=== PATIENT | female | born 1960 | race Caucasian/White ===

== ENCOUNTER 2016-06-23 08:38 | Day surgery (SDC) | payer OTHER ==
[2016-06-18 11:26] VITALS: BMI 23.3
[~2016-06-23 08:38] MED LIST: LACTATED RINGERS 1,000 ML IV SCH
[2016-06-23 09:20] VITALS: RESP 18; TEMP 97.7
[2016-06-23] MEDS ORDERED: LIDOCAINE 1% 20 ML VIAL (10MG/ML) FOR IV START INTRADERMA ONE (09:21)
[2016-06-23] MEDS ORDERED: MIDAZOLAM 2 MG/2 ML VIAL ONE (10:10)
[2016-06-23] MEDS ORDERED: BUPIVACAINE (PF) 0.5% 30 ML VIAL ONE (10:10)
[2016-06-23] MEDS ORDERED: ONDANSETRON 4 MG/2 ML VIAL ONE (10:10)
[2016-06-23] MEDS ORDERED: TRIAMCINOLONE ACETONIDE 40 MG/ML 1 ML VIAL ONE (10:10)
[2016-06-23] MEDS ORDERED: fentaNYL (PF) 50 MCG/ML 2 ML AMP ONE (10:10)
[2016-06-23] MEDS ORDERED: IOHEXOL 180 MG/ML 1 ML ML ONE (10:10)
[2016-06-23] MEDS ORDERED: IV FLUID CONTINUATION 1,000 ML IV ONE (10:39)
[2016-06-23 10:44] VITALS: PULSE 82
--- NOTE | 2016-06-23 10:45 | FL ---
Fluoroscopy HISTORY: Pain 6 seconds fluoroscopy time supplied to the referring clinician. 4 intraoperative C-arm images docume nt the procedure. See dictated report from anesthesia.
--- NOTE | 2016-06-23 10:51 | P.PCN ---
Date of Procedure: 06/23/16 Pathology: none sent Condition: stable Disposition: PACU Description of Procedure: PREOPERATIVE DIAGNOSIS: 1-Bilateral sacroiliitis. 2 Lumbar DDD POSTOPERATIVE DIAGNOSIS:. 1-Bilateral sacroiliitis. 2 Lumbar DDD PROCEDURES: Bilateral Sacroiliac joint steroid injection with fluoroscopic guidance ANESTHESIA: local and conscious sedation EBL: Minimal. PROCEDURE INDICATIONS: This patient with a history of low back pain secondary to sacroiliitis and lumbar DDD unresponsive to conservative management. Patient has had good relief with SIJ injections in the past and does not use any blood thinners. PROCEDURE DESCRIPTION: The patient was seen and identified in the preoperative area. Risks, benefits, complications, and alternatives were discussed with the patient (including but not limited to incomplete pain relief, bleeding, infection, nerve damage, and allergies to medications), the patient agreed to proceed with the procedure and signed the consent after all questions were answered. Patient was taken to the OR and time out was completed to verify proper patient , position, laterality of pain, and allergies. Pt was placed in the prone position and a pillow was placed under the abdomen to reduce lumbar lordosis. The lumbosacral area was prepped and draped in the usual sterile fashion. Critical pause was taken. Vital signs were closely monitored during the procedure. The fluoroscopic camera was placed in contralateral oblique view and right sacroiliiac joint lower pole was identified. After local infiltration with 1% lidocaine 2 ml, Subsequently, a 22-gauge 3.5 inch spinal needle was introduced into the posteroinferior aspect of the right sacroiliac joint under direct fluoroscopic visualization. Subsequently, 3 ml of a solution of a total of 6 ml solution containing total 4 mL of 0.5% preservative-free bupivicaine mixed with 80 mg of Kenalog was injected after negative aspiration for CSF, blood, and air and negative for paresthesia. The entire procedure was repeated on the left side as above. Needle was withdrawn intact. Skin was cleansed, and bandages were applied. COMPLICATIONS: None. COMMENTS: DISPOSITION / PLANS: The patient was placed in a supine position and transferred to the recovery area in a stable condition for observation and was discharged from the recovery room after meeting discharge criteria. Home discharge instructions given to the patient by the staff. The patient was reexamined prior to discharge. The patient will schedule a thoracic epidural steroid injection in 6-8 weeks.
[2016-06-23 11:00] VITALS: BP 120/70
== END 2016-06-23 11:23 | disposition home or self-care (01) ==
LOC: ORPAIN 08:38
PROVIDERS: ATTEND Anesthesiology
DX: G89.29 Other chronic pain (principal); M46.1 Sacroiliitis, not elsewhere classified; M51.36 Other intervertebral disc degeneration, lumbar region; I10 Essential (primary) hypertension; F32.9 Major depressive disorder, single episode, unspecified; M06.9 Rheumatoid arthritis, unspecified; M79.7 Fibromyalgia; Z88.5 Allergy status to narcotic agent; Z91.040 Latex allergy status; Z91.09 Other allergy status, other than to drugs and biological substances
CPT/HCPCS: 27096; J2250; J3301; Q9965; J2405; J3010

== ENCOUNTER → 2016-07-20 | Outpatient (CLI) | payer OTHER ==
--- NOTE | 2016-07-21 07:30 | US ---
EXAMINATION TYPE: US pelvis complete transvag DATE OF EXAM: 07/20/2016 3:06 PM COMPARISON: NONE CLINICAL HISTORY: N95.0 POST MENOPAUSAL BLEEDING. Brown discharge for 1 week TECHNIQUE: TA and TV Date of LMP: 2 years ago EXAM MEASUREMENTS: Uterus: 6.0 x 3.8 x 2.6 cm Endometrial Stripe: 0.1 cm Right Ovary: 2.3 x 2.0 x 2.1 cm Left Ovary: 1.7 x 1.5 x 1.4 cm Findings: 1. Uterus: Anteverted vascular myometrium with 0.7cm hypoechoic lesion with cervix 2. Endometrium: wnl 3. Right Ovary: wnl 4. Left Ovary: wnl 5. Bilateral Adnexa: wnl 6. Posterior cul-de-sac: wnl IMPRESSION: 1. There is a 7 mm hypoechoic lesion in the endocervical region. Correlate clinically. Although thi s may represent a fibroid cannot exclude other lesions in the endocervical canal.
== END | disposition home or self-care (01) ==
LOC: RADUSWWP 14:17
PROVIDERS: ATTEND Obstetrics & Gynecology
DX: N88.8 Other specified noninflammatory disorders of cervix uteri (principal)
CPT/HCPCS: 76830; 76856

== ENCOUNTER 2016-07-28 06:34 | Day surgery (SDC) | payer OTHER ==
[2016-07-27 08:45] VITALS: BMI 23.3
[2016-07-28] MEDS ORDERED: IOHEXOL 180 MG/ML 1 ML ML ONE (07:20)
[2016-07-28] MEDS ORDERED: fentaNYL (PF) 50 MCG/ML 2 ML AMP ONE (07:20)
[2016-07-28] MEDS ORDERED: MIDAZOLAM 2 MG/2 ML VIAL ONE (07:20)
[2016-07-28] MEDS ORDERED: TRIAMCINOLONE ACETONIDE 40 MG/ML 1 ML VIAL ONE (07:20)
[2016-07-28 07:44] VITALS: RESP 18
--- NOTE | 2016-07-28 08:01 | P.PCN ---
Date of Procedure: 07/28/16 Procedure(s) Performed: PREOPERATIVE DIAGNOSIS: 1-thoracic degenerative disc disease 2- Lumbar Degenerative Disc Diseases 3-Lumbar spondylosis with Facet arthropathy without myelopathy. 4-sacroiliitis POSTOPERATIVE DIAGNOSIS: Same as preoperative diagnosis PROCEDURE 1. Thoracic epidural steroid injection under fluoroscopic guidance at the T11- T12 level. 2. Thoracic epidurogram. ANESTHESIA: Local with 1% lidocaine 3 ml and IV sedation with Versed 2 mg , and fentanyle 100 Mcg EBL: Minimal PROCEDURE INDICATION: The patient with mid and low back pain and radiculitis symptoms unresponsive to conservative treatment. Fluoroscopy was used to optimize visualization of the needle placement and to maximize safety. PROCEDURE DESCRIPTION / TECHNIQUE: The patient was seen and identified in the preoperative area. Risks, benefits , complications including but not limited to infections ,bleeding ,allergic reaction to the medications ,nerve damage and not complete pain releife , and alternatives were discussed with the patient. The patient agreed to proceed with the procedure and signed the consent. IV was started, and vital signs were stable. Patient was taken to the OR and time out was completed. The patient was placed in the prone position on procedure table and a pillow was placed under the abdomen to reduce lumbar lordosis. The lumbosacral area was prepped and draped in the usual sterile fashion.ere closely monitored during the procedure. Conscious sedation was used during the procedure to decrease patients anxiety. Vital signs was monitered during the entire procedure. Using anterior-posterior fluoroscopy, the T11-T12 interlaminar space was identified and the skin over this site was marked and then infiltrated with 1% lidocaine subcutaneously. Subsequently, a 20-gauge Tuohy epidural needle was inserted and advanced toward the epidural space using the ``Loss of resistance technique and guided by AP and lateral fluoroscopy. The correct needle position in the epidural space was verified with the injection of 2 mL of the water soluble contrast dye Omnipaque 180 contrast and observing an excellent epidurogram with the epidural spread of the dye, after negative aspiration for blood and CSF and in the absence of paresthesias. Again after negative aspiration, a 6 ml mixture containing 80 mg of Kenalog and 2 ml of preservative free Normal Saline, and 2 ml of preservative free lidocaine 1% solution was injected and a washout of epidurogram was seen. Needle was withdrawn intact, skin was cleansed, and bandages were applied. COMPLICATIONS: None DISPOSITION / PLANS: The patient was placed in a supine position and transferred to the recovery area in a stable condition for observation. There was no evidence of lower extremity motor or sensory deficit after the procedure. Patient was discharged from the recovery room after meeting discharge criteria. Home discharge instructions were given to the patient by the staff. The patient was reexamined prior to discharge. The patient will schedule a follow up in the clinic in 2-4 weeks. NOTE= patient complaining also from severely low back pain and examination was positive for severe tenderness over the sacroiliac joint bilaterally and patient had positive facet loading test, in the past we have done bilateral sacroiliac joint steroid injection ,and patient gets excellent pain relief , after the sacroiliac joint injection, and I discussed with the patient the option of doing radiofrequency ablation of the dosal ramus of L5-S1, and the radiofrequency ablation of the lateral branches of S1/S2/S3,( RFA of the sacroiliac joint ) we will start with the right side the later on we do the left side,
[2016-07-28 08:14] VITALS: BP 106/69; PULSE 75
[2016-07-28] MEDS ORDERED: IV FLUID CONTINUATION 1,000 ML IV ONE (08:15)
--- NOTE | 2016-07-28 08:30 | FL ---
EXAMINATION TYPE: FL guided pain mgmt statistic DATE OF EXAM: 07/28/2016 8:10 AM HISTORY: Flouroscopy time 2 seconds of fluoroscopy provided. IMPRESSION: 1. Fluoroscopy time.
== END 2016-07-28 08:31 | disposition home or self-care (01) ==
LOC: ORPAIN 06:34
PROVIDERS: ATTEND Specialist
DX: M51.14 Intervertebral disc disorders with radiculopathy, thoracic region (principal); M51.16 Intervertebral disc disorders with radiculopathy, lumbar region; M47.26 Other spondylosis with radiculopathy, lumbar region; M46.96 Unspecified inflammatory spondylopathy, lumbar region; M46.1 Sacroiliitis, not elsewhere classified; I20.9 Angina pectoris, unspecified; Z88.5 Allergy status to narcotic agent; Z91.040 Latex allergy status; Z91.09 Other allergy status, other than to drugs and biological substances
CPT/HCPCS: 62321; 99152; J2250; J3301; Q9965; J3010

== ENCOUNTER → 2016-08-05 | Outpatient (CLI) | payer OTHER ==
--- NOTE | 2016-08-05 10:14 | CT ---
EXAMINATION TYPE: CT lumbar spine wo con DATE OF EXAM: 08/05/2016 9:22 AM COMPARISON: 11/06/2010 HISTORY: low back pain with no known injury, hx of DDD CT DLP: 922 mGycm CONTRAST: Unenhanced CT of the lumbar spine was performed. Bone and soft tissue window settings are submitted. Unenhanced CT of the lumbar spine was performed. Bone and soft tissue window settings are submitted as well as coronal and sagittal reconstructions. L1-L2: There is mild degenerative disc space narrowing. Mild posterior disc bulge. Mild effacement ve ntral thecal sac. No evidence for central stenosis or ben herniation. Foramina are patent bilateral ly. There is mild ventral spondylosis. L2-L3: There is mild degenerative disc space narrowing. Mild posterior disc bulge. Mild effacement ve ntral thecal sac. No evidence for central stenosis or ben herniation. Foramina are patent bilateral ly. There is mild ventral spondylosis. L3-L4: Moderate to severe degenerative disc space narrowing. Mild circumferential disc bulge with mil d effacement of the ventral thecal sac. No evidence for ben disc herniation. Facet joint arthropath y with mild bilateral foraminal encroachment. L4-L5: There is mild degenerative disc space narrowing. Mild posterior disc bulge. Mild effacement ve ntral thecal sac. No evidence for central stenosis or ben herniation. Foramina are patent bilateral ly. There is mild ventral spondylosis. L5-S1: Severe disc desiccation with vacuum disc. Posterocentral disc endplate complex effaces the cole tral thecal sac. There may be left lateral recess stenosis. No evidence for central stenosis. Facet joint arthropathy. Left foraminal encroachment noted. No paraspinal masses are identified. Lumbar segments are free if fracture. IMPRESSION: 1. Degenerative disc disease with disc bulging greatest at L5-S1 as discussed.
== END | disposition home or self-care (01) ==
LOC: RADCTMAIN 09:01
PROVIDERS: ATTEND Internal Medicine
DX: M51.27 Other intervertebral disc displacement, lumbosacral region (principal)
CPT/HCPCS: 72131

== ENCOUNTER 2016-09-02 08:46 | Day surgery (SDC) | payer OTHER ==
[2016-09-02] MEDS ORDERED: LIDOCAINE 1% 20 ML VIAL (10MG/ML) FOR IV START INTRADERMA ONE (09:23)
[2016-09-02] MEDS: LACTATED RINGERS 1,000 ML IV SCH ×2 (09:24→09:49)
[2016-09-02] MEDS ORDERED: TRIAMCINOLONE ACETONIDE 40 MG/ML 1 ML VIAL ONE (10:54)
[2016-09-02] MEDS ORDERED: fentaNYL (PF) 50 MCG/ML 2 ML AMP ONE (10:54)
[2016-09-02] MEDS ORDERED: BUPIVACAINE (PF) 0.5% 30 ML VIAL ONE (10:54)
[2016-09-02] MEDS ORDERED: MIDAZOLAM 2 MG/2 ML VIAL ONE (10:54)
[2016-09-02] MEDS ORDERED: IV FLUID CONTINUATION 500 ML IV ONE (11:56)
[2016-09-02 12:04] VITALS: RESP 18
--- NOTE | 2016-09-02 12:09 | FL ---
EXAMINATION TYPE: FL guided pain mgmt statistic DATE OF EXAM: 09/02/2016 11:58 AM HISTORY: Flouroscopy time 13 seconds of fluoroscopy provided. IMPRESSION: 1. Fluoroscopy time.
[2016-09-02 12:23] VITALS: BP 123/76; PULSE 88; TEMP 97.6
--- NOTE | 2016-09-02 15:29 | P.PCN ---
Date of Procedure: 09/02/16 Procedure(s) Performed: PREOPERATIVE DIAGNOSIS: 1-Lumbosacral spondylosis with facet arthropathy without myelopathy. 2- Bilateral sacroiliit. post operative Diagnosis: . 1-Lumbosacral spondylosis with facet arthropathy without myelopathy. 2- Bilaterl sacroiliit. PROCEDURES: 1- Right radiofrequency thermocoagulation/ablation of the L5 dorsal ramus. 2- Right multi-site radiofrequency thermocoagulation/ablation of the S1, S2, and S3 lateral branchs. The procedure was performed using fluoroscopic guidance during needle placement to assure proper position and maximize safety . ANESTHESIA: LOCAL ANESTHESIA and IV sedation with versed 2 mg and Fentanyle 100 mcg EBL: NONE INDICATION/MEDICAL NECESSITY: History of low back pain secondary to bilateral sacroiliitis and lumbosacral arthropathy unresponsive to more conservative treatments. The patient reported more than 50% relief of pain symptoms following 2 previous diagnostic blocks with Bupivacaine. PROCEDURE DESCRIPTION: The patient was seen and identified in the preoperative area. Risks, benefits, complications, and alternatives were discussed with the patient. The patient agreed to proceed with the procedure and signed the consent. Vital signs were checked before and after the procedure and they remained stable. Patient ambulated to the procedure room and time out was completed. The patient was placed in the prone position on the procedure table and a pillow was placed under the abdomen to reduce lumbar lordosis. The lumbosacral area was prepped and draped in the usual sterile fashion. Critical pause was taken. L5 Dorsal Ramus RF: Using right oblique fluoroscopy, the junction of the transverse process and the superior articular process of the right S1 vertebra, which correspond to the fluoroscopic image of the "eye of the Jose Alberto dog" was identified. Subsequently, a 10-cm 20 -gauge radiofrequency cannula with a 10-mm active tip was advanced under fluoroscopic guidance until contact was made with periosteum. At this level, the Sensory testing of the L5 dorsal ramus was performed at 50 Hz and 0 to 1 volt with production of concordant pain starting at 0.5 volt. Motor stimulation was done at 2.5 Hz with stimulation of mulitifidus muscle contration . No radicular symptoms or paresthesias were produced during the testing. Subsequently, the L5 dorsal ramus was subjected to a radiofrequency ablation at 80 degree celsius for 90 seconds . after 0.5% Bupivacaine 1 ml injected at each level after negative aspirations . The needle was withdrawn intact . S1, S3, and S3 Lateral Branch RF: The lateral margins of the Right S1, S2, and S3 foramina were identified using AP fluoroscopy. Under fluoroscopic guidance, three 10-cm 20 -gauge radiofrequency cannula with a 10-mm active tip were inserted at 8-10 mm peripheral to the posterior S1 foramen, at various locations using clock-face coordinates. The center of the clock was registered at the lateral margin of the foramen. The 2:30, 4:00, and 5:30 oclock positions were used. At this level , the sensory testing of the S1 lateral branch was performed at 50 Hz and 0 to 1 volt at the three levels with production of concordant pain starting at 0.5 volt. Motor stimulation was done at 2.5 Hz. No radicular symptoms or paresthesias were produced during the testing. Subsequently, the S1 lateral branch was subjected to a radiofrequency ablation at a mode of 90 seconds at 80 degrees Celsius at the 3 levels after negative motor and sensory testing and after injecting 0.5 ml of preservative free Bupivacaine 0.5 %. The same procedure was performed at the level of the S2 foramen. For the S3 foramen, only the 2:30 and 4:00 oclock positions were used. Sensory and motor testing followed by radiofrequency ablation were performed as described for the S1 and S2 foramina. The needle was withdrawn intact after each injection. COMPLICATIONS: The patient tolerated the procedure well without any acute complications. DISPOSTION/PLAN: The patient ambulated to the recovery area after the procedure in a stable condition for observation. Patient was reexamined prior to discharge. Patient was observed for 30 minutes in the recovery area and was discharged home, accompanied by an adult, after meeting discharged criteria. Discharge instructions were give to the patient by the staff. Patient was specifically instructed not to drive today and to rest for the rest of the day. The patient will schedule a follow up visit in the clinic in weeks or earlier if needed.
== END 2016-09-02 12:26 | disposition home or self-care (01) ==
LOC: ORPAIN 08:46
PROVIDERS: ATTEND Specialist
DX: M47.817 Spondylosis without myelopathy or radiculopathy, lumbosacral region (principal); M46.97 Unspecified inflammatory spondylopathy, lumbosacral region; M46.1 Sacroiliitis, not elsewhere classified; Z88.5 Allergy status to narcotic agent; Z91.040 Latex allergy status; Z91.09 Other allergy status, other than to drugs and biological substances
CPT/HCPCS: 99152; 99153 ×2; 64640 ×3; 64635; J2250; J3301; J3010; 64636

== ENCOUNTER → 2018-03-23 | Day surgery (SDC) | payer OTHER ==
[~2018-03-23] MED LIST changes: +DIAZEPAM 5 MG TAB PO STA; +IBUPROFEN 800 MG TAB PO PRN; -LACTATED RINGERS 1,000 ML IV SCH; +PREMYELOGRAM MEDICATION REVIEW 1 EACH MISC PO NR
[2018-03-23 08:26] VITALS: RESP 16
--- NOTE | 2018-03-23 11:03 | CT ---
EXAMINATION TYPE: CT lumbar spine w con DATE OF EXAM: 03/23/2018 COMPARISON: 08/05/2016 HISTORY: Back pain CT DLP: 403.3 mGycm Automated exposure control for dose reduction was used. CONTRAST: CT scan of the lumbar is performed with intrathecal contrast , patient injected with 9 cc of Isovue [address] of the lumbar spine was performed. Bone and soft tissue window settings are submitted as wel l as coronal and sagittal reconstructions. FINDINGS: There is a mild levoscoliotic curvature of the lumbar spine. Lumbar vertebral bodies mainta in normal vertebral body heights and alignment. Conus medullaris terminates at L1. L1-L2: There is a broad-based disc bulge with punctate calcifications of the annulus fibrosis resulti ng in mild bilateral neural foraminal narrowing without spinal canal stenosis. L2-L3: There is a small broad-based disc bulge resulting in mild bilateral neural foraminal narrowing without spinal canal stenosis. L3-L4: There is a moderate broad-based disc bulge and mild facet arthropathy resulting in mild left n eural foraminal narrowing and moderate right neural foraminal narrowing as the disc bulges right ecce ntric. There is mild spinal canal stenosis at this level. L4-L5: There is a broad-based disc bulge, facet arthropathy and ligamentum flavum buckling resulting in mild left neural foraminal narrowing and mild to moderate right neural foraminal narrowing with mi ld spinal canal stenosis. L5-S1: There is a small central disc protrusion/herniation with posterior projecting osteophyte of th e inferior endplate of L5 into the neural foramen creating severe left neural foraminal narrowing. Ri ght neural foramen and spinal canal are patent. Of note at T11-T12 there is a broad-based disc bulge and focal kyphosis resulting in mild spinal joao l stenosis. Broad-based disc bulge without spinal canal stenosis is also seen at T12-L1 with degenera tive endplate changes at T12-L1. Endplate changes are also seen at L4-L5. Small anterior osteophytes are seen throughout the thoracolumbar spine. Spinal nerve root stimulator is partially visualized in the subcutaneous tissues. Postsurgical change s at the gastroesophageal junction are seen with surgical absence of the gallbladder also present. Sc attered calcifications within the mesentery may relate to prior surgical change, phleboliths, or less likely calcified lymph nodes. IMPRESSION: 1. Small central disc herniation/protrusion at L5-S1 without spinal canal stenosis. However at this l evel a posterior projecting osteophyte from the inferior endplate of L5 creates severe left neural fo raminal narrowing. 2. Multilevel degenerative disc disease resulting in mild spinal canal stenosis at T11-T12, L3-L4 and L4-L5.
[2018-03-23 11:15] VITALS: TEMP 98
--- NOTE | 2018-03-23 11:45 | FL ---
EXAMINATION TYPE: FL myelogram 2 or more regions DATE OF EXAM: 03/23/2018 COMPARISON: NONE HISTORY: Back pain TECHNIQUE: Preprocedural timeout was performed. Informed consent was obtained and all the patient's q uestions were answered. The L4-L5 level was localized under fluoroscopy. Standard sterile technique was utilized as well as appropriate local anesthesia 1% Lidocaine (8 cc in total). Spinal needle was introduced into the thecal sac under fluoroscopic guidance and 9 mL's of Isovue 300 M was injected. The patient tolerated the procedure well and left the department in stable condition. CT myelograph y is to follow. IMPRESSION: Successful myelography lumbar spine for CT myelogram of the lumbar and cervical spine to follow.
--- NOTE | 2018-03-23 11:54 | CT ---
EXAMINATION TYPE: CT cervical spine w con DATE OF EXAM: 03/23/2018 COMPARISON: None HISTORY: Post myelogram CT DLP: 307 mGycm Automated exposure control for dose reduction was used. CONTRAST: Performed with intrathecal contrast, patient injected with 9 cc mL of Isovue 300M. FINDINGS: There is been cervical fusion of C5-C6 with osseous bridging and osseous fusion of the vertebral bodi es. Small posterior disc osteophyte complexes are seen C4-C5 and C6-C7. There is very mild grade 1 an terolisthesis of C4 on C5 of 1 mm with disc uncovering. Nuclear stimulator is noted within the subcut aneous tissues. No prevertebral soft tissue swelling. At C2-C3 there is no focal disc disease, spinal canal stenosis nor neural foraminal narrowing. At C3-C4 there is minimal uncovertebral hypertrophy without spinal canal stenosis nor neural foramina l narrowing. At C4-C5 there is anterolisthesis, disc uncovering, a broad-based disc bulge with posterior disc oste ophyte complex, and right-sided uncovertebral hypertrophy resulting in mild to moderate right neural foraminal narrowing and slight narrowing of the ventral subarachnoid space without significant spinal canal stenosis. No left neural foraminal narrowing. At C5-C6 there are postsurgical changes without spinal canal stenosis nor neural foraminal narrowing. At C6-C7 there is uncovertebral hypertrophy and a disc osteophyte complex creating moderate bilateral neural foraminal narrowing and mild spinal canal stenosis. At C7-T1 there is no significant disc disease, spinal canal stenosis or neural foraminal narrowing. Lung apices are well aerated with minimal biapical linear pleural parenchymal scarring. IMPRESSION: 1. VERY MINIMAL GRADE 1 ANTEROLISTHESIS OF C4 ON C5 WITH DISC UNCOVERING AND UNCOVERTEBRAL HYPERTROPH Y RESULTING IN MODERATE RIGHT NEURAL FORAMINAL NARROWING. 2. BILATERAL UNCOVERTEBRAL HYPERTROPHY AND DISC OSTEOPHYTE COMPLEX AT C6-C7 CREATING MILD SPINAL JODI L STENOSIS. 3. SURGICAL FUSION OF THE C4 AND C5 VERTEBRAL BODIES. DEGENERATIVE DISC DISEASE DESCRIBED ABOVE.
[2018-03-23 13:12] VITALS: PULSE 68
[2018-03-23 15:58] VITALS: BP 118/68
== END | disposition home or self-care (01) ==
LOC: RADPROMAIN 08:04
PROVIDERS: ATTEND Physical Medicine & Rehabilitation
DX: M51.17 Intervertebral disc disorders with radiculopathy, lumbosacral region (principal); M48.061 Spinal stenosis, lumbar region without neurogenic claudication; M48.02 Spinal stenosis, cervical region; M25.78 Osteophyte, vertebrae; M51.16 Intervertebral disc disorders with radiculopathy, lumbar region; M41.86 Other forms of scoliosis, lumbar region; M47.27 Other spondylosis with radiculopathy, lumbosacral region; G89.4 Chronic pain syndrome; M70.61 Trochanteric bursitis, right hip; M70.62 Trochanteric bursitis, left hip; M06.9 Rheumatoid arthritis, unspecified; G43.709 Chronic migraine without aura, not intractable, without status migrainosus; F17.210 Nicotine dependence, cigarettes, uncomplicated; M47.22 Other spondylosis with radiculopathy, cervical region; I42.9 Cardiomyopathy, unspecified; I51.9 Heart disease, unspecified; M46.1 Sacroiliitis, not elsewhere classified; K21.9 Gastro-esophageal reflux disease without esophagitis; Z98.1 Arthrodesis status; M19.90 Unspecified osteoarthritis, unspecified site; Z88.5 Allergy status to narcotic agent; Z91.040 Latex allergy status; Z79.899 Other long term (current) drug therapy; Z79.1 Long term (current) use of non-steroidal anti-inflammatories (NSAID); Z79.891 Long term (current) use of opiate analgesic
CPT/HCPCS: 62305; 72126; 72132; Q9967

== ENCOUNTER → 2019-01-02 | Outpatient (CLI) | payer OTHER ==
[2019-01-02 12:09] LABS: ALT 24 U/L (9-52); AST 22 U/L (14-36); African American GFR (CKD) >90 (>60 ml/min/1.73 sqM); Albumin 4.3 g/dL (3.5-5.0); Alkaline Phosphatase 60 U/L (38-126); Anion Gap 7 mmol/L; Blood Urea Nitrogen 14 mg/dL (7-17); Calcium 9.5 mg/dL (8.4-10.2); Carbon Dioxide 33 mmol/L (22-30); Chloride 101 mmol/L (98-107); Glucose 89 mg/dL (74-99); Potassium 4.3 mmol/L (3.5-5.1); Sodium 141 mmol/L (137-145); Total Bilirubin 0.3 mg/dL (0.2-1.3); Total Protein 7.1 g/dL (6.3-8.2)
[2019-01-02 18:48] LABS: Vitamin D 25 Hydroxy 23.3 ng/mL (30.0-100.0)
== END | disposition home or self-care (01) ==
LOC: PROCWHC3 11:01
PROVIDERS: ATTEND Internal Medicine Endocrinology, Diabetes & Metabolism
DX: M81.0 Age-related osteoporosis without current pathological fracture (principal)
CPT/HCPCS: 80053; 82306; 82523; 83970; 84443; 84681

== ENCOUNTER → 2019-01-02 | Outpatient (CLI) | payer OTHER ==
--- NOTE | 2019-01-02 12:44 | CT ---
EXAMINATION TYPE: CT ankle LT wo con DATE OF EXAM: 01/02/2019 COMPARISON: None. HISTORY: Left ankle pain. Osteoarthritis, Achilles tendinitis, osteoporosis, and rheumatoid arthritis . Reported. CT DLP: 268 mGycm Automated exposure control for dose reduction was used. FINDINGS: Distal tibia and fibula are intact. Ankle mortise symmetry is maintained. Distal Achilles tendon at both within normal limits. No significant calcaneal spurring. Hindfoot articulations are maintained. Normal sinus tarsi fat is seen. No osseous coalition noted. Un fused apophysis or accessory ossicle at the base of the lateral cuneiform sagittal image 12. No suspicious soft tissue swelling. Tibiotalar joint is maintained. IMPRESSION: Fairly unremarkable study.
== END | disposition home or self-care (01) ==
LOC: RADCTMAIN 12:21
PROVIDERS: ATTEND Orthopaedic Surgery
DX: M19.072 Primary osteoarthritis, left ankle and foot (principal); M19.071 Primary osteoarthritis, right ankle and foot; F17.210 Nicotine dependence, cigarettes, uncomplicated; M81.0 Age-related osteoporosis without current pathological fracture; I51.9 Heart disease, unspecified; M06.9 Rheumatoid arthritis, unspecified

== ENCOUNTER 2019-02-05 12:30 | Day surgery (SDC) | payer OTHER ==
[2019-02-01 08:41] VITALS: BMI 23.3
[~2019-02-05 12:30] MED LIST changes: -DIAZEPAM 5 MG TAB PO STA; -IBUPROFEN 800 MG TAB PO PRN; +LACTATED RINGERS 1,000 ML IV SCH; +LIDOCAINE 1% 20 ML VIAL (10MG/ML) FOR IV START INTRADERMA PRN; +ONDANSETRON 4 MG/2 ML VIAL IVP ONE; -PREMYELOGRAM MEDICATION REVIEW 1 EACH MISC PO NR; +fentaNYL (PF) 50 MCG/ML 2 ML AMP IV PRN
[2019-02-05] MEDS ORDERED: MIDAZOLAM (PF) 2 MG/2 ML VIAL IV ONE (13:33)
[2019-02-05] MEDS ORDERED: DEXAMETHASONE SOD PHOSPHATE 4 MG/ML 1 ML VIAL IV ONE (13:45)
[2019-02-05] MEDS ORDERED: diphenhydrAMINE 50 MG/ML 1 ML VIAL IVP ONE (13:45)
[2019-02-05] MEDS ORDERED: DEXAMETHASONE SOD PHOSPHATE 4 MG/ML 1 ML VIAL ONE (14:31)
[2019-02-05] MEDS ORDERED: fentaNYL (PF) 50 MCG/ML 2 ML AMP ONE (14:31)
[2019-02-05] MEDS ORDERED: PROPOFOL 10 MG/ML 20 ML VIAL IV ONE (14:31)
[2019-02-05] MEDS ORDERED: LIDOCAINE 1% INJ 10MG/ML (20 ML MDV) ONE (14:31)
[2019-02-05] MEDS ORDERED: KETOROLAC 30 MG/ML 1 ML VIAL ONE (14:31)
[2019-02-05] MEDS ORDERED: ROPIVACAINE 5 MG/ML 30 ML VIAL ONE (14:31)
[2019-02-05] MEDS ORDERED: MIDAZOLAM 2 MG/2 ML VIAL ONE (14:31)
[2019-02-05] MEDS ORDERED: methylPREDNISolone ACETATE 80 MG/ML 1 ML VIAL INJ ONE ×2 (15:17→15:41)
[2019-02-05] MEDS ORDERED: LACTATED RINGERS 1,000 ML IV ONE (15:59)
--- NOTE | 2019-02-05 16:24 | P.OP ---
Date of Procedure: 02/05/19 Preoperative Diagnosis: 1. Left anterior ankle pain with transient response following a diagnostic corticosteroid injection 2. Left insertional Achilles tendinitis and small Celia's 3. Left midfoot arthritis 4. History of malignant hyperthermia 5. Rheumatoid arthritis 6. History of chronic pain Postoperative Diagnosis: Same Procedure(s) Performed: 1. Left diagnostic ankle arthroscopy with extensive debridement 2. Left Celia's excision 3. Left image guided injection of the second tarsometatarsal joint 4. Fluoroscopic localization of the left second tarsometatarsal joint for injection 5. Manual application of joint stress by physician, left ankle 6. Application of short leg splint by physician, left ankle Anesthesia: JANEL, regional Surgeon: Onofre Chapin Cotton Picker #1: Vahid Howard Estimated Blood Loss (ml): 5 IV fluids (ml): 1,200 Pathology: none sent Condition: stable Disposition: PACU Indications for Procedure: The patient is a very pleasant 58-year-old female with multiple medical problems including chronic pain and rheumatoid arthritis who had been seeing for the last 2 years with left ankle and foot pain. She has had diffuse anterior ankle pain. Her x-rays of been largely normal. She transiently responded to an intra- articular corticosteroid injection into the ankle. Subsequent injections provided diminishing relief. Due to having an implanted pain stimulator she was unable to get an MRI to further assess her ankle pain. She had a computed tomography scan which showed no major degenerative changes. She also had a small Celia's deformity. The patient continued to have pain in her ankle and requested surgery. Her x-rays were largely normal and most the pain was diffusely over the anterior aspect of the ankle. Since she had transient response to corticosteroid injection placed in the left ankle we discussed was reasonable to perform a diagnostic arthroscopy of the ankle and address any pathology we may see. The patient has realistic expectations regarding this including continued or worsened pain. She understands the diagnostic aspect of this. She also has a small bump over her posterolateral heel consistent with a small Celia's deformity. She requested removing this the same setting. She also had midfoot arthritis and requested an injection the second tarsometatarsal joint while she was under anesthesia. We discussed all the potential risks and complications including but not limited to risk of anesthesia, superficial or deep infection, damage to local blood vessels or nerves, iatrogenic joint damage, rupture of the Achilles tendon, continued or worsened pain, DVT, PE, other medical complications, generalized to satisfaction of surgery, and possibly loss of life limb. She voiced her understanding of this particularly the arthroscopic portion of the procedure. Description of Procedure: The patient was identified in holding and the correct left leg was marked with my initials. I reviewed the consent form with the patient and her friend. All their questions were answered. The patient was then brought to the operating room by anesthesia. She was positioned on the OR table where general anesthetic and preoperative antibiotics were given. A tourniquet was applied the proximal aspect of the left leg. Left leg was secured in a well-padded leg reilly to facilitate arthroscopy of the ankle. The right leg was secured to the table with foam and tape. The left leg was then prepped and draped in the standard sterile fashion. Prior to starting surgery timeout was performed identifying the correct patient, operative extremity, and procedure. The patient's leg was then elevated, exsanguinated with an Esmarch bandage, and the tourniquet was inflated to 250 mmHg. I began by performing a diagnostic arthroscopy of the left ankle. Standard anteromedial and anterolateral portals were marked out. 10 mL's of sterile saline was injected using a spinal needle into the anteromedial portal. A stab incision was made to the skin only. A mosquito hemostat was used to bluntly dissect down to the level of the ankle joint. A blunt probe and obturator were inserted into the anteromedial portal followed by 2.7 mm scope. Under direct image visualization a spinal needle was placed to the anterolateral portal verifying correct position of the portal. Stab incision made through the skin and a hemostat was then used to dissect down to the level of the joint. A blunt probe was placed in the anterolateral portal and a diagnostic arthroscopy commenced. The visualized portion of the talar dome and tibial plafond and appeared normal without any full-thickness cartilage loss or osteochondral lesions. Both the medial and lateral gutter of the ankle appeared intact with no impinging osteophytes, loose bodies, or evidence of arthritis. There was moderate synovitis in the anterior recess of the ankle which was taken down with an arthroscopic shaver. Following an extensive debridement of the anterior recess there did not appear to be any impinging lesions. The ankle was brought through range of motion and found to be stable with no evidence of impingement. The arthroscopic instruments were removed and the portals were closed. At this point attention was turned to the posterior aspect of the heel. The well leg reilly was removed, the table was tilted to the right side, the leg was flexed at the hip and a bump was placed under the foot to allow access to the posterolateral border of the heel. A 3 cm incision was marked out just lateral to the Achilles tendon insertion. Skin incision was made with a scalpel and dissection was carried down carefully through the subcu tissues tissue. The most lateral fibers of the Achilles tendon were sharply elevated off of the heel. There is a large prominence which was taken down with a Bryce and rasp. The bone was contoured until there was no area of prominence. Greater then 75% of the fibers the Achilles tendon appeared intact. The wound was thoroughly irrigated. Bone wax was used over the Portion of the calcaneus. The lateral fibers the Achilles tendon were repaired with 2-0 Vicryl. The deep subcu was reapproximated using 3-0 Monocryl. The skin was closed using 3-0 nylon [place]gower modification of the Donati stitch. At this point attention was turned to the midfoot. The level of the second tarsometatarsal joint was marked out with C-arm fluoroscopy. A 22-gauge needle was inserted and the second tarsometatarsal joint a solution containing 1 mL of Depo-Medrol and 1 mL of lidocaine was injected freely without resistance. The needle was withdrawn and a Band-Aid was applied. Stress x-rays of left ankle were then performed including a varus stress x-ray and lateral anterior drawer test. There did not appear to be any gross instability of the ankle. Sterile dressings were applied followed by a well-padded bulky Suh splint with the ankle in neutral. The patient was then awoken from her anesthetic, transferred to a gurney, and brought to recovery entire procedure well. Vahid Howard PA-C was required as a skilled assistant dean due to the complexity of the surgery. Plan: The patient is going to be discharged home as an outpatient. She is to remain strictly nonweightbearing on her operative ankle. She'll follow-up in 2 weeks for splint removal and wound check.
[2019-02-05 16:57] VITALS: RESP 18
[2019-02-05 17:42] VITALS: BP 118/70; PULSE 70; TEMP 97.8
--- NOTE | 2019-02-06 10:54 | FL ---
EXAMINATION TYPE: FL guidance operating room DATE OF EXAM: 02/05/2019 HISTORY: Flouroscopy time 13 seconds of fluoroscopy provided. IMPRESSION: 1. Fluoroscopy time.
--- NOTE | 2019-02-06 11:42 | P.ANPRN ---
Procedure Note - Anesthesia - Nerve Block Performed Left Popliteal Single Time Out Performed: Yes Date of Procedure: 02/05/19 Procedure Start Time: 13:33 Procedure Stop Time: 13:39 Location of Patient Procedure: PreOp Indication: Acute Post-Operative Pain, Requested by Surgeon Sedation Type: Sedate with meaningful contact maintained Preparation: Sterile Prep Position: Right Lateral Needle Types: Pajunk Needle Gauge: 21 Ultrasound used to visualize needle placement: Yes Ultrasound used to observe medication spread: Yes Blood Aspirated: No Pain Paresthesia on Injection Noted: No Resistance on Injection: Normal Image Stored and Saved: Yes Events: Uneventful and Well Tolerated (ropi .5% 30cc plus dexamethasone 4 mg)
== END 2019-02-05 17:44 | disposition home or self-care (01) ==
LOC: OR 12:30
PROVIDERS: ATTEND Orthopaedic Surgery
DX: M76.62 Achilles tendinitis, left leg (principal); M19.072 Primary osteoarthritis, left ankle and foot; M06.9 Rheumatoid arthritis, unspecified; M72.2 Plantar fascial fibromatosis; G89.29 Other chronic pain; M54.81 Occipital neuralgia; I51.9 Heart disease, unspecified; M81.0 Age-related osteoporosis without current pathological fracture; I42.9 Cardiomyopathy, unspecified; K21.9 Gastro-esophageal reflux disease without esophagitis; Z87.11 Personal history of peptic ulcer disease; G43.909 Migraine, unspecified, not intractable, without status migrainosus; R63.4 Abnormal weight loss; Z68.23 Body mass index [BMI] 23.0-23.9, adult; Z98.1 Arthrodesis status; Z90.49 Acquired absence of other specified parts of digestive tract; Z96.89 Presence of other specified functional implants; Z83.3 Family history of diabetes mellitus; Z82.49 Family history of ischemic heart disease and other diseases of the circulatory system; F17.210 Nicotine dependence, cigarettes, uncomplicated; Z79.1 Long term (current) use of non-steroidal anti-inflammatories (NSAID); Z79.891 Long term (current) use of opiate analgesic; Z79.899 Other long term (current) drug therapy; Z91.040 Latex allergy status; Z88.5 Allergy status to narcotic agent; Z91.09 Other allergy status, other than to drugs and biological substances
CPT/HCPCS: 29898; 20605; 28118; 64445; 77002; 73620; J2250 ×2; J1200; J1040; J1100; J0690; J2405; J2001; J3010; J1885; J2795; J2704; 76942

== ENCOUNTER 2020-03-06 11:48 | Day surgery (SDC) | payer BC ==
[2020-03-04 16:10] VITALS: BMI 24.1
[2020-03-06] MEDS ORDERED: LACTATED RINGERS 1,000 ML IV SCH (11:58)
[2020-03-06 12:05] VITALS: RESP 16; TEMP 97.5
[2020-03-06] MEDS ORDERED: methylPREDNISolone ACETATE 40 MG/ML 1 ML VIAL ONE (12:32)
[2020-03-06] MEDS ORDERED: ROPIVACAINE 5MG/ML 20ML VIAL ONE (12:32)
--- NOTE | 2020-03-06 12:32 | P.PCN ---
Date of Procedure: 03/06/20 Description of Procedure: Procedure: BILATERAL L3-4, L4-5 Diagnosis: Lumbar spondylosis without myelopathy Anesthesia: Local Imaging: Fluoroscopy was used, images where saved to the medical record The patient was seen and examined in the [facility]. Procedure risks and benefits were fully reviewed with the patient. The patient understands this is a diagnostic if local only is used, as will be the case today. The goal of the procedure is to inject medication onto the medial branch or small nerves that innervate the facet joints. In this way, we can hopefully identify which of these joints, if any, may be contributing to their pain. Informed consent for procedure was obtained. The patient was taken into the office fluoroscopy procedure room and placed prone on the table. A pillow was placed under the abdomen to reduce lumbar lordosis. Vital signs were closely monitored during the procedure. The skin over the area was prepped with Betadine X 3 and draped in usual sterile manner. Sterile technique was observed throughout procedure. Under biplanar fluoroscopic guidance, the target injection area of the L3, L4, L5 were targeted. A 25 gauge 31/2 inch spinal needle was then placed at the most medial and superior aspect of the transverse process near the "eye of the Jose Alberto dog". Aspiration for blood was negative. 1 cc of 0.5% Ropivacaine was injected into the targeted areas separately. [place] were withdrawn intact. No complications were noted during the procedure. The patient tolerated the procedure well. The patient was placed in supine position and transferred to the recovery area for observation and remained stable until discharged home. Home discharge instructions were given to the patient by the staff. The patient will schedule a follow up as directed.
[2020-03-06 13:06] VITALS: BP 110/76; PULSE 90
--- NOTE | 2020-03-06 13:42 | FL ---
Fluoroscopy HISTORY: Pain 6 seconds fluoroscopy time supplied to the referring clinician. 6 intraoperative C-arm images docume nt the procedure. See dictated report from anesthesia.
== END 2020-03-06 13:13 | disposition home or self-care (01) ==
LOC: ORPAIN 11:48
PROVIDERS: ATTEND Hospitalist
DX: M47.816 Spondylosis without myelopathy or radiculopathy, lumbar region (principal); M51.34 Other intervertebral disc degeneration, thoracic region; M70.70 Other bursitis of hip, unspecified hip; M54.2 Cervicalgia; Z78.0 Asymptomatic menopausal state; Z88.5 Allergy status to narcotic agent; Z91.09 Other allergy status, other than to drugs and biological substances; Y93.9 Activity, unspecified
CPT/HCPCS: 64493; 64494; J1030; J2795

== ENCOUNTER 2020-03-21 08:36 | Day surgery (SDC) | payer BC ==
[2020-03-20 08:52] VITALS: BMI 24.1
[~2020-03-21 08:36] MED LIST changes: -LIDOCAINE 1% 20 ML VIAL (10MG/ML) FOR IV START INTRADERMA PRN; -ONDANSETRON 4 MG/2 ML VIAL IVP ONE; -fentaNYL (PF) 50 MCG/ML 2 ML AMP IV PRN
[2020-03-21 08:51] VITALS: TEMP 97.2
[2020-03-21] MEDS ORDERED: ROPIVACAINE 5MG/ML 20ML VIAL ONE (09:44)
--- NOTE | 2020-03-21 10:02 | P.PCN ---
Date of Procedure: 03/21/20 Surgeon: Rogelio Johnson Pathology: none sent Condition: stable Disposition: PACU Description of Procedure: rocedure: BILATERAL L3-4, L4-5 Diagnosis: Lumbar spondylosis without myelopathy Anesthesia: Local only Imaging: Fluoroscopy was used, images where saved to the medical record The patient was seen and examined in the [facility]. Procedure risks and benefits were fully reviewed with the patient. The patient understands this is a diagnostic if local only is used, as will be the case today. The goal of the procedure is to inject medication onto the medial branch or small nerves that innervate the facet joints. In this way, we can hopefully identify which of these joints, if any, may be contributing to their pain. Informed consent for procedure was obtained. The patient was taken into the office fluoroscopy procedure room and placed prone on the table. A pillow was placed under the abdomen to reduce lumbar lordosis. Vital signs were closely monitored during the procedure. The skin over the area was prepped with Betadine X 3 and draped in usual sterile manner. Sterile technique was observed throughout procedure. Under biplanar fluoroscopic guidance, the target injection area of the L3, L4, L5 were targeted. A 25 gauge 31/2 inch spinal needle was then placed at the most medial and super ior aspect of the transverse process near the "eye of the Jose Alberto dog". Aspiration for blood was negative. 1 cc of 0.5% Ropivacaine was injected into the targeted areas separately. [place] were withdrawn intact. No complications were noted during the procedure. The patient has a spinal cord stimulator and care was taken to avoid damaging the leads. No steroids were used for this procedure The patient tolerated the procedure well. The patient was placed in supine position and transferred to the recovery area for observation and remained stable until discharged home. Home discharge instructions were given to the patient by the staff. The patient will schedule a follow up as directed.
[2020-03-21 10:11] VITALS: RESP 18
[2020-03-21 10:25] VITALS: BP 110/68; PULSE 80
--- NOTE | 2020-03-21 10:30 | FL ---
EXAMINATION TYPE: FL guided pain mgmt statistic DATE OF EXAM: 03/21/2020 HISTORY: Fluoroscopy time 7 seconds of fluoroscopy provided. IMPRESSION: 1. Fluoroscopy time.
== END 2020-03-21 10:28 | disposition home or self-care (01) ==
LOC: ORPAIN 08:36
PROVIDERS: ATTEND Anesthesiology
DX: M47.816 Spondylosis without myelopathy or radiculopathy, lumbar region (principal); I42.9 Cardiomyopathy, unspecified; Z88.5 Allergy status to narcotic agent
CPT/HCPCS: 64493; 64494; J2795

== ENCOUNTER → 2020-04-07 | Outpatient (CLI) | payer BC ==
[2020-04-07 14:18] VITALS: BP 129/85; PULSE 97; RESP 16; TEMP 98.2
--- NOTE | 2020-04-07 14:28 | P.PAINPG ---
Subjective Progress Note Date: 04/07/20 This is a 60-year-old patient is seen in the past several times with low and mid back pain. Most recently we have done medial branch blocks L3-L4 and L4-L5. A good relief from these procedures for about a day or 2. She is also had sacral R phase in the past as well as thoracic epidurals which have been helpful for her. Overall her pain is located in the mid to low back radiation to the buttocks. Pain is described as sharp and stabbing and constant throughout the day. Radiation to bilateral lower extremities. Currently her pain as a 5 out of 10, at worse a 10 on a 10 at its best a 2 out of 10 Patient denies adverse drug effects from medications. Patient also denies new- onset weakness, bowel/bladder incontinence, or any other signs or symptoms of cauda equina syndrome. There are no signs of acute intoxication, and no indications of medication diversion or overuse. In addition to above, 13-point review of systems is also negative for chest pain, shortness of breath, changes in vision, changes in hearing, new onset weakness, abdominal pain, diarrhea, extreme fatigue, malaise, fever, skin changes, homicidal or suicidal ideation, or bowel or bladder incontinence. Physical exam: Vital Signs: Reviewed in EMR GENERAL: Well appearing, in no acute distress PSYCH: Mood and affect is appropriate. Awake, alert, and oriented SKIN: Skin color, texture, turgor normal, no rashes or lesions HEENT: Normocephalic, atraumatic. EOM intact CV: No pedal edema RESP: Respirations are unlabored, no audible wheezing GI: Abdomen non-distended MUSCULOSKELETAL: Bilateral upper and lower extremity strength is normal and symmetric. No atrophy or tone abnormalities are noted. Lumbar spine: Straight leg raising in the sitting position is negative for radicular pain. pain to palpation over the lumbar spine and paraspinous muscles. Positive for pain with facet loading and back extension/rotation. Normal range of motion without pain reproduction Buttocks: pain to palpation over the PSIS, Ely test is positive bilaterally Extremities: Peripheral joint ROM is full and pain free without obvious instability or laxity in all four extremities. No edema or skin discolorations noted. Gait: Gait is normal NEUR: Bilateral upper and lower extremity coordination and muscle stretch reflexes are physiologic and symmetric. Negative clonus. No loss of sensation is noted. Cranial nerves are grossly intact. Assessment: 1. Lumbar facet arthropathy 2. Sacroiliitis - Schedule for bilateral L3-4 and L4-L5 RFA - I have also filled her flexeril for 10 mg QHS Objective - Vital Signs Vital signs: Vital Signs Temp 98.2 F 04/07/20 14:00 Pulse 97 04/07/20 14:00 Resp 16 04/07/20 14:00 BP 129/85 04/07/20 14:00 Pulse Ox 88 L 04/07/20 14:00 PQRS Measure Charge Sheet PQRS Narrative: Smoking Status Current every day smoker Narcotic Agreement Date Signed 02/05/15 Blood Pressure 129/85 Pain Intensity [Back] 7 Scale Used Numeric (1 - 10) Hx Alcohol Use (MH) No Home Medications: Ambulatory Orders Abatacept/Maltose [Orencia] 750 mg IVPB QMONTH 09/25/13 Ascorbic Acid [Vitamin C] 1,000 mg PO DAILY 09/25/13 Lansoprazole [Prevacid] 30 mg PO QAM 09/25/13 Mometasone Furoate [Nasonex] 2 sprays NASAL DAILY PRN 09/25/13 Montelukast [Singulair] 10 mg PO HS 09/25/13 Nitroglycerin Sl Tabs [Nitrostat] 0.4 mg SUBLINGUAL Q5M PRN 09/25/13 hydroCHLOROthiazide [Hydrodiuril] 25 mg PO DAILY 09/25/13 lisinopriL [Zestril] 2.5 mg PO HS 09/25/13 Lubiprostone [Amitiza] 24 mcg PO BID 11/18/14 buPROPion SR [Wellbutrin Sr] 150 mg PO DAILY 12/18/14 L.acidoph,Paracasei, B.lactis [Probiotic] 1 each PO DAILY 02/06/15 SUMAtriptan SUCCINATE [Imitrex] 50 mg PO DAILY PRN 02/06/15 carvediloL [Coreg] 6.25 mg PO BID 02/06/15 Cyclobenzaprine [Flexeril] 10 mg PO HS PRN #30 tab 04/27/16 Ibuprofen [Motrin] 800 mg PO Q8HR PRN #90 tablet 04/27/16 Metoclopramide HCl [Reglan] 10 mg PO DAILY PRN #30 tablet 04/27/16 traMADol HCl [Ultram] 50 mg PO BID PRN #60 tab 04/27/16 Clindamycin Topical Soln [Cleocin-T Topical Soln] 1 applic TOPICAL BID 06/16/16 Fluticasone Nasal [place] [Flonase Nasal [place]] 2 sprays EA NOSTRIL DAILY 07/21/18 sulfaSALAzine [Azulfidine] 1,000 mg PO BID 07/21/18 Aspirin 325 mg PO DAILY #14 tab 02/05/19 Docusate [Colace] 100 mg PO BID #60 capsule 02/05/19 Controlled Substance Measures - Controlled Substance Measures Is patient prescribed a controlled substance at discharge?: No
== END | disposition home or self-care (01) ==
LOC: PNWHC3 13:55
PROVIDERS: ATTEND Anesthesiology
DX: M47.816 Spondylosis without myelopathy or radiculopathy, lumbar region (principal); M46.1 Sacroiliitis, not elsewhere classified; F17.200 Nicotine dependence, unspecified, uncomplicated; Z79.891 Long term (current) use of opiate analgesic; Z79.899 Other long term (current) drug therapy; Z79.82 Long term (current) use of aspirin
CPT/HCPCS: 99211

== ENCOUNTER 2020-04-25 06:14 | Day surgery (SDC) | payer BC ==
[2020-04-23 15:42] VITALS: BMI 25.9
[2020-04-25 06:45] VITALS: TEMP 98.2
[2020-04-25] MEDS ORDERED: LIDOCAINE 1% (10MG/ML) FOR IV START INTRADERMA ONE (06:54)
[2020-04-25] MEDS ORDERED: ONDANSETRON 4 MG/2 ML VIAL ONE (07:05)
[2020-04-25] MEDS ORDERED: diphenhydrAMINE 50 MG/ML 1 ML VIAL ONE (07:05)
[2020-04-25] MEDS ORDERED: fentaNYL (PF) 50 MCG/ML 2 ML AMP ONE (07:10)
[2020-04-25] MEDS ORDERED: TRIAMCINOLONE ACETONIDE 40 MG/ML 1 ML VIAL ONE (07:10)
[2020-04-25] MEDS ORDERED: ROPIVACAINE 5MG/ML 20ML VIAL ONE (07:10)
[2020-04-25] MEDS ORDERED: MIDAZOLAM 2 MG/2 ML VIAL ONE (07:10)
--- NOTE | 2020-04-25 07:46 | P.PCN ---
Date of Procedure: 04/25/20 Surgeon: Rogelio Johnson Pathology: none sent Condition: stable Disposition: PACU Description of Procedure: PREOPERATIVE DIAGNOSIS: Lumbar spondylosis without myelopathy POSTOPERATIVE DIAGNOSIS: Lumbar spondylosis without myelopathy PROCEDURES : Bilateral Radiofrequency thermocoagulation L4-L5, and L5-S1 medial branch, with fluoroscopic guidance ANESTHESIA: IV moderate conscious sedation with versed and fentanyl and local infiltration with lidocaine 1% 5 ml Physician:Rogelio Johnson MD EBL: Minimal PROCEDURE INDICATION: The patient with low back pain secondary to lumbar facet arthropathy who had more than 50% relief of her pain with previous diagnostic lumbar medial branch block with bupivacaine. PROCEDURE DESCRIPTION / TECHNIQUE: The patient was seen and identified in the preoperative area. Risks, benefits, complications, including but not limited to risk of infection ,bleeding , allergic reactions to the medications and no complete pain relief , and alternatives were discussed with the patient, the patient agreed to proceed with the procedure and signed the consent. IV was started. Vital signs remained stable throughout the procedure. Patient was taken to the OR and time out was completed. The patient was placed in the prone position on the procedure table. The lumber area was prepped and draped in the usual sterile fashion. . Vital signs were closely monitored during the procedure .IV sedation was used during the procedure to decrease patients anxiety. The target points were identified as follows: For the L5-S1 level which corresponds to the dorsal ramus of L5 the target point was at the superior medial aspect of the sacral ala on the ---- side of the spine on the AP view of fluoroscopy and for the L3, and L4 medial branches the target points were at the connection between the transverse process and the superior articular process of L4, and L5 vertebra respectively on the Rt oblique view of fluoroscopy. skin was marked, and localized with 1% lidocaineat these points. Subsequently, an 18 [id number] radiofrequency needles with a 10-mm curved active tips were advanced guided by fluoroscopy to each of the target points mentioned above in a superior medial direction to get the active tips as parallel as possible to the medial branches tracks. AP, oblique, and lateral views of fluoroscopy were used to verify needle tips position. Each level then underwent motor testing at 2.5 Hz and 0 to 3 volt with local stimulation, but no radicular symptoms down the legs. I then injected 1 mL of lidocaine 1% in each needle before starting radiofrequency thermocoagulation at 80 degrees celsius for 90 seconds. After that I injected 1 ml of PF Ropivacaine 0.5%(2 mls) with 20 mg of Kenalog, 1 mL of this mixture was given in each needle before taking the needles out intact. The procedure was repeated in the same manner on the left side with a total dose of Kenalog of 40 mg for the procedure. At the end of the procedure, the skin was cleansed and bandages were applied. A copy of needle placement fluoroscopy was saved on the C-arm machine. COMPLICATIONS: No acute complications. DISPOSITION / PLANS: The patient was placed in a supine position and transferred to the recovery area in a stable condition for observation and was discharged from the recovery room after meeting discharge criteria. Home discharge instructions given to the patient by the staff. The patient was reexamined prior to discharge. The patient will schedule a follow up in the clinic in 2-4 weeks.
[2020-04-25] MEDS ORDERED: IV FLUID CONTINUATION 350 ML IV ONE (07:47)
[2020-04-25 07:54] VITALS: RESP 20
[2020-04-25 08:14] VITALS: BP 108/73; PULSE 86
--- NOTE | 2020-04-25 09:33 | FL ---
EXAMINATION TYPE: FL guided pain mgmt statistic DATE OF EXAM: 04/25/2020 HISTORY: Fluoroscopy time 15 seconds of fluoroscopy provided. IMPRESSION: 1. Fluoroscopy time.
== END 2020-04-25 08:25 | disposition home or self-care (01) ==
LOC: ORPAIN 06:14
PROVIDERS: ATTEND Anesthesiology
DX: M47.816 Spondylosis without myelopathy or radiculopathy, lumbar region (principal); M06.9 Rheumatoid arthritis, unspecified; I25.10 Atherosclerotic heart disease of native coronary artery without angina pectoris; M79.7 Fibromyalgia; M19.90 Unspecified osteoarthritis, unspecified site; M54.81 Occipital neuralgia; Z88.5 Allergy status to narcotic agent; Z91.040 Latex allergy status; Z91.09 Other allergy status, other than to drugs and biological substances; Z87.11 Personal history of peptic ulcer disease; Z79.891 Long term (current) use of opiate analgesic; Z79.899 Other long term (current) drug therapy; Z78.0 Asymptomatic menopausal state; Z98.890 Other specified postprocedural states; Z84.89 Family history of other specified conditions
CPT/HCPCS: 64635; 64636; J2250; J1200; J3301; J2405; J3010; J2795

== ENCOUNTER → 2020-05-28 | Outpatient (CLI) | payer BC ==
[2020-05-28 09:10] VITALS: BP 114/76; PULSE 87; RESP 18; TEMP 98
--- NOTE | 2020-05-29 06:21 | P.PN ---
Subjective Progress Note Date: 05/28/20 This is a follow-up visit for this 60 years old female, with a chronic history of severe low back pain she is diagnosed with lumbar spondylosis with lumbar facet arthropathy without myelopathy, lumbar degenerative disc disease and bilateral sacroiliitis, recently we have done RFA of the medial branch lumbar area at L3, L4, L5, bilaterally and she reported that she get 70% improvement of her low back pain she continued to have severe pain in the buttock area bilaterally but it's more prominent on the right side, she denies any motor or sensory deficit she denies any fever or night sweats, she continued to ambulate on her own, but interestingly of the pain interfere with her quality of life and doing activity of daily livings, she continued to use pain medication 50 mg when necessary twice a day and Flexeril 10 mg daily at bedtime and Motrin 800 mg every 8 hours when necessary, he denies any side effect of the medication she denies any excessive drowsiness or sleepiness Objective - Vital Signs Vital signs: Vital Signs Temp 98.0 F 05/28/20 09:09 Pulse 87 05/28/20 09:09 Resp 18 05/28/20 09:09 BP 114/76 05/28/20 09:09 Pulse Ox 90 L 05/28/20 09:09 - Exam Physical Examinations : -Constitutiona : Cooperative , not in acute distress . -HEENT : nech : supple , no Lymphadenopathy , normal thyroid size . : eyes : no ptosis , no icterus, no photophobia . - neurologic : Cranial nerve II to XII intact , no focal neurological deffecit . -psychatric : alert , oriented X 3 , appropriate affect , intact judgment and insight . -Lymphatic : no Lymphadenopathy . - musculoskeltal : Lumber spine moter stegnth lower extremities ,thigh and legs 5/5 Right side , 5/5 Left side deep tendon reflexes : normal Knee Jerk , normal ankle Jerk lumber facet Loading Test =positive Right , posiutive Left Range of motion of the lumbar spine Flexion 30 degrees, extension 10 degrees strait leg raising test = negative bilaterally Fabere test= negative bilaterally Sever tenderness over the Sacroiliac joint on the Right , and Left sides Gaenslen test= positive right ,and positive left . Seated flexion test= positive right ,and positive Left . Assessment and Plan Plan: Assessment and plan=1-Lumber spondylosis with lumbar facet arthropathy without myelopathy. 2-lumbar degenerative disc disease. 3-bilateral sacroiliitis. She had good pain relief after RFA of the medial branch lumbar area, she is currently complaining of severe bilateral buttock pain, she is most likely secondary to sacroiliitis, previously we have done RFA of the sacroiliac joint and she had excellent pain relief, and the last procedure was done 2 years ago, she could benefit from repeat RFA of the sacroiliac joint, we will schedule patient to have RFA of the L5-S1 dorsal dramas and RFA of the lateral branches of S1/S2/S3, patient will continue to use her current pain medication as prescribed by her primary care. - PQRS measures = - Patient's medications are documented in the chart. -Tobacco use is positive and counseling.Given. -Patient's has not received pneumococcal vaccine. -Advanced care planning discussed, patient not eligible. -Opiate contract not signed. -Pain positive and follow-up visit/procedure is scheduled. -Patient's blood pressure measured [114/76 ] , and documented in the record ,and patient will follow up with the primary care. -Patient's weight was measured and body mass index within the normal limits and counseling was done. and patient instructed to follow-up with the primary care physician. -Patient was not identified as an unhealthy alcohol user Time with Patient: Less than 30
== END | disposition home or self-care (01) ==
LOC: PNWHC3 08:50
PROVIDERS: ATTEND Specialist
DX: M51.36 Other intervertebral disc degeneration, lumbar region (principal); M47.816 Spondylosis without myelopathy or radiculopathy, lumbar region; M46.1 Sacroiliitis, not elsewhere classified
CPT/HCPCS: 99211

== ENCOUNTER 2020-06-13 08:21 | Day surgery (SDC) | payer BC ==
[2020-06-12 09:01] VITALS: BMI 25.0
[~2020-06-13 08:21] MED LIST changes: +MIDAZOLAM 2 MG/2 ML VIAL IV PRN; +fentaNYL (PF) 50 MCG/ML 2 ML AMP IV PRN
[2020-06-13] MEDS ORDERED: diphenhydrAMINE 50 MG/ML 1 ML VIAL ONE (08:47)
[2020-06-13] MEDS ORDERED: ONDANSETRON 4 MG/2 ML VIAL ONE (08:47)
[2020-06-13] MEDS ORDERED: ONDANSETRON 4 MG/2 ML VIAL IVP ONE (09:04)
[2020-06-13] MEDS ORDERED: DEXAMETHASONE SOD PHOSPHATE 4 MG/ML 1 ML VIAL IVP ONE (09:04)
[2020-06-13] MEDS ORDERED: diphenhydrAMINE 50 MG/ML 1 ML VIAL IVP ONE (09:05)
[2020-06-13 09:08] VITALS: RESP 16; TEMP 98.3
[2020-06-13] MEDS ORDERED: fentaNYL (PF) 50 MCG/ML 2 ML AMP ONE (09:15)
[2020-06-13] MEDS ORDERED: MIDAZOLAM 2 MG/2 ML VIAL ONE (09:15)
[2020-06-13] MEDS ORDERED: methylPREDNISolone ACETATE 40 MG/ML 1 ML VIAL ONE (09:15)
[2020-06-13] MEDS ORDERED: ROPIVACAINE 5MG/ML 20ML VIAL ONE (09:15)
--- NOTE | 2020-06-13 09:53 | P.PCN ---
Date of Procedure: 06/13/20 Procedure(s) Performed: PREOPERATIVE DIAGNOSIS: 1-Lumbosacral spondylosis with facet arthropathy without myelopathy. 2- Bilateral sacroiliit. post operative Diagnosis: . 1-Lumbosacral spondylosis with facet arthropathy without myelopathy. 2- Bilaterl sacroiliit. PROCEDURES: 1- Right radiofrequency thermocoagulation/ablation of the L5 dorsal ramus. 2- Right multi-site radiofrequency thermocoagulation/ablation of the S1, S2, and S3 lateral branchs. The procedure was performed using fluoroscopic guidance during needle placement to assure proper position and maximize safety . ANESTHESIA: Monitored anesthesia care as per anesthesia department EBL: NONE INDICATION/MEDICAL NECESSITY: History of low back pain secondary to bilateral sacroiliitis and lumbosacral arthropathy unresponsive to more conservative treatments. The patient reported more than 50% relief of pain symptoms following 2 previous diagnostic blocks with Bupivacaine. PROCEDURE DESCRIPTION: The patient was seen and identified in the preoperative area. Risks, benefits, complications, and alternatives were discussed with the patient. The patient agreed to proceed with the procedure and signed the consent. Vital signs were checked before and after the procedure and they remained stable. Patient ambulated to the procedure room and time out was completed. The patient was placed in the prone position on the procedure table and a pillow was placed under the abdomen to reduce lumbar lordosis. The lumbosacral area was prepped and draped in the usual sterile fashion. Critical pause was taken. L5 Dorsal Ramus RF: Using right oblique fluoroscopy, the junction of the transverse process and the superior articular process of the right S1 vertebra, which correspond to the fluoroscopic image of the "eye of the Jose Alberto dog" was identified. Subsequently, a 10-cm 20 -gauge radiofrequency cannula with a 10-mm active tip was advanced under fluoroscopic guidance until contact was made with periosteum. At this level, the Sensory testing of the L5 dorsal ramus was performed at 50 Hz and 0 to 1 volt with production of concordant pain starting at 0.5 volt. Motor stimulation was done at 2.5 Hz with stimulation of mulitifidus muscle contration . No radicular symptoms or paresthesias were produced during the testing. Subsequently, the L5 dorsal ramus was subjected to a radiofrequency ablation at 80 degree celsius for 90 seconds . after 0.5% Bupivacaine 1 ml injected at each level after negative aspirations . The needle was withdrawn intact . S1, S3, and S3 Lateral Branch RF: The lateral margins of the Right S1, S2, and S3 foramina were identified using AP fluoroscopy. Under fluoroscopic guidance, three 10-cm 20 -gauge radiofrequency cannula with a 10-mm active tip were inserted at 8-10 mm peripheral to the posterior S1 foramen, at various locations using clock-face coordinates. The center of the clock was registered at the lateral margin of the foramen. The 2:30, 4:00, and 5:30 oclock positions were used. At this level, the sensory testing of the S1 lateral branch was performed at 50 Hz and 0 to 1 volt at the three levels with production of concordant pain starting at 0.5 volt. Motor stimulation was done at 2.5 Hz. No radicular symptoms or parest hesias were produced during the testing. Subsequently, the S1 lateral branch was subjected to a radiofrequency ablation at a mode of 90 seconds at 80 degrees Celsius at the 3 levels after negative motor and sensory testing and after injecting 0.5 ml of preservative free Bupivacaine 0.5 %. The same procedure was performed at the level of the S2 foramen. For the S3 foramen, only the 2:30 and 4:00 oclock positions were used. Sensory and motor testing followed by radiofrequency ablation were performed as described for the S1 and S2 foramina. The needle was withdrawn intact after each injection. COMPLICATIONS: The patient tolerated the procedure well without any acute complications. DISPOSTION/PLAN: The patient ambulated to the recovery area after the procedure in a stable condition for observation. Patient was reexamined prior to discharge. Patient was observed for 30 minutes in the recovery area and was discharged home, accompanied by an adult, after meeting discharged criteria. Discharge instructions were give to the patient by the staff. Patient was specifically instructed not to drive today and to rest for the rest of the day. The patient will schedule a follow up visit in the clinic in weeks or earlier if needed
[2020-06-13] MEDS ORDERED: IV FLUID CONTINUATION 1,000 ML IV ONE (09:56)
--- NOTE | 2020-06-13 10:06 | FL ---
Fluoroscopy HISTORY: Pain 23 seconds fluoroscopy time supplied to the referring clinician. 6 intraoperative C-arm images docum ent the procedure. See dictated report from anesthesia.
[2020-06-13 10:12] VITALS: BP 104/69; PULSE 90
== END 2020-06-13 10:26 | disposition home or self-care (01) ==
LOC: ORPAIN 08:21
PROVIDERS: ATTEND Specialist
DX: M47.817 Spondylosis without myelopathy or radiculopathy, lumbosacral region (principal); M46.1 Sacroiliitis, not elsewhere classified; I10 Essential (primary) hypertension; F17.200 Nicotine dependence, unspecified, uncomplicated; M06.9 Rheumatoid arthritis, unspecified; M79.7 Fibromyalgia; K21.9 Gastro-esophageal reflux disease without esophagitis; Z88.5 Allergy status to narcotic agent; Z91.040 Latex allergy status; Z91.09 Other allergy status, other than to drugs and biological substances; Z79.891 Long term (current) use of opiate analgesic; Z79.899 Other long term (current) drug therapy; Z79.82 Long term (current) use of aspirin; Z98.890 Other specified postprocedural states
CPT/HCPCS: 64625; J2250; J1200; J1030; J1100; J2405; J3010; J2795; 64636

== ENCOUNTER → 2020-09-08 | Outpatient (CLI) | payer BC ==
[2020-09-08 14:38] VITALS: BP 132/86; PULSE 83; RESP 16; TEMP 98.1
--- NOTE | 2020-09-08 15:22 | P.PN ---
Subjective Progress Note Date: 09/08/20 This is a follow-up visit for this 60 years old female, with a chronic history of severe neck pain ,and low back pain she is diagnosed with cervical and lumbar spondylosis with lumbar facet arthropathy without myelopathy, lumbar degenerative disc disease and bilateral sacroiliitis, previousley we have done RFA of the medial branch lumbar area at L3, L4, L5, bilaterally and she reported that she get 70% improvement of her low back pain , previously we have done RFA of the sacroiliac joint, she is complaining of severe neck pain mostly on the right sided the neck pain increases with any activity, she denies any motor or sensory deficit she denies any fever or night sweats, she continued to ambulate on her own, but interestingly of the pain interfere with her quality of life and doing activity of daily livings, she continued to use pain medication ultram 50 mg when necessary twice a day and Flexeril 10 mg daily at bedtime and Motrin 800 mg every 8 hours when necessary, he denies any side effect of the medication she denies any excessive drowsiness or sleepines Physical Examinations : -Constitutiona : Cooperative , not in acute distress . -HEENT : nech : supple , no Lymphadenopathy , normal thyroid size . : eyes : no ptosis , no icterus, no photophobia . - neurologic : Cranial nerve II to XII intact , no focal neurological deffecit . -psychatric : alert , oriented X 3 , appropriate affect , intact judgment and insight . -Lymphatic : no Lymphadenopathy . - musculoskeltal : Cervical Spine motor stregnth in the deltoid and biceps, normal right side , normal Left side motor stregnth biceps and the wrist extensors normal right side ,normal left side . motor stregnth in the triceps muscle . normal Right side , normal Left side deep tendon reflexes normal at the biceps , normal at Brachioradialis , normal at triceps. cervical facet loading test: Positive Bilaterally Spurling test= positive Right , positive left. Neck distraction test= positive Right , positive left. Sophie sign= positive right, positive left . Lumber spine moter stegnth lower extremities ,thigh and legs 5/5 Right side , 5/5 Left side deep tendon reflexes : normal Knee Jerk , normal ankle Jerk lumber facet Loading Test =positive Right , positive Left Range of motion of the lumbar spine Flexion 30 degrees, extension 10 degrees strait leg raising test = positive at degree Fabere test= positive Right , and positive LT . Sever tenderness over the Sacroiliac joint on the Right , and Left sides Gaenslen test= positive right ,and positive left . Seated flexion test= positive right ,and positive Left . Distraction test= positive bilaterally Assessment and Plan Plan: Assessment and plan=1-Lumber spondylosis with lumbar facet arthropathy without myelopathy. 2-lumbar degenerative disc disease. 3-bilateral sacroiliitis. 4-cervical spondylosis with cervical facet arthropathy without myelopathy Currently most of the pain in the right-sided cervical area, previously patient had [facility] done by Dr. Garza , from C2 ,C3,C4,C5,C6,C7 currently she is having severe pain on the right side, good candidate RFA of the right-sided medial branches cervical area C2, TO c6 , Patient currently having severe low back pain mostly secondary to sacroiliitis, patient previously had good result from the RFA of the sacroiliac joint but this procedure is not covered by her insurance, and will be referred for evaluation by Dr. Murray , for possible fusion of the sacroiliac joint - PQRS measures = - Patient's medications are documented in the chart. -Tobacco use is positive and counseling.Given. -Patient's has not received pneumococcal vaccine. -Advanced care planning discussed, patient not eligible. -Opiate contract not signed. -Pain positive and follow-up visit/procedure is scheduled. -Patient's blood pressure measured [132/86 ] , and documented in the record ,and patient will follow up with the primary care. -Patient's weight was measured and body mass index within the normal limits and counseling was done. and patient instructed to follow-up with the primary care physician. -Patient was not identified as an unhealthy alcohol user Objective - Vital Signs Vital signs: Vital Signs Temp 98.1 F 09/08/20 14:34 Pulse 83 09/08/20 14:34 Resp 16 09/08/20 14:34 BP 132/86 09/08/20 14:34 Pulse Ox 96 09/08/20 14:34
== END ==
LOC: PNWHC3 13:54
PROVIDERS: ATTEND Specialist
DX: M47.812 Spondylosis without myelopathy or radiculopathy, cervical region (principal); M47.816 Spondylosis without myelopathy or radiculopathy, lumbar region; M51.36 Other intervertebral disc degeneration, lumbar region; M46.1 Sacroiliitis, not elsewhere classified
CPT/HCPCS: 99211

== ENCOUNTER 2020-09-19 06:15 | Day surgery (SDC) | payer BC ==
[2020-09-16 12:30] VITALS: BMI 25.0
[2020-09-19 06:37] VITALS: TEMP 97.1
[2020-09-19] MEDS ORDERED: ONDANSETRON 4 MG/2 ML VIAL ONE (06:43)
[2020-09-19] MEDS ORDERED: diphenhydrAMINE 50 MG/ML 1 ML VIAL ONE (06:43)
[2020-09-19] MEDS ORDERED: LACTATED RINGERS 1,000 ML IV ONE (06:46)
[2020-09-19] MEDS ORDERED: diphenhydrAMINE 50 MG/ML 1 ML VIAL IVP ONE (06:47)
[2020-09-19] MEDS ORDERED: ONDANSETRON 4 MG/2 ML VIAL IVP ONE (06:47)
[2020-09-19] MEDS ORDERED: LIDOCAINE 1% INJ 10MG/ML (20 ML MDV) ONE (07:02)
[2020-09-19] MEDS ORDERED: fentaNYL (PF) 50 MCG/ML 2 ML AMP ONE (07:02)
[2020-09-19] MEDS ORDERED: ROPIVACAINE 5MG/ML 20ML VIAL ONE (07:02)
[2020-09-19] MEDS ORDERED: MIDAZOLAM 2 MG/2 ML VIAL ONE (07:02)
--- NOTE | 2020-09-19 07:32 | P.PCN ---
Date of Procedure: 09/19/20 Description of Procedure: PREOPERATIVE DIAGNOSIS: Cervicalgia POSTOPERATIVE DIAGNOSIS: Same Surgeon: Joon Francois M.D. PROCEDURE PERFORMED: Cervical Medial Branch Radiofrequency Ablation, at the following levels: Right C3-4, C4-5, C5-6 ANESTHESIA: Lidocaine 1% 5 mL, Moderate sedation with anesthesia team ESTIMATED BLOOD LOSS: Minimal Fluoroscopy was used for the procedure and images were saved in the radiology portion of the chart. PROCEDURE INDICATION: The patient with neck pain secondary to cervical facet arthropathy who had more than 50% relief of pain with previous cervical RFA at other pain clinic PROCEDURE DESCRIPTION / TECHNIQUE: The patient was seen and identified in the preoperative area. Risks, benefits, complications, including but not limited to risk of infection ,bleeding , allergic reactions to the medications and incomplete pain relief , and alternatives were discussed with the patient, the patient agreed to proceed with the procedure and signed the consent. IV was started. The operative site was marked. Patient was taken to the OR and time out was completed. The patient was placed in the prone position on the procedure table. The lumbar area was prepped and draped in the usual sterile fashion. . Vital signs were closely monitored during the procedure .IV sedation was used during the procedure to decrease patients anxiety. An AP fluoroscopic senior account representative film was taken to identify the dens, the C3, C4, C5, C6 vertebral bodies, and the waists of the articular pillars at the aforementioned levels. A pillar (caudal tilt) view was utilized to highlight the waists of the articular pillars at these levels. The skin was prepped with chlorhexidine and draped in the usual sterile fashion. The skin and subcutaneous tissue overlying the above levels were anesthetized using a 25-gauge 1-1/2-inch needle with 1% preservative free lidocaine for a total volume of 1 ml per level. An 18-gauge and 100 mm SMK needle with a 10 mm active tip was advanced, coaxially, in the pillar view until the needle tip was noted to slide into the groove of the articular pillar. A true lateral view was obtained and the needle tips were advanced to cover to the lateral aspect of the articular pillar at right C3, C4, C5, C6. The needles were advanced until bony contact was felt and the tip of the SMK needle was confirmed to be in the groove of the right waist of the articular pillars at the aforementioned levels. The needle positions were confirmed with AP and lateral fluoroscopic views. Motor stimulation was then performed at 2 Hz and up to 2V with only paraspinal muscle contraction noted at each level and no upper extremity stimulation. At this point, after negative aspiration, Lidocaine 4% x 0.5 mL was injected at each level prior to radiofrequency ablation. Lesioning was then carried out at 85 degrees Celsius times 90 seconds with 2 cycles per level. Following lesioning the needles were removed. COMPLICATIONS: No acute complications. DISPOSITION / PLANS: The patient was placed in a supine position and transferred to the recovery area in a stable condition for observation and was discharged from the recovery room after meeting discharge criteria. Home discharge instructions given to the patient by the staff. The patient will follow up in clinic in 4 weeks.
[2020-09-19] MEDS ORDERED: IV FLUID CONTINUATION 1,000 ML IV ONE ×2 (07:38)
[2020-09-19 07:55] VITALS: BP 112/77; PULSE 85; RESP 16
--- NOTE | 2020-09-19 10:12 | FL ---
Fluoroscopy HISTORY: Pain 30 seconds fluoroscopy time supplied to the referring clinician. 3 intraoperative C-arm images docum ent the procedure. See dictated report from anesthesia.
== END 2020-09-19 08:10 | disposition home or self-care (01) ==
LOC: ORPAIN 06:15
PROVIDERS: ATTEND Anesthesiology
DX: M47.812 Spondylosis without myelopathy or radiculopathy, cervical region (principal); Z88.5 Allergy status to narcotic agent; Z91.048 Other nonmedicinal substance allergy status; I25.10 Atherosclerotic heart disease of native coronary artery without angina pectoris; M19.90 Unspecified osteoarthritis, unspecified site; M06.9 Rheumatoid arthritis, unspecified; M79.7 Fibromyalgia; Z79.1 Long term (current) use of non-steroidal anti-inflammatories (NSAID); Z79.82 Long term (current) use of aspirin; Z79.891 Long term (current) use of opiate analgesic; Z79.899 Other long term (current) drug therapy
CPT/HCPCS: 64633; 64634; J2250; J1200; J2405; J2001; J3010; J2795

== ENCOUNTER → 2020-10-15 | Outpatient (CLI) | payer BC ==
[2020-10-15 10:01] VITALS: BP 125/78; PULSE 66; RESP 18; TEMP 98
--- NOTE | 2020-10-15 10:24 | P.PAINPG ---
Subjective Progress Note Date: 10/15/20 This is a follow-up visit for this 60 years old female, with a chronic history of severe neck pain ,and low back pain she is diagnosed with cervical and lumbar spondylosis with lumbar facet arthropathy without myelopathy, lumbar degenerative disc disease ,and bilateral sacroiliitis, recently with did RFA of the right cervical medial branch, and she reported that her neck pain improved significantly , and in June 2020 we did RFA of the right sacroiliac joint, and this helped her low back pain on the right side significantly , currently she is complaining of severe low back pain mostly on the left side , the pain is constant and increases with any activity interfere with the quality of life , p atient reported that she had RFA of the left sacroiliac joint done at [facility] than a year ago and she gets excellent pain relief after the radiofrequency of the left sacroiliac joint , and her quality of life improved after the radiofrequency of the left sacroiliac joint , and also the use of the pain medication decreases significantly after the radiofrequency of the left sacroiliac joint ,she denies any motor or sensory deficit she denies any fever or night sweats, she continued to ambulate on her own, intensity of the the pain interfere with her quality of life and doing activity of daily livings, she continued to use pain medication ultram 50 mg when necessary twice a day and Flexeril 10 mg daily at bedtime and Motrin 800 mg every 8 hours when necessary, he denies any side effect of the medication she denies any excessive drowsiness or sleepines, patient continued to use her pain medication and she continued to do physical therapy and home exercise and chiropractic Objective - Vital Signs Vital signs: Vital Signs Temp 98.0 F 10/15/20 09:55 Pulse 66 10/15/20 09:55 Resp 18 10/15/20 09:55 BP 125/78 10/15/20 09:55 Pulse Ox 93 L 10/15/20 09:55 - Exam Physical Examinations : -Constitutiona : Cooperative , not in acute distress . -HEENT : nech : supple , no Lymphadenopathy , normal thyroid size . : eyes : no ptosis , no icterus, no photop hobia . - neurologic : Cranial nerve II to XII intact , no focal neurological deffecit . -psychatric : alert , oriented X 3 , appropriate affect , intact judgment and insight . -Lymphatic : no Lymphadenopathy . - musculoskeltal : Cervical Spine motor stregnth in the deltoid and biceps, normal right side , normal Left side motor stregnth biceps and the wrist extensors normal right side ,normal left side . motor stregnth in the triceps muscle . normal Right side , normal Left side deep tendon reflexes normal at the biceps , normal at Brachioradialis , normal at triceps. Lumber spine moter stegnth lower extremities ,thigh and legs 5/5 Right side , 5/5 Left side deep tendon reflexes : normal Knee Jerk , normal ankle Jerk lumber facet Loading Test = negative bilaterally Fabere test= positive Right , and positive LT . Sever tenderness over the Sacroiliac joint on the Left sides Gaenslen test= negative right ,and positive left . Seated flexion test= negative right ,and positive Left . Distraction test= positive left side Assessment and Plan Plan: Assessment and plan=1-Lumber spondylosis with lumbar facet arthropathy without myelopathy. 2-lumbar degenerative disc disease. 3-bilateral sacroiliitis. 4-cervical spondylosis with cervical facet arthropathy without myelopathy Neck pain improved after RFA of the medial branch cervical area, Patient currently having severe low back pain mostly secondary to left sacroiliitis, patient reported that she had excellent pain relief after the RFA of the left sacroiliac joint done more than a year ago by Dr. Dr. Garza at [facility], he could benefit from repeat RFA of the left sacroiliac joint And she reported that after the radiofrequency her opioid use decreased significantly, and her functional mobility improved significantly, and activities of daily livings and improved after the RFA of the left sacroiliac joint Time with Patient: Less than 30 PQRS Measure Charge Sheet Measure #130: Documentation of Current Meds in Medical Chart: Patient's medications documented in chart Measure #226: Tobacco Use: Screen & Cessation Intervention: Pt screened for tobacco use AND intervention given Measure #111: Pneumonia Vaccination: Pneumococcal vaccine NOT administered or previously given Measure #47: Advance Care Plan: Advance care planning discussed & documented, pt chose/unable to give Measure #412: Opioid Treatment Agreement: No documentation of signed opioid treatment agreement Measure #408: Opioid Therapy Follow-up Evaluation: Patient had NO f/u eval minimum every 3 months during opioid therapy Measure #317: Preventitive Care & Scrn High Bld Press & F/U: Normal blood pressure, f/u not required Measure #128: Body Mass Index (BMI) Screening & Follow-up: BMI documented ABOVE normal parameters - f/u documented Measure #131: Pain Assessment & Follow-up: Pain positive & plan documented, Follow-up scheduled Measure #431: Unhealthy Alcohol Use Preventative Care & Scrn: Patient not identified as an unhealthy alcohol user PQRS Narrative: Smoking Status Current every day smoker Narcotic Agreement Date Signed 02/05/15 Blood Pressure 125/78 Pain Intensity [Lower Back] 8 Pain Intensity [Neck] 2 Scale Used Numeric (1 - 10) Hx Alcohol Use (MH) No Home Medications: Ambulatory Orders Abatacept/Maltose [Orencia] 750 mg IVPB QMONTH 09/25/13 Ascorbic Acid [Vitamin C] 1,000 mg PO DAILY 09/25/13 Lansoprazole [Prevacid] 30 mg PO QAM 09/25/13 Mometasone Furoate [Nasonex] 2 sprays NASAL DAILY PRN 09/25/13 Montelukast [Singulair] 10 mg PO HS 09/25/13 Nitroglycerin Sl Tabs [Nitrostat] 0.4 mg SUBLINGUAL Q5M PRN 09/25/13 hydroCHLOROthiazide [Hydrodiuril] 25 mg PO DAILY 09/25/13 lisinopriL [Zestril] 2.5 mg PO HS 09/25/13 Lubiprostone [Amitiza] 24 mcg PO BID 11/18/14 buPROPion SR [Wellbutrin Sr] 150 mg PO DAILY 12/18/14 L.acidoph,Paracasei, B.lactis [Probiotic] 1 each PO DAILY 02/06/15 SUMAtriptan SUCCINATE [Imitrex] 50 mg PO DAILY PRN 02/06/15 carvediloL [Coreg] 6.25 mg PO BID 02/06/15 Cyclobenzaprine [Flexeril] 10 mg PO HS PRN #30 tab 04/27/16 Ibuprofen [Motrin] 800 mg PO Q8HR PRN #90 tablet 04/27/16 traMADol HCl [Ultram] 50 mg PO BID PRN #60 tab 04/27/16 Clindamycin Topical Soln [Cleocin-T Topical Soln] 1 applic TOPICAL BID 06/16/16 Fluticasone Nasal [place] [Flonase Nasal [place]] 2 sprays EA NOSTRIL DAILY 07/21/18 sulfaSALAzine [Azulfidine] 1,000 mg PO BID 07/21/18 Aspirin 325 mg PO DAILY #14 tab 02/05/19 Docusate [Colace] 100 mg PO BID #60 capsule 02/05/19 Controlled Substance Measures - Controlled Substance Measures Is patient prescribed a controlled substance at discharge?: No
== END ==
LOC: PNWHC3 09:39
PROVIDERS: ATTEND Specialist
DX: M51.36 Other intervertebral disc degeneration, lumbar region (principal); M47.816 Spondylosis without myelopathy or radiculopathy, lumbar region; M46.1 Sacroiliitis, not elsewhere classified; M47.812 Spondylosis without myelopathy or radiculopathy, cervical region; F17.200 Nicotine dependence, unspecified, uncomplicated; Z98.890 Other specified postprocedural states; Z88.5 Allergy status to narcotic agent; Z88.9 Allergy status to unspecified drugs, medicaments and biological substances; Z91.040 Latex allergy status; Z91.09 Other allergy status, other than to drugs and biological substances
CPT/HCPCS: 99211

== ENCOUNTER 2021-01-02 07:49 | Day surgery (SDC) | payer BC ==
[2021-01-02 08:11] VITALS: RESP 16; TEMP 98.5
[2021-01-02] MEDS ORDERED: diazePAM 5 MG TAB PO STA (08:22)
--- NOTE | 2021-01-02 12:03 | FL ---
EXAMINATION TYPE: FL myelogram 2 or more regions DATE OF EXAM: 01/02/2021 COMPARISON: NONE HISTORY: 60-year-old female R5 2, back pain Total fluoroscopy time: 2 minutes 3 seconds. Total images: 7. Informed consent was obtained and all the patient's questions were answered. Patient vitals were mon itored by dedicated nursing personnel. 10 mg by mouth Valium was administered prior to the procedure. The L3-L4 level was localized under fluoroscopy. Attempts to access the subarachnoid space were unsuc cessful. The L4-L5 was then successfully accessed. Standard sterile technique was utilized as well as appropriate local anesthesia 1% Lidocaine. 22-gauge spinal needle was introduced into the thecal sac under fluoroscopic guidance. After successful visualization of clear CSF, 10 mL's of Omni 300 was in jected. The patient tolerated the procedure well. The exam table was tilted to promote contrast pass age up to the cervical level. CT myelography is to follow. Patient was advised on precautions to minimize chances of spinal headache. IMPRESSION: Successful lumbar myelogram injection for CT of the spine to follow.
--- NOTE | 2021-01-02 12:40 | CT ---
EXAMINATION TYPE: CT cervical spine w con DATE OF EXAM: 01/02/2021 COMPARISON: 03/23/2018 HISTORY: 60-year-old female M54.2, Cervicalgia TECHNIQUE: Contiguous axial scanning of the cervical spine performed after myelographic injection. Pl ease refer to myelogram injection report of the same day for further details. Coronal/sagittal recons tructions performed. CT DLP: 605.60 mGycm Automated exposure control for dose reduction was used. FINDINGS: No craniocervical junction abnormality, predental space widening, or prevertebral soft tissue swellin g. Mild degenerative change at the C1 dens articulation. Multilevel facet and uncovertebral joint arthropathy is present, severe towards the right upper and m id cervical spine with some degenerative facet ankylosis at C3-C4 and to a lesser extent at C5-C6. On the left, facet arthropathy is greatest towards the left in the lower cervical spine. Suspect prior surgical ankylosis of C5-C6 with satisfactory interbody fusion. Trace grade 1 anterolisthesis C3-C4 and C4-C5 as well as C7-T1. Some ligamentum flavum thickening in the lower cervical spine. There is posterior osteophytic ridging at C4-C5 similar prior impressing on the ventral thecal sac an d abutting the ventral cord without cord flattening, similar to prior exam. There is mild disc osteophyte complex below the fusion at C6-C7 and mild ligamentum flavum thickening minimally narrowing the spinal canal. Changes result in mild right neuroforaminal narrowing at C3-C4 and C4-C5. Moderate left and mild to moderate right neural foraminal stenosis below the fusion at C6-C7. Retroph aryngeal course right ICA incidentally noted. IMPRESSION: 1. STATUS POST C5-C6 INTERBODY FUSION. DEGENERATIVE BONY ANKYLOSIS ACROSS THE RIGHT-SIDED C3-C4 AND C 5-C6 FACET JOINTS ALSO NOTED. 2. HYPERTROPHIC FACET AND UNCOVERTEBRAL JOINT ARTHROPATHY THROUGHOUT, GREATEST TOWARDS THE RIGHT IN T HE UPPER AND MID CERVICAL SPINE AND TOWARDS THE LEFT IN THE LOWER CERVICAL SPINE. 3. RESIDUAL POSTERIOR OSTEOPHYTIC RIDGING AT C4-C5 IMPRESSING ON THE VENTRAL THECAL SAC, MINIMALLY NA RROWING THE SPINAL CANAL SIMILAR TO PRIOR. NO SIGNIFICANT SPINAL CANAL STENOSIS. 4. SIMILAR MODERATE DEGENERATIVE DISC DISEASE BELOW THE FUSION AT C6-C7. MODERATE LEFT AND MILD TO MO DERATE RIGHT NEUROFORAMINAL STENOSIS HERE. 5. TRACE GRADE 1 ANTEROLISTHESIS C3-C4, C4-C5, AND C7-T1 ARE SIMILAR.
--- NOTE | 2021-01-02 12:58 | CT ---
EXAMINATION TYPE: CT thoracic spine w con DATE OF EXAM: 01/02/2021 COMPARISON: 12/28/2013 HISTORY: 60-year-old female M54.6, Thoracic pain TECHNIQUE: Contiguous axial scanning of the thoracic spine performed after myelographic injection. Pl ease refer to myelogram injection report of the same day for further details. Coronal/sagittal recons tructions performed. CT DLP: 1232.76 mGycm Automated exposure control for dose reduction was used. FINDINGS: There appears to be post surgical changes of Luz fundoplication. There may be a herniation of the Luz wrap. Correlate for any recurrent symptoms. Spinal stimulator ray centered along the mid to lower thoracic spinal canal at the T8 level. The lead s enter the interlaminar space at T9-T10. Degenerative grade 1 anterolisthesis C7-T1. There is an accentuated lower thoracic lordosis. Thoracic alignment is maintained. Moderate degenerative disc disease anteriorly T12-L1 with associated endplate sclerosis. Mild degener ative disc disease elsewhere. Tiny posterior disc protrusions at T3-T4, T7-T8, T8-T9, T11-T12, T12-L1. No large focal disc herniati on or significant spinal canal stenosis. Scattered mild facet degenerative change. Variable mild neuroforaminal narrowing suggested on the rig ht at T3-T4 and on the left at T2-T3. No high-grade foraminal compromise seen. IMPRESSION: 1. SCATTERED MILD DEGENERATIVE DISC DISEASE. MORE MODERATE AT T12-L1. 2. ACCENTUATED LOWER THORACIC KYPHOSIS WITHOUT MALALIGNMENT. 3. SCATTERED MILD FACET ARTHROPATHY WITH VARIABLE MILD NEUROFORAMINAL NARROWING IN THE UPPER THORACIC SPINE. 4. NO SIGNIFICANT SPINAL CANAL OR FORAMINAL STENOSIS SEEN. 5. THERE MAY BE A SLIPPED/HERNIATED LUZ FUNDOPLICATION WRAP. CORRELATE FOR ANY RECURRENT GI SYMPTO MS.
--- NOTE | 2021-01-02 13:05 | CT ---
EXAMINATION TYPE: CT lumbar spine w con DATE OF EXAM: 01/02/2021 COMPARISON: 03/23/2018 HISTORY: 60-year-old female low back pain, M54.1, Lumbago TECHNIQUE: Contiguous axial scanning of the lumbar spine performed after myelographic injection. Mera song refer to myelogram injection report of the same day for further details. Coronal/sagittal reconstr uctions performed. CT DLP: 801.66 mGycm Automated exposure control for dose reduction was used. FINDINGS: Vertebral body heights are preserved and alignment is maintained. Slight degenerated levoconvex curvature of the lumbar spine. More moderate degenerative disc disease towards the right side of concavity at L3-L4 and L4-L5 with disc vacuum and disc osteophyte complex f ormation injecting laterally. Conus medullaris is normal. Stimulator leads entering the L1-L2 interlaminar space and extending up beyond the [id number]. Bulging discs are present throughout. These impress on the ventral thecal sac from L2 through L5 levels but did not contribute any signific ant spinal canal stenosis. Mild facet arthropathy mid to lower lumbar spine. On the left, changes result in similar moderate neural foraminal stenosis at L5-S1. Minimal inferior neural foraminal narrowing at the other levels. On the right, changes result in moderate neural foraminal stenoses at L3-L4 and L4-L5. This appears w orsened compared to 03/23/2018. Minimal inferior foraminal narrowing at L2-L3. IMPRESSION: 1. A DEGENERATED LEVOCONVEX CURVATURE OF THE LUMBAR SPINE HAS SLIGHTLY PROGRESSED. MODERATE DEGENERAT DEBORA DISC DISEASE WITH VACUUM PHENOMENON AND ENDPLATE SPURRING TOWARDS THE RIGHT SIDE OF THE CAVITY AT L3-L4 AND L4-L5. 2. BULGING DISKS THROUGHOUT. NO LARGE FOCAL DISC HERNIATION OR SIGNIFICANT SPINAL CANAL STENOSIS. 3. ON THE RIGHT, CHANGES RESULT IN PROGRESSIVE MODERATE NEUROFORAMINAL STENOSIS AT L3-L4 AND L4-L5. S IMILAR MODERATE LEFT NEURAL FORAMINAL STENOSIS AT L5-S1.
[2021-01-02 14:32] VITALS: BP 136/75; PULSE 65
== END 2021-01-02 13:59 | disposition home or self-care (01) ==
LOC: RADPROMAIN 07:49 → EDSTATUS 08:00 → RADPROMAIN 13:59
PROVIDERS: ATTEND Orthopaedic Surgery
DX: M50.31 Other cervical disc degeneration, high cervical region (principal); M43.12 Spondylolisthesis, cervical region; M48.061 Spinal stenosis, lumbar region without neurogenic claudication; M51.36 Other intervertebral disc degeneration, lumbar region; Z98.1 Arthrodesis status
CPT/HCPCS: 62305; 72126; 72129; 72132

== ENCOUNTER → 2021-02-19 | Day surgery (SDC) | payer BC ==
[2021-02-18 09:44] VITALS: BMI 25.4
[~2021-02-19] MED LIST changes: +LACTATED RINGERS 1,000 ML IV ONE; -LACTATED RINGERS 1,000 ML IV SCH; +LIDOCAINE 1% INJ 10MG/ML (20 ML MDV) ONE; -MIDAZOLAM 2 MG/2 ML VIAL IV PRN; +ONDANSETRON 4 MG/2 ML VIAL IVP ONE; +ONDANSETRON 4 MG/2 ML VIAL ONE; +PROPOFOL 10 MG/ML 20 ML VIAL IV ONE; -fentaNYL (PF) 50 MCG/ML 2 ML AMP IV PRN
[2021-02-19 07:51] VITALS: TEMP 97.8
--- NOTE | 2021-02-19 08:36 | P.GSHP ---
History of Present Illness H&P Date: 02/19/21 Chief Complaint: Recurrent hiatal hernia This a 60-year-old female who presents today for EGD. Patient's had complaints of some shortness of breath. She has a history of recurrent hiatal hernia. He presents today for EGD. Past Medical History Past Medical History: Chest Pain / Angina, Fibromyalgia, GERD/Reflux, Neurologic Disorder, Osteoarthritis (OA), Rheumatoid Arthritis (RA) Additional Past Medical History / Comment(s): OCCIPITAL NEURALGIA, HEART MURMUR, CARDIOMYOPATHY, osteoporosis, past hx. gastric ulcers. Chronic back pain, DDD, NT in bilat extremities occ, HIATAL HERNIA History of Any Multi-Drug Resistant Organisms: None Reported Past Surgical History: Cholecystectomy, Heart Catheterization, Hernia Repair, Orthopedic Surgery, Tubal Ligation Additional Past Surgical History / Comment(s): COLONOSCOPY, EGD, C-5 C-6 BONE FUSION, OCCIPITAL AND LUMBAR NERVE STIMULATORS, SKIN LESION-lt arm, Right carpal tunnel, Occipital nerve stimulator revision of battery and wires, Left carpal tunnel, PAIN CLINIC PROCEDURES Past Anesthesia/Blood Transfusion Reactions: Family Hisory of Malignant Hypert hermia, Motion Sickness Additional Past Anesthesia/Blood Transfusion Reaction / Comment(s): FAMILY HISTORY OF MALIGNANT HYPERTHERMIA-NEPHEW Smoking Status: Current every day smoker - Past Family History Father Family Medical History: Myocardial Infarction (SD) Additional Family Medical History / Comment(s): HEART PROBLEMS Mother Family Medical History: Cancer Additional Family Medical History / Comment(s): BLADDER Medications and Allergies Home Medications Medication Instructions Recorded Confirmed Type Abatacept/Maltose [Orencia] 750 mg IVPB QMONTH 09/25/13 02/18/21 History Ascorbic Acid [Vitamin C] 1,000 mg PO DAILY 09/25/13 02/19/21 History Lansoprazole [Prevacid] 30 mg PO QAM 09/25/13 02/18/21 History Mometasone Furoate [Nasonex] 2 sprays NASAL DAILY PRN 09/25/13 02/19/21 History Montelukast [Singulair] 10 mg PO HS 09/25/13 02/19/21 History Nitroglycerin Sl Tabs [Nitrostat] 0.4 mg SUBLINGUAL Q5M PRN 09/25/13 02/19/21 History Lubiprostone [Amitiza] 24 mcg PO BID 11/18/14 02/18/21 History buPROPion SR [Wellbutrin Sr] 150 mg PO DAILY 12/18/14 02/19/21 History L.acidoph,Paracasei, B.lactis 1 each PO DAILY 02/06/15 02/18/21 History [Probiotic] SUMAtriptan SUCCINATE [Imitrex] 50 mg PO DAILY PRN 02/06/15 02/19/21 History carvediloL [Coreg] 6.25 mg PO BID 02/06/15 02/18/21 History Cyclobenzaprine [Flexeril] 10 mg PO HS PRN #30 tab 04/27/16 02/19/21 Rx Ibuprofen [Motrin] 800 mg PO Q8HR PRN #90 tablet 04/27/16 02/19/21 Rx traMADol HCl [Ultram] 50 mg PO BID PRN #60 tab 04/27/16 02/19/21 Rx Clindamycin Topical Soln 1 applic TOPICAL BID 06/16/16 02/19/21 History [Cleocin-T Topical Soln] Fluticasone Nasal Justin [Flonase 2 sprays EA NOSTRIL DAILY 07/21/18 02/19/21 History Nasal Justin] sulfaSALAzine [Azulfidine] 1,000 mg PO BID 07/21/18 02/18/21 History Docusate [Colace] 100 mg PO BID #60 capsule 02/05/19 02/18/21 Rx Allergies Allergy/AdvReac Type Severity Reaction Status Date / Time codeine Allergy Severe Nausea & Verified 02/19/21 07:39 Vomiting & Diarrhea & Pain morphine Allergy Severe Nausea & Verified 02/19/21 07:39 Vomiting & Diarrhea & PAIN Latex, Natural Rubber Allergy Swelling Verified 02/19/21 07:39 nickel Allergy Rash/Hives Verified 02/19/21 07:39 GRAY INTROCAN SAFETY NEEDLE Allergy Intermediate Rash/Hives Uncoded 02/19/21 07:39 Surgical - Exam Vital Signs Temp Pulse Resp BP Pulse Ox 97.8 F 93 18 147/89 97 02/19/21 07:49 02/19/21 07:49 02/19/21 07:49 02/19/21 07:49 02/19/21 07:49 - General well developed, well nourished, no distress - Eyes PERRL - ENT normal pinna - Neck no masses - Respiratory normal expansion - Cardiovascular Rhythm: regular - Abdomen Abdomen: soft, non tender Assessment and Plan Assessment: Recurrent hiatal hernia. We'll perform EGD.
--- NOTE | 2021-02-19 08:38 | P.OP ---
Date of Procedure: 02/19/21 Preoperative Diagnosis: GERD Postoperative Diagnosis: Mild antral gastritis No evidence of esophagitis Procedure(s) Performed: EGD Anesthesia: MAC Surgeon: Shawn Olvera Pathology: other (Antrum) Condition: stable Disposition: PACU Description of Procedure: The patient's placed on the endoscopy table in the lateral position. He received IV sedation. The gastroscope placed oropharynx past esophagus and stomach. Scope was through the pylorus. The first and second portion of the duodenum appeared normal. The scope was then brought back the antrum this. Mildly inflamed. A biopsies performed. Scope was retroflexed and the remainder of the stomach appeared normal. I was unable see a significant hiatal hernia. The GE junction was at 40 cm. The distal esophagus appeared normal. The proximal esophagus. Normal. Scope withdrawn for patient.
[2021-02-19 08:55] VITALS: RESP 16
[2021-02-19 09:15] VITALS: BP 126/85; PULSE 80
== END | disposition home or self-care (01) ==
LOC: ORWHC2ENDO 07:19
PROVIDERS: ATTEND Surgery
DX: K31.9 Disease of stomach and duodenum, unspecified (principal); K44.9 Diaphragmatic hernia without obstruction or gangrene; K21.9 Gastro-esophageal reflux disease without esophagitis; I20.9 Angina pectoris, unspecified; M79.7 Fibromyalgia; M19.90 Unspecified osteoarthritis, unspecified site; M06.9 Rheumatoid arthritis, unspecified; F17.200 Nicotine dependence, unspecified, uncomplicated; M54.81 Occipital neuralgia; R01.1 Cardiac murmur, unspecified; I42.9 Cardiomyopathy, unspecified; M81.0 Age-related osteoporosis without current pathological fracture; G89.29 Other chronic pain; M54.9 Dorsalgia, unspecified; Z90.49 Acquired absence of other specified parts of digestive tract; Z98.1 Arthrodesis status; Z98.51 Tubal ligation status; Z98.890 Other specified postprocedural states; Z96.82 Presence of neurostimulator; Z84.89 Family history of other specified conditions; Z82.49 Family history of ischemic heart disease and other diseases of the circulatory system; Z80.52 Family history of malignant neoplasm of bladder; Z79.899 Other long term (current) drug therapy; Z91.040 Latex allergy status; Z88.5 Allergy status to narcotic agent; Z91.048 Other nonmedicinal substance allergy status; Z91.09 Other allergy status, other than to drugs and biological substances
CPT/HCPCS: 88305; 43239; J2405; J2001; J2704

== ENCOUNTER → 2021-02-27 | Outpatient (CLI) | payer BC ==
--- NOTE | 2021-02-27 11:38 | FL ---
EXAMINATION TYPE: FL UGI w esophagus w KUB DATE OF EXAM: 02/27/2021 CLINICAL HISTORY: None TECHNIQUE: A single contrast UGI study is performed. COMPARISON: None FINDINGS: Vp Integration image of the abdomen shows no gross abnormality.The esophagus shows normal motility and emptying into the stomach. No evidence of hiatal hernia or stricture noted.The stomach shows nor mal distensibility, peristalsis, and mucosal folds. No evidence of any mass or ulcer disease. No si gnificant gastroesophageal reflux was seen during real time performance of this study.The duodenal bu lb, sweep, and proximal small bowel loops are unremarkable. IMPRESSION: Normal upper GI study.
== END | disposition home or self-care (01) ==
LOC: RADUSWWP 08:53
PROVIDERS: ATTEND Surgery
DX: Z98.890 Other specified postprocedural states (principal)
CPT/HCPCS: 74240

== ENCOUNTER 2021-03-27 08:02 | Day surgery (SDC) | payer BC ==
[2021-03-27] MEDS ORDERED: diazePAM 5 MG TAB PO PRN (08:20)
[2021-03-27 08:50] VITALS: TEMP 98
[2021-03-27 09:42] VITALS: RESP 16
--- NOTE | 2021-03-27 10:46 | CT ---
EXAMINATION TYPE: CT cervical spine w con DATE OF EXAM: 03/27/2021 COMPARISON: CT cervical spine January 02, 2021 HISTORY: Cervicalgia, prior surgery approximately [address] DLP: 428 mGycm. Automated Exposure Control for Dose Reduction was Utilized. TECHNIQUE: CT scan of the cervical spine is obtained after intrathecal injection of 15 cc of Isovue 200 M at the lumbar spine level. FINDINGS: Cervical spine is visualized in its entirety from C1 through upper thoracic levels, it rede monstrates stable alignment. Stable minimal anterolisthesis C3 on C4 and C4 on C5 along with C7 on T1 . There is successful intrathecal contrast injection Prevertebral soft tissue remains within normal limits. The C1-C2 articulation remains within normal limits on the coronal images. Ossific fusion of the right C3-C4 lateral elements redemonstrated. Postsurgical change with some ossific fusion of the C5 and C6 vertebra redemonstrated. Posterior bony projection superior C5 level effaces the anterior thecal sac sagittal image 40 unchanged from prior. Vertebral body heights are maintained. Stable mil d disc space narrowing C4-C5 and moderate disc space narrowing C6-C7 levels. Review of axial images shows no new disc herniation or significant spinal canal stenosis. Uncovertebr al facet degenerative changes right C2-C3 through C4-C5 levels are redemonstrated. Visualized lung ap ices are clear show no pneumothorax. Thyroid gland remains within normal limits. IMPRESSION: As above. Prior surgical change with stable alignment. No significant change in findings from recent CT.
--- NOTE | 2021-03-27 10:52 | FL ---
EXAMINATION TYPE: FL myelogram cervical DATE OF EXAM: 03/27/2021 CLINICAL HISTORY: Neck pain TECHNIQUE: Fluoroscopic assisted myelogram.Fluoroscopic guidance was provided during lumbar puncture procedure performed by Dr. Cabral with assistance from Dr La. A total of 6 minutes 14 seconds of f luoroscopic time was utilized during the procedure and four spot images was acquired COMPARISON: Prior cervical spine CT and lumbar puncture January 02, 2021. FINDINGS: Procedure explained to patient. Benefits, alternatives, risks discussed. Informed consent obtained. Patient placed in prone position. Several attempts by myself were unsuccessful in accessing lumbar sp inal canal at L2-L3 through the L4-L5 levels encountering bone on all attempts despite attempts from different levels and angles. At this point Dr. La persisted and was successful in accessing spinal canal at L4 level. Overlying skin was cleansed with Betadine. Lidocaine was used as anesthetic. Appr oximately 15 cc of Isovue-M 200 was given through spinal needle. Patient tolerated procedure well wit hout any immediate complication. Needle was withdrawn. Patient vital signs monitored before during and after procedure. Patient was kept in the hospital for short stay after the procedure and then discharged home in stable and satisfactory condition. Images saved show successful contrast injection with subsequent cervical extension on placing patient head down. There is thoracic spinal stimulator device noted. IMPRESSION: As Above.
[2021-03-27 11:15] VITALS: BP 107/67; PULSE 87
== END 2021-03-27 13:10 | disposition home or self-care (01) ==
LOC: RADPROMAIN 08:02
PROVIDERS: ATTEND Orthopaedic Surgery
DX: M54.2 Cervicalgia (principal)
CPT/HCPCS: 62302; 72126; Q9966

== ENCOUNTER → 2021-04-20 | Outpatient (CLI) | payer BC | END | disposition home or self-care (01) | LOC: LABPAT 09:18 | PROVIDERS: ATTEND Orthopaedic Surgery | DX: Z01.812 Encounter for preprocedural laboratory examination (principal); M50.00 Cervical disc disorder with myelopathy, unspecified cervical region | CPT/HCPCS: 87070 ==

== ENCOUNTER 2021-04-23 12:02 | Day surgery (SDC) | payer BC ==
[2021-04-22 13:46] VITALS: BMI 25.7
[~2021-04-23 12:02] MED LIST changes: -LACTATED RINGERS 1,000 ML IV ONE; +LACTATED RINGERS 1,000 ML IV SCH; -LIDOCAINE 1% INJ 10MG/ML (20 ML MDV) ONE; -ONDANSETRON 4 MG/2 ML VIAL IVP ONE; -ONDANSETRON 4 MG/2 ML VIAL ONE; -PROPOFOL 10 MG/ML 20 ML VIAL IV ONE
[2021-04-23 12:41] VITALS: RESP 18; TEMP 98.8
[2021-04-23] MEDS ORDERED: diphenhydrAMINE 50 MG/ML 1 ML VIAL ONE (12:43)
[2021-04-23] MEDS ORDERED: ONDANSETRON 4 MG/2 ML VIAL ONE (12:43)
[2021-04-23] MEDS ORDERED: DEXAMETHASONE SOD PHOSPHATE 4 MG/ML 1 ML VIAL IVP ONE (12:53)
[2021-04-23] MEDS ORDERED: diphenhydrAMINE 50 MG/ML 1 ML VIAL IVP ONE (12:53)
[2021-04-23] MEDS ORDERED: ONDANSETRON 4 MG/2 ML VIAL IVP ONE (12:53)
[2021-04-23] MEDS ORDERED: LIDOCAINE 1% INJ 10MG/ML (20 ML MDV) ONE (12:56)
[2021-04-23] MEDS ORDERED: methylPREDNISolone ACETATE 40 MG/ML 1 ML VIAL ONE (12:56)
[2021-04-23] MEDS ORDERED: ROPIVACAINE 5MG/ML 20ML VIAL ONE (12:56)
[2021-04-23] MEDS ORDERED: .fentaNYL (PF) 50 MCG/ML 2 ML AMP ONE (12:56)
[2021-04-23] MEDS ORDERED: MIDAZOLAM 2 MG/2 ML VIAL ONE (12:56)
--- NOTE | 2021-04-23 13:34 | P.PCN ---
Date of Procedure: 04/23/21 Procedure(s) Performed: PREOPERATIVE DIAGNOSIS: 1-Lumbar Spondylosis with Facet Arthropathy without myelopathy. 2- Lumber degenerative disc disease. POSTOPERATIVE DIAGNOSIS: 1- Lumbar Spondylosis with Facet Arthropathy without myelopathy. 2- Lumber degenerative disc disease. PROCEDURES : Bilateral Radiofrequency thermocoagulation, L3 , L4 , and L5 medial branch, with fluoroscopic guidance (fluoroscopy images available in the radiology department) ( to denervate the facet joint at Bilateral L4-5 ,and L5-S1 levels ). ANESTHESIA: Moderate sedation with intravenous versed 2 mg and fentaneyl 100 mcg, and local infiltration with Ropivacaine 0.5 % . EBL: Minimal PROCEDURE INDICATION: The patient with low back pain secondary to lumbar facet arthropathy who had more than 50% relief of her pain with previous diagnostic lumbar medial branch block with bupivacaine. PROCEDURE DESCRIPTION / TECHNIQUE: The patient was seen and identified in the preoperative area. Risks, benefits, complications, including but not limited to risk of infection ,bleeding , allergic reactions to the medications and no complete pain releife , and alternatives were discussed with the patient, the patient agreed to proceed with the procedure and signed the consent. IV was started. Vital signs remained stable throughout the procedure. Patient was taken to the OR and time out was completed. The patient was placed in the prone position on the procedure table. The lumber area was prepped and draped in the usual sterile fashion. . Vital signs were closely monitored during the procedure .IV sedation was used during the procedure to decrease patients anxiety. Using AP and then oblique fluoroscopy, the ``eye of the Jose Alberto dog corresponding to the connection between the superior and transverse articular processes of right L3, L4, and L5 were identified, marked, and localized with 1% lidocaine. Subsequently, a [id number] radiofrequency cannula with a 10- mm active tip was advanced guided by fluoroscopy to each of the``eyes of the Jose Alberto dog at right L3, L4, and L5. Each site then underwent sensory testing at 50 Hz and 0 to 1 volt and motor testing at 2.5 Hz and 0 to 3 volt with local stimulation, but no radicular symptoms down the legs. Thereafter each sites underwent radiofrequency thermocoagulation at 80 degrees celsius for 90 seconds after injecting 0.5 ml of PF Ropivacaine 1ml, then after the thermocoagulation done , 1 ml of the block solution containing Depo-Medrol 20 mg and 3 ml of Ropivacaine 0.5% was injected at the right L3 , L4 , and L5 , levels after negative aspiration of CSF and blood and with no paresthesias. Cannulas were retracted while injecting lidocaine 1% until the needle is out. The same procedure was repeated at the level of Left L3, L4, and L5 levels. At the end of the procedure, the skin was cleansed and bandages were applied. COMPLICATIONS: No acute complications. DISPOSITION / PLANS: The patient was placed in a supine position and transferred to the recovery area in a stable condition for observation and was discharged from the recovery room after meeting discharge criteria. Home discharge instructions given to the patient by the staff. The patient was reexamined prior to discharge. The patient will schedule a follow up in the clinic in 2-4 weeks.
[2021-04-23] MEDS ORDERED: IV FLUID CONTINUATION 1,000 ML IV ONE (13:36)
[2021-04-23 13:52] VITALS: BP 118/77; PULSE 84
--- NOTE | 2021-04-23 14:01 | FL ---
EXAMINATION TYPE: FL guided pain mgmt statistic DATE OF EXAM: 04/23/2021 HISTORY: Fluoroscopy time 26 seconds of fluoroscopy provided. IMPRESSION: 1. Fluoroscopy time.
== END 2021-04-23 14:31 | disposition home or self-care (01) ==
LOC: ORPAIN 12:02
PROVIDERS: ATTEND Specialist
DX: M47.816 Spondylosis without myelopathy or radiculopathy, lumbar region (principal); Z78.0 Asymptomatic menopausal state
CPT/HCPCS: 64635; 64636; J2250; J1200; J1030; J1100; J2405; J2001; J3010; J2795; 99152; 99153

== ENCOUNTER → 2021-04-28 | Day surgery (SDC) | payer BC ==
[2021-04-22 14:05] VITALS: BMI 25.7
[~2021-04-28] MED LIST changes: +0.9% NACL WITH KCL 20 MEQ/L 1,000 ML IV SCH; +ACETAMINOPHEN TAB 325 MG TAB PO SCH; +ACETAMINOPHEN TAB 500 MG TAB ONE; +ACETAMINOPHEN TAB 500 MG TAB PO PRN; +CYCLOBENZAPRINE 10 MG TAB PO PRN; +GABAPENTIN 300 MG CAP PO SCH; +GELATIN SPONGE,ABSORB (LARGE) 1 EACH SPONGE MISCELLANE ONE; +HYDROcodone/APAP 10-325MG 1 EACH TAB PO PRN; +HYDROcodone/APAP 5-325MG 1 EACH TAB PO PRN; +HYDROmorphone 0.5 MG/0.5 ML SYRINGE IVP ONE; +HYDROmorphone 1 MG/ML 1 ML SYRINGE IVP PRN; +KETAMINE 10 MG/ML 20 ML VIAL ONE; +LACTATED RINGERS 1,000 ML IV ONE; +LIDOCAINE 1% (10MG/ML) FOR IV START INTRADERMA PRN; +LIDOCAINE 1% INJ 10MG/ML (20 ML MDV) ONE; +METOCLOPRAMIDE 5 MG/ML 2 ML VIAL IVP ONE; +MIDAZOLAM 2 MG/2 ML VIAL IVP ONE; +MIDAZOLAM 2 MG/2 ML VIAL ONE; +ONDANSETRON 4 MG/2 ML VIAL IVP PRN; +ONDANSETRON 4 MG/2 ML VIAL ONE; +PHENYLEPHRINE-0.9% NACL SYG 1,000 MCG/10 ML SYRINGE ONE; +PROPOFOL 10 MG/ML 20 ML VIAL IV ONE; +SCOPOLAMINE 1.5MG/72HR PATCH TRANSDERM ONE; +SENNOSIDES-DOCUSATE SODIUM 1 EACH TAB PO PRN; +SODIUM CHLORIDE 0.9% 100 ML BAG ONE; +THROMBIN (BOVINE) 5,000 UNIT VIAL TOPICAL ONE; +TRANEXAMIC ACID 1,000 MG in SODIUM CHLORIDE 0.9% 100 ML IVPB PRN; +TRANEXAMIC ACID 1,000 MG/10 ML VIAL ONE; +ceFAZolin 1,000 MG in SODIUM CHLORIDE 0.9% 1,000 ML IRRIGATION ONE; +diphenhydrAMINE 50 MG/ML 1 ML VIAL IVP ONE; +fentaNYL (PF) 50 MCG/ML 2 ML AMP IV PRN; +fentaNYL (PF) 50 MCG/ML 2 ML AMP ONE
--- NOTE | 2021-04-28 07:29 | P.HPOR ---
History of Present Illness H&P Date: 04/20/21 Chief Complaint: Neck pain, arm pain Date of :[birth year] R14Age: 61 year Height: 5'5" Weight: 150 lbs BP:122/70 BMI: 24.96 kg/m2 Occupation: Unemployed VAS: 7 CHIEF COMPLAINT: Low back pain, neck pain, mid back pain, leg pain HISTORY: Xrays No new xrays taken today. Trauma or injury No Work-Related No Pain description aching, burning. Location diffuse Activity Modification yes Hand Dominance right DOI: Chronic, no injury or trauma. DOS: Cervical surgery in 1998. TREATMENTS COMPLETED: 6 weeks of PT completed? Yes How many sessions? 12 Did it help? No home exercise completed? yes Medications yes List: Gabapentin, Lyrica without improvements. Alternative interventions Chiropractic?: No Brace: No Injections Yes (cervical SALIMA) How many? Many Did they help? No RFA: yes, C2-C7 with moderate/temporary relief of her symptoms. SUBJECTIVE: Patient presents to the office for a pre-operative appointment regarding her neck pain. Since the time of the last appointment she notes that her symptoms have not improved. She notes the persistence of symptoms previously reported along with an inability to complete many of her daily functions. She wishes to proceed with the planned procedure. All questions and concerns were addressed. HPI: (review of visit from 03/18/2021 11/12/2020) Ms. Heller last presented to the office on 03/18/2021 to review the results of her CT scan and EMG completed after the time of her last appointment. Since the time of the patient's last appointment she notes that her symptoms have not improved. She is a medically complex patient who has been evaluated by pain management and treated with failure. Additionally she has failed all other conservative treatment measures including PT, home exercises, injections, RFAs, stimulator implantation. With her dx of RA this makes treatment difficult and as stated in the previous note it is stated she is on a variety of medications for this. Patient denies any bladder or bowel issues, perineal numbness or tingling, and ambulates without the use of ambulatory aides but does have an antalgic gait. Ms. Heller was previously seen on 11/12/2020 with complaints of low back pain as well as leg pain as well as cervical spine pain. The patient has a complex medical history that includes rheumatoid arthritis. The patient has been seen by pain management for several years since 2010 and is gone undergone multiple different procedures including multiple different RFA ablations injections SALIMA transforaminal sacroiliac injections of which she has a list and is also in the chart. This is been happening since 2010 and she has gone through over 25 procedures for this. She has had 2 stimulators placed one at the cervical region and the other at the thoracic region which she states do help her. She continues however to have back pain and lower extremity pain and buttock pain. She denies any bowel or bladder incontinence denies any perineal numbness or tingling. She is done the therapy in the past which she states does not help her but seems to make her worse. She is on a multiple different medications for her RA as well as for pain. She has tried gabapentin and Lyrica in the past and does not like them as they do not help her. She is currently on an infusion for her RA monthly. She denies any fevers chills shortness of breath or chest pain at this time. The patients' past social, medical, family, surgical history, as well as review of systems, have been reviewed. Please refer to the Neurosurgery History and Physical form that has been scanned in to our electronic medical record system. Review of Systems 14 points review of systems completed and as stated in HPI, all other systems reviewed are negative. Past Medical History Past Medical History: Chest Pain / Angina, Fibromyalgia, GERD/Reflux, Neurologic Disorder, Osteoarthritis (OA), Rheumatoid Arthritis (RA) Additional Past Medical History / Comment(s): OCCIPITAL NEURALGIA, HEART MURMUR, CARDIOMYOPATHY, osteoporosis, past hx. gastric ulcers. Chronic back pain, DDD, NT in bilat extremities occ, HIATAL HERNIA History of Any Multi-Drug Resistant Organisms: None Reported Past Surgical History: Cholecystectomy, Heart Catheterization, Hernia Repair, Orthopedic Surgery, Tubal Ligation Additional Past Surgical History / Comment(s): COLONOSCOPY, EGD, C-5 C-6 BONE FUSION, OCCIPITAL AND LUMBAR NERVE STIMULATORS, SKIN LESION-lt arm, Right carpal tunnel, Occipital nerve stimulator revision of battery and wires, Left carpal tunnel, PAIN CLINIC PROCEDURES Past Anesthesia/Blood Transfusion Reactions: Family Hisory of Malignant Hyperthermia, Motion Sickness Additional Past Anesthesia/Blood Transfusion Reaction / Comment(s): FAMILY HISTORY OF MALIGNANT HYPERTHERMIA-NEPHEW Smoking Status: Current every day smoker Past Alcohol Use History: Occasional Additional Past Alcohol Use History / Comment(s): started smoking approx 1984, <1ppd (smokes 1-2 cigarettes per day) - Past Family History Father Family Medical History: Myocardial Infarction ([place]) Additional Family Medical History / Comment(s): HEART PROBLEMS Mother Family Medical History: Cancer Additional Family Medical History / Comment(s): BLADDER CANCER. Medications and Allergies Home Medications Medication Instructions Recorded Confirmed Type Abatacept/Maltose [Orencia] 750 mg IVPB QMONTH 09/25/13 04/23/21 History Ascorbic Acid [Vitamin C] 1,000 mg PO DAILY 09/25/13 04/23/21 History Lansoprazole [Prevacid] 30 mg PO QAM 09/25/13 04/23/21 History Montelukast [Singulair] 10 mg PO HS 09/25/13 04/23/21 History Nitroglycerin Sl Tabs [Nitrostat] 0.4 mg SUBLINGUAL Q5M PRN 09/25/13 04/23/21 History Lubiprostone [Amitiza] 24 mcg PO BID 11/18/14 04/23/21 History buPROPion SR [Wellbutrin Sr] 150 mg PO DAILY 12/18/14 04/23/21 History L.acidoph,Paracasei, B.lactis 1 each PO DAILY 02/06/15 04/23/21 History [Probiotic] SUMAtriptan SUCCINATE [Imitrex] 50 mg PO DAILY PRN 02/06/15 04/23/21 History carvediloL [Coreg] 6.25 mg PO BID 02/06/15 04/23/21 History Cyclobenzaprine [Flexeril] 10 mg PO HS PRN #30 tab 04/27/16 04/23/21 Rx Ibuprofen [Motrin] 800 mg PO Q8HR PRN #90 tablet 04/27/16 04/23/21 Rx traMADol HCl [Ultram] 50 mg PO BID PRN #60 tab 04/27/16 04/23/21 Rx Clindamycin Topical Soln 1 applic TOPICAL BID 06/16/16 04/23/21 History [Cleocin-T Topical Soln] Fluticasone Nasal [place] [Flonase 2 sprays EA NOSTRIL DAILY 07/21/18 04/23/21 History Nasal [place]] sulfaSALAzine [Azulfidine] 1,000 mg PO BID 07/21/18 04/23/21 History Metoclopramide [Reglan] 10 mg PO DAILY PRN 03/26/21 04/23/21 History Albuterol Inhaler [Ventolin Hfa 1 - 2 puff INHALATION QID PRN 04/22/21 04/23/21 History Inhaler] Azelastine HCl 2 sprays EA NOSTRIL BID 04/22/21 04/23/21 History Levocetirizine Dihydrochloride 5 mg PO HS 04/22/21 04/23/21 History [Xyzal] Levocetirizine Dihydrochloride 5 mg PO HS 04/22/21 04/23/21 History [Xyzal] Symbicort (Unknown Dose) 2 puff INHALATION BID 04/22/21 04/23/21 History Allergies Allergy/AdvReac Type Severity Reaction Status Date / Time codeine Allergy Severe Nausea & Verified 04/28/21 06:35 Vomiting & Diarrhea & Pain morphine Allergy Severe Nausea & Verified 04/28/21 06:35 Vomiting & Diarrhea & PAIN Latex, Natural Rubber Allergy Swelling Verified 04/28/21 06:35 nickel Allergy Rash/Hives Verified 04/28/21 06:35 GRAY INTROCAN SAFETY NEEDLE Allergy Intermediate Rash/Hives Uncoded 04/28/21 06:35 Physical Examination Osteopathic Statement: *. No significant issues noted on an osteopathic structural exam other than those noted in the History and Physical/Consult. PHYSICAL EXAMINATION: General: Awake, alert, appropriate for age, in no acute distress. HEENT: No unusual neck masses around region of lateral neck triangle, thyroid, supraclavicular groove Heart: Regular rate and rhythm, normal S1, S2 and no murmur/gallop. Lungs: Clear to auscultation bilaterally with no use of accessory muscles. Extremities: Skin warm and dry without acute lesions, coloration, temperature, skin intact, no tenderness or erythema Integument: Hairy patches: Absent Dorsal skin dimples: Absent Cafe au lait spots: Absent Surgical incisions: posterior midline incisions as well as incisions for placement of her stimulators well healed Palpation: Please see Pain drawing on Intake sheet for further detail. Tenderness to palpation over the SI joints bilaterally as well as paralumbar and buttock region. Multifidus tender at the sacroiliac region. POSTURAL and MUSCULO-SKELETAL EVALUATION: Coronal Balance: NEUTRAL Recumbent testing: Patient is able to lay flat on back Sagittal Balance: NEUTRAL Shoulder Profile: LEVEL Pelvic Girdle: LEVEL Neck ROM: RESTRICTED Lumbar ROM: UNRESTRICTED Shoulder ROM: Symmetrical Hip ROM: Symmetrical Knee ROM: Symmetrical Hands: Normal appearance, symmetrical Feet: Normal appearance, Symmetrical VASCULAR STATUS : LEFT RIGHT Wrist Pulses INTACT INTACT Pedal Pulses (Dors. pedis & post.tibialis) INTACT INTACT Color NORMAL NORMAL Edema Absent Absent NEUROLOGIC EXAMINATION: Mental Status:Awake and alert, fully oriented, with normal attention, concentration and memory, and fluent, appropriate speech. Cranial Nerves: I: Olfactory not tested. II: Visual acuity normal, no visual field deficit noted with confrontation. III,IV: Normal pupillary reflexes & intact extraocular movements without nystagmus. V,: Intact symmetrical facial sensation. VII: Intact symmetrical facial motor movement VIII: Hearing intact. IX,X: Intact gag, swallow, & normal voice. XI: Sternocleidomastoid, trapezius function intact. XII: Tongue midline with normal movements. L'hermitte's Sign: Negative / absent Spurling'Sign: Absent bilaterally. Cubital percussion test: Absent bilaterally. Rc-Tinel sign - Carpal region: Absent bilaterally. Straight Leg Raising: Absent bilaterally. Crossed straight leg raise: negative O8 MOTOR EXAM (0-5/5, N/T) STRENGTH RIGHT LEFT Shoulder Abd (not part of the ANUJ score) 5 5 Elbow Flexors 4 4 Elbow Extensor 5 5 Wrist Dorsiflexors 4 4 Finger Abductor 5 5 Price Analyst 4 5 Hip Flexor (Not part of ANUJ Motor score) 5 5 Knee Flexor 5 5 Knee Extensor 5 5 Ankle dorsiflexor 4+ 4+ Ankle plantarflexion 5 5 Extensor hallucis 5 5 Her weakness is somewhat symmetrical bilaterally. She does have some generalized weakness focal deficits are noted. REFLEXES(0-4/2, NT) RIGHT LEFT Upper Extremities 3 3 Lower Extremities 2 2 Pathological Reflexes RIGHT LEFT Rehman's Present Present Clonus Absent Absent Babinski Absent Absent # Indicates mechanical impairment Muscle appearance: Symmetrical Sensory system (0-4, N/T) Test type RU SCOTTY RL LL Joint-Position 2 2 2 2 Vibration 2 2 2 2 Pain & LT sense 2 2 2 2 Dermatomal Deficit: None None None None Gait and Functional Evaluation: Ambulatory aids: Independent somewhat unsteady gait with ambulation. She has a wide-based gait. Romberg's test: Intact bilaterally Toe heel walk / heel-toe walk intact while maintaining satisfactory balance? No Squatting/straightening w/o assistance to a min of 60 degree knee flexion? No Single leg stance: Trendelenburg sign negative bilaterally Hand and finger dexterity intact bilaterally? yes Disdiadochokinesis examination negative bilaterally? yes Results RADIOGRAPHIC STUDIES: - AP lateral flexion-extension films of the lumbar spine obtained and reviewed in the office today. This demonstrates spondylosis L1 S1. This is worse at L4 through S1. L5-S1 has complete disc desiccation L4 5 is complete disc desiccation there is facet arthrosis noted throughout these areas. There is no overt instability noted on flexion-extension films there is slight flattening of the normal lumbar lordosis. Overall coronal alignment is fairly well m aintained except at the L2 through L3 4 region where there is rotation slight lateral listhesis in this area causing some coronal deformity however is less than 10 at this time. AP pelvis demonstrates congruent femoral acetabular joints post surgical hardware in place as well as no fracture or dislocation Most recent CT myelogram is reviewed from 2017 which does show again disc desiccation throughout the lumbar spine vacuum disc phenomena L5-S1 spondylosis for facet hypertrophy as well as some stenosis in this area. There is L4 5 central stenosis L5-S1 central stenosis L4 central stenosis which is mild to moderate throughout. No fracture or dislocations noted. multiple views of the cervical spine obtained and reviewed in the office. This demonstrates postsurgical changes with electrode placements within the greater occipital nerve. There is spondylolisthesis of C3 C4 C4 C5. There is autofusion C5-C6. C6-C7 shows spondylosis with stenosis and foraminal collapse. No fractur enoted at this time. EMG: Evidence of chronic C8 radiculopathy Assessment and Plan Assessment: 1. 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 Clinical Cervical myelopathy 4. Rheumatoid arthritis, treated 5. [facility] medical patient Plan: 1. We discussed gissell odom that she is a medically complex patient. With her diagnosis of RA along with her failure to improve with all other conservative treatment measures we did discuss the pros and cons of both continued conservative treatments versus operative intervention. All questions and concerns were addressed. Regarding operative intervention we did discuss a revision cervical fusion. All risks and benefits of the procedure were discuss and the patient did express understanding. She would like to proceed with operative intervention. This will come in the form of a C4-C5 ACDF. Spine Surgery Risk Review Noemy khan is a 61 y/o white female presenting for evaluation of cervical pain with radiculopathy. It was my pleasure to have seen and examined Noemy Heller. In our visit today we have had a chance to go over subjective complaints, physical examination findings and treatments including the natural course history without intervention and various interventional options. The patients imaging demonstrates spondylosis L1 S1. This is worse at L4 through S1. L5-S1 has complete disc desiccation L4 5 is complete disc desiccation there is facet arthrosis noted throughout these areas. There is no overt instability noted on flexion-extension films there is slight flattening of the normal lumbar lordosis. Overall coronal alignment is fairly well maintained except at the L2 through L3 4 region where there is rotation slight lateral listhesis in this area causing some coronal deformity however is less than 10 at this time. On physical exam, Noemy Heller demonstrates bilateral upper extremity radiculopathy with focal weakness, myelopathic gait, along with being hyperreflexive diffusely. I have explained to the patient that as their condition progresses it will cause further neurological deficits and eventual paralysis. Based on the patients imaging, physical exam, and the rapid progression and disabling nature of their symptoms, at this time I recommend surgery in the form of a C4-C5, C6-C7 ACDF. I discussed the risk and benefits of this procedure at length with Noemy Heller. The patient agreed to considered pursuing the procedure abovementioned. Prior to surgery, she should follow up with her PCP (Cardio, ID, IM etc) for clearance. Questions were invited and answered, and the patient wishes to proceed as outlined below. Currently, I am recommendin.C4-C5, C6-C7 Anterior Cervical Disc Fusion 2.Follow up with PCP for surgical clearance 3.Review of surgical risks and benefits as well as an educational packet on the proposed surgical procedure. Risks: All surgical procedures come with inherent risks, including those related to positioning, anesthesia, intraoperative findings, and postoperative complications. It is important to understand that surgery does not come with any guarantee of a successful outcome as complications and adverse events are always possible. The patient was given a handout in office today discussing the surgical procedure and risks associated with the intervention, both of which were discussed with the patient. These risks include but are not limited to the following: * Experiencing same, different or even worse symptoms in back, neck, arms, or legs compared to before surgery. Requiring further surgery or other forms of treatment presently or at some time in the future at same or other levels of the intended spine surgery. On an extreme but fortunately relatively rare basis severe complication such as blindness, stroke, heart attack, temporary and/or permanent nerve injury, paralysis, coma, or may occur, sometimes without known explanation. Surgical complications may include but are not limited to risk of infection, fluid accumulation in the surgical dissection site, including a seroma or hematoma, that requires additional surgery, wound drainage, bleeding, new numbness or weakness, vision changes/loss, spinal fluid leakage, non-healing and/or infected incision, headaches, difficulty or inability to swallow, hoarseness, hemopneumothorax, pneumothorax, impotence, retrograde ejaculation, vaginal dryness; injury to nerves, spinal cord, blood vessels, lymphatics or other vital organs (i.e., bowel injury, injury to the great vessels); heterotopic bone formation; complications related to the hardware such as screws, rods, cages including misplaced hardware, device failure, instrumentation at the wrong spine level, hardware fracture/breakage, or hardware loosening; vertebral failure of the spinal column above or below the newly placed hardware; retained surgical instrumentations or devices and the need for further surgery. * Medical risks of the planned spine surgery include but are not limited to generalized Infections to the whole body or local areas outside of the surgical site (sepsis), heart attack, bleeding, anaphylaxis, meningitis, seizure, epilepsy, hearing loss, burn tillman, laceration of the head or other areas of the body, bruising, hypersensitivity of the skin, bladder over distension; allergic reaction; shoulder injury related to positioning; fat, blood and air clots to other areas of the body like heart, lungs, brain; failure of internal organs such as lungs, kidneys, liver and excessive bleeding. If blood transfusions are necessary, note that transfusions may cause intolerance reactions such as anaphylaxis or other complex reactions. Despite best efforts, the results of spine surgery might not heal in terms of bone, soft tissues such as skin, fascia, ligaments, and joints. Additionally, in order to achieve best possible results, spine surgery may be carried out beyond the initially planned levels and involve decompression, fusion including insertion of hardware at levels other than the original intended area of surgical interest change some portions of the procedure in order to ensure the best possible outcomes. With spine surgery and spinal fusion, there are different off label uses of instrumentation (devices, implants and hardware) as well as biological substances (bone morphogenic proteins, demineralized bone matrix) as well as using extra bone from allograft sources (i.e. cadaver bone) or autograft (iliac crest bone, ribs, or the spine itself). The patient has been given information about these practices and their inherent risks and benefits. [facility] is an educational center that serves as a training facility for neurosurgical and orthopedic spine residents and fellows. Residents are physicians who are completing their surgical intensive training following medical school. They assist in the operating room with direct supervision of the attending surgeons. [place] are surgeons who have completed their training and eligible for board certification. They have opted for an elective year of more specialized training in their field. They assist in the operating room under the supervision of the attending surgeons. Physician assistants are medically trained surgical providers who function in the outpatient, inpatient, and operating room setting under the direct supervision of the attending surgeon. [facility] has multiple operating rooms with single and overlapping rooms running daily. They currently function under the required guidelines as produced by the [facility] with regards to the overlapping rooms and will continue to comply with changes to this policy as they occur. The requirements include and are complied with as follows: (1) the critical portions of the overlapping rooms will not occur at the same time, (2) the attending physician will be physically present during the critical portions of the procedure and immediately available during the entire case, and (3) a back-up attending is designated should the primary attending not be immediately available. The patient has had a chance to review all the listed information, has been given print outs detailing this information, and has had all his/her questions answered to their satisfaction. It was my pleasure to have seen and examined Noemy Heller. In our visit today we have had a chance to go over my understanding of our patient's current condi tion, the natural course history without intervention and various interventional options. Questions were invited and answered, and the patient wishes to proceed as outlined above. I have seen and examined the patient for 25 minutes and we have spent more than 50% of the time in repeat and detailed counseling about the patient's condition, its natural course history with out and as much as can be predicted with surgery and re-review of various surgical treatment options. In conclusion, Noemy Heller requested we proceed with the above suggested surgery and are willing to accept risks and limitations of the suggested surgery as nature of the disease process and our best attempts at treatment for the condition. Thank you again for allowing us to be part of your patient's care. Please don't hesitate to contact me if you have any further questions. Signed and authenticated by: [employer] P:\\\\ppart\\\\Files\\\\[id number]\\\\[id number]\\\\ [id number].PNG \\d [facility] [address], [address] [address]
--- NOTE | 2021-04-28 10:12 | P.OP ---
Date of Procedure: 04/28/21 Preoperative Diagnosis: 1. 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 Clinical Cervical myelopathy 4. Rheumatoid arthritis, treated 5. [facility] medical patient Postoperative Diagnosis: 1. 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 Clinical Cervical myelopathy 4. Rheumatoid arthritis, treated 5. [facility] patient Procedure(s) Performed: 1. Right sided, revision, olivo brice approach 2. C3-4 anterior discectomy and interbody fusion 3. C3-4 application of biomechanical device 4. C3-4 application of separate nonintegrated anterior plate and screws 5. Use of intraoperative microscope 6. Use of intraoperative neuromonitoring Implants: Fordyce cascadia 8 mm 8 deg IB device 22 mm plate Anesthesia: JANEL Surgeon: Romain Rios Tunnel Elastic Operator Zigzag #1: Isma Billingsley (Was present and necessary for the entire case) Estimated Blood Loss (ml): 50 IV fluids (ml): 750 Urine output (ml): 0 Pathology: none sent Condition: stable Disposition: PACU Indications for Procedure: 61 yo female who underwent a previous C5-6 fusion 27 years ago presented with c/o neck pain, UE radiculopathy, numbness and tingling down her b/l UE as well as difficulty with fine motor skills. She underwent conservative treatments including `physical therapy and injections over the counter as well as prescription medications home exercise program none of which alleviated her symptoms. We discussed different conservative as well as surgical treatment and at this time she has opted for surgical management of her adjacent segment disease at C3-C4 along with her upper extremity radiculopathy. We discussed all limitations were some benefits as outlined in the risk review. She is ready and willing to proceed with procedure. Operative Findings: FINDINGS: - Significant cervical degeneration was identified which was operated on secondary to a combination of significant disc space collapse, osteophyte formation, as well as posterior longitudinal ligament thickening and uncovertebral hypertrophy contributing to spinal stenosis. - The intraoperative microscope was necessary as the neural and vascular structures dealt with as well as adhesions were too small to be safely seen and dissected without the use of microscopic magnification and instrumentation. - Intraoperative neuromonitoring including the use of SSEP and motor evoked potentials remained stable from baseline and persisted throughout the case to its conclusion. Description of Procedure: The patient was seen and examined in the preoperative area. All preoperative protocols were followed. Informed consent was obtained risks and benefits of the procedure were discussed at length. Risks including bleeding infection damage to the surrounding tissue and risk of reoperation were discussed with the patient. Risk of anesthesia up to and including was a discussed with the patient. These are outlined in the risk review. They were willing to accept these risks and all of the risks of surgery. The patient was given a weight- based dose of antibiotics in the form of 2 g Ancef. The patient was seen and evaluated by the anesthesia team who deemed them fit for surgery. The site was marked, the patient was willing to proceed with the procedure. The patient was transferred to the operative suite by the Department of anesthesia. They were then drifted off to sleep by the department anesthesia and GETAwas performed. The patient tolerated this well. Once confirmation of lines and ventilation the patient was transferred to a supine flat top trios table. All bony prominences including wrists, elbows, axilla, chest, hips, and thighs, and feet were padded very well. Special attention was paid to the genitalia and these were padded accordingly. SCDs were placed on bilateral lower extremities and were connected. Arms were well padded and placed [on arm boards up and out in the 90/90 position]. Once in position, again we confirmed good ventilation capabilities and that lines were running appropriately. The patient's anterior cervical spine was then exposed. 1010s were placed outlining the incision site. Standard alcohol was used to clean the incision site and allowed to dry. C-arm was used to biomark the patient and confirm level for incision which was marked with a skin marker. Operative briefing was performed with all teams and everyone in agreement to proceed. The patient was then prepped and draped in a normal sterile fashion. Timeout was then performed and all parties were in agreement with the procedure to be performed. I then performed, as discussed with the patient, a right sided anterior exposure along the anterior margin of the sternocleidomastoid muscle. This was about a 4 fingerbreadth-long incision. We identified the platysma and split it longitudinally. The superficial layer of the middle cervical fascia was identified and carefully dissected and then the deep layer of it. The omohyoid was mobilized and could be retracted. The deep cervical fascia was then released over the palpable osteophytes at [levels] and reflected left and right with tavera elevators off the uncovertebral joints. Nice exposure left and right with release of the anterior soft tissues of the longus colli was achieved. A radiopaque marker was placed to confirm the appropriate surgical level. Under C-arm guidance, we verified levels. At this point, a self-retaining cervical retractor was placed, the endotracheal cuff pressure was lowered to reduce compression on the RLN and the intraoperative microscope was brought in for anterior decompression. I then removed the anterior osteophytes at C3-C4. I also used a smaller ENT rongeur to open the disc spaces, including the uncovertebral joints left and right. Bone from the anterior decompression was saved for use as autograft bone fusion material. Under lateral C-arm guidance, I then placed 14 mm traction pins of the [place] type into C3-C4. Gentle distraction of the vertebrae was carried out until we had restored lordosis. I then spread out the C3-C4 disc after releasing the disc further with straight small curets. With the soft tissue retractors having been replaced and without any undue tension, I performed an anterior discectomy completion to the po sterior inferior vertebral body wall using a combination of the high-speed bur, Kerrison punches, spinal curettes, and the microscopic instruments. The discectomy was performed to the level of the posterior longitudinal ligament. Bilateral foraminotomies and resection of the PLL was performed with the Kerrison punches to decompress the spinal cord and the exiting nerve roots. I also performed sarah dissection of C3 endplate and the posterior superior endplate of C4, as well as the medial edge of the superior uncovertebral joints left and right of [lower level]. I released the posterior longitudinal ligament and had full north fork dural sac as a reference for dorsal decompression of left through right. I then turned my attention toward the application of the intervertebral biomechanical device at C3-4. The trial cages were inserted to identify the best fit. The appropriate-sized intervertebral cage was then selected, in this case a 8 deg lordotic interbody implant, packed with autograft and allograft and then inserted into the interspace using gentle impaction. A set of motor evoked potentials was run showing no change from baseline. Excess bone graft was then gently impacted into the anterior exposed gutters at C3-4 to complete the anterior interbody arthrodesis at this level. Nice purchase was obtained. All traction was removed, including pin traction of [place] and external traction weight. I then performed the application of the non-integrated anterior spinal instrumentation from C3-4. A non-integrated anterior cervical plate was selected for length and then contoured as needed for lordosis with the [place] watson. I templated a 22 mm, lordosed it, and secured it with temporary holding screws and then checked with AP and lateral imaging for adequate alignment and implant placement. With that having been accomplished, I drilled first the patient's left-hand side C4. With this having been accomplished, all screw holes were filled with 14 mm 4.0 screws, depending upon intraoperative drill finding and probing. A very nice stable fixation was obtained. Biplanar imaging revealed satisfactory alignment and implant placement. There were no electrodiagnostic changes. The wound was then copiously irrigated and final hemostasis was achieved using FloSeal hemostatic agent and the bipolar device. At this point, the anterior cervical retractor was removed and the wound was found to have good hemostasis present. I then performed final thorough irrigation and review of the surgical site and found no internal organ injuries. I then closed the incision in layers with a deep drain. I used 3-0 Vicryl for platysma, 3-0 Vicryl for subcutaneous, and 4-0 Monocryl for skin. The skin was then dressed with Exofin and a sterile bandage. Suction canister was applied to the drain. The drain was sewn in to avoid accidental translocation. Drain dressing was applied. A Soft cervical collar was then applied. A final set of motor evoked potentials were run and no change from baseline was noted. At the conclusion of the operation, all sponge, needle, and instrument counts were deemed to be correct. The patient was transferred back to their hospital bed atraumatically. Drain continued to hold suction and were in good position. Patient was then awakened and extubated by the department of anesthesia having tolerated the procedure very well with no complications. They were transferred to the postoperative care unit in stable condition. COMPLICATIONS: No known complications. No blood products given. No dural tea r, no CSF leak. No changes in intraoperative neuromonitoring. DRAINS: One small round bj drain COUNTS: Needle, sponge and cottonoid count correct. UOP: See anesthesia record FLUIDS: See anesthesia record SPECIMENS SUBMITTED: None.
--- NOTE | 2021-04-28 10:13 | P.PN ---
Progress Note - Text Progress Note Date: 04/28/21 Brief Post Op: Surgeon: Gabriel Pre op dx;C3-4 adjacent segment disease Post op dx: Same Procedure: C3-4 ACDF Anesthesia: GETA EBL:50cc Fluids: 750 CC UO: 0 Dispo: Stable to PACU Post op Plan: Post operative noncontrasted CT scan Encourage ambulation IS 10x/hr Teds/SCDs Pain control No brace needed for ambulation Record Drain output
--- NOTE | 2021-04-28 10:17 | FL ---
EXAMINATION TYPE: FL guidance operating room DATE OF EXAM: 04/28/2021 HISTORY: Fluoroscopy time 28 seconds of fluoroscopy provided. IMPRESSION: 1. Fluoroscopy time.
--- NOTE | 2021-04-28 10:21 | XR ---
EXAMINATION TYPE: XR cervical spine limited DATE OF EXAM: 04/28/2021 COMPARISON: NONE HISTORY: Hardware placement TECHNIQUE: 6 images submitted FINDINGS: Images are submitted intraoperative surgical procedure with localization and subsequent merrill hazel which appears in near-anatomic alignment. IMPRESSION: See above
[2021-04-28 10:49] VITALS: TEMP 96.8
[2021-04-28 10:53] VITALS: RESP 16
--- NOTE | 2021-04-28 14:22 | CT ---
EXAMINATION TYPE: CT cervical spine wo con DATE OF EXAM: 04/28/2021 COMPARISON: CT cervical spine March 27, 2021 HISTORY: Post op Cervical Fusion C4-C7 CT DLP: 416.5 mGycm. Automated Exposure Control for Dose Reduction was Utilized. TECHNIQUE: CT scan of the cervical spine is obtained without contrast, axial images are obtained, sa gittal and coronal reformatted images are also reviewed. FINDINGS: Cervical spine is visualized in its entirety from C1 through upper thoracic levels and rede monstrates slight dextroconvex scoliotic curvature centered upper thoracic spine. Alignment stable a nd satisfactory on the sagittal images. The C1-C2 articulation remains within normal limits on the co chava images. There is persistent hyperdense disc material with ossific fusion of the C5 and C6 verte bra. There is new artificial disc material and placement of anterior fusion plate at C4-C5 level. Spi nal canal grossly preserved. Review of axial images demonstrates right-sided uncovertebral facet degenerative changes causing asym metric mild to moderate right-sided neural foraminal narrowing at C2-C3 through the C4-C5 levels. The re is new subcutaneous air anteriorly in the right neck with percutaneous drainage catheter terminati ng anterior to the right C4 vertebra on axial image 57. Posterior right subcutaneous stimulator leads are partially imaged. No apical pneumothorax. IMPRESSION: There is new surgical change C4-C5 level with stable and satisfactory alignment.
[2021-04-28 15:02] VITALS: BP 111/68; PULSE 74
== END | disposition home or self-care (01) ==
LOC: OR 05:46
PROVIDERS: ATTEND Orthopaedic Surgery
DX: M50.90 Cervical disc disorder, unspecified, unspecified cervical region (principal); G95.89 Other specified diseases of spinal cord; R53.1 Weakness; M06.9 Rheumatoid arthritis, unspecified; Z20.822 Contact with and (suspected) exposure to COVID-19
CPT/HCPCS: 22551; 86900; 86901; 86850; 87635; 72040; 72125; L0120; C1713; C1762 ×2; J2250; J1200; J2765; J0690 ×2; J2405; J2001; J3010; J2370; J2704; J1170

== ENCOUNTER → 2021-08-03 | Outpatient (CLI) | payer BC | END | disposition home or self-care (01) | LOC: LABPAT 09:05 | PROVIDERS: ATTEND Orthopaedic Surgery | DX: Z01.812 Encounter for preprocedural laboratory examination (principal); M48.07 Spinal stenosis, lumbosacral region; M47.816 Spondylosis without myelopathy or radiculopathy, lumbar region | CPT/HCPCS: 87070 ==

== ENCOUNTER 2021-08-13 10:25 | Inpatient (IN) | payer BC ==
[2021-08-07 13:53] VITALS: BMI 26.6
--- NOTE | 2021-08-12 12:40 | P.HPOR ---
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 Location posterior Activity Modification yes , unable to stand or ambulate for extended periods of time. Hand Dominance right DOI: None DOS: S/P C3-C4 ACDF 04/28/2021 TREATMENTS COMPLETED: 6 weeks of PT completed Yes Did it help? No Physician directed home exercise completed? yes , without relief Medications yes List: Ibuprofen without relief Alternative interventions Chiropractic: No Massage therapy: No Brace: No Injections No RFA: No SUBJECTIVE: Today Ms. Heller presents to the office for an pre-op recheck of her lumbar spine. Since the time of the last appointment the patient reports that she denies any changes to her symptoms. She complains of continued posterior pain extending into the bilateral lower extremities along with numbness and tingling. She is having weakness about the lower extremities as well that is impacting her ability to perform her daily functions. Additionally she reports continued failure to improve with conservative modalities and is ready to proceed with the planned procedure. Of note, the patient does have a history of a spinal stimulator implantation which she denies any relief with. She continues to deny any bladder or bowel retention/incontinence, no perineal numbness/tingling, and ambulates independently. HPI: Ms. Heller was last seen on 06/25/2021 regarding her cervical spine. Since the time of the last appointment the patient reports that her cervical spine is doing well. She denies any issues at this time and is very happy with the progress she has made. Her primary concern at the time of today's appointment is lumbar pain. She reports lumbar pain ongoing since 2000, and worsening since 2010, with no known injury or trauma to indicate an exact onset of her symptoms. Patient report sharp, stabbing pain at L4-S1 that radiates into the bilateral buttocks and posterior aspects of the bilateral lower extremities. With the pain she does also report numbness and tingling diffusely about the lower extremities. Overall her symptoms are exacerbated with any activity, due to this she is unable to stand or ambulate for extended periods of time. She is unable to complete most daily activities due to this. Regarding treatments the patient reports a long history of trialing multiple rounds of PT with no improvements. She has done a physician recommended home exercise program for years but is no longer able to complete the exercises as it exacerbates her symptoms. She has seen a chiropractor frequently but no longer finds any improvements with this. Patient has had several injections, both SALIMA, and RFA, without any improvements. Overall she denies greatly decreasing effectiveness of trialing conservative modalities. Otherwise she denies any chest pain or shortness of breath, no bladder or bowel retention/incontinence, no perineal numbness/tingling, and ambulates without the use of any aids. The patients' past social, medical, family, surgical history, as well as review of systems, have been reviewed. Please refer to the Neurosurgery History and Physical form that has been scanned in to our electronic medical record system. 14 points review of systems completed and as stated in HPI, all other systems reviewed are negative. Review of Systems 14 points review of systems completed and as stated in HPI, all other systems reviewed are negative. All systems: negative Past Medical History Past Medical History: GERD/Reflux, Osteoarthritis (OA), Rheumatoid Arthritis (RA) Additional Past Medical History / Comment(s): OCCIPITAL NEURALGIA, HEART MURMUR, CARDIOMYOPATHY, osteoporosis, past hx. gastric ulcers. Chronic back pain, DDD, numbness tingling renny legs,, hx HIATAL HERNIA, migraines, IBS, on rx for sinus infection(to finish before surgery) History of Any Multi-Drug Resistant Organisms: None Reported Past Surgical History: Cholecystectomy, Heart Catheterization, Hernia Repair, Orthopedic Surgery, Tubal Ligation Additional Past Surgical History / Comment(s): COLONOSCOPY, EGD, C-5 C-6 BONE FUSION, OCCIPITAL AND LUMBAR NERVE STIMULATORS, SKIN LESION-lt arm, renny carpal tunnel, Occipital nerve stimulator revision of battery and wires, , PAIN CLINIC PROCEDURES, C4 C5 fusion 04/28/21, sinus surgery Past Anesthesia/Blood Transfusion Reactions: Family Hisory of Malignant Hy perthermia, Motion Sickness Additional Past Anesthesia/Blood Transfusion Reaction / Comment(s): FAMILY HISTORY OF MALIGNANT HYPERTHERMIA-NEPHEW. pt states she has not been tested. nephew had sinus surgery but she is not sure what hospital(Formerly [facility]). Smoking Status: Former smoker - Past Family History Father Family Medical History: Myocardial Infarction ([place]) Additional Family Medical History / Comment(s): HEART PROBLEMS Mother Family Medical History: Cancer Additional Family Medical History / Comment(s): BLADDER CANCER. Medications and Allergies Home Medications Medication Instructions Recorded Confirmed Type Abatacept/Maltose [Orencia] 750 mg IVPB QMONTH 09/25/13 08/07/21 History Ascorbic Acid [Vitamin C] 1,000 mg PO DAILY 09/25/13 08/07/21 History Montelukast [Singulair] 10 mg PO HS 09/25/13 08/07/21 History Nitroglycerin Sl Tabs [Nitrostat] 0.4 mg SUBLINGUAL Q5M PRN 09/25/13 08/07/21 History buPROPion SR [Wellbutrin Sr] 450 mg PO QAM 12/18/14 08/07/21 History L.acidoph,Paracasei, B.lactis 1 each PO DAILY 02/06/15 08/07/21 History [Probiotic] SUMAtriptan SUCCINATE [Imitrex] 50 mg PO DAILY PRN 02/06/15 08/07/21 History carvediloL [Coreg] 6.25 mg PO BID 02/06/15 08/07/21 History Clindamycin Topical Soln 1 applic TOPICAL BID PRN 06/16/16 08/07/21 History [Cleocin-T Topical Soln] Fluticasone Nasal [place] [Flonase 2 sprays EA NOSTRIL BID 07/21/18 08/07/21 History Nasal [place]] Albuterol Inhaler [Ventolin Hfa 1 - 2 puff INHALATION QID PRN 04/22/21 08/07/21 History Inhaler] Azelastine HCl 1 sprays EA NOSTRIL HS 04/22/21 08/07/21 History Levocetirizine Dihydrochloride 5 mg PO HS 04/22/21 08/07/21 History [Xyzal] Cyclobenzaprine [Flexeril] 10 mg PO HS #20 tab 04/28/21 08/07/21 Rx Albuterol Nebulizer(Dose Unk) 1 applicate IH BID PRN 08/07/21 08/07/21 History Atorvastatin [Lipitor] 40 mg PO HS 08/07/21 08/07/21 History Benzonatate [Tessalon Perles] 200 mg PO TID PRN 08/07/21 08/07/21 History Doxycycline Hyclate(Dose Unk) 1 tab PO BID 08/07/21 08/07/21 History Ergocalciferol [Vitamin D2 (1250 1,250 mcg PO DAILY 08/07/21 08/07/21 History Mcg = [id number] Iu)] Fluticasone/Umeclidin/Vilanter 1 puff INHALATION QAM 08/07/21 08/07/21 History [Trelegy Ellipta 200-62.5-25] Ibuprofen [Motrin] 800 mg PO Q8H PRN 08/07/21 08/07/21 History Lansoprazole [Prevacid] 30 mg PO HS 08/07/21 08/07/21 History Lubiprostone [Amitiza] 24 mcg PO BID 08/07/21 08/07/21 History Metoclopramide [Reglan] 10 mg PO QID PRN 08/07/21 08/07/21 History Olopatadine HCl [Patanol 0.1%] 1 - 2 drop BOTH EYES BID 08/07/21 08/07/21 History Orencia(Dose Unknown) 1 applicate IV QMONTHLY 08/07/21 08/07/21 History Prolia(Dose Unknown) 1 applicate IJ DIRECTED 08/07/21 08/07/21 History predniSONE 5 mg PO DIRECTED 08/07/21 08/07/21 History sulfaSALAzine [Sulfasalazine Dr] 1,000 mg PO BID 08/07/21 08/07/21 History traMADol HCl [Ultram] 50 mg PO TID PRN 08/07/21 08/07/21 History Allergies Allergy/AdvReac Type Severity Reaction Status Date / Time codeine Allergy Severe Nausea & Verified 08/07/21 13:26 Vomiting & Diarrhea & Pain morphine Allergy Severe Nausea & Verified 08/07/21 13:26 Vomiting & Diarrhea & PAIN Latex, Natural Rubber Allergy Swelling Verified 08/07/21 13:26 nickel Allergy Rash/Hives Verified 08/07/21 13:26 GRAY INTROCAN SAFETY NEEDLE Allergy Intermediate Rash/Hives Uncoded 08/07/21 13:26 Physical Examination Osteopathic Statement: *. No significant issues noted on an osteopathic structural exam other than those noted in the History and Physical/Consult. PHYSICAL EXAMINATION: General: Awake, alert, appropriate for age, in no acute distress. HEENT: No unusual neck masses around region of lateral neck triangle, thyroid, supraclavicular groove Heart: Regular rate and rhythm, normal S1, S2 and no murmur/gallop. Lungs: Clear to auscultation bilaterally with no use of accessory muscles. Extremities: Skin warm and dry without acute lesions, coloration, temperature, skin intact, no tenderness or erythema Integument: Hairy patches: Absent Dorsal skin dimples: Absent Cafe au lait spots: Absent Surgical incisions: yes, well healed cervical incisions Palpation: Please see Pain drawing on Intake sheet for further detail. Midline spinal tenderness: Yes E6 Paralumbar tenderness: Yes E6 Parathoracic tenderness: No E6 Buttocks tenderness: No E6 Special findings: No POSTURAL and MUSCULO-SKELETAL EVALUATION: Coronal Balance: NEUTRAL Recumbent testing: Patient is able to lay flat on back Sagittal Balance: NEUTRAL Shoulder Profile: LEVEL Pelvic Girdle: LEVEL Neck ROM: UNRESTRICTED Lumbar ROM: RESTRICTED Shoulder ROM: Symmetrical Hip ROM: Symmetrical Knee ROM: Symmetrical Hands: Normal appearance, symmetrical Feet: Normal appearance, Symmetrical VASCULAR STATUS : LEFT RIGHT Wrist Pulses INTACT INTACT Pedal Pulses (Dors. pedis & post.tibialis) INTACT INTACT Color NORMAL NORMAL Edema Absent Absent NEUROLOGIC EXAMINATION: Mental Status:Awake and alert, fully oriented, with normal attention, concentration and memory, and fluent, appropriate speech. Cranial Nerves: I: Olfactory not tested. II: Visual acuity normal, no visual field deficit noted with confrontation. III,IV: Normal pupillary reflexes & intact extraocular movements without nystagmus. V,: Intact symmetrical facial sensation. VII: Intact symmetrical facial motor movement VIII: Hearing intact. IX,X: Intact gag, swallow, & normal voice. XI: Sternocleidomastoid, trapezius function intact. XII: Tongue midline with normal movements. L'hermitte's Sign: Negative / absent Sp[place]ling'Sign: Absent bilaterally. Cubital percussion test: Absent bilaterally. Rehman-Tinel sign - Carpal region: Absent bilaterally. Straight Leg Raising: Absent bilaterally. Crossed straight leg raise: negative O8 MOTOR EXAM (0-5/5, N/T) STRENGTH RIGHT LEFT Shoulder Abd (not part of the ANUJ score) 5 5 Elbow Flexors 5 5 Elbow Extensor 5 5 Wrist Dorsiflexors 5 5 Finger Abductor 5 5 Interactive Media Specialist 5 5 Hip Flexor (Not part of ANUJ Motor score) 4+ 4+ Knee Flexor 4+ 4- Knee Extensor 4+ 4- Ankle dorsiflexor 4+ 4_ Ankle plantarflexion 4-_ 5 Extensor hallucis 4+ 5 REFLEXES(0-4/2, NT) RIGHT LEFT Upper Extremities 2 2 Lower Extremities 2 2 Pathological Reflexes RIGHT LEFT Rehman's Absent Absent Clonus Absent Absent Babinski Absent Absent # Indicates mechanical impairment Muscle appearance: Symmetrical, without signs of atrophy or dystrophy. Sensory system (0-4, N/T) Test type RU SCOTTY RL LL Joint-Position 2 2 2 2 Vibration 2 2 2 2 Pain & LT sense 2 2 2 2 Dermatomal Deficit: None None None None Gait and Functional Evaluation: Ambulatory aids: Independent Romberg's test: Intact bilaterally Toe heel walk / heel-toe walk intact while maintaining satisfactory balance? No Squatting/straightening w/o assistance to a min of 60 degree knee flexion? No Single leg stance: not intact bilaterally Trendelenburg sign negative bilaterally Hand and finger dexterity intact bilaterally? yes Disdiadochokinesis examination negative bilaterally? yes Results CT myelogram from 01/02/2021: Is reviewed again and demonstrate spondylosis L3 to S1. This is worse at L5-S1 was complete disc collapse and vacuum disc phenomena facet arthritis and overgrowth as well as ligamentous overgrowth and disc bulge. There are no fractures noted. Severe DDD of L5-S1 with reactive facet arthrosis and foraminal stenosis related. Assessment and Plan Assessment: 1. L3-L1 spondylosis 2.L3-S1 stenosis 3. bilateral lower extremity radiculopathy 4. Neurogenic claudication Plan: 1. The patient has a long standing history of lumbar pain, progressive disability, and failure to improve with conservative modalities. I discussed treatment options with the patient, including operative and non-operative options, and they have elected to proceed with the following surgical procedure: L3-S1 decompression and fusion The indications, risks, benefits, and alternatives to surgery were discussed with the patient at length. Specifically (but not limited to) the risks of infection, stiffness, recurrence of symptoms, need for revision surgery, local numbness, neurovascular injury, and blood clots were discussed. The patient's questions were answered. The decision to proceed was made. Consent will be obtained for the procedure. The nature of the disorder and treatment options were discussed with the patient. 2. Supplements information discussed and given. Expressive Writing Program given and instructed on how to complete. Patient expressed understanding. Ambulate daily Take medications as directed Ice and rest for pain and swelling control. 3. Spine Surgery Risk Review Noemy Heller is presenting for evaluation of low back pain. It was my pleasure to have seen and examined Noemy Heller. In our visit today we have had a chance to go over subjective complaints, physical examination findings and treatments including the natural course history without intervention and various interventional options. The patients imaging demonstrates CT myelogram: demonstrate spondylosis L3 to S1. This is worse at L5-S1 was complete disc collapse and vacuum disc phenomena facet arthritis and overgrowth as well as ligamentous overgrowth and disc bulge. There are no fractures noted. Severe DDD of L5-S1 with reactive facet arthrosis and foraminal stenosis related. . On physical exam, Noemy Heller demonstrates bilateral lower extremity deficits with significant weakness that is impacting her ability to ambulate. I have explained to the patient that as their condition progresses it will cause further neurological deficits and eventual paralysis. Based on the patients imaging, physical exam, and the rapid progression and disabling nature of their symptoms, at this time I recommend surgery in the form or a: L3-S1 decompression and fusion . I discussed the risk and benefits of this procedure at length with Noemy Heller. The patient agreed to considered pursuing the procedure abovementioned. Prior to surgery, she should follow up with her PCP (Cardio, ID, IM etc) for clearance. Questions were invited and answered, and the patient wishes to proceed as outlined below. Currently, I am recommendin. L3-S1 decompression and fusion 2.Follow up with PCP for surgical clearance 3.Review of surgical risks and benefits as well as an educational packet on the proposed surgical procedure. Risks: All surgical procedures come with inherent risks, including those related to positioning, anesthesia, intraoperative findings, and postoperative complications. It is important to understand that surgery does not come with any guarantee of a successful outcome as complications and adverse events are always possible. The patient was given a handout in office today discussing the surgical procedure and risks associated with the intervention, both of which were discussed with the patient. These risks include but are not limited to the following: * Experiencing same, different or even worse symptoms in back, neck, arms, or legs compared to before surgery. Requiring further surgery or other forms of treatment presently or at some time in the future at same or other levels of the intended spine surgery. On an extreme but fortunately relatively rare basis severe complication such as blindness, stroke, heart attack, temporary and/or permanent nerve injury, paralysis, coma, or may occur, sometimes without known explanation. Surgical complications may include but are not limited to risk of infection, fluid accumulation in the surgical dissection site, including a seroma or hematoma, that requires additional surgery, wound drainage, bleeding, new numbness or weakness, vision changes/loss, spinal fluid leakage, non-healing and/or infected incision, headaches, difficulty or inability to swallow, hoarseness, hemopneumothorax, pneumothorax, impotence, retrograde ejaculation, vaginal dryness; injury to nerves, spinal cord, blood vessels, lymphatics or other vital organs (i.e., bowel injury, injury to the great vessels); heterotopic bone formation; complications related to the hardware such as screws, rods, cages including misplaced hardware, device failure, instrumentation at the wrong spine level, hardware fracture/breakage, or hardware loosening; vertebral failure of the spinal column above or below the newly placed hardware; retained surgical instrumentations or devices and the need for further surgery. * Medical risks of the planned spine surgery include but are not limited to generalized Infections to the whole body or local areas outside of the surgical site (sepsis), heart attack, bleeding, anaphylaxis, meningitis, seizure, epilepsy, hearing loss, burn tillman, laceration of the head or other areas of the body, bruising, hypersensitivity of the skin, bladder over distension; allergic reaction; shoulder injury related to positioning; fat, blood and air clots to other areas of the body like heart, lungs, brain; failure of internal organs such as lungs, kidneys, liver and excessive bleeding. If blood transfusions are necessary, note that transfusions may cause intolerance reactions such as anaphylaxis or other complex reactions. Despite best efforts, the results of spine surgery might not heal in terms of bone, soft tissues such as skin, fascia, ligaments, and joints. Additionally, in order to achieve best possible results, spine surgery may be carried out beyond the initially planned levels and involve decompression, fusion including insertion of hardware at levels other than the original intended area of surgical interest change some portions of the procedure in order to ensure the best possible outcomes. With spine surgery and spinal fusion, there are different off label uses of instrumentation (devices, implants and hardware) as well as biological substances (bone morphogenic proteins, demineralized bone matrix) as well as using extra bone from allograft sources (i.e. cadaver bone) or autograft (iliac crest bone, ribs, or the spine itself). The patient has been given information about these practices and their inherent risks and benefits. [facility] is an educational center that serves as a training facility for neurosurgical and orthopedic [employer] and Nursing students. Physician assistants are medically trained surgical providers who function in the outpatient, inpatient, and operating room setting under the direct supervision of the attending surgeon. [facility] has multiple operating rooms with single and overlapping rooms running daily. They currently function under the required guidelines as produced by the [facility] Finance Committee with regards to the overlapping rooms and will continue to comply with changes to this policy as they occur. The requirements include and are complied with as follows: (1) the critical portions of the overlapping rooms will not occur at the same time, (2) the attending physician will be physically present during the critical portions of the procedure and immediately available during the entire case, and (3) a back-up attending is designated should the primary attending not be immediately available. The patient has had a chance to review all the listed information, has been given print outs detailing this information, and has had all his/her questions answered to their satisfaction. It was my pleasure to have seen and examined Noemy Heller. In our visit today we have had a chance to go over my understanding of our patient's current condition, the natural course history without intervention and various interventional options. Questions were invited and answered, and the patient wishes to proceed as outlined above. I have seen and examined the patient for 25 minutes and we have spent more than 50% of the time in repeat and detailed counseling about the patient's condition, its natural course history with out and as much as can be predicted with surgery and re-review of various surgical treatment options. In conclusion, Noemy Heller requested we proceed with the above suggested surgery and are willing to accept risks and limitations of the suggested surgery as nature of the disease process and our best attempts at treatment for the condition. Thank you again for allowing us to be part of your patient's care. Please don't hesitate to contact me if you have any further questions. Signed and authenticated by: beka Can [facility] [address] [place], [address] [place] [address]
[~2021-08-13 10:25] MED LIST changes: -0.9% NACL WITH KCL 20 MEQ/L 1,000 ML IV SCH; -ACETAMINOPHEN TAB 325 MG TAB PO SCH; -ACETAMINOPHEN TAB 500 MG TAB ONE; -CYCLOBENZAPRINE 10 MG TAB PO PRN; +DEXAMETHASONE SOD PHOSPHATE 4 MG/ML 1 ML VIAL IV ONE; +GABAPENTIN 300 MG CAP PO PRN; -GABAPENTIN 300 MG CAP PO SCH; -GELATIN SPONGE,ABSORB (LARGE) 1 EACH SPONGE MISCELLANE ONE; -HYDROcodone/APAP 10-325MG 1 EACH TAB PO PRN; -HYDROcodone/APAP 5-325MG 1 EACH TAB PO PRN; -HYDROmorphone 0.5 MG/0.5 ML SYRINGE IVP ONE; +HYDROmorphone 0.5 MG/0.5 ML SYRINGE IVP PRN; -HYDROmorphone 1 MG/ML 1 ML SYRINGE IVP PRN; -KETAMINE 10 MG/ML 20 ML VIAL ONE; -LACTATED RINGERS 1,000 ML IV ONE; -LACTATED RINGERS 1,000 ML IV SCH; -LIDOCAINE 1% INJ 10MG/ML (20 ML MDV) ONE; +MELOXICAM 7.5 MG TAB PO PRN; -METOCLOPRAMIDE 5 MG/ML 2 ML VIAL IVP ONE; +METOCLOPRAMIDE 5 MG/ML 2 ML VIAL IVP PRN; -MIDAZOLAM 2 MG/2 ML VIAL IVP ONE; -MIDAZOLAM 2 MG/2 ML VIAL ONE; +ONDANSETRON 4 MG/2 ML VIAL IVP ONE; -ONDANSETRON 4 MG/2 ML VIAL ONE; -PHENYLEPHRINE-0.9% NACL SYG 1,000 MCG/10 ML SYRINGE ONE; -PROPOFOL 10 MG/ML 20 ML VIAL IV ONE; -SCOPOLAMINE 1.5MG/72HR PATCH TRANSDERM ONE; -SENNOSIDES-DOCUSATE SODIUM 1 EACH TAB PO PRN; -SODIUM CHLORIDE 0.9% 100 ML BAG ONE; -THROMBIN (BOVINE) 5,000 UNIT VIAL TOPICAL ONE; -TRANEXAMIC ACID 1,000 MG in SODIUM CHLORIDE 0.9% 100 ML IVPB PRN; -TRANEXAMIC ACID 1,000 MG/10 ML VIAL ONE; -ceFAZolin 1,000 MG in SODIUM CHLORIDE 0.9% 1,000 ML IRRIGATION ONE; -diphenhydrAMINE 50 MG/ML 1 ML VIAL IVP ONE; -fentaNYL (PF) 50 MCG/ML 2 ML AMP IV PRN; -fentaNYL (PF) 50 MCG/ML 2 ML AMP ONE
[2021-08-13] MEDS ORDERED: ACETAMINOPHEN TAB 500 MG TAB ONE (11:15)
[2021-08-13] MEDS ORDERED: ONDANSETRON 4 MG/2 ML VIAL ONE (11:15)
[2021-08-13 11:22] LABS: Glucose,Whole Blood 96 mg/dL (75-99)
[2021-08-13] MEDS ORDERED: SCOPOLAMINE 1 MG/72 HR PATCH TRANSDERM ONE (11:26)
[2021-08-13] MEDS: LACTATED RINGERS 1,000 ML IV SCH (11:26)
[2021-08-13] MEDS ORDERED: ALBUTEROL INHALER 60 PUFF/8 GM INHALER (MHU) INHALATION ONE (11:34)
[2021-08-13] MEDS ORDERED: NEOSTIGMINE 1 MG/ML 10 ML VIAL ONE (12:39)
[2021-08-13] MEDS ORDERED: LIDOCAINE 1% INJ 10MG/ML (20 ML MDV) ONE (12:39)
[2021-08-13] MEDS ORDERED: ceFAZolin 1,000 MG VIAL ONE (12:39)
[2021-08-13] MEDS ORDERED: HYDROmorphone (PF) 1 MG/ML ONE (12:39)
[2021-08-13] MEDS ORDERED: ROCURONIUM 10 MG/ML (5 ML VIAL) IV ONE (12:39)
[2021-08-13] MEDS ORDERED: TRANEXAMIC ACID IN NACL,ISO-OS 1,000 MG/100 ML BAG ONE (12:39)
[2021-08-13] MEDS ORDERED: GLYCOPYRROLATE 0.2 MG/ML 2 ML VIAL ONE (12:39)
[2021-08-13] MEDS ORDERED: KETAMINE 10 MG/ML 20 ML VIAL ONE (12:39)
[2021-08-13] MEDS ORDERED: PHENYLEPHRINE-0.9% NACL SYG 1,000 MCG/10 ML SYRINGE ONE (12:39)
[2021-08-13] MEDS ORDERED: SODIUM CHLORIDE 0.9% 100 ML BAG ONE (12:39)
[2021-08-13] MEDS ORDERED: PROPOFOL 10 MG/ML 20 ML VIAL IV ONE (12:39)
[2021-08-13] MEDS ORDERED: MIDAZOLAM 2 MG/2 ML VIAL ONE (12:39)
[2021-08-13] MEDS ORDERED: fentaNYL (PF) 50 MCG/ML 2 ML AMP ONE (12:39)
[2021-08-13] MEDS ORDERED: THROMBIN (BOVINE) 5,000 UNIT VIAL TOPICAL ONE (12:46)
[2021-08-13] MEDS ORDERED: BUPIVACAINE (PF) 0.25% 30 ML VIAL SQ ONE (12:46)
[2021-08-13] MEDS ORDERED: GELATIN SPONGE,ABSORB (LARGE) 1 EACH SPONGE TOPICAL ONE (12:46)
[2021-08-13] MEDS ORDERED: ceFAZolin 3,000 MG in SODIUM CHLORIDE 0.9% IRRIGATIO 3,000 ML IRRIGATION ONE (13:40)
[2021-08-13] MEDS ORDERED: TRANEXAMIC ACID IN NACL,ISO-OS 1,000 MG in SALINE 1 100ML.BAG IVPB PRN (13:42)
[2021-08-13] MEDS ORDERED: LACTATED RINGERS 1,000 ML IV ONE ×2 (14:00→16:44)
[2021-08-13] MEDS ORDERED: VANCOMYCIN 1,000 MG VIAL MISCELLANE ONE (17:20)
[2021-08-13] MEDS ORDERED: TRANEXAMIC ACID IN NACL,ISO-OS 1,000 MG in SALINE 1 100ML.BAG IVPB ONE (18:00)
[2021-08-13] MEDS ORDERED: SENNOSIDES-DOCUSATE SODIUM 1 EACH TAB PO PRN (18:14)
[2021-08-13] MEDS ORDERED: HYDROcodone/APAP 5-325MG 1 EACH TAB PO PRN (18:14)
[2021-08-13] MEDS ORDERED: MAGNESIUM HYDROXIDE 2,400 MG/10 ML CUP PO PRN (18:14)
[2021-08-13] MEDS: HYDROmorphone 1 MG/ML 1 ML SYRINGE IVP PRN (20:23)
[2021-08-13] MEDS: ONDANSETRON 4 MG/2 ML VIAL IVP PRN (20:25)
[2021-08-13] MEDS: GABAPENTIN 300 MG CAP PO SCH (22:15)
[2021-08-13] MEDS: HYDROcodone/APAP 10-325MG 1 EACH TAB PO SCH (22:16)
[2021-08-13] MEDS: SODIUM CHLORIDE 0.9% 1,000 ML IV SCH (22:16)
[2021-08-13] MEDS: polyethylene glycoL 3350 17 GM POWD.PACK PO SCH (22:16)
[2021-08-14] MEDS ORDERED: ACETAMINOPHEN TAB 325 MG TAB PO PRN
[2021-08-14] MEDS: HYDROmorphone 1 MG/ML 1 ML SYRINGE IVP PRN ×4 (02:23→18:15)
[2021-08-14] MEDS: HYDROcodone/APAP 10-325MG 1 EACH TAB PO SCH ×4 (04:53→21:40)
--- NOTE | 2021-08-14 06:51 | FL ---
EXAMINATION TYPE: FL guidance operating room, XR lumbar spine 2 or 3V DATE OF EXAM: 08/13/2021 CLINICAL HISTORY: Low back pain. TECHNIQUE: Fluoroscopy. Intraoperative 2 views lumbar spine. COMPARISON: None. FINDINGS: Fluoroscopic guidance was provided during lumbar fusion procedure performed by Dr. Bradley son. A total of 1.53 minute of fluoroscopic time was utilized during the procedure and 9 spot images are acquired. Images acquired show placement of posterior interpedicular rods and screws L3-S1 levels bilaterally a long with metallic disc material at these levels. IMPRESSION: As Above.
[2021-08-14] MEDS ORDERED: SUMAtriptan succinate 50 MG TAB PO PRN (07:18)
[2021-08-14] MEDS ORDERED: traMADol 50 MG TAB PO PRN (07:18)
[2021-08-14] MEDS ORDERED: BENZONATATE 100 MG CAP PO PRN (07:18)
[2021-08-14] MEDS ORDERED: NITROGLYCERIN SL TABS 0.4 MG TAB SUBLINGUAL PRN (07:18)
[2021-08-14] MEDS: LACTATED RINGERS 1,000 ML IV SCH (07:39)
--- NOTE | 2021-08-14 08:09 | P.PN ---
Subjective Progress Note Date: 08/14/21 Principal diagnosis: L3 to S1 decompression and fusion Patient seen and examined, currently sitting up in chair eating breakfast. Patient is wearing her LSO brace. Ms. Heller states when she had arrived to the floor last night that her pain was not controlled but she is feeling much better this morning. She does state that her symptoms she had prior to surgery have been improved. Patient is looking forward to working with physical therapy today. Surgical dressing is clean dry and intact. Hemovac present to the right of the surgical incision with output of 0 ml. Patient denies fever/chills, nausea/vomiting, or chest. She also denies any perineal numbness or tingling. Groves catheter present and will be discontinued after seen by physical therapy. Objective - Vital Signs Vital signs: Vital Signs Temp 97.9 F 08/14/21 07:49 Pulse 107 H 08/14/21 07:49 Resp 16 08/14/21 07:49 BP 97/63 08/14/21 07:49 Pulse Ox 95 08/14/21 07:49 Intake & Output 08/13/21 08/14/21 08/14/21 18:59 06:59 18:59 Intake Total 3451 Output Total 1430 1055 Balance 2020 -1054 Weight 74 kg 74 kg Intake: IV 3451 Output: Urine 530 1055 Estimated Blood Loss 900 Other: Voiding Method Indwelling Catheter - Exam Physical Examination General: The patient is awake and alert, in no acute distress Skin: Skin is warm and dry with no obvious rashes or lesions. Hairy patches absent, no dorsal skin dimples, no cafe au lait spots. Surgical incision to lumbar spine. Eye: Pupils are equal, round and reactive to light, extra-ocular movements are intact; there is normal conjunctiva bilaterally. Neck: The neck is supple, there is no tenderness and ROM intact. Cardiovascular: There is a regular rate and rhythm. No murmur, rub or gallop is appreciated. Respiratory: Lungs are clear to auscultation, respirations are non-labored, breath sounds are equal. Gastrointestinal: Soft, non-distended, non-tender abdomen . Back: There is slight tenderness to palpation in the paralumbar region. There is no obvious deformity . Musculoskeletal: ROM limited secondary to pain and stiffness from surgical procedure. Shoulder abduction 5/5, elbow flexors 5/5, wrist dorsiflexors 5/5. finger abductor 5/5, quiller tender 5/5, hip flexor 4/5, knee flexor 4/5, ankle dorsiflexor 4/5, ankle plantarflexion 4/5 and extensor hallucis 4/5. Neurological: CN 2-12 intact. There are no obvious motor or sensory deficits. Movement and coordination equal and intact. Sensory exam to light touch intact C5-T1 and intact from L2-S1. Reflexes 2/4 in bilateral upper and lower extremities. Negative Hoffmans, babinski, and clonus signs. Psychiatric: Cooperative, appropriate mood & affect, normal judgment. Assessment and Plan Assessment: Postop day 1: L3 to S1 decompression and fusion. Plan: Plan: -Appreciate human resource consultant and team management. -Activity: Ambulate QID, OOB all meals, up and about, limit lifting bending twisting to less than 5 lbs. Use walker or cane if needed for stability. -Daily PT/OT, increase ambulation strength and balance. -Brace when up and about, not needed in bed or chair -Pain control: Adequate at this time -Meds: reviewed -GI ppx: senna, Miralax -DC groves when up and about, bedside commode if needed -DVT PPX: OK to restart Heparin tonight -Hygiene: Shower today. Maintain dressing clean and dry. Meticulous cleaning after BMs away from the incision site -Drains: Maintain for now. DC later today pending out put and PT -Encourage IS 10x/hr -Dispo: Anticipate discharge home in the next 24-48hrs with homecare *I reviewed and discussed this case with my attending Dr. Rios, whom has reviewed this chart and films and is in agreement with assessment and plan of care as outlined above. I have personally seen and examined the patient, performed the documentation and the assessment and plan as written. Number of minutes spent on the visit: 20m.
[2021-08-14] MEDS: IPRATROPIUM 0.5 MG/2.5 ML NEBU INHALATION SCH ×4 (08:11→21:29)
[2021-08-14] MEDS: SYMBICORT 80-4.5 MCG INHALER INHALATION SCH ×2 (08:11→21:30)
--- NOTE | 2021-08-14 08:34 | CT ---
EXAMINATION TYPE: CT lumbar spine wo con DATE OF EXAM: 08/14/2021 7:11 AM COMPARISON: CT dated 01/02/2021 HISTORY: post op L3-S1 CT DLP: 1120.6 mGycm Automated exposure control for dose reduction was used. Technique: Unenhanced CT of the lumbar spine was performed. Bone and soft tissue window settings are submitted as well as coronal and sagittal reconstructions. Findings: Interval posterior spinal transpedicular fixation from L3 down to S1 using 2 rods and 8 metallic scre ws with L3-4, L4-5 and L5-S1 disc prosthesis. Associated laminectomy of L3, L4 and L5 vertebrae. Acut e postoperative changes with operative bed soft tissue swelling, edema and extensive subcutaneous gas with overlying skin chapito. Artifact is seen at that level. No significant anterolisthesis or retro listhesis. Persistent mild levoscoliosis of the lumbar spine. Nondisplaced fracture is seen involving the inferior endplate of L4 extending from the anterior and p osterior aspects without bone fragments. Bilateral gluteal stimulator devices noted. Tubula r structure is seen at the posterior aspect of the decompressed spinal canal opposite L4, L5 and S1, likely representing a surgical drain, please correlate clinically. Persistent severe degenerative lashonda nges at L1-2 level. L1-L2: No significant central spinal canal stenosis or neuroforaminal stenosis. L2-L3: Diffuse posterior disc bulge, more inclined to the left side, causing no significant central s jonel canal stenosis or neuroforaminal stenosis. L3-L4: Operative bed with suboptimal assessment for spinal canal stenosis or neuroforaminal stenosis L4-L5: Operative bed with suboptimal assessment for spinal canal stenosis or neuroforaminal stenosis L5-S1: Operative bed artifacts with suboptimal assessment for spinal canal stenosis or neuroforaminal stenosis Bilateral subsegmental pulmonary atelectasis. Surgical clips seen at the gastroesophageal junction. P revious cholecystectomy. Dilated CBD, likely related to post post cholecystectomy status. Slightly at rophic pancreas. No paraspinal lesion. IMPRESSION: Acute postoperative changes as detailed above.
[2021-08-14] MEDS: SODIUM CHLORIDE 0.9% 1,000 ML IV SCH ×2 (09:00→21:41)
[2021-08-14] MEDS: LACTOBACILLUS ACIDOPH & BULGAR 1 EACH PACKET PO SCH (09:01)
[2021-08-14] MEDS: GABAPENTIN 300 MG CAP PO SCH ×3 (09:02→21:41)
[2021-08-14] MEDS: FLUTICASONE 50MCG/SPRAY NASAL 16GM EA NOSTRIL SCH ×2 (09:02→21:45)
[2021-08-14] MEDS: buPROPion SR 150 MG TABLET.ER PO SCH (09:03)
[2021-08-14] MEDS: sulfaSALAzine 500 MG TAB PO SCH ×2 (09:03→21:40)
[2021-08-14] MEDS: KETOTIFEN 0.025% OPHTH DROPS 5 ML BTL BOTH EYES SCH ×2 (09:04→21:58)
[2021-08-14] MEDS: carvediloL 6.25 MG TAB PO SCH ×2 (09:05→17:01)
[2021-08-14 09:45] LABS: Basophils # (A) 0.03 X 10*3/uL (0.00-0.10); Basophils % (A) 0.3 %; Eosinophils # (A) 0 X 10*3/uL (0.04-0.35); Eosinophils % (A) 0 %; HCT 27.3 % (37.2-46.3); HGB 8.4 g/dL (12.0-15.0); Immature Grans, Automated 0.5 %; Lymphocytes # (A) 1.39 X 10*3/uL (0.90-5.00); Lymphocytes % (A) 13.3 %; MCH 31.7 pg (27.0-32.0); MCHC 30.8 g/dL (32.0-37.0); Mean Platelet Volume 9.9 fL (9.5-12.2); Monocytes # (A) 0.86 X 10*3/uL (0.20-1.00); Monocytes % (A) 8.2 %; NRBC Per 100 WBC 0 /100 WBCS (0.0-0.0); Neutrophils # (A) 8.12 X 10*3/uL (1.80-7.70); Neutrophils % (A) 77.7 %; Platelet Count 259 X 10*3/uL (140-440); RBC 2.65 X 10*6/uL (4.10-5.20); RDW 13.5 % (11.5-14.5); WBC 10.45 X 10*3/uL (4.50-10.00)
[2021-08-14 09:58] LABS: African American GFR (CKD) 109.1 (60.0-200.0); Anion Gap 9.8 mmol/L (10.00-18.00); Blood Urea Nitrogen 9.1 mg/dL (9.0-27.0); Calcium 8.1 mg/dL (8.7-10.3); Carbon Dioxide 25.2 mmol/L (20.0-27.5); Non-African American GFR(CKD) 94.2 (60.0-200.0)
--- NOTE | 2021-08-14 13:58 | P.CONS ---
History of Present Illness - Reason for Consult Consult date: 08/14/21 - History of Present Illness HISTORY OF PRESENT ILLNESS This is a 61-year-old female patient with past medical history of hypertension, hyperlipidemia, gastroesophageal reflux disease, osteoporosis, cardiomyopathy, rheumatoid arthritis, fibromyalgia, irritable bowel syndrome with constipation, spondylosis of the cervical and lumbar spine. Patient is status post L3-S1 decompression and fusion 08/[address] Rios. Patient is wearing LSO brace patient did have difficulty with pain control last evening but is improved now. She is scheduled to work with physical therapy today. Patient has been afebrile, blood pressure 97/63 heart rate 107, pulse ox 95% on 2 L nasal cannula. Laboratory studies reveal WBC 10.4, hemoglobin 8.4, platelet count 259. Electrolytes are normal. BUN 9 and creatinine 0.7. Blood sugar 123. Calcium 8.1. CAT scan of the lumbar spine reveals acute postop changes. REVIEW OF SYSTEMS Constitutional: No fever, no chills, no night sweats. No weight change. No weakness, fatigue or lethargy. No daytime sleepiness. EENT: No headache. No blurred vision or double vision, no loss of vision. No loss of Hearing, no ringing in the ears, no dizziness. No nasal drainage or congestion. No epistaxis. No sore throat. Lungs: No shortness of breath, cough, no sputum production. No wheezing. Cardiovascular: No chest pain, no lower extremity edema. No palpitations. No paroxysmal nocturnal dyspnea. No orthopnea. No lightheadedness or dizziness. No syncopal episodes. Abdominal: No abdominal pain. No nausea, vomiting. No diarrhea. No constipation. No bloody or tarry stools. No loss of appetite. Genitourinary: No dysuria, increased frequency, urgency. No urinary retention. Musculoskeletal: No myalgias. No muscle weakness, no gait dysfunction, no frequent falls. Reports lumbar back pain. No neck pain. Integumentary: No wounds, no lesions. No rash or pruritus. No unusual bruising. No change in hair or nails. Neurologic: No aphasia. No facial droop. No change in mentation. No head injury. No headache. No paralysis. No paresthesia. Psychiatric: No depression. No anxiety. No mood swings. Endocrine: No abnormal blood sugars. No weight change. No excessive sweating or thirst. No cold intolerance. MEDICAL HISTORY Hypertension Hyperlipidemia Gastroesophageal reflux disease Osteoporosis Cardiomyopathy Rheumatoid arthritis Fibromyalgia Irritable bowel syndromeconstipation Spondylosis of the cervical and lumbar spine SURGICAL HISTORY Tubal ligation Cholecystectomy Hernia repair Spinal cord stimulator implantation Cardiac catheterization in 2012 Colonoscopy 01/2019 C3-C4 ACDF 04/28/2021 SOCIAL HISTORY Patient was a smoker of less than one pack per day for 36 years and quit in 2020. Rare alcohol use, no illicit drug use FAMILY HISTORY Father has history of CVA, diabetes mellitus type 2 and dementia. Mother has history of bladder and kidney cancer. Patient has one brother, 3 sisters with no major medical problems. She has 2 sons and 1 daughter with no major medical problems. PHYSICAL EXAMINATION Gen: This is a 61-year-old female. HEENT: Head is atraumatic, normocephalic. Pupils equal, round. Sclerae is anicteric. NECK: Supple. No JVD. No lymphadenopathy. No thyromegaly. LUNGS: Clear to auscultation. No wheezes or rhonchi. No intercostal retractions. HEART:First heart sound is depressed, second heart sound is normal, no S3, no S4. ABDOMEN: Soft. Bowel sounds are present. No masses. No tenderness. EXTREMITIES: No pedal edema. No calf tenderness. NEUROLOGICAL: Patient is awake, alert and oriented x3. Cranial nerves 2 through 12 are grossly intact. ASSESSMENT AND PLAN 1. Lumbar spondylosis status post L3-S1 decompression and fusion 08/13 continue current pain management per orthopedic spine, continue PT OT per orthopedics, LSO brace, add incentive spirometry to reduce incidence of atelectasis and hospital acquired pneumonia. Continue Flexeril 10 mg at bedtime and 5 mg 3 times daily as needed, gabapentin 300 mg 3 times daily. 2. Lower extremity radiculopathy. Continue as in #1. 3. Hypertension. Continue Coreg 6.25 mg twice daily. 4. Hyperlipidemia. Continue atorvastatin 40 mg at bedtime. 5. Gastroesophageal reflux disease and GI prophylaxis. Continue Protonix 40 mg daily. 6. Osteoporosis. 7. Cardiomyopathy unspecified. 4. Rheumatoid arthritis, stable. 5. Fibromyalgia, stable. 6. Irritable bowel syndromeconstipation, stable.Continue MiraLAX 17 g daily 7. Recurrent depression. Continue Wellbutrin 450 mg daily. 8. Seasonal ALLERGIES. Continue Flonase twice daily, Claritin 10 mg at bedtime, Singulair 10 mg at bedtime. 9. History of migraine headaches. Continue Imitrex if needed. DISCHARGE PLAN Home with [facility]. Impression and plan of care have been directed as dictated by the signing physician. Liz Priest nurse practitioner acting as scribe for signing physician. Past Medical History Past Medical History: GERD/Reflux, Osteoarthritis (OA), Rheumatoid Arthritis (RA) Additional Past Medical History / Comment(s): OCCIPITAL NEURALGIA, HEART MURMUR, CARDIOMYOPATHY, osteoporosis, past hx. gastric ulcers. Chronic back pain, DDD, numbness tingling renny legs,, hx HIATAL HERNIA, migraines, IBS, on rx for sinus infection(to finish before surgery) History of Any Multi-Drug Resistant Organisms: None Reported Past Surgical History: Cholecystectomy, Heart Catheterization, Hernia Repair, Orthopedic Surgery, Tubal Ligation Additional Past Surgical History / Comment(s): COLONOSCOPY, EGD, C-5 C-6 BONE FUSION, OCCIPITAL AND LUMBAR NERVE STIMULATORS, SKIN LESION-lt arm, renny carpal tunnel, Occipital nerve stimulator revision of battery and wires, , PAIN CLINIC PROCEDURES, C4 C5 fusion 04/28/21, sinus surgery Past Anesthesia/Blood Transfusion Reactions: Family Hisory of Malignant Hyperthe rmia, Motion Sickness Additional Past Anesthesia/Blood Transfusion Reaction / Comm: FAMILY HISTORY OF MALIGNANT HYPERTHERMIA-NEPHEW. pt states she has not been tested. nephew had sinus surgery but she is not sure what hospital([facility]). Past Psychological History: No Psychological Hx Reported Smoking Status: Former smoker Past Alcohol Use History: Rare Additional Past Alcohol Use History / Comment(s): started smoking approx 1984, <1ppd, quit smoking fall 2020 Past Drug Use History: None Reported - Past Family History Father Family Medical History: Myocardial Infarction (CO) Additional Family Medical History / Comment(s): HEART PROBLEMS Mother Family Medical History: Cancer Additional Family Medical History / Comment(s): BLADDER CANCER. Medications and Allergies Home Medications Medication Instructions Recorded Confirmed Type Abatacept/Maltose [Orencia] 750 mg IVPB QMONTH 09/25/13 08/13/21 History Ascorbic Acid [Vitamin C] 1,000 mg PO DAILY 09/25/13 08/13/21 History Montelukast [Singulair] 10 mg PO HS 09/25/13 08/13/21 History Nitroglycerin Sl Tabs [Nitrostat] 0.4 mg SUBLINGUAL Q5M PRN 09/25/13 08/13/21 History buPROPion SR [Wellbutrin Sr] 450 mg PO QAM 12/18/14 08/13/21 History L.acidoph,Paracasei, B.lactis 1 each PO DAILY 02/06/15 08/13/21 History [Probiotic] SUMAtriptan SUCCINATE [Imitrex] 50 mg PO DAILY PRN 02/06/15 08/13/21 History carvediloL [Coreg] 6.25 mg PO BID 02/06/15 08/13/21 History Clindamycin Topical Soln 1 applic TOPICAL BID PRN 06/16/16 08/13/21 History [Cleocin-T Topical Soln] Fluticasone Nasal [place] [Flonase 2 sprays EA NOSTRIL BID 07/21/18 08/13/21 History Nasal [place]] Albuterol Inhaler [Ventolin Hfa 1 - 2 puff INHALATION QID PRN 04/22/21 08/13/21 History Inhaler] Azelastine HCl 1 sprays EA NOSTRIL HS 04/22/21 08/13/21 History Levocetirizine Dihydrochloride 5 mg PO HS 04/22/21 08/13/21 History [Xyzal] Cyclobenzaprine [Flexeril] 10 mg PO HS #20 tab 04/28/21 08/13/21 Rx Albuterol Nebulizer(Dose Unk) 1 applicate IH BID PRN 08/07/21 08/13/21 History Atorvastatin [Lipitor] 40 mg PO HS 08/07/21 08/13/21 History Benzonatate [Tessalon Perles] 200 mg PO TID PRN 08/07/21 08/13/21 History Doxycycline Hyclate(Dose Unk) 1 tab PO BID 08/07/21 08/13/21 History Ergocalciferol [Vitamin D2 (1250 1,250 mcg PO DAILY 08/07/21 08/13/21 History Mcg = 53160 Iu)] Fluticasone/Umeclidin/Vilanter 1 puff INHALATION QAM 08/07/21 08/13/21 History [Trelegy Ellipta 200-62.5-25] Ibuprofen [Motrin] 800 mg PO Q8H PRN 08/07/21 08/07/21 History Lansoprazole [Prevacid] 30 mg PO HS 08/07/21 08/13/21 History Lubiprostone [Amitiza] 24 mcg PO BID 08/07/21 08/13/21 History Metoclopramide [Reglan] 10 mg PO QID PRN 08/07/21 08/13/21 History Olopatadine HCl [Patanol 0.1%] 1 - 2 drop BOTH EYES BID 08/07/21 08/13/21 History Orencia(Dose Unknown) 1 applicate IV QMONTHLY 08/07/21 08/13/21 History Prolia(Dose Unknown) 1 applicate IJ DIRECTED 08/07/21 08/13/21 History predniSONE 5 mg PO DIRECTED 08/07/21 08/13/21 History sulfaSALAzine [Sulfasalazine Dr] 1,000 mg PO BID 08/07/21 08/13/21 History traMADol HCl [Ultram] 50 mg PO TID PRN 08/07/21 08/13/21 History Allergies Allergy/AdvReac Type Severity Reaction Status Date / Time codeine Allergy Severe Nausea & Verified 08/13/21 10:45 Vomiting & Diarrhea & Pain morphine Allergy Severe Nausea & Verified 08/13/21 10:45 Vomiting & Diarrhea & PAIN Latex, Natural Rubber Allergy Swelling Verified 08/13/21 10:45 nickel Allergy Rash/Hives Verified 08/13/21 10:45 GRAY INTROCAN SAFETY NEEDLE Allergy Intermediate Rash/Hives Uncoded 08/13/21 10:45 Physical Exam Vitals: Vital Signs Temp Pulse Pulse Resp BP Pulse Ox 08/14/21 08:00 16 08/14/21 07:49 97.9 F 107 H 16 97/63 95 08/14/21 02:13 97.5 F L 118 H 17 108/66 96 08/13/21 22:16 88 99/67 98 08/13/21 21:45 82 103/61 99 08/13/21 21:14 85 103/63 98 08/13/21 20:59 88 98/62 99 08/13/21 20:45 72 91/56 94 L 08/13/21 20:30 16 08/13/21 20:29 85 96/59 98 08/13/21 20:14 97.9 F 85 18 103/65 98 08/13/21 19:33 72 16 101/60 99 08/13/21 19:18 71 18 102/58 98 08/13/21 19:03 78 16 98/60 100 08/13/21 18:48 79 16 98/59 100 08/13/21 18:33 97.6 F 85 16 100/61 100 Intake and Output 08/13/21 08/14/21 08/14/21 22:59 06:59 14:59 Intake Total 500 Output Total 1460 1025 700 Balance -993 -3355 -866 Intake: IV 500 Output: Urine 560 1025 700 Uretheral (Curiel) 700 Estimated Blood Loss 900 Other: Voiding Method Indwelling Catheter Indwelling Catheter Weight 74 kg Results CBC & Chem 7: 08/14/21 04:45 08/14/21 04:45 Labs: Abnormal Lab Results - Last 24 Hours (Table) 08/14/21 08/14/21 Range/Units 04:45 04:45 WBC 10.45 H (4.50-10.00) X 10*3/uL RBC 2.65 L (4.10-5.20) X 10*6/uL Hgb 8.4 L (12.0-15.0) g/dL Hct 27.3 L (37.2-46.3) % MCV 103.0 H (80.0-97.0) fL MCHC 30.8 L (32.0-37.0) g/dL Immature Gran # 0.05 H (0.00-0.04) X 10*3/uL Neutrophils # 8.12 H (1.80-7.70) X 10*3/uL Eosinophils # 0 L (0.04-0.35) X 10*3/uL Anion Gap 9.80 L (10.00-18.00) mmol/L Glucose 123 H (70-110) mg/dL Calcium 8.1 L (8.7-10.3) mg/dL
[2021-08-14] MEDS ORDERED: SODIUM CHLORIDE 0.9% 500 ML 500 ML IV ONE ×2 (17:26→22:55)
[2021-08-14 18:26] LABS: Basophils % (A) 1 %; Eosinophils % (A) 0 %; Lymphocytes # (A) 1.2 k/uL (1.0-4.8); Lymphocytes % (A) 13 %; MCH 33.3 pg (25.0-35.0); MCHC 31.8 g/dL (31.0-37.0); MCV 104.8 fL (80.0-100.0); Macrocytosis Slight; Mean Platelet Volume 7.3; Monocytes # (A) 0.6 k/uL (0-1.0); Monocytes % (A) 7 %; Neutrophils # (A) 6.9 k/uL (1.3-7.7); Neutrophils % (A) 78 %; Platelet Count 233 k/uL (150-450); RBC 2.39 m/uL (3.80-5.40); RDW 13.3 % (11.5-15.5)
[2021-08-14] MEDS: ALBUTEROL NEBULIZED 2.5 MG/3 ML INHALATION PRN (21:29)
[2021-08-14] MEDS: ATORVASTATIN 40 MG TAB PO SCH (21:40)
[2021-08-14] MEDS: MONTELUKAST 10 MG TAB PO SCH (21:40)
[2021-08-14] MEDS: PANTOPRAZOLE 40 MG TABLET PO SCH (21:41)
[2021-08-14] MEDS: LORATADINE 10 MG TAB PO SCH (21:41)
[2021-08-14] MEDS: CYCLOBENZAPRINE 10 MG TAB PO SCH (21:41)
[2021-08-14] MEDS: HYDROmorphone 0.5 MG/0.5 ML SYRINGE IVP PRN (21:42)
[2021-08-14] MEDS: SENNOSIDES-DOCUSATE SODIUM 1 EACH TAB PO SCH (21:52)
[2021-08-14] MEDS: LACTULOSE 20 GM/30 ML CUP PO SCH (21:58)
[2021-08-14] MEDS: polyethylene glycoL 3350 17 GM POWD.PACK PO SCH (23:44)
[2021-08-15] MEDS: HYDROcodone/APAP 10-325MG 1 EACH TAB PO SCH ×4 (03:31→21:20)
[2021-08-15] MEDS: HYDROmorphone 1 MG/ML 1 ML SYRINGE IVP PRN (03:34)
[2021-08-15] MEDS: ONDANSETRON 4 MG/2 ML VIAL IVP PRN ×2 (05:44→23:17)
[2021-08-15 06:09] LABS: Basophils % (A) 0 %; Eosinophils % (A) 0 %; HCT 22.8 % (34.0-46.0); HGB 7.1 gm/dL (11.4-16.0); Lymphocytes % (A) 10 %; MCH 32.6 pg (25.0-35.0); MCHC 31.2 g/dL (31.0-37.0); MCV 104.4 fL (80.0-100.0); Macrocytosis Slight; Mean Platelet Volume 7.6; Monocytes # (A) 0.6 k/uL (0-1.0); Monocytes % (A) 6 %; Neutrophils % (A) 82 %; Platelet Count 199 k/uL (150-450); RBC 2.18 m/uL (3.80-5.40); RDW 13.3 % (11.5-15.5); WBC 9.8 k/uL (3.8-10.6)
[2021-08-15] MEDS: LACTOBACILLUS ACIDOPH & BULGAR 1 EACH PACKET PO SCH (08:35)
[2021-08-15] MEDS: LACTULOSE 20 GM/30 ML CUP PO SCH ×2 (08:35→20:55)
[2021-08-15] MEDS: IPRATROPIUM 0.5 MG/2.5 ML NEBU INHALATION SCH ×4 (08:35→19:48)
[2021-08-15] MEDS: SYMBICORT 80-4.5 MCG INHALER INHALATION SCH ×2 (08:35→19:48)
[2021-08-15] MEDS: SENNOSIDES-DOCUSATE SODIUM 1 EACH TAB PO SCH ×2 (08:35→20:50)
[2021-08-15] MEDS: carvediloL 6.25 MG TAB PO SCH ×2 (08:35→17:39)
[2021-08-15] MEDS: LACTATED RINGERS 1,000 ML IV SCH (08:38)
[2021-08-15 08:58] LABS: African American GFR (CKD) 114.8 (60.0-200.0); Albumin 3.1 g/dL (3.8-4.9); Albumin/Globulin Ratio 1.94 (1.60-3.17); Anion Gap 6.8 mmol/L (10.00-18.00); Calcium 7.5 mg/dL (8.7-10.3); Carbon Dioxide 25.2 mmol/L (20.0-27.5); Globulin 1.6 g/dL (1.6-3.3); Non-African American GFR(CKD) 99.1 (60.0-200.0); Potassium 3.5 mmol/L (3.5-5.5); Total Bilirubin 0.2 mg/dL (0.30-1.20); Total Protein 4.7 g/dL (6.2-8.2)
[2021-08-15] MEDS: FLUTICASONE 50MCG/SPRAY NASAL 16GM EA NOSTRIL SCH ×2 (10:28→21:21)
[2021-08-15] MEDS: KETOTIFEN 0.025% OPHTH DROPS 5 ML BTL BOTH EYES SCH ×2 (10:28→21:21)
[2021-08-15] MEDS: buPROPion SR 150 MG TABLET.ER PO SCH (10:29)
[2021-08-15] MEDS: sulfaSALAzine 500 MG TAB PO SCH ×2 (10:29→21:19)
[2021-08-15] MEDS: GABAPENTIN 300 MG CAP PO SCH ×3 (10:29→21:19)
--- NOTE | 2021-08-15 11:28 | P.PN ---
Subjective Progress Note Date: 08/15/21 HISTORY OF PRESENT ILLNESS This is a 61-year-old female patient with past medical history of hypertension, hyperlipidemia, gastroesophageal reflux disease, osteoporosis, cardiomyopathy, rheumatoid arthritis, fibromyalgia, irritable bowel syndrome with constipation, spondylosis of the cervical and lumbar spine. Patient is status post L3-S1 decompression and fusion 08/[address] Rios. Patient is wearing LSO brace patient did have difficulty with pain control last evening but is improved now. She is scheduled to work with physical therapy today. Patient has been afebrile, blood pressure 97/63 heart rate 107, pulse ox 95% on 2 L nasal cannula. Laboratory studies reveal WBC 10.4, hemoglobin 8.4, platelet count 259. Electrolytes are normal. BUN 9 and creatinine 0.7. Blood sugar 123. Calcium 8.1. CAT scan of the lumbar spine reveals acute postop changes. 08/15: Patient after she was seen yesterday developed to have significant hypertension and tachycardia her heart rate was around 130 bpm, she did receive 1 L of normal saline with some improvement, repeated count in the evening was a round 8 g/dL and today in the morning her hemoglobin dropped to 7.1 she did receive 1 unit of packed red blood cells, patient slid out of her chair yesterday while she was reaching for her incentive spirometer without any injuries she was seen earlier by spine surgery, her pain is well controlled, her vital signs are more stable now than they were earlier today patient denies any chest pain at this time, she has no shortness breath, she is currently on 2 L cannula, her oxygen saturation 99%, the blood pressure is 105/75, heart rate is round 85, respirations 18, she was getting minimal blurred vision, double vision however is better now than it was earlier. REVIEW OF SYSTEMS Constitutional: No fever, no chills, no night sweats. No weight change. No weakness, fatigue or lethargy. No daytime sleepiness. HEENT: No headache. Positive for blurred vision positive for double vision, no loss of vision. No loss of Hearing, no ringing in the ears, no dizziness. No nasal drainage or congestion. No epistaxis. No sore throat. Lungs: No shortness of breath, cough, no sputum production. No wheezing. Cardiovascular: No chest pain, no lower extremity edema. No palpitations. No paroxysmal nocturnal dyspnea. No orthopnea. No lightheadedness or dizziness. No syncopal episodes. Abdominal: No abdominal pain. No nausea, vomiting. No diarrhea. No constipation. No bloody or tarry stools. No loss of appetite. Genitourinary: No dysuria, increased frequency, urgency. No urinary retention. Musculoskeletal: No myalgias. No muscle weakness, positive for gait dysfunction, no frequent falls. Reports lumbar back pain. No neck pain. Integumentary: No wounds, no lesions. No rash or pruritus. No unusual bruising. No change in hair or nails. Neurologic: No aphasia. No facial droop. No change in mentation. No head injury. No headache. No paralysis. No paresthesia. Psychiatric: No depression. No anxiety. No mood swings. Endocrine: No abnormal blood sugars. No weight change. No excessive sweating or thirst. No cold intolerance. PHYSICAL EXAMINATION Gen: This is a 61-year-old female appears in minimal distress. HEENT: Head is atraumatic, normocephalic. Pupils equal, round. Sclerae is anicteric. Conjunctivae are slightly pale, mucus membranes of the mouth are very dry., NECK: Supple. No JVD. No lymphadenopathy. No thyromegaly. LUNGS: Clear to auscultation. No wheezes or rhonchi. No intercostal retractions. HEART:First heart sound is depressed, second heart sound is normal, no S3, no S4. ABDOMEN: Soft. Bowel sounds are present. No masses. No tenderness. EXTREMITIES: No pedal edema. No calf tenderness. dorsalis pedis +2 bilaterally. NEUROLOGICAL: Patient is awake, alert and oriented x3. Cranial nerves 2 through 12 are grossly intact. ASSESSMENT AND PLAN 1. Lumbar spondylosis status post L3-S1 decompression and fusion 08/13 continue current pain management per orthopedic spine, continue PT OT per orthopedics, LSO brace, add incentive spirometry to reduce incidence of atelectasis and hospital acquired pneumonia. Continue Flexeril 10 mg at bedtime and 5 mg 3 times daily as needed, gabapentin 300 mg 3 times daily. 2. Sinus tachycardia likely related to combination of fluid loss and acute blood loss, along with pain Patient did receive a liter of normal saline, continue IV fluid at 75 mL an hour, 3. Acute blood loss anemia expected outcome of surgery. Type and cross and transfuse 1 unit of packed blood cells keep hemoglobin greater than 8. 4. Hypertension and hypertensive cardiovascular disease. Continue patient on carvedilol 6.25 mg orally twice every day, monitor the patient blood pressure very closely. 5. Hyperlipidemia. Continue atorvastatin 40 mg at bedtime. 6. Gastroesophageal reflux disease and GI prophylaxis. Continue Protonix 40 mg daily. 7. Osteoporosis. stable at this time 8. Non-ischemic cardiomyopathy. Continue patient on carvedilol 6.25 mg orally twice every day. 9. Rheumatoid arthritis, stable. patient was instructed to stay off biologic agents one week before 1 week after surgery. 10. Fibromyalgia, continue gabapentin 300 mg orally 3 times every day. 11. Irritable bowel syndromeconstipation, stable.Continue MiraLAX 17 g in 8 ounces water once every day, continue Senokot 2 tablet orally bedtime, continue lactulose 20 g orally twice every day. 12. Recurrent depression. Continue Wellbutrin 450 mg daily. 13. Seasonal ALLERGIES. Continue Flonase twice daily, Claritin 10 mg at bedtime, Singulair 10 mg at bedtime. 14. History of migraine headaches. avoid Imitrex in the hospital. 15. We will continue to follow the patient with you. Objective - Vital Signs Vital signs: Vital Signs Temp 98.9 F 08/15/21 11:02 Pulse 94 08/15/21 11:02 Resp 16 08/15/21 11:02 BP 98/59 08/15/21 11:02 Pulse Ox 99 08/15/21 11:02 Intake & Output 08/14/21 08/15/21 08/15/21 18:59 06:59 18:59 Intake Total 2720 0 Output Total 950 230 140 Balance 1770 -230 -140 Intake: IV 1400 Sodium Chloride 0.9% 1, 900 000 ml @ 100 mls/hr IV . Q10H [facility] Rx#:[id number] Sodium Chloride 0.9% 500 500 ml 500 ml @ 999 mls/hr IV .Q31M [facility] Rx#:[id number] Oral 1320 Blood Product 0 Rc As-1 Unit 0 [id number] Output: Drainage 250 230 140 Back 250 230 140 Urine 700 Uretheral (Curiel) 700 Other: Voiding Method Indwelling Catheter Toilet Toilet # Voids 2 2 - Labs CBC & Chem 7: 08/15/21 04:24 08/15/21 04:24 Labs: Abnormal Lab Results - Last 24 Hours (Table) 08/14/21 08/15/21 08/15/21 Range/Units 18:02 04:24 04:24 RBC 2.39 L 2.18 L (3.80-5.40) m/uL Hgb 8.0 L 7.1 L (11.4-16.0) gm/dL Hct 25.0 L 22.8 L (34.0-46.0) % MCV 104.8 H 104.4 H (80.0-100.0) fL Neutrophils # 8.0 H (1.3-7.7) k/uL Anion Gap 6.80 L (10.00-18.00) mmol/L BUN 6.0 L (9.0-27.0) mg/dL BUN/Creatinine Ratio 10.00 L (12.00-20.00) Ratio Glucose 112 H (70-110) mg/dL Calcium 7.5 L (8.7-10.3) mg/dL Total Bilirubin 0.20 L (0.30-1.20) mg/dL AST 85 H (13-35) U/L ALT 135 H (8-44) U/L Total Protein 4.7 L (6.2-8.2) g/dL Albumin 3.1 L (3.8-4.9) g/dL Crossmatch 08/15/21 Range/Units 06:50 RBC (3.80-5.40) m/uL Hgb (11.4-16.0) gm/dL Hct (34.0-46.0) % MCV (80.0-100.0) fL Neutrophils # (1.3-7.7) k/uL Anion Gap (10.00-18.00) mmol/L BUN (9.0-27.0) mg/dL BUN/Creatinine Ratio (12.00-20.00) Ratio Glucose (70-110) mg/dL Calcium (8.7-10.3) mg/dL Total Bilirubin (0.30-1.20) mg/dL AST (13-35) U/L ALT (8-44) U/L Total Protein (6.2-8.2) g/dL Albumin (3.8-4.9) g/dL Crossmatch See Detail
--- NOTE | 2021-08-15 12:40 | P.PN ---
Subjective Progress Note Date: 08/15/21 Principal diagnosis: 1. L3-L1 spondylosis 2.L3-S1 stenosis 3. bilateral lower extremity radiculopathy 4. Neurogenic claudication Patient was seen at bedside this morning currently being transfused with 1 unit of packed red blood cells. Patient says she has had some headaches which are normal for her and also some bouts of blurry vision as well as a fall last night. Patient says she was in her chair next to bedside when she went to grab something on her table she kind of slid out of the chair and landed on her knees. Patient denies hitting her head/losing consciousness. Patient is not complaining of any pain besides her lower back where she had surgery. Patient denies chest pain, fever, shortness of breath, nausea, vomiting, loss of bowel/bladder control. Objective - Vital Signs Vital signs: Vital Signs Temp 98.6 F 08/15/21 11:32 Pulse 90 08/15/21 11:32 Resp 16 08/15/21 11:32 BP 99/64 08/15/21 11:32 Pulse Ox 98 08/15/21 11:32 Intake & Output 08/14/21 08/15/21 08/15/21 18:59 06:59 18:59 Intake Total 2720 0 Output Total 950 230 140 Balance 1770 -230 -140 Intake: IV 1400 Sodium Chloride 0.9% 1, 900 000 ml @ 100 mls/hr IV . Q10H [facility] Rx#:[id number] Sodium Chloride 0.9% 500 500 ml 500 ml @ 999 mls/hr IV .Q31M ONE Rx#:[id number] Oral 1320 Blood Product 0 Rc As-1 Unit 0 [id number] Output: Drainage 250 230 140 Back 250 230 140 Urine 700 Uretheral (Curiel) 700 Other: Voiding Method Indwelling Catheter Toilet Toilet # Voids 2 2 1 - Exam Patient is currently being transfused with 1 unit packed red blood cells. Patient does have a brace on currently while lying in bed being transfused. Incision was not inspected at this time. opti-Foam dressing is in place. Drain will remain in place as output is too high at this point for removal. Patient is able to wiggle digits in lower extremities bilaterally. Dorsalis pedis pulse intact, bilaterally 2+. Cap refill under 3 seconds in digits in upper extremities. Patient has full range of motion right lower extremity. Patient does have some limited range of motion left lower extremity due to pain. Patient has full range of motion bilateral upper extremities. Motor exam 5/5 in bilateral upper extremities. 4/5 in bilateral lower extremities. Negative Homans bilaterally. - Labs CBC & Chem 7: 08/15/21 04:24 08/15/21 04:24 Labs: Abnormal Lab Results - Last 24 Hours (Table) 08/14/21 08/15/21 08/15/21 Range/Units 18:02 04:24 04:24 RBC 2.39 L 2.18 L (3.80-5.40) m/uL Hgb 8.0 L 7.1 L (11.4-16.0) gm/dL Hct 25.0 L 22.8 L (34.0-46.0) % MCV 104.8 H 104.4 H (80.0-100.0) fL Neutrophils # 8.0 H (1.3-7.7) k/uL Anion Gap 6.80 L (10.00-18.00) mmol/L BUN 6.0 L (9.0-27.0) mg/dL BUN/Creatinine Ratio 10.00 L (12.00-20.00) Ratio Glucose 112 H (70-110) mg/dL Calcium 7.5 L (8.7-10.3) mg/dL Total Bilirubin 0.20 L (0.30-1.20) mg/dL AST 85 H (13-35) U/L ALT 135 H (8-44) U/L Total Protein 4.7 L (6.2-8.2) g/dL Albumin 3.1 L (3.8-4.9) g/dL Crossmatch 08/15/21 Range/Units 06:50 RBC (3.80-5.40) m/uL Hgb (11.4-16.0) gm/dL Hct (34.0-46.0) % MCV (80.0-100.0) fL Neutrophils # (1.3-7.7) k/uL Anion Gap (10.00-18.00) mmol/L BUN (9.0-27.0) mg/dL BUN/Creatinine Ratio (12.00-20.00) Ratio Glucose (70-110) mg/dL Calcium (8.7-10.3) mg/dL Total Bilirubin (0.30-1.20) mg/dL AST (13-35) U/L ALT (8-44) U/L Total Protein (6.2-8.2) g/dL Albumin (3.8-4.9) g/dL Crossmatch See Detail Assessment and Plan Assessment: 1. L3-L1 spondylosis 2.L3-S1 stenosis 3. bilateral lower extremity radiculopathy 4. Neurogenic claudication Postoperative day #2 status post L3-S1 decompression and fusion Plan: 1. L3-L1 spondylosis;L3-S1 stenosis; bilateral lower extremity radiculop athy; Neurogenic claudication - surgery performed , 08/13/2021 - L3-S1 decompression fusion. Patient currently being transfused with 1 unit packed red blood cells. Drain will be kept in place at this time as 230 mL has been charted as output from drain since last night. Dressing will be left in place at this time. We do recommend for medicine to follow closely with patient's blood pressure, headaches, and bouts of blurry vision. Patient's pain is currently under control. We'll continue to follow patient while in hospital. Plan for discharge as early as 08/17/2021 2. Appreciate medical management 3. Pain management - [place]; gabapentin; Tylenol 4. GI prophylaxis - Protonix; MiraLAX; senna 5. DVT prophylaxis - mechanical 6. PT/OT - LSO brace while up and about. 7. Discharge planning - plan for discharge as early as 08/17/2021 Time with Patient: Less than 30
[2021-08-15] MEDS: SODIUM CHLORIDE 0.9% 1,000 ML IV SCH ×2 (14:35→20:49)
[2021-08-15] MEDS ORDERED: bisacodyL 10 MG SUPP RECTAL STA (19:58)
[2021-08-15] MEDS: polyethylene glycoL 3350 17 GM POWD.PACK PO SCH (20:50)
[2021-08-15] MEDS: MONTELUKAST 10 MG TAB PO SCH (21:19)
[2021-08-15] MEDS: ATORVASTATIN 40 MG TAB PO SCH (21:19)
[2021-08-15] MEDS: LORATADINE 10 MG TAB PO SCH (21:19)
[2021-08-15] MEDS: PANTOPRAZOLE 40 MG TABLET PO SCH (21:19)
[2021-08-15] MEDS: CYCLOBENZAPRINE 10 MG TAB PO SCH (21:20)
[2021-08-15] MEDS: HYDROmorphone 0.5 MG/0.5 ML SYRINGE IVP PRN (23:27)
[2021-08-16] MEDS ORDERED: SODIUM CHLORIDE 0.9% 500 ML 250 ML IV ONE (03:59)
[2021-08-16] MEDS: HYDROcodone/APAP 10-325MG 1 EACH TAB PO SCH ×4 (04:02→21:30)
[2021-08-16] MEDS: SODIUM CHLORIDE 0.9% 1,000 ML IV SCH ×3 (04:03→21:33)
[2021-08-16] MEDS ORDERED: NA PHOS,M-B/NA PHOS,DI-BA 133 ML ENEMA RECTAL ONE (04:12)
[2021-08-16] MEDS: METOCLOPRAMIDE 10 MG TAB PO PRN ×2 (05:44→15:18)
[2021-08-16] MEDS: IPRATROPIUM 0.5 MG/2.5 ML NEBU INHALATION SCH ×4 (08:41→20:10)
[2021-08-16] MEDS: SYMBICORT 80-4.5 MCG INHALER INHALATION SCH ×2 (08:41→20:10)
--- NOTE | 2021-08-16 08:51 | P.PN ---
Subjective Progress Note Date: 08/16/21 HISTORY OF PRESENT ILLNESS This is a 61-year-old female patient with past medical history of hypertension, hyperlipidemia, gastroesophageal reflux disease, osteoporosis, cardiomyopathy, rheumatoid arthritis, fibromyalgia, irritable bowel syndrome with constipation, spondylosis of the cervical and lumbar spine. Patient is status post L3-S1 decompression and fusion 08/[address] Rios. Patient is wearing LSO brace patient did have difficulty with pain control last evening but is improved now. She is scheduled to work with physical therapy today. Patient has been afebrile, blood pressure 97/63 heart rate 107, pulse ox 95% on 2 L nasal cannula. Laboratory studies reveal WBC 10.4, hemoglobin 8.4, platelet count 259. Electrolytes are normal. BUN 9 and creatinine 0.7. Blood sugar 123. Calcium 8.1. CAT scan of the lumbar spine reveals acute postop changes. 08/15: Patient after she was seen yesterday developed to have significant hypertension and tachycardia her heart rate was around 130 bpm, she did receive 1 L of normal saline with some improvement, repeated count in the evening was a round 8 g/dL and today in the morning her hemoglobin dropped to 7.1 she did receive 1 unit of packed red blood cells, patient slid out of her chair yesterday while she was reaching for her incentive spirometer without any injuries she was seen earlier by spine surgery, her pain is well controlled, her vital signs are more stable now than they were earlier today patient denies any chest pain at this time, she has no shortness breath, she is currently on 2 L cannula, her oxygen saturation 99%, the blood pressure is 105/75, heart rate is round 85, respirations 18, she was getting minimal blurred vision, double vision however is better now than it was earlier. 08/16: Patient is complaining of severe headache likely secondary to spinal headache, patient was instructed to stay flat in bed, and she was given boluses of IV fluid, continue to monitor the patient's symptoms very closely, continue patient on Dilaudid as needed for pain control, patient may need to go for a blood patch, continue to monitor the patient very closely, avoid Imitrex flushes in the hospital. This is not a migraine headache. REVIEW OF SYSTEMS Constitutional: No fever, no chills, no night sweats. No weight change. No weakness, fatigue or lethargy. No daytime sleepiness. HEENT: No headache. Positive for blurred vision positive for double vision, no loss of vision. No loss of Hearing, no ringing in the ears, no dizziness. No nasal drainage or congestion. No epistaxis. No sore throat. Lungs: No shortness of breath, cough, no sputum production. No wheezing. Cardiovascular: No chest pain, no lower extremity edema. No palpitations. No paroxysmal nocturnal dyspnea. No orthopnea. No lightheadedness or dizziness. No syncopal episodes. Abdominal: No abdominal pain. No nausea, vomiting. No diarrhea. No constipation. No bloody or tarry stools. No loss of appetite. Genitourinary: No dysuria, increased frequency, urgency. No urinary retention. Musculoskeletal: No myalgias. No muscle weakness, positive for gait dysfunction, no frequent falls. Reports lumbar back pain. No neck pain. Integumentary: No wounds, no lesions. No rash or pruritus. No unusual bruisin g. No change in hair or nails. Neurologic: No aphasia. No facial droop. No change in mentation. No head injury. No headache. No paralysis. No paresthesia. Psychiatric: No depression. No anxiety. No mood swings. Endocrine: No abnormal blood sugars. No weight change. No excessive sweating or thirst. No cold intolerance. PHYSICAL EXAMINATION Gen: This is a 61-year-old female appears in minimal distress. HEENT: Head is atraumatic, normocephalic. Pupils equal, round. Sclerae is anicteric. Conjunctivae are slightly pale, mucus membranes of the mouth are very dry., NECK: Supple. No JVD. No lymphadenopathy. No thyromegaly. LUNGS: Clear to auscultation. No wheezes or rhonchi. No intercostal retractions. HEART:First heart sound is depressed, second heart sound is normal, no S3, no S4. ABDOMEN: Soft. Bowel sounds are present. No masses. No tenderness. EXTREMITIES: No pedal edema. No calf tenderness. dorsalis pedis +2 bilaterally. NEUROLOGICAL: Patient is awake, alert and oriented x3. Cranial nerves 2 through 12 are grossly intact. ASSESSMENT AND PLAN 1. Lumbar spondylosis status post L3-S1 decompression and fusion 08/13 continue current pain management per orthopedic spine, continue PT OT per orthopedics, LS O brace, add incentive spirometry to reduce incidence of atelectasis and hospital acquired pneumonia. Continue Flexeril 10 mg at bedtime and 5 mg 3 times daily as needed, gabapentin 300 mg 3 times daily. 2. Sinus tachycardia likely related to combination of fluid loss and acute blood loss, along with pain Patient did receive a liter of normal saline, continue IV fluid at 75 mL an hour, 3. Acute blood loss anemia expected outcome of surgery. Type and cross and transfuse 1 unit of packed blood cells keep hemoglobin greater than 8. 4. Hypertension and hypertensive cardiovascular disease. Continue patient on carvedilol 6.25 mg orally twice every day, monitor the patient blood pressure very closely. 5. Hyperlipidemia. Continue atorvastatin 40 mg at bedtime. 6. Gastroesophageal reflux disease and GI prophylaxis. Continue Protonix 40 mg daily. 7. Osteoporosis. stable at this time 8. Non-ischemic cardiomyopathy. Continue patient on carvedilol 6.25 mg orally twice every day. 9. Rheumatoid arthritis, stable. patient was instructed to stay off biologic agents one week before 1 week after surgery. 10. Fibromyalgia, continue gabapentin 300 mg orally 3 times every day. 11. Irritable bowel syndromeconstipation, stable.Continue MiraLAX 17 g in 8 ounces water once every day, continue Senokot 2 tablet orally bedtime, continue lactulose 20 g orally twice every day. 12. Recurrent depression. Continue Wellbutrin 450 mg daily. 13. Seasonal ALLERGIES. Continue Flonase twice daily, Claritin 10 mg at bedtime, Singulair 10 mg at bedtime. 14. History of migraine headaches. avoid Imitrex in the hospital. 15. Spinal headache. Please evaluate by spine surgery follow-up. The patient flat in bed, continue IV fluid, use Dilaudid as needed, likely will need blood patch. 16. We will continue to follow with you. Objective - Vital Signs Vital signs: Vital Signs Temp 98.7 F 08/16/21 08:00 Pulse 96 08/16/21 08:00 Resp 18 08/16/21 08:00 BP 140/66 08/16/21 08:00 Pulse Ox 98 08/16/21 08:00 Intake & Output 08/15/21 08/16/21 08/16/21 18:59 06:59 18:59 Intake Total 490 Output Total 180 200 Balance 310 -200 Intake: Oral 180 Blood Product 310 Rc As-1 Unit 310 [id number] Output: Drainage 180 200 Back 180 200 Other: Voiding Method Toilet Toilet # Voids 1 2 # Bowel Movements 1 - Labs CBC & Chem 7: 08/15/21 04:24 08/15/21 04:24 Labs: Abnormal Lab Results - Last 24 Hours (Table) 08/15/21 08/15/21 Range/Units 04:24 06:50 Anion Gap 6.80 L (10.00-18.00) mmol/L BUN 6.0 L (9.0-27.0) mg/dL BUN/Creatinine Ratio 10.00 L (12.00-20.00) Ratio Glucose 112 H (70-110) mg/dL Calcium 7.5 L (8.7-10.3) mg/dL Total Bilirubin 0.20 L (0.30-1.20) mg/dL AST 85 H (13-35) U/L ALT 135 H (8-44) U/L Total Protein 4.7 L (6.2-8.2) g/dL Albumin 3.1 L (3.8-4.9) g/dL Crossmatch See Detail
[2021-08-16 09:30] LABS: African American GFR (CKD) 123.6 (60.0-200.0); Albumin 2.9 g/dL (3.8-4.9); Albumin/Globulin Ratio 1.7 (1.60-3.17); Anion Gap 6.7 mmol/L (10.00-18.00); BUN/Creat Ratio 11.4 Ratio (12.00-20.00); Blood Urea Nitrogen 5.5 mg/dL (9.0-27.0); Globulin 1.7 g/dL (1.6-3.3); Non-African American GFR(CKD) 106.6 (60.0-200.0); Potassium 3.6 mmol/L (3.5-5.5); Total Bilirubin 0.2 mg/dL (0.30-1.20); Total Protein 4.5 g/dL (6.2-8.2)
[2021-08-16] MEDS: SENNOSIDES-DOCUSATE SODIUM 1 EACH TAB PO SCH ×2 (09:42→21:30)
[2021-08-16] MEDS: LACTULOSE 20 GM/30 ML CUP PO SCH ×2 (09:42→21:32)
[2021-08-16] MEDS: LACTOBACILLUS ACIDOPH & BULGAR 1 EACH PACKET PO SCH (09:42)
[2021-08-16] MEDS: carvediloL 6.25 MG TAB PO SCH ×2 (09:43→16:43)
[2021-08-16] MEDS: GABAPENTIN 300 MG CAP PO SCH ×3 (09:43→21:31)
[2021-08-16] MEDS: buPROPion SR 150 MG TABLET.ER PO SCH (09:43)
[2021-08-16] MEDS: sulfaSALAzine 500 MG TAB PO SCH ×2 (09:44→21:31)
[2021-08-16] MEDS: KETOTIFEN 0.025% OPHTH DROPS 5 ML BTL BOTH EYES SCH ×2 (09:49→21:32)
[2021-08-16] MEDS: FLUTICASONE 50MCG/SPRAY NASAL 16GM EA NOSTRIL SCH ×2 (09:49→21:32)
--- NOTE | 2021-08-16 10:10 | P.PN ---
Subjective Progress Note Date: 08/16/21 Principal diagnosis: 1. L3-L1 spondylosis 2.L3-S1 stenosis 3. bilateral lower extremity radiculopathy 4. Neurogenic claudication Patient was seen at bedside this morning currently and does have LSO brace on lying semirecumbent in bed. Patient was transfused yesterday with 1 unit of packed red blood cells. Patient says she has had some headaches and also some bouts of blurry vision as well as a fall a couple nights ago. Patient says when she did get up and sit in chair yesterday when she changed position she did begin to feel little bit nauseous and began to have an intense headache. Patient is not complaining of any pain besides her lower back where she had surgery. Patient denies chest pain, fever, shortness of breath, nausea, vomiting, loss of bowel/bladder control. Objective - Vital Signs Vital signs: Vital Signs Temp 98.7 F 08/16/21 08:00 Pulse 96 08/16/21 08:00 Resp 18 08/16/21 08:00 BP 140/66 08/16/21 08:00 Pulse Ox 98 08/16/21 08:00 Intake & Output 08/15/21 08/16/21 08/16/21 18:59 06:59 18:59 Intake Total 490 Output Total 180 200 80 Balance 310 -200 -80 Intake: Oral 180 Blood Product 310 Rc As-1 Unit 310 [id number] Output: Drainage 180 200 80 Back 180 200 80 Other: Voiding Method Toilet Toilet Toilet # Voids 1 2 # Bowel Movements 1 - Exam Patient does have a brace on currently while lying in bed. Dressing is in place on back. Drain will remain in place as output was 200 mL overnight. Patient is able to wiggle digits in lower extremities bilaterally. Dorsalis pedis pulse intact, bilaterally 2+. Cap refill under 3 seconds in digits in upper extremities. Patient has full range of motion right lower extremity. Patient does have some limited range of motion left lower extremity due to pain. Patient has full range of motion bilateral upper extremities. Motor exam 5/5 in bilateral upper extremities. 4/5 in bilateral lower extremities. Negative Homans bilaterally. - Labs CBC & Chem 7: 08/15/21 04:24 08/16/21 04:06 Labs: Abnormal Lab Results - Last 24 Hours (Table) 08/15/21 08/16/21 Range/Units 06:50 04:06 Anion Gap 6.70 L (10.00-18.00) mmol/L BUN 5.5 L (9.0-27.0) mg/dL Creatinine 0.5 L (0.6-1.5) mg/dL BUN/Creatinine Ratio 11.40 L (12.00-20.00) Ratio Glucose 135 H (70-110) mg/dL Calcium 8.0 L (8.7-10.3) mg/dL Total Bilirubin 0.20 L (0.30-1.20) mg/dL AST 45 H (13-35) U/L ALT 76 H (8-44) U/L Total Protein 4.5 L (6.2-8.2) g/dL Albumin 2.9 L (3.8-4.9) g/dL Crossmatch See Detail Assessment and Plan Assessment: 1. L3-L1 spondylosis 2.L3-S1 stenosis 3. bilateral lower extremity radiculopathy 4. Neurogenic claudication Postoperative day #3 status post L3-S1 decompression and fusion Plan: 1. L3-L1 spondylosis;L3-S1 stenosis; bilateral lower extremity radiculopathy; Neurogenic claudication - surgery performed , 08/13/2021 - L3-S1 decompression fusion. Drain will be kept in place at this time as 200 mL has been charted as output from drain since last night. Dressing will be left in place at this time. We do recommend for medicine to follow closely with patient's blood pressure, headaches, and bouts of blurry vision. Patient's pain is currently under control. We'll continue to follow patient while in hospital. 2. Appreciate medical management 3. Pain management - [place]; gabapentin; Tylenol 4. GI prophylaxis - Protonix; MiraLAX; senna 5. DVT prophylaxis - mechanical 6. PT/OT - LSO brace while up and about. 7. Discharge planning - pending Time with Patient: Less than 30
[2021-08-16 10:47] LABS: Basophils # (A) 0.01 X 10*3/uL (0.00-0.10); Basophils % (A) 0.1 %; Eosinophils # (A) 0 X 10*3/uL (0.04-0.35); Eosinophils % (A) 0 %; HCT 23.7 % (37.2-46.3); HGB 7.4 g/dL (12.0-15.0); Immature Grans, Automated 0.6 %; Lymphocytes # (A) 1.26 X 10*3/uL (0.90-5.00); MCH 31.9 pg (27.0-32.0); MCHC 31.2 g/dL (32.0-37.0); MCV 102.2 fL (80.0-97.0); Mean Platelet Volume 9.5 fL (9.5-12.2); Monocytes # (A) 0.64 X 10*3/uL (0.20-1.00); Monocytes % (A) 7.6 %; NRBC Per 100 WBC 0 /100 WBCS (0.0-0.0); Neutrophils # (A) 6.43 X 10*3/uL (1.80-7.70); Neutrophils % (A) 76.7 %; Platelet Count 180 X 10*3/uL (140-440); RBC 2.32 X 10*6/uL (4.10-5.20); RDW 14.8 % (11.5-14.5); WBC 8.39 X 10*3/uL (4.50-10.00)
[2021-08-16] MEDS: HYDROmorphone 0.5 MG/0.5 ML SYRINGE IVP PRN ×2 (12:07→17:35)
[2021-08-16] MEDS: ONDANSETRON 4 MG/2 ML VIAL IVP PRN ×2 (12:08→21:33)
--- NOTE | 2021-08-16 17:36 | P.PN ---
Progress Note - Text Progress Note Date: 08/16/21 Spoke with nursing over the phone. Pt had been doing OK but Tuesday night sustained a fall from her chair while reaching for her IS. She was OK, fell to her knees but has had increased pain as well as new MCMILLAN now that seem to be positional. Yesterday, nursing stated her headaches were not quite as bad and she went about her day for the most part except for needing a transfusion due to tachy with low BP and HgB 7.1. This is expected due to her blood loss in surgery. Today however, she is having seemingly more MCMILLAN and some nausea related. She was seen by IM and Spine PA today for eval. Mixed reports here. Nursing states right now she is stable in bed. She still has not rebounded and hbg after transfusion is onl 7.4 with continued lower SBP in the 100s and mild tachy. We will transfuse another unit of PRBC for her symptomatic ABLA, expected due to surgery and we will have her Lay flat in bed overnight. She may have bathroom privlages as long as she does not get symptomatic when she gets up, however if she does then she needs to remain flat the rest of the night. The dural leak was repaired in surgery with a fat patch and direct repair. A blood patch will do nothing as the patient no longer has lamina at this level and she effectively is bleeding in the area. We will place the drain to gravity to allow some pressure build up. Nursing states that drain has been serosanguinous and NOT clear fluid or excessive. If the patient does not recover in the next day or two she would potentially need reexploration and revision repair due to potential dislodgement from the fall she had. We will continue to monitor her status carefully.
[2021-08-16] MEDS: MAGNESIUM SULFATE-D5W PMX 1 GM in DEXTROSE/WATER 1 100ML.BAG IVPB SCH ×2 (17:37→18:47)
[2021-08-16] MEDS ORDERED: SUMAtriptan succinate 50 MG TAB PO PRN (18:43)
[2021-08-16] MEDS: MONTELUKAST 10 MG TAB PO SCH (21:30)
[2021-08-16] MEDS: PANTOPRAZOLE 40 MG TABLET PO SCH (21:30)
[2021-08-16] MEDS: ATORVASTATIN 40 MG TAB PO SCH (21:30)
[2021-08-16] MEDS: LORATADINE 10 MG TAB PO SCH (21:31)
[2021-08-16] MEDS: CYCLOBENZAPRINE 10 MG TAB PO SCH (21:31)
[2021-08-16] MEDS: polyethylene glycoL 3350 17 GM POWD.PACK PO SCH (21:31)
[2021-08-17] MEDS: HYDROmorphone 0.5 MG/0.5 ML SYRINGE IVP PRN ×4 (01:01→22:55)
[2021-08-17] MEDS: HYDROcodone/APAP 10-325MG 1 EACH TAB PO SCH ×4 (02:46→20:46)
[2021-08-17] MEDS: CYCLOBENZAPRINE 5 MG TAB PO PRN ×3 (02:47→17:42)
[2021-08-17] MEDS: METOCLOPRAMIDE 10 MG TAB PO PRN (02:47)
--- NOTE | 2021-08-17 07:51 | P.PN ---
Subjective Progress Note Date: 08/17/21 Patient seen and examined this morning she has laying in her bed supine. She states she is fairly comfortable right now and complains of no pain. She states however that when she does get up she has positional headaches and starts to get somewhat nauseous when she gets up to the bathroom. This been going on since yesterday. She states on Tuesday she had a fall which seemed insignificant however she did fall to the ground on her knees while reaching for her incentive spirometer from her chair. After that she complained that her back pain did slightly increase. Since then she has been having these headaches that are positional in nature. She did lay flat on Tuesday due to need for blood trans fusion. Her hemoglobin after this was still low and so she received another unit of blood last night. Her hemoglobin rechecked is in for this morning. She complains of some radicular pain on the left lower extremity however this is much better she denies any weakness denies any numbness or tingling in the perineal region states she has been voiding and passing gas appropriately. She does state headache that is positional seems to be worse when she gets up she complains of some nausea when she does sit up as well. She denies any changes in vision or blurred vision at this time. Objective - Vital Signs Vital signs: Vital Signs Temp 99.7 F H 08/17/21 06:35 Pulse 106 H 08/17/21 03:48 Resp 18 08/17/21 03:48 BP 95/57 08/17/21 03:48 Pulse Ox 98 08/17/21 02:36 Intake & Output 08/16/21 08/17/21 08/17/21 18:59 06:59 18:59 Intake Total 1200 310 Output Total 230 Balance 970 310 Intake: IV 1200 Sodium Chloride 0.9% 1, 1200 000 ml @ 100 mls/hr IV . Q10H PINKY Rx#:[id number] Blood Product 310 Rc As-1 Unit 310 [id number] Output: Drainage 230 Back 230 Other: Voiding Method Toilet Toilet # Voids 1 3 - Exam Patient is alert and oriented 3 appears well-nourished well-hydrated is in no acute distress. They do not appear septic. On exam the patient has no tenderness to palpation of her thoracic or lumbar spine. There is no edema or ballottement sign. Lower extremities with 4+/5 strength in all major muscle groups Upper extremities show [5]/5 strength in all major muscle groups. No focal deficits, progressing appropriately [2]/4DTR all UE and LE b/l Patient shows a negative Homans, Rehman's, negative Babinski's negative clonus bilaterally. negative straight leg raise bilaterally. No tensioning signs. Cranial nerves II through XII are grossly intact. There is FROM that is painless of the b/l UE and LE in all major joints [w/o pain]. They are intact to light touch sensation in L2 to S1 nerve distribution. Patient has palpable dorsalis pedis was posterior tibial pulses. Compartments are soft and compressible. Drain has been in place there is some increased clearness to the drain and so this was removed promptly and has been to gravity over the last 24 hours and had about 20 mL of output. This output was serosanguineous but was slightly clearer than normal this drain was removed and the dressing was changed the incision is clean and dry there is a mild amount of drainage from the drain hole that is serosanguineous but clearer than normal. There is no tenderness to palpation around the incision there is no ballottement there is no fluctuance noted - Labs CBC & Chem 7: 08/16/21 04:06 08/16/21 04:06 Labs: Abnormal Lab Results - Last 24 Hours (Table) 08/15/21 08/16/21 08/16/21 Range/Units 06:50 04:06 04:06 RBC 2.32 L (4.10-5.20) X 10*6/uL Hgb 7.4 L (12.0-15.0) g/dL Hct 23.7 L (37.2-46.3) % MCV 102.2 H (80.0-97.0) fL MCHC 31.2 L (32.0-37.0) g/dL RDW 14.8 H (11.5-14.5) % Immature Gran # 0.05 H (0.00-0.04) X 10*3/uL Eosinophils # 0 L (0.04-0.35) X 10*3/uL Anion Gap 6.70 L (10.00-18.00) mmol/L BUN 5.5 L (9.0-27.0) mg/dL Creatinine 0.5 L (0.6-1.5) mg/dL BUN/Creatinine Ratio 11.40 L (12.00-20.00) Ratio Glucose 135 H (70-110) mg/dL Calcium 8.0 L (8.7-10.3) mg/dL Total Bilirubin 0.20 L (0.30-1.20) mg/dL AST 45 H (13-35) U/L ALT 76 H (8-44) U/L Total Protein 4.5 L (6.2-8.2) g/dL Albumin 2.9 L (3.8-4.9) g/dL Crossmatch See Detail Assessment and Plan Assessment: 61-year-old female postop day 4 L3 to S1 decompression fusion 1. L3-L1 spondylosis 2.L3-S1 stenosis 3. bilateral lower extremity radiculopathy 4. Neurogenic claudication Plan: -Appreciate agriculture consultant and team management. -Activity: Lie flat, bed rest head of bed no greater than 10 today -Pain control: [Adequate at this time] -Meds: [reviewed]. Add caffeine IV -GI ppx: senna, Miralax -May replace Curiel if needed however patient should use bedpan or urinal at this time -DVT PPX: Heparin -Hygiene: Maintain dressing clean and dry. Meticulous cleaning after BMs away from incision site -Drains: DC'd today -Encourage IS 10x/hr -Add abdominal binder while laying in bed -Dispo: [Pending] Patient is showing some signs of continued CSF leak. The dura was repaired primarily watertight and with a fat patch graft however with the patient's fall may have dislodged to this. We will keep the patient flat for the next 24 hours and gradually sit her up and see if her symptoms resolve the do not we may need to return to the OR for revision repair of her dural erosion. I discussed this at length with the patient she understood and was comfortable with this plan of care. We will make her nothing by mouth at midnight for possible revision repair tomorrow.
[2021-08-17] MEDS: IPRATROPIUM 0.5 MG/2.5 ML NEBU INHALATION SCH ×4 (08:58→20:11)
[2021-08-17] MEDS: SYMBICORT 80-4.5 MCG INHALER INHALATION SCH ×2 (08:58→20:10)
[2021-08-17] MEDS ORDERED: CAFFEINE CITRATE IVPB SCH ×2 (09:00)
[2021-08-17] MEDS ORDERED: DEXTROSE 5% IVPB SCH ×2 (09:00)
[2021-08-17] MEDS ORDERED: WATER IVPB SCH ×2 (09:00)
[2021-08-17 09:02] LABS: Basophils # (A) 0.02 X 10*3/uL (0.00-0.10); Basophils % (A) 0.3 %; Eosinophils # (A) 0 X 10*3/uL (0.04-0.35); Eosinophils % (A) 0 %; HCT 26.4 % (37.2-46.3); HGB 8.3 g/dL (12.0-15.0); Immature Grans, Automated 0.3 %; Lymphocytes # (A) 1.12 X 10*3/uL (0.90-5.00); Lymphocytes % (A) 14.5 %; MCH 31.8 pg (27.0-32.0); MCHC 31.4 g/dL (32.0-37.0); MCV 101.1 fL (80.0-97.0); Mean Platelet Volume 9.5 fL (9.5-12.2); Monocytes % (A) 7.7 %; NRBC Per 100 WBC 0 /100 WBCS (0.0-0.0); Neutrophils # (A) 5.99 X 10*3/uL (1.80-7.70); Neutrophils % (A) 77.2 %; Platelet Count 199 X 10*3/uL (140-440); RBC 2.61 X 10*6/uL (4.10-5.20); RDW 14.7 % (11.5-14.5); WBC 7.75 X 10*3/uL (4.50-10.00)
[2021-08-17] MEDS: sulfaSALAzine 500 MG TAB PO SCH ×2 (09:03→20:46)
[2021-08-17] MEDS: LACTOBACILLUS ACIDOPH & BULGAR 1 EACH PACKET PO SCH (09:03)
[2021-08-17] MEDS: LACTULOSE 20 GM/30 ML CUP PO SCH ×2 (09:03→20:45)
[2021-08-17] MEDS: buPROPion SR 150 MG TABLET.ER PO SCH (09:03)
[2021-08-17] MEDS: carvediloL 6.25 MG TAB PO SCH ×2 (09:03→17:42)
[2021-08-17] MEDS: GABAPENTIN 300 MG CAP PO SCH ×3 (09:03→20:45)
[2021-08-17] MEDS: SENNOSIDES-DOCUSATE SODIUM 1 EACH TAB PO SCH ×2 (09:03→20:45)
[2021-08-17] MEDS: KETOTIFEN 0.025% OPHTH DROPS 5 ML BTL BOTH EYES SCH ×2 (09:04→20:51)
[2021-08-17] MEDS: FLUTICASONE 50MCG/SPRAY NASAL 16GM EA NOSTRIL SCH ×2 (09:04→20:50)
[2021-08-17 09:36] LABS: African American GFR (CKD) 114.8 (60.0-200.0); Albumin/Globulin Ratio 1.76 (1.60-3.17); Anion Gap 11.3 mmol/L (10.00-18.00); BUN/Creat Ratio 9.33 Ratio (12.00-20.00); Blood Urea Nitrogen 5.6 mg/dL (9.0-27.0); Calcium 7.8 mg/dL (8.7-10.3); Carbon Dioxide 24.7 mmol/L (20.0-27.5); Globulin 1.7 g/dL (1.6-3.3); Non-African American GFR(CKD) 99.1 (60.0-200.0); Potassium 3.6 mmol/L (3.5-5.5); Total Bilirubin 0.3 mg/dL (0.30-1.20); Total Protein 4.7 g/dL (6.2-8.2)
[2021-08-17] MEDS ORDERED: CAFFEINE-SODIUM BENZOATE 500 MG in SODIUM CHLORIDE 0.9% 1,000 ML IVPB ONE (10:30)
[2021-08-17] MEDS: SODIUM CHLORIDE 0.9% 1,000 ML IV SCH (10:34)
[2021-08-17] MEDS: ALBUTEROL NEBULIZED 2.5 MG/3 ML INHALATION PRN ×2 (12:04→20:13)
[2021-08-17] MEDS ORDERED: FUROSEMIDE 10 MG/ML 4 ML VIAL IV STA (12:08)
--- NOTE | 2021-08-17 13:29 | XR ---
EXAMINATION TYPE: XR chest 1V portable DATE OF EXAM: 08/17/2021 COMPARISON: NONE HISTORY: Shortness of breath TECHNIQUE: Single frontal view of the chest is obtained. FINDINGS: Postsurgical change overlying the cervical spine. Surgical change in the right upper quadr ant stimulator device overlying the vertebral column. Wires are seen overlying the soft tissues of th e right apex and right neck. Heart size normal. No overt failure. No pneumothorax or pleural effusion . Consolidative pneumonia IMPRESSION: No acute process.
--- NOTE | 2021-08-17 14:08 | P.PN ---
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 Patient is status post L3-S1 decompression and fusion 08/[address] Rios. Patient is wearing LSO brace patient did have difficulty with pain control last evening but is improved now. She is scheduled to work with physical therapy today. Patient has been afebrile, blood pressure 97/63 heart rate 107, pulse ox 95% on 2 L nasal cannula. Laboratory studies reveal WBC 10.4, hemoglobin 8.4, platelet count 259. Electrolytes are normal. BUN 9 and creatinine 0.7. Blood sugar 123. Calcium 8.1. CAT scan of the lumbar spine reveals acute postop changes. 08/15: Patient after she was seen yesterday developed to have significant hypertension and tachycardia her heart rate was around 130 bpm, she did receive 1 L of normal saline with some improvement, repeated count in the evening was a round 8 g/dL and today in the morning her hemoglobin dropped to 7.1 she did receive 1 unit of packed red blood cells, patient slid out of her chair yesterday while she was reaching for her incentive spirometer without any injuries she was seen earlier by spine surgery, her pain is well controlled, her vital signs are more stable now than they were earlier today patient denies any chest pain at this time, she has no shortness breath, she is currently on 2 L cannula, her oxygen saturation 99%, the blood pressure is 105/75, heart rate is round 85, respirations 18, she was getting minimal blurred vision, double vision however is better now than it was earlier. 08/16: Patient is complaining of severe headache likely secondary to spinal headache, patient was instructed to stay flat in bed, and she was given boluses of IV fluid, continue to monitor the patient's symptoms very closely, continue patient on Dilaudid as needed for pain control, patient may need to go for a blood patch, continue to monitor the patient very closely, avoid Imitrex flushes in the hospital. This is not a migraine headache. 08/17: Patient states that when she is flat in bed, she is having more pain in her back. She states her headache is not getting any better. Patient is having mild shortness of breath with noted congestion. She is on nebulizer treatments and reaching 2000 mL on incentive spirometry. IV fluids will be discontinued, one dose of IV Lasix given. Due to her underlying cardiomyopathy IV fluids will need to be given cautiously. REVIEW OF SYSTEMS Constitutional: No fever, no chills, no night sweats. No weight change. No weakness, fatigue or lethargy. No daytime sleepiness. HEENT: No headache. Positive for blurred vision positive for double vision, no loss of vision. No loss of Hearing, no ringing in the ears, no dizziness. No nasal drainage or congestion. No epistaxis. No sore throat. Lungs: No shortness of breath, cough, no sputum production. Mild wheezing. Cardiovascular: No chest pain, no lower extremity edema. No palpitations. No paroxysmal nocturnal dyspnea. No orthopnea. No lightheadedness or dizziness. No syncopal episodes. Abdominal: No abdominal pain. No nausea, vomiting. No diarrhea. No constipation. No bloody or tarry stools. No loss of appetite. Genitourinary: No dysuria, increased frequency, urgency. No urinary retention. Musculoskeletal: No myalgias. No muscle weakness, positive for gait dysfunction, no frequent falls. Reports lumbar back pain. No neck pain. Integumentary: No wounds, no lesions. No rash or pruritus. No unusual bruising. No change in hair or nails. Neurologic: No aphasia. No facial droop. No change in mentation. No head injury. No headache. No paralysis. No paresthesia. Psychiatric: No depression. No anxiety. No mood swings. Endocrine: No abnormal blood sugars. No weight change. No excessive sweating or thirst. No cold intolerance. PHYSICAL EXAMINATION Gen: This is a 61-year-old female appears in no acute distress. HEENT: Head is atraumatic, normocephalic. Pupils equal, round. Sclerae is anicteric. Conjunctivae are slightly pale, mucus membranes of the mouth are very dry., NECK: Supple. No JVD. No lymphadenopathy. No thyromegaly. LUNGS: Few crackles. No intercostal retractions. HEART:First heart sound is depressed, second heart sound is normal, no S3, no S4. ABDOMEN: Soft. Bowel sounds are present. No masses. No tenderness. EXTREMITIES: No pedal edema. No calf tenderness. dorsalis pedis +2 bilaterally. NEUROLOGICAL: Patient is awake, alert and oriented x3. Cranial nerves 2 through 12 are grossly intact. ASSESSMENT AND PLAN 1. Lumbar spondylosis status post L3-S1 decompression and fusion 08/13 continue current pain management per orthopedic spine, continue PT OT per orthopedics, LSO brace, add incentive spirometry to reduce incidence of atelectasis and hospital acquired pneumonia. Continue Flexeril 10 mg at bedtime and 5 mg 3 times daily as needed, gabapentin 300 mg 3 times daily. 2. Sinus tachycardia likely related to combination of fluid loss and acute blood loss, along with pain patient now has mild fluid overload. IV fluids discontinued, one dose of IV Lasix and chest x-ray ordered. 3. Acute blood loss anemia expected outcome of surgery. Type and cross and tr ansfuse 1 unit of packed blood cells keep hemoglobin greater than 8. 4. Hypertension and hypertensive cardiovascular disease. Continue patient on carvedilol 6.25 mg orally twice every day, monitor the patient blood pressure very closely. 5. Hyperlipidemia. Continue atorvastatin 40 mg at bedtime. 6. Gastroesophageal reflux disease and GI prophylaxis. Continue Protonix 40 mg daily. 7. Osteoporosis. stable at this time 8. Non-ischemic cardiomyopathy. Continue patient on carvedilol 6.25 mg orally twice every day. Discontinue IV fluids and one dose of IV Lasix ordered, chest x-ray 9. Rheumatoid arthritis, stable. patient was instructed to stay off biologic agents one week before 1 week after surgery. 10. Fibromyalgia, continue gabapentin 300 mg orally 3 times every day. 11. Irritable bowel syndromeconstipation, stable.Continue MiraLAX 17 g in 8 ounces water once every day, continue Senokot 2 tablet orally bedtime, continue lactulose 20 g orally twice every day. 12. Recurrent depression. Continue Wellbutrin 450 mg daily. 13. Seasonal ALLERGIES. Continue Flonase twice daily, Claritin 10 mg at bedtime, Singulair 10 mg at bedtime. 14. History of migraine headaches. avoid Imitrex in the hospital. 15. Spinal headache. Please evaluate by spine surgery follow-up. The patient flat in bed, continue IV fluid, use Dilaudid as needed, likely will need blood patch. 16. Fall on 08/15. We will continue to follow with you. DISCHARGE PLAN Home with [facility] Impression and plan of care have been directed as dictated by the signing physician. Liz Priest nurse practitioner acting as scribe for signing physician. Objective - Vital Signs Vital signs: Vital Signs Temp 100.0 F H 08/17/21 08:00 Pulse 100 08/17/21 12:07 Resp 18 08/17/21 08:00 BP 92/55 08/17/21 08:00 Pulse Ox 91 L 08/17/21 08:00 Intake & Output 08/16/21 08/17/21 08/17/21 18:59 06:59 18:59 Intake Total 1200 310 Output Total 230 Balance 970 310 Intake: IV 1200 Sodium Chloride 0.9% 1, 1200 000 ml @ 100 mls/hr IV . Q10H PINKY Rx#:[id number] Blood Product 310 Rc As-1 Unit 310 [id number] Output: Drainage 230 Back 230 Other: Voiding Method Toilet Toilet Toilet # Voids 1 3 - Labs CBC & Chem 7: 08/17/21 04:15 08/17/21 04:15 Labs: Abnormal Lab Results - Last 24 Hours (Table) 08/15/21 08/17/21 08/17/21 Range/Units 06:50 04:15 04:15 RBC 2.61 L (4.10-5.20) X 10*6/uL Hgb 8.3 L (12.0-15.0) g/dL Hct 26.4 L (37.2-46.3) % MCV 101.1 H (80.0-97.0) fL MCHC 31.4 L (32.0-37.0) g/dL RDW 14.7 H (11.5-14.5) % Eosinophils # 0 L (0.04-0.35) X 10*3/uL BUN 5.6 L (9.0-27.0) mg/dL BUN/Creatinine Ratio 9.33 L (12.00-20.00) Ratio Glucose 124 H (70-110) mg/dL Calcium 7.8 L (8.7-10.3) mg/dL ALT 56 H (8-44) U/L Total Protein 4.7 L (6.2-8.2) g/dL Albumin 3.0 L (3.8-4.9) g/dL Crossmatch See Detail
[2021-08-17] MEDS: ACETAMINOPHEN TAB 325 MG TAB PO SCH ×2 (17:41→23:28)
[2021-08-17] MEDS ORDERED: BUTALB/APAP/CAFF 50-325-40MG TAB PO PRN (18:30)
[2021-08-17] MEDS: polyethylene glycoL 3350 17 GM POWD.PACK PO SCH (20:44)
[2021-08-17] MEDS: MONTELUKAST 10 MG TAB PO SCH (20:45)
[2021-08-17] MEDS: PANTOPRAZOLE 40 MG TABLET PO SCH (20:45)
[2021-08-17] MEDS: LORATADINE 10 MG TAB PO SCH (20:46)
[2021-08-17] MEDS: ATORVASTATIN 40 MG TAB PO SCH (20:46)
[2021-08-18] MEDS: HYDROcodone/APAP 10-325MG 1 EACH TAB PO SCH ×4 (02:21→20:00)
[2021-08-18] MEDS: ACETAMINOPHEN TAB 325 MG TAB PO SCH ×4 (05:04→23:55)
[2021-08-18] MEDS: HYDROmorphone 1 MG/ML 1 ML SYRINGE IVP PRN (07:17)
--- NOTE | 2021-08-18 08:22 | P.PN ---
Subjective Progress Note Date: 08/18/21 Pt S/e this AM. She is doing well. She is somewhat upset as she described an incident to us after her fall on Tuesday. She originally did not want to mention this apparently, but is now thinking it may have something to do with her situation. She states she was wanting to get up to the bathroom and an aid that was sent in to help her the pt states "yanked" on her arm and she felt a pop in her back which is when some of her pain got worse. She states today however that she is doing better and her MCMILLAN seems better. She still has some mild vision changes but this is up close and she needs glasses normally. She states she has been watching TV w/o issues and is able to rest OK. She states no justyn laura numbness/tingling. States some LLE pain that comes and goes but is manageable. She denies any N/V currently and states no other issues overnight other than back pain. Objective - Vital Signs Vital signs: Vital Signs Temp 98.1 F 08/18/21 06:52 Pulse 97 08/18/21 06:52 Resp 20 08/18/21 06:52 BP 116/71 08/18/21 06:52 Pulse Ox 94 L 08/18/21 06:52 Intake & Output 08/17/21 08/18/21 08/18/21 18:59 06:59 18:59 Output Total 2049 Balance -2049 Output: Urine 2049 Other: Voiding Method Toilet Toilet - Exam Patient is alert and oriented 3 appears well-nourished well-hydrated is in no acute distress. They do not appear septic. On exam the patient has no tenderness to palpation of her thoracic or lumbar spine. There is no edema or ballottement sign. Lower extremities with 4+/5 strength in all major muscle groups Upper extremities show [5]/5 strength in all major muscle groups. No focal deficits, progressing appropriately [2]/4DTR all UE and LE b/l Patient shows a negative Homans, Rehman's, negative Babinski's negative clonus bilaterally. negative straight leg raise bilaterally. No tensioning signs. Cranial nerves II through XII are grossly intact. There is FROM that is painless of the b/l UE and LE in all major joints [w/o pain]. They are intact to light touch sensation in L2 to S1 nerve distribution. Patient has palpable dorsalis pedis was posterior tibial pulses. Compartments are soft and compressible. Incisions inspected. Dressings are clean and dry. NO drainage. No drainage from wound or drain hole. No EEE. No TTp at this time. Redressed with compressive dressing again. - Labs CBC & Chem 7: 08/17/21 04:15 08/17/21 04:15 Labs: Abnormal Lab Results - Last 24 Hours (Table) 08/17/21 08/17/21 Range/Units 04:15 04:15 RBC 2.61 L (4.10-5.20) X 10*6/uL Hgb 8.3 L (12.0-15.0) g/dL Hct 26.4 L (37.2-46.3) % MCV 101.1 H (80.0-97.0) fL MCHC 31.4 L (32.0-37.0) g/dL RDW 14.7 H (11.5-14.5) % Eosinophils # 0 L (0.04-0.35) X 10*3/uL BUN 5.6 L (9.0-27.0) mg/dL BUN/Creatinine Ratio 9.33 L (12.00-20.00) Ratio Glucose 124 H (70-110) mg/dL Calcium 7.8 L (8.7-10.3) mg/dL ALT 56 H (8-44) U/L Total Protein 4.7 L (6.2-8.2) g/dL Albumin 3.0 L (3.8-4.9) g/dL Assessment and Plan Assessment: 61-year-old female postop day 5 L3 to S1 decompression fusion 1. L3-L1 spondylosis 2.L3-S1 stenosis 3. bilateral lower extremity radiculopathy 4. Neurogenic claudication Plan: -Appreciate loss prevention consultant and team management. -Activity: Bed rest. Elevate HOB 10 deg per 2-3 hr and monitor for sx. -Pain control: Add dose of Comptche 5. -Meds: Added Fioracet -GI ppx: senna, Miralax -May replace Curiel if needed however patient should use bedpan or urinal at this time -DVT PPX: Heparin -Hygiene: Maintain dressing clean and dry. Meticulous cleaning after BMs away f rom incision site -Encourage IS 10x/hr -Add abdominal binder while laying in bed -Dispo: [Pending] Pt doing better today. She is somewhat emotional due to her situation but we reassured her she is doing OK and actually seems to be getting better. We will NOT go back to OR today as she is improving. We will tentatively board her again for tomorrow just in case but she seems much better than before.
[2021-08-18] MEDS: GABAPENTIN 300 MG CAP PO SCH ×3 (08:36→20:00)
[2021-08-18] MEDS: LACTOBACILLUS ACIDOPH & BULGAR 1 EACH PACKET PO SCH (08:36)
[2021-08-18] MEDS: carvediloL 6.25 MG TAB PO SCH ×2 (08:36→17:25)
[2021-08-18] MEDS: SENNOSIDES-DOCUSATE SODIUM 1 EACH TAB PO SCH ×2 (08:36→20:00)
[2021-08-18] MEDS: buPROPion SR 150 MG TABLET.ER PO SCH (08:37)
[2021-08-18] MEDS: sulfaSALAzine 500 MG TAB PO SCH ×2 (08:37→19:59)
[2021-08-18] MEDS: LACTULOSE 20 GM/30 ML CUP PO SCH ×2 (08:38→20:07)
[2021-08-18] MEDS: FLUTICASONE 50MCG/SPRAY NASAL 16GM EA NOSTRIL SCH ×2 (08:38→20:01)
[2021-08-18] MEDS: KETOTIFEN 0.025% OPHTH DROPS 5 ML BTL BOTH EYES SCH ×2 (08:38→20:07)
[2021-08-18] MEDS: SYMBICORT 80-4.5 MCG INHALER INHALATION SCH ×2 (09:34→21:17)
[2021-08-18] MEDS: IPRATROPIUM 0.5 MG/2.5 ML NEBU INHALATION SCH ×4 (09:34→21:17)
[2021-08-18] MEDS: HYDROcodone/APAP 5-325MG 1 EACH TAB PO PRN ×3 (12:01→23:56)
--- NOTE | 2021-08-18 13:17 | XR ---
EXAM TYPE: LUMBAR SPINE X RAY SERIES COMPARISON: NONE HISTORY: Postop pain TECHNIQUE: 3 views are submitted. FINDINGS: Postsurgical changes are noted and there is a stable line. 2 metallic devices with wires extending cephalad from the posterior margin the soft tissues. Postsurg ical changes appear in near-anatomic alignment. Degenerative change thoracolumbar junction. Marked [place] wel distention correlate for ileus or obstruction. IMPRESSION: 1. Postoperative changes 2. Marked bowel distention correlate for ileus or obstruction.
--- NOTE | 2021-08-18 14:23 | P.PN ---
Subjective Progress Note Date: 08/18/21 HISTORY OF PRESENT ILLNESS This is a 61-year-old female patient with past medical history of hypertension, hyperlipidemia, gastroesophageal reflux disease, osteoporosis, cardiomyopathy, rheumatoid arthritis, fibromyalgia, irritable bowel syndrome with constipation, spondylosis of the cervical and lumbar spine. Patient is status post L3-S1 decompression and fusion 08/[address] Rios. Patient is wearing LSO brace patient did have difficulty with pain control last evening but is improved now. She is scheduled to work with physical therapy today. Patient has been afebrile, blood pressure 97/63 heart rate 107, pulse ox 95% on 2 L nasal cannula. Laboratory studies reveal WBC 10.4, hemoglobin 8.4, platelet count 259. Electrolytes are normal. BUN 9 and creatinine 0.7. Blood sugar 123. Calcium 8.1. CAT scan of the lumbar spine reveals acute postop changes. 08/15: Patient after she was seen yesterday developed to have significant hypertension and tachycardia her heart rate was around 130 bpm, she did receive 1 L of normal saline with some improvement, repeated count in the evening was a round 8 g/dL and today in the morning her hemoglobin dropped to 7.1 she did receive 1 unit of packed red blood cells, patient slid out of her chair yesterday while she was reaching for her incentive spirometer without any injuries she was seen earlier by spine surgery, her pain is well controlled, her vital signs are more stable now than they were earlier today patient denies any chest pain at this time, she has no shortness breath, she is currently on 2 L cannula, her oxygen saturation 99%, the blood pressure is 105/75, heart rate is round 85, respirations 18, she was getting minimal blurred vision, double vision however is better now than it was earlier. 08/16: Patient is complaining of severe headache likely secondary to spinal headache, patient was instructed to stay flat in bed, and she was given boluses of IV fluid, continue to monitor the patient's symptoms very closely, continue patient on Dilaudid as needed for pain control, patient may need to go for a blood patch, continue to monitor the patient very closely, avoid Imitrex flushes in the hospital. This is not a migraine headache. 08/17: Patient states that when she is flat in bed, she is having more pain in her back. She states her headache is not getting any better. Patient is having mild shortness of breath with noted congestion. She is on nebulizer treatments and reaching 2000 mL on incentive spirometry. IV fluids will be discontinued, one dose of IV Lasix given. Due to her underlying cardiomyopathy IV fluids will need to be given cautiously. 08/18: Patient states that her breathing is better today. She is still laying flat with minimal head of bed elevation per orthopedics. She states that her back pain as a number 45. She states her headache is better today. She denies any numbness in her groin. Chest x-ray showed no acute findings. Patient is afebrile, heart rate 97 201, blood pressure 116/71, pulse ox 94% on room air. REVIEW OF SYSTEMS Constitutional: No fever, no chills, no night sweats. No weight change. No weakness, fatigue or lethargy. No daytime sleepiness. HEENT: No headache. Positive for blurred vision positive for double vision, no loss of vision. No loss of Hearing, no ringing in the ears, no dizziness. No nasal drainage or congestion. No epistaxis. No sore throat. Lungs: No shortness of breath, cough, no sputum production. Mild wheezing. Cardiovascular: No chest pain, no lower extremity edema. No palpitations. No paroxysmal nocturnal dyspnea. No orthopnea. No lightheadedness or dizziness. No syncopal episodes. Abdominal: No abdominal pain. No nausea, vomiting. No diarrhea. No constipation. No bloody or tarry stools. No loss of appetite. Genitourinary: No dysuria, increased frequency, urgency. No urinary retention. Musculoskeletal: No myalgias. No muscle weakness, positive for gait dysfunction, no frequent falls. Reports lumbar back pain. No neck pain. Integumentary: No wounds, no lesions. No rash or pruritus. No unusual bruising. No change in hair or nails. Neurologic: No aphasia. No facial droop. No change in mentation. No head injury. No headache. No paralysis. No paresthesia. Psychiatric: No depression. No anxiety. No mood swings. Endocrine: No abnormal blood sugars. No weight change. No excessive sweating or thirst. No cold intolerance. PHYSICAL EXAMINATION Gen: This is a 61-year-old female appears in no acute distress. HEENT: Head is atraumatic, normocephalic. Pupils equal, round. Sclerae is anicteric. Conjunctivae are slightly pale, mucus membranes of the mouth are very dry., NECK: Supple. No JVD. No lymphadenopathy. No thyromegaly. LUNGS: Few crackles. No intercostal retractions. HEART:First heart sound is depressed, second heart sound is normal, no S3, no S4. ABDOMEN: Soft. Bowel sounds are present. No masses. No tenderness. EXTREMITIES: No pedal edema. No calf tenderness. dorsalis pedis +2 bilaterally. NEUROLOGICAL: Patient is awake, alert and oriented x3. Cranial nerves 2 through 12 are grossly intact. ASSESSMENT AND PLAN 1. Lumbar spondylosis status post L3-S1 decompression and fusion 08/13 continue current pain management per orthopedic spine, continue PT OT per orthopedics, LSO brace, add incentive spirometry to reduce incidence of atelectasis and hospital acquired pneumonia. Continue Flexeril 10 mg at bedtime and 5 mg 3 times daily as needed, gabapentin 300 mg 3 times daily. 2. Sinus tachycardia likely related to combination of fluid loss and acute blood loss, along with pain patient now has mild fluid overload. IV fluids discontinued, one dose of IV Lasix and chest x-ray ordered. 3. Acute blood loss anemia expected outcome of surgery. Type and cross and transfuse 1 unit of packed blood cells keep hemoglobin greater than 8. 4. Hypertension and hypertensive cardiovascular disease. Continue patient on carvedilol 6.25 mg orally twice every day, monitor the patient blood pressure very closely. 5. Hyperlipidemia. Continue atorvastatin 40 mg at bedtime. 6. Gastroesophageal reflux disease and GI prophylaxis. Continue Protonix 40 mg daily. 7. Osteoporosis. stable at this time 8. Non-ischemic cardiomyopathy. Continue patient on carvedilol 6.25 mg orally twice every day. Discontinue IV fluids and one dose of IV Lasix ordered, chest x-ray 9. Rheumatoid arthritis, stable. patient was instructed to stay off biologic agents one week before 1 week after surgery. 10. Fibromyalgia, continue gabapentin 300 mg orally 3 times every day. 11. Irritable bowel syndromeconstipation, stable.Continue MiraLAX 17 g in 8 ounces water once every day, continue Senokot 2 tablet orally bedtime, continue lactulose 20 g orally twice every day. 12. Recurrent depression. Continue Wellbutrin 450 mg daily. 13. Seasonal ALLERGIES. Continue Flonase twice daily, Claritin 10 mg at bedtime, Singulair 10 mg at bedtime. 14. History of migraine headaches. avoid Imitrex in the hospital. 15. Spinal headache. Please evaluate by spine surgery follow-up. The patient flat in bed. 16. Fall on 08/15. We will continue to follow with you. DISCHARGE PLAN Home with [facility] Impression and plan of care have been directed as dictated by the signing physician. Liz Priest nurse practitioner acting as scribe for signing physician. Objective - Vital Signs Vital signs: Vital Signs Temp 98.1 F 08/18/21 06:52 Pulse 97 08/18/21 06:52 Resp 20 08/18/21 06:52 BP 116/71 08/18/21 06:52 Pulse Ox 94 L 08/18/21 06:52 Intake & Output 08/17/21 08/18/21 08/18/21 18:59 06:59 18:59 Intake Total 180 Output Total 2049 Balance -2049 180 Intake: Oral 180 Output: Urine 2049 Other: Voiding Method Toilet Toilet External Catheter - Labs CBC & Chem 7: 08/17/21 04:15 08/17/21 04:15
[2021-08-18] MEDS: CYCLOBENZAPRINE 5 MG TAB PO PRN (14:31)
[2021-08-18] MEDS: PANTOPRAZOLE 40 MG TABLET PO SCH (20:00)
[2021-08-18] MEDS: LORATADINE 10 MG TAB PO SCH (20:00)
[2021-08-18] MEDS: ATORVASTATIN 40 MG TAB PO SCH (20:00)
[2021-08-18] MEDS: MONTELUKAST 10 MG TAB PO SCH (20:00)
[2021-08-18] MEDS: polyethylene glycoL 3350 17 GM POWD.PACK PO SCH (20:02)
--- NOTE | 2021-08-18 20:17 | P.PN ---
Progress Note - Text Progress Note Date: 08/18/21 Xrays reviewed L spine due to fall and continued back pain. No acute changes post op. Hardware in position, no evidence of migration or changes since OR. Stable films.
[2021-08-19] MEDS: HYDROcodone/APAP 10-325MG 1 EACH TAB PO SCH ×3 (03:00→14:50)
[2021-08-19] MEDS: ACETAMINOPHEN TAB 325 MG TAB PO SCH ×3 (05:26→17:27)
--- NOTE | 2021-08-19 07:51 | P.PN ---
Subjective Progress Note Date: 08/19/21 Principal diagnosis: L3 to S1 decompression and fusion Patient seen and examined today. Ms. Heller is currently resting in bed with head of bed elevated. She denies any headache at this time. Patient states her pain is a 3/10 in her lower back. Patient does have complaint of her left knee feeling stiff, she believes it is from remaining in bed. She is looking forward to working with physical therapy today and sitting up in a chair. Patient expresses she would like to shower today. Surgical incision is clean dry and intact, no shadowing noted on dressing. Patient denies any other needs at this time. Denies fever/chills, nausea/vomiting, or chest pain. Objective - Vital Signs Vital signs: Vital Signs Temp 98.3 F 08/19/21 02:55 Pulse 102 H 08/19/21 02:55 Resp 18 08/19/21 02:55 BP 103/67 08/19/21 02:55 Pulse Ox 94 L 08/19/21 02:55 Intake & Output 08/18/21 08/19/21 08/19/21 18:59 06:59 18:59 Intake Total 360 Output Total 200 300 Balance 160 -300 Intake: Oral 360 Output: Urine 200 300 Other: Voiding Method External Catheter External Catheter - Exam Physical Examination General: The patient is awake and alert, in no acute distress Skin: Skin is warm and dry with no obvious rashes or lesions. Hairy patches absent, no dorsal skin dimples, no cafe au lait spots. Surgical incision to lumbar spine. Dressing is CDI, no shadowing noted. Eye: Pupils are equal, round and reactive to light, extra-ocular movements are intact; there is normal conjunctiva bilaterally. Neck: The neck is supple, there is no tenderness and ROM intact. Cardiovascular: There is a regular rate and rhythm. No murmur, rub or gallop is appreciated. Respiratory: Lungs are clear to auscultation, respirations are non-labored, breath sounds are equal. Gastrointestinal: Soft, non-distended, non-tender abdomen . Back: There is slight tenderness to palpation in the paralumbar region. There is no obvious deformity . Musculoskeletal: ROM limited secondary to pain and stiffness from surgical procedure. Shoulder abduction 5/5, elbow flexors 5/5, wrist dorsiflexors 5/5. finger abductor 5/5, energy engineer 5/5, hip flexor 4/5, knee flexor 4/5, ankle dorsiflexor 4/5, ankle plantarflexion 4/5 and extensor hallucis 4/5. Neurological: CN 2-12 intact. There are no obvious motor or sensory deficits. Movement and coordination equal and intact. Sensory exam to light touch intact C5-T1 and intact from L2-S1. Reflexes 2/4 in bilateral upper and lower extremities. Negative Hoffmans, babinski, and clonus signs. Psychiatric: Cooperative, appropriate mood & affect, normal judgment. - Labs CBC & Chem 7: 08/17/21 04:15 08/17/21 04:15 Assessment and Plan Assessment: Postop day 6: L3 to S1 decompression and fusion. Plan: Plan: -Appreciate customer consultant and team management. -Activity: Ambulate QID, OOB all meals, up and about, limit lifting bending twisting to less than 5 lbs. Use walker or cane if needed for stability. -Daily PT/OT, increase ambulation strength and balance, if symptoms of nausea or headache return, please have patient return to laying flat in bed. -Brace when up and about, not needed in bed or chair -Pain control: Adequate at this time -Meds: reviewed -GI ppx: senna, Miralax, lactulose -DVT PPX: OK to restart Heparin -Hygiene: Shower today. Maintain dressing clean and dry. Meticulous cleaning after BMs away from the incision site -Encourage IS 10x/hr -Dispo: Anticipate discharge home in the next 24-48hrs with homecare *I reviewed and discussed this case with my attending Dr. Rios, whom has reviewed this chart and films and is in agreement with assessment and plan of care as outlined above. I have personally seen and examined the patient, performed the documentation and the assessment and plan as written. Number of minutes spent on the visit: 20m. Time with Patient: Less than 30
[2021-08-19] MEDS: SYMBICORT 80-4.5 MCG INHALER INHALATION SCH ×2 (08:36→21:13)
[2021-08-19] MEDS: IPRATROPIUM 0.5 MG/2.5 ML NEBU INHALATION SCH ×4 (08:36→21:13)
[2021-08-19] MEDS: buPROPion SR 150 MG TABLET.ER PO SCH (09:13)
[2021-08-19] MEDS: carvediloL 6.25 MG TAB PO SCH ×2 (09:13→17:27)
[2021-08-19] MEDS: LACTOBACILLUS ACIDOPH & BULGAR 1 EACH PACKET PO SCH (09:13)
[2021-08-19] MEDS: GABAPENTIN 300 MG CAP PO SCH ×3 (09:13→22:02)
[2021-08-19] MEDS: sulfaSALAzine 500 MG TAB PO SCH ×2 (09:14→20:19)
[2021-08-19] MEDS: LACTULOSE 20 GM/30 ML CUP PO SCH ×2 (09:14→20:19)
[2021-08-19] MEDS: SENNOSIDES-DOCUSATE SODIUM 1 EACH TAB PO SCH ×2 (09:14→20:19)
[2021-08-19] MEDS: HEPARIN SODIUM,PORCINE/PF 5,000 UNIT/0.5 ML SYRINGE SQ SCH ×2 (09:14→20:19)
[2021-08-19] MEDS: FLUTICASONE 50MCG/SPRAY NASAL 16GM EA NOSTRIL SCH ×2 (09:19→20:27)
[2021-08-19] MEDS: KETOTIFEN 0.025% OPHTH DROPS 5 ML BTL BOTH EYES SCH ×2 (09:20→20:27)
[2021-08-19] MEDS ORDERED: DEXAMETHASONE SOD PHOSPHATE 4 MG/ML 1 ML VIAL IV ONE (11:57)
[2021-08-19] MEDS ORDERED: ONDANSETRON 4 MG/2 ML VIAL IVP ONE (11:57)
[2021-08-19] MEDS ORDERED: LACTATED RINGERS 1,000 ML IV SCH ×2 (11:57)
[2021-08-19] MEDS ORDERED: HYDROmorphone 0.5 MG/0.5 ML SYRINGE IVP PRN (11:57)
[2021-08-19] MEDS ORDERED: MIDAZOLAM 2 MG/2 ML VIAL IV PRN (11:57)
--- NOTE | 2021-08-19 12:15 | P.PN ---
Subjective Progress Note Date: 08/19/21 HISTORY OF PRESENT ILLNESS This is a 61-year-old female patient with past medical history of hypertension, hyperlipidemia, gastroesophageal reflux disease, osteoporosis, cardiomyopathy, rheumatoid arthritis, fibromyalgia, irritable bowel syndrome with constipation, spondylosis of the cervical and lumbar spine. Patient is status post L3-S1 decompression and fusion 08/[address] Rios. Patient is wearing LSO brace patient did have difficulty with pain control last evening but is improved now. She is scheduled to work with physical therapy today. Patient has been afebrile, blood pressure 97/63 heart rate 107, pulse ox 95% on 2 L nasal cannula. Laboratory studies reveal WBC 10.4, hemoglobin 8.4, platelet count 259. Electrolytes are normal. BUN 9 and creatinine 0.7. Blood sugar 123. Calcium 8.1. CAT scan of the lumbar spine reveals acute postop changes. 08/15: Patient after she was seen yesterday developed to have significant hypertension and tachycardia her heart rate was around 130 bpm, she did receive 1 L of normal saline with some improvement, repeated count in the evening was a round 8 g/dL and today in the morning her hemoglobin dropped to 7.1 she did receive 1 unit of packed red blood cells, patient slid out of her chair yesterday while she was reaching for her incentive spirometer without any injuries she was seen earlier by spine surgery, her pain is well controlled, her vital signs are more stable now than they were earlier today patient denies any chest pain at this time, she has no shortness breath, she is currently on 2 L cannula, her oxygen saturation 99%, the blood pressure is 105/75, heart rate is round 85, respirations 18, she was getting minimal blurred vision, double vision however is better now than it was earlier. 08/16: Patient is complaining of severe headache likely secondary to spinal headache, patient was instructed to stay flat in bed, and she was given boluses of IV fluid, continue to monitor the patient's symptoms very closely, continue patient on Dilaudid as needed for pain control, patient may need to go for a blood patch, continue to monitor the patient very closely, avoid Imitrex flushes in the hospital. This is not a migraine headache. 08/17: Patient states that when she is flat in bed, she is having more pain in her back. She states her headache is not getting any better. Patient is having mild shortness of breath with noted congestion. She is on nebulizer treatments and reaching 2000 mL on incentive spirometry. IV fluids will be discontinued, one dose of IV Lasix given. Due to her underlying cardiomyopathy IV fluids will need to be given cautiously. 08/18: Patient states that her breathing is better today. She is still laying flat with minimal head of bed elevation per orthopedics. She states that her back pain as a number 45. She states her headache is better today. She denies any numbness in her groin. Chest x-ray showed no acute findings. Patient is afebrile, heart rate 97 201, blood pressure 116/71, pulse ox 94% on room air. 08/19: Patient is sitting up in bed on the head of the bed is not elevated. She denies having any headache. She continues to have low back pain. Patient is on limit lifting, bending, twisting to less than 5 pounds. She will be working with physical therapy today. REVIEW OF SYSTEMS Constitutional: No fever, no chills, no night sweats. No weight change. No weakness, fatigue or lethargy. No daytime sleepiness. HEENT: No headache. Positive for blurred vision positive for double vision, no loss of vision. No loss of Hearing, no ringing in the ears, no dizziness. No nasal drainage or congestion. No epistaxis. No sore throat. Lungs: No shortness of breath, cough, no sputum production. Mild wheezing. Cardiovascular: No chest pain, no lower extremity edema. No palpitations. No paroxysmal nocturnal dyspnea. No orthopnea. No lightheadedness or dizziness. No syncopal episodes. Abdominal: No abdominal pain. No nausea, vomiting. No diarrhea. No constipation. No bloody or tarry stools. No loss of appetite. Genitourinary: No dysuria, increased frequency, urgency. No urinary retention. Musculoskeletal: No myalgias. No muscle weakness, positive for gait dysfunction, no frequent falls. Reports lumbar back pain. No neck pain. Integumentary: No wounds, no lesions. No rash or pruritus. No unusual bruising. No change in hair or nails. Neurologic: No aphasia. No facial droop. No change in mentation. No head injury. No headache. No paralysis. No paresthesia. Psychiatric: No depression. No anxiety. No mood swings. Endocrine: No abnormal blood sugars. No weight change. PHYSICAL EXAMINATION Gen: This is a 61-year-old female appears in no acute distress. HEENT: Head is atraumatic, normocephalic. Pupils equal, round. Sclerae is anicteric. Conjunctivae are slightly pale, mucus membranes of the mouth are slightly dry. NECK: Supple. No JVD. No lymphadenopathy. No thyromegaly. LUNGS: Few crackles. No intercostal retractions. HEART:First heart sound is depressed, second heart sound is normal, no S3, no S4. ABDOMEN: Soft. Bowel sounds are present. No masses. No tenderness. EXTREMITIES: No pedal edema. No calf tenderness. dorsalis pedis +2 bilaterally. NEUROLOGICAL: Patient is awake, alert and oriented x3. Cranial nerves 2 through 12 are grossly intact. ASSESSMENT AND PLAN 1. Lumbar spondylosis status post L3-S1 decompression and fusion 08/13 continue current pain management per orthopedic spine, continue PT OT per orthopedics, LSO brace, add incentive spirometry to reduce incidence of atelectasis and hospital acquired pneumonia. Continue Flexeril 10 mg at bedtime and 5 mg 3 times daily as needed, gabapentin 300 mg 3 times daily. 2. Sinus tachycardia likely related to combination of fluid loss and acute blood loss, along with pain patient now has mild fluid overload. IV fluids discontinued, one dose of IV Lasix and chest x-ray ordered. 3. Acute blood loss anemia expected outcome of surgery. Type and cross and transfuse 1 unit of packed blood cells keep hemoglobin greater than 8. 4. Hypertension and hypertensive cardiovascular disease. Continue patient on carvedilol 6.25 mg orally twice every day, monitor the patient blood pressure very closely. 5. Hyperlipidemia. Continue atorvastatin 40 mg at bedtime. 6. Gastroesophageal reflux disease and GI prophylaxis. Continue Protonix 40 mg daily. 7. Osteoporosis. stable at this time 8. Non-ischemic cardiomyopathy. Continue patient on carvedilol 6.25 mg orally twice every day. Discontinue IV fluids and one dose of IV Lasix ordered, chest x-ray 9. Rheumatoid arthritis, stable. patient was instructed to stay off biologic ag ents one week before 1 week after surgery. 10. Fibromyalgia, continue gabapentin 300 mg orally 3 times every day. 11. Irritable bowel syndromeconstipation, stable.Continue MiraLAX 17 g in 8 ounces water once every day, continue Senokot 2 tablet orally bedtime, continue lactulose 20 g orally twice every day. 12. Recurrent depression. Continue Wellbutrin 450 mg daily. 13. Seasonal ALLERGIES. Continue Flonase twice daily, Claritin 10 mg at bedtime, Singulair 10 mg at bedtime. 14. History of migraine headaches. avoid Imitrex in the hospital. 15. Spinal headache. Please evaluate by spine surgery follow-up. The patient flat in bed. 16. Fall on 08/15. We will continue to follow with you. DISCHARGE PLAN Home with [facility] Impression and plan of care have been directed as dictated by the signing physician. Liz Priest nurse practitioner acting as scribe for signing physician. Objective - Vital Signs Vital signs: Vital Signs Temp 99.0 F 08/19/21 08:00 Pulse 89 08/19/21 08:00 Resp 18 08/19/21 08:00 BP 116/72 08/19/21 08:00 Pulse Ox 95 08/19/21 08:00 Intake & Output 08/18/21 08/19/21 08/19/21 18:59 06:59 18:59 Intake Total 360 Output Total 200 300 Balance 160 -300 Intake: Oral 360 Output: Urine 200 300 Other: Voiding Method External Catheter External Catheter - Labs CBC & Chem 7: 08/17/21 04:15 08/17/21 04:15
[2021-08-19] MEDS ORDERED: bisacodyL 10 MG SUPP RECTAL STA (13:20)
[2021-08-19] MEDS: ATORVASTATIN 40 MG TAB PO SCH (20:19)
[2021-08-19] MEDS: polyethylene glycoL 3350 17 GM POWD.PACK PO SCH (20:19)
[2021-08-19] MEDS: MONTELUKAST 10 MG TAB PO SCH (20:19)
[2021-08-19] MEDS: PANTOPRAZOLE 40 MG TABLET PO SCH (20:19)
[2021-08-19] MEDS: LORATADINE 10 MG TAB PO SCH (20:19)
[2021-08-19] MEDS ORDERED: traMADol 50 MG TAB PO SCH (22:00)
[2021-08-19] MEDS: CYCLOBENZAPRINE 5 MG TAB PO PRN (22:01)
[2021-08-19] MEDS: traMADol 50 MG TAB PO SCH (22:02)
[2021-08-19] MEDS: HYDROmorphone 0.5 MG/0.5 ML SYRINGE IVP PRN (23:43)
[2021-08-20] MEDS: ACETAMINOPHEN TAB 325 MG TAB PO SCH ×3 (01:29→12:09)
[2021-08-20] MEDS: HYDROcodone/APAP 10-325MG 1 EACH TAB PO PRN ×2 (04:23→12:22)
[2021-08-20] MEDS: CYCLOBENZAPRINE 5 MG TAB PO PRN (05:54)
[2021-08-20] MEDS: IPRATROPIUM 0.5 MG/2.5 ML NEBU INHALATION SCH ×2 (07:48→11:37)
[2021-08-20] MEDS: SYMBICORT 80-4.5 MCG INHALER INHALATION SCH (07:48)
[2021-08-20 08:01] VITALS: BP 108/66; PULSE 83; RESP 19; TEMP 98.3
[2021-08-20] MEDS: HYDROmorphone 0.5 MG/0.5 ML SYRINGE IVP PRN (08:34)
--- NOTE | 2021-08-20 09:04 | P.PN ---
Subjective Progress Note Date: 08/20/21 Principal diagnosis: L3 to S1 decompression and fusion Patient seen and examined today. Ms. Heller is currently resting in bed with head of bed elevated. She denies any headache at this time. Patient has complaint of lower back pain with pain radiating down left lower extremity into her knee. Informed patient this is due to the procedure and it will improve with time. Encouraged patient to do bed exercises and to continue to ambulate as tolerated. Patient requested a shower chair for home, this prescription was left in chart. Surgical incision is clean dry and intact, no shadowing noted on dressing. Patient denies any other needs at this time. Denies fever/chills, nausea/vomiting, or chest pain. Objective - Vital Signs Vital signs: Vital Signs Temp 98.3 F 08/20/21 07:57 Pulse 76 08/20/21 07:58 Resp 19 08/20/21 07:57 BP 108/66 08/20/21 07:57 Pulse Ox 94 L 08/20/21 07:57 Intake & Output 08/19/21 08/20/21 08/20/21 18:59 06:59 18:59 Intake Total 1060 Balance 1060 Intake: Oral 1060 Other: Voiding Method Toilet Toilet Bedside Commode # Voids 3 3 - Exam Physical Examination General: The patient is awake and alert, in no acute distress Skin: Skin is warm and dry with no obvious rashes or lesions. Hairy patches absent, no dorsal skin dimples, no cafe au lait spots. Surgical incision to lumbar spine. Dressing is CDI, no shadowing noted. Eye: Pupils are equal, round and reactive to light, extra-ocular movements are intact; there is normal conjunctiva bilaterally. Neck: The neck is supple, there is no tenderness and ROM intact. Cardiovascular: There is a regular rate and rhythm. No murmur, rub or gallop is appreciated. Respiratory: Lungs are clear to auscultation, respirations are non-labored, breath sounds are equal. Gastrointestinal: Soft, non-distended, non-tender abdomen . Back: There is slight tenderness to palpation in the paralumbar region. There is no obvious deformity . Musculoskeletal: ROM limited secondary to pain and stiffness from surgical procedure. Shoulder abduction 5/5, elbow flexors 5/5, wrist dorsiflexors 5/5. finger abductor 5/5, table setter 5/5, hip flexor 4/5, knee flexor 4/5, ankle dorsiflexor 4/5, ankle plantarflexion 4/5 and extensor hallucis 4/5. Neurological: CN 2-12 intact. There are no obvious motor or sensory deficits. Movement and coordination equal and intact. Sensory exam to light touch intact C5-T1 and intact from L2-S1. Reflexes 2/4 in bilateral upper and lower extremities. Negative Hoffmans, babinski, and clonus signs. Psychiatric: Cooperative, appropriate mood & affect, normal judgment. - Labs CBC & Chem 7: 08/17/21 04:15 08/17/21 04:15 Assessment and Plan Assessment: Postop day 7: L3 to S1 decompression and fusion. Plan: Plan: -Appreciate speech correction consultant and team management. -Activity: Ambulate QID, OOB all meals, up and about, limit lifting bending twisting to less than 5 lbs. Use walker or cane if needed for stability. -Daily PT/OT, increase ambulation strength and balance -Brace when up and about, not needed in bed or chair -Pain control: Adequate at this time -Meds: reviewed -GI ppx: senna, Miralax, lactulose -DVT PPX: Heparin -Hygiene: Shower today. Maintain dressing clean and dry. Meticulous cleaning after BMs away from the incision site -Encourage IS 10x/hr -Dispo: Anticipate discharge home today with homecare *I reviewed and discussed this case with my attending Dr. Rios, whom has reviewed this chart and films and is in agreement with assessment and plan of care as outlined above. I have personally seen and examined the patient, performed the documentation and the assessment and plan as written. Number of minutes spent on the visit: 20m. Time with Patient: Less than 30
[2021-08-20] MEDS: HEPARIN SODIUM,PORCINE/PF 5,000 UNIT/0.5 ML SYRINGE SQ SCH (09:46)
[2021-08-20] MEDS: LACTOBACILLUS ACIDOPH & BULGAR 1 EACH PACKET PO SCH (09:46)
[2021-08-20] MEDS: buPROPion SR 150 MG TABLET.ER PO SCH (09:47)
[2021-08-20] MEDS: sulfaSALAzine 500 MG TAB PO SCH (09:47)
[2021-08-20] MEDS: LACTULOSE 20 GM/30 ML CUP PO SCH (09:47)
[2021-08-20] MEDS: carvediloL 6.25 MG TAB PO SCH (09:48)
[2021-08-20] MEDS: SENNOSIDES-DOCUSATE SODIUM 1 EACH TAB PO SCH (09:48)
[2021-08-20] MEDS: traMADol 50 MG TAB PO SCH (09:49)
[2021-08-20] MEDS: GABAPENTIN 300 MG CAP PO SCH (09:51)
[2021-08-20] MEDS: FLUTICASONE 50MCG/SPRAY NASAL 16GM EA NOSTRIL SCH (09:51)
[2021-08-20] MEDS: KETOTIFEN 0.025% OPHTH DROPS 5 ML BTL BOTH EYES SCH (09:52)
--- NOTE | 2021-08-20 13:00 | P.DS ---
Providers Date of admission: 08/14/21 12:50 Expected date of discharge: 08/20/21 Attending physician: Romain Rios DO Consults: 08/13/21 18:20 Consult Physician Routine Consulting Provider: Omid Londono Consult Reason/Comments: Medical Management Do you want consulting provider notified?: Yes Primary care physician: Omid Londono Hospital Course: Spine Surgery Discharge Summary Note Admission Date: 08/13/2021 Discharge Date: 08/20/2021 Providers: Spring Rios Principal Diagnosis: Lumbar spondylosis with stenosis, neurogenic claudication Procedures: L3 to S1 decompression fusion Secondary Diagnoses: Spinal headache Discharge Medications: See list Allergies: See list Hospital Course: The patient was evaluated preoperatively and found to have the diagnosis of L3 to S1 spondylosis with severe stenosis and neurogenic claudication. They underwent appropriate preoperative care and were willing to undergo the intended procedure. They underwent a successful L3 to S1 decompression fusion. Postoperatively the patient did fairly well however she did have a fall out of her chair as well as an incident with a nursing service administrator. She states after this she started having headaches that were positional in nature. We then laid depletion flat for 24 hours and gradually set her up after this her headaches resolved and she did much better. Her incision remained clean and dry without any drainage. The drain was removed on postoperative day 3 with minimal output. After this incident she has been doing very well and she has recovered. She still has some residual weakness in her left lower extremity as well as radiculopathy however this is improving daily., were recovered appropriately and sent to the floor. While on the floor they worked with physical therapy, occupational therapy and nursing to enhance their recovery experience. Their pain was well controlled through their stay and they were started on appropriate medications, DVT ppx modalities, activity and dietary needs. Daily labs were monitored closely, and transfusions were only used when necessary. Medicine as well as other consulting services have made their input and have helped with our team approach and multidisciplinary care. PT milestones have been met and passed and they have made the recommendation of home with home health care for this patient and treating providers agree with this care path. The patient will be discharged home with appropriate medications, instructions and follow-up information and in stable condition. Plan - Discharge Summary Discharge Rx Participant: Yes New Discharge Prescriptions: New cefaDROXiL [Duricef] 500 mg PO Q12HR 5 Days #10 cap Gabapentin 300 mg PO TID #90 cap Polyethylene Glycol 3350 [Miralax] 17 gm PO DAILY PRN #527 gm PRN Reason: Constipation HYDROcodone/APAP 10-325MG [[place] 10-325] 1 tab PO Q4-6H PRN #56 tab PRN Reason: Pain Sennosides/Docusate Sodium [Senna Plus 8.6-50 mg Tablet] 1 each PO DAILY PRN #20 tablet PRN Reason: Constipation Cyclobenzaprine [Flexeril] 5 mg PO TID #90 tablet Continue Abatacept/Maltose [Orencia] 750 mg IVPB QMONTH Nitroglycerin Sl Tabs [Nitrostat] 0.4 mg SUBLINGUAL Q5M PRN PRN Reason: Angina Montelukast [Singulair] 10 mg PO HS Ascorbic Acid [Vitamin C] 1,000 mg PO DAILY buPROPion SR [Wellbutrin SR] 450 mg PO QAM carvediloL [Coreg] 6.25 mg PO BID SUMAtriptan SUCCINATE [Imitrex] 50 mg PO DAILY PRN PRN Reason: Migraine Headache L.acidoph,Paracasei, B.lactis [Probiotic] 1 each PO DAILY Clindamycin Topical Soln [Cleocin-T Topical Soln] 1 applic TOPICAL BID PRN PRN Reason: Rash Fluticasone Nasal [place] [Flonase Nasal [place]] 2 sprays EA NOSTRIL BID Albuterol Inhaler [Ventolin Hfa Inhaler] 1 - 2 puff INHALATION QID PRN PRN Reason: Shortness Of Breath Levocetirizine Dihydrochloride [Xyzal] 5 mg PO HS Ergocalciferol [Vitamin D2 (1250 Mcg = 02976 Iu)] 1,250 mcg PO DAILY Atorvastatin [Lipitor] 40 mg PO HS Olopatadine HCl [Patanol 0.1%] 1 - 2 drop BOTH EYES BID Lansoprazole [Prevacid] 30 mg PO HS traMADol HCl [Ultram] 50 mg PO TID PRN PRN Reason: Pain Prolia(Dose Unknown) 1 applicate IJ DIRECTED Albuterol Nebulizer(Dose Unk) 1 applicate IH BID PRN PRN Reason: sob Azelastine HCl 1 sprays EA NOSTRIL HS Cyclobenzaprine [Flexeril] 10 mg PO HS #20 tab Metoclopramide [Reglan] 10 mg PO QID PRN PRN Reason: reflux sulfaSALAzine [Sulfasalazine Dr] 1,000 mg PO BID Lubiprostone [Amitiza] 24 mcg PO BID Benzonatate [Tessalon Perles] 200 mg PO TID PRN PRN Reason: Cough predniSONE 5 mg PO DIRECTED Fluticasone/Umeclidin/Vilanter [Trelegy Ellipta 200-62.5-25] 1 puff INHALATION QAM Orencia(Dose Unknown) 1 applicate IV QMONTHLY Discontinued Ibuprofen [Motrin] 800 mg PO Q8H PRN PRN Reason: Pain Doxycycline Hyclate(Dose Unk) 1 tab PO BID Discharge Medication List Abatacept/Maltose [Orencia] 750 mg IVPB QMONTH 09/25/13 [History] Ascorbic Acid [Vitamin C] 1,000 mg PO DAILY 09/25/13 [History] Montelukast [Singulair] 10 mg PO HS 09/25/13 [History] Nitroglycerin Sl Tabs [Nitrostat] 0.4 mg SUBLINGUAL Q5M PRN 09/25/13 [History] buPROPion SR [Wellbutrin SR] 450 mg PO QAM 12/18/14 [History] L.acidoph,Paracasei, B.lactis [Probiotic] 1 each PO DAILY 02/06/15 [History] SUMAtriptan SUCCINATE [Imitrex] 50 mg PO DAILY PRN 02/06/15 [History] carvediloL [Coreg] 6.25 mg PO BID 02/06/15 [History] Clindamycin Topical Soln [Cleocin-T Topical Soln] 1 applic TOPICAL BID PRN 06/16/16 [History] Fluticasone Nasal [place] [Flonase Nasal [place]] 2 sprays EA NOSTRIL BID 07/21/18 [History] Albuterol Inhaler [Ventolin Hfa Inhaler] 1 - 2 puff INHALATION QID PRN 04/22/21 [History] Azelastine HCl 1 sprays EA NOSTRIL HS 04/22/21 [History] Levocetirizine Dihydrochloride [Xyzal] 5 mg PO HS 04/22/21 [History] Cyclobenzaprine [Flexeril] 10 mg PO HS #20 tab 04/28/21 [Rx] Albuterol Nebulizer(Dose Unk) 1 applicate IH BID PRN 08/07/21 [History] Atorvastatin [Lipitor] 40 mg PO HS 08/07/21 [History] Benzonatate [Tessalon Perles] 200 mg PO TID PRN 08/07/21 [History] Ergocalciferol [Vitamin D2 (1250 Mcg = 66646 Iu)] 1,250 mcg PO DAILY 08/07/21 [History] Fluticasone/Umeclidin/Vilanter [Trelegy Ellipta 200-62.5-25] 1 puff INHALATION QAM 08/07/21 [History] Lansoprazole [Prevacid] 30 mg PO HS 08/07/21 [History] Lubiprostone [Amitiza] 24 mcg PO BID 08/07/21 [History] Metoclopramide [Reglan] 10 mg PO QID PRN 08/07/21 [History] Olopatadine HCl [Patanol 0.1%] 1 - 2 drop BOTH EYES BID 08/07/21 [History] Orencia(Dose Unknown) 1 applicate IV QMONTHLY 08/07/21 [History] Prolia(Dose Unknown) 1 applicate IJ DIRECTED 08/07/21 [History] predniSONE 5 mg PO DIRECTED 08/07/21 [History] sulfaSALAzine [Sulfasalazine Dr] 1,000 mg PO BID 08/07/21 [History] traMADol HCl [Ultram] 50 mg PO TID PRN 08/07/21 [History] Cyclobenzaprine [Flexeril] 5 mg PO TID #90 tablet 08/20/21 [Rx] Gabapentin 300 mg PO TID #90 cap 08/20/21 [Rx] HYDROcodone/APAP 10-325MG [[place] 10-325] 1 tab PO Q4-6H PRN #56 tab 08/20/21 [Rx] Polyethylene Glycol 3350 [Miralax] 17 gm PO DAILY PRN #527 gm 08/20/21 [Rx] Sennosides/Docusate Sodium [Senna Plus 8.6-50 mg Tablet] 1 each PO DAILY PRN #20 tablet 08/20/21 [Rx] cefaDROXiL [Duricef] 500 mg PO Q12HR 5 Days #10 cap 08/20/21 [Rx] Follow up Appointment(s)/Referral(s): [facility], [NON-STAFF] - As Needed Omid Londono MD [Primary Care Provider] - 08/27/21 4:15 pm Romain Rios DO [Doctor of Osteopathic Medicine] - 08/28/21 10:40 am (Pt may have post -op appt already scheduled) Patient Instructions/Handouts: Anterior Posterior Spinal Fusion (DC) Activity/Diet/Wound Care/Special Instructions: Spine Discharge and Recovery Instructions Date of Surgery: [] Diagnosis: [] Procedure: [] Medications: See medication list All medication refills should be obtained through your primary care doctor or your clinic spine surgeon. Please discuss prescription refills at your follow up appointment. Do not call the hospital for medication refills. Dressing: Leave your dressing in place for a total of 5 days post operatively. Then you may remove your dressing and leave open to air. Keep the area clean and if not able to keep area clean, then cover with sterile gauze and tape. Showering: You may shower 3 days after your procedure allowing soap and water to run over incision. Do not scrub. Do not soak. Blot dry. Follow up: Please confirm a follow up appointment with your surgeon 3 weeks post operatively. Please make an appointment to follow up with your PCP in 1-2 weeks after merrill hazel for evaluation 3 phase, 3-week plan POST OP WEEKS 1-3 1. Lifting/carrying/pushing/pulling limited to less than 5 pounds. 2. Do not sit for longer than 15 minutes at one time. Get up and walk around. Prolonged sitting is NOT advised. If you lay down, see if you can tolerate laying down on you front (belly side) 3. Walk for periods of 15 minutes = 1 mile but no longer; do it multiple times times each day. 4. Ice your low back after activity. POST OP WEEKS 3-6 1. Lifting limited to less than 20 pounds. 2. Do not sit for longer than 30 minutes at a time. Frequently change positions. Use a sit-to stand workstation or take frequent breaks from sitting if you have returned to work. 3. Walk for 30 minutes each day. If possible, do these three or more times a day POST OP WEEKS 6+ At your 6-week appointment we will give you a physical therapy referral to focus on a core stabilization and strengthening program. You should also work on leg & buttock strengthening, hamstring & quadriceps stretching, and continue a low impact aerobic activity program such as swimming, walking, or riding a stationary bicycle. During the initial 6 weeks after your surgery, you are at the highest risk of re-injuring your spine. You should generally avoid BLTs (bending, lifting and twisting combination motions) and follow the above guidelines to reduce the chance of reinjury. You can anticipate post op appointments in our office at approximately 3 weeks and 6 weeks after your surgery. INCISION CARE: If your incision is not draining you do NOT need to cover it with a dressing. Keep your incision clean, dry and intact. In most cases, we apply skin glue, chapito or sutures to the incision at the time of surgery. This will be like a crust or have the appearance of a scab and will fall off in time on its own. The stitches or chapito need to be removed at 3 weeks post op appointment. You may begin to shower 3 days after surgery (this allows the glue to gsos well). However, please avoid scrubbing the incision site or peeling off any of the skin glue. This will ensure optimal healing of your incision. Also, during this time avoid soaking the incision area in water - this includes swimming pools, hot tubs or baths. No ointments, lotions or oils on the incision until your surgeon allows. Leave chapito, sutures or glue in place. Neurological dysfunction that comes on suddenly can also be a sign of a stroke. Below some common symptoms of a stroke are listed: B - balance difficulty such as sudden onset walking or leaning to one side - NEW E - eye problem such as sudden double vision or trouble seeing on one side - NEW F - Facial weakness or numbness on one side - NEW A - Arm or leg weakness or numbness on one side - NEW S - Slurred speech or difficulty with word finding - NEW T - Time is BRAIN! Call 911 as soon as you recognize these symptoms Diet: Consume a regular diet rich in vegetables and lean protein such as chicken or fish. You should consume in a ratio of approximately 20% fats|40% carbohydrates|40%protein. Vegetables, sweet potatoes, brown rice or quinoa are examples of good carbohydrates. Chips, white bread, cookies and sweets/sugar are examples of bad carbohydrates. Limit your bad carbs, go wild with good carbs. "Life's Simple 7" Guidelines as per [place] [employer] These will help you reclaim your life after surgery and oil pipe inspector helper in your recovery, keeping in mind your restrictions. (1) Get Active. Physical activity can help people lose weight, control high blood pressure and cholesterol, feel emotionally better, and sleep better. (2) Control Cholesterol. Avoid a diet high in saturated fat, trans fat, & cholesterol. Limit whole milk & cream, ice cream, butter, egg yolks, processed meats (like sausage and hot dogs), and fatty meats. Choose healthy foods that are low in saturated fat, trans fat and cholesterol which include: Fruits and vegetables, fiber rich grain products (like whole grain pasta and brown rice), lean meat such as chicken, fish, nuts, seeds, and legumes. (3) Eat Better. Eat small portions. Shop at the grocery with a list and do not stray from it. Tips for a healthy diet include: Limit sodium intake to less than 1500mg daily, avoid prepackaged, processed, and fast foods, choose a diet rich in fruits, vegetables, and whole grain, high fiber foods, and limit saturated & cholesterol in your diet. (4) Manage Blood Pressure. If you have high blood pressure, you should have a cuff at home so that you can check your blood pressure regularly. Be sure you have a good cuff. An arm one is generally better than a wrist one. Bring the cuff to a doctor's appointment to validate that the measurements that your cuff are taking are accurate. Take your blood pressure twice daily when you are sitting down and relaxing. Record the numbers in a log and bring this log with you to your doctors' appointments. (5) Lose Weight if your BMI is above 25. A healthy BMI is between 19-25. To calculate Your BMI, you may use a Standard BMI Calculator on the NIH BMI website: <www.nhlbi.nih.gov/guidelines/obesity/BMI/bmicalc.htm>. Weigh oneself daily. If you are overweight, set a goal to lose weight. A pound a week loss if needed is a good target. (6) Reduce Blood Sugar. Limit foods and liquids with "added sugars." (Added sugars include sucrose, fructose, glucose, maltose, dextrose, high fructose corn syrup, corn syrup, concentrated fruit juice and honey). (7) Stop Smoking. If you smoke, quitting smoking is one of the best things that you can do for your health. Smoking increases your risk of heart attack, stroke, and peripheral vascular disease, which is a build-up of plaque in your arteries. Please discard all the cigarettes and lighters in your house. Have a plan for what you will do when you have the urge to smoke. Direct and second- hand smoke shortens your life as well as the lives of your family, friends and others around you. For your health and the health of those around you, please consider quitting! Proper Bending Body Mechanics: Maintain a wide stance with one foot slightly in front of the other. Keep your back straight. Bend utilizing the strength in your hips and knees. Do not bend at the waist. Maintain the lifted object at your waist-level close to your body. Avoid lifting weight that causes immediately pain or pain anywhere in the body afterwards. Smoking/Nicotine If there was ever one thing that you could do to increase your overall health, decrease your risk of cardiovascular problems by about 39% the second you make the choice, it is to STOP SMOKING. Your body's most instant gratification is the second you stop smoking. We have all heard the studies, read the articles but it is true, smoking is extremely bad for your overall health, and moreover it is detrimental to your bone health. Nicotine, IN ANY FORM, kills bone cells, prevents your body from healing fractures, and significantly prolongs healing after surgery. In spine surgery specifically, it increases your risk of not healing your bones to create a fusion and increases your risk of having a revision surgery due to this up to 60%. I know it is hard. I know it feels impossible. But there are ways. Take control of your life. We are here to help you through it. And when you are ready, ask us and we can direct you to help if you desire. Use the START Plan to Quit Smoking (please visit the Helpguide.org website listed below for more information): S = Set a quit date. Choose a date within the next 2 weeks, so you have enough time to prepare without losing your motivation to quit. If you mainly smoke at work, quit on the weekend, so you have a few days to adjust to the change. T = Tell family, friends, and co-workers that you plan to quit. Let your friends and family in on your plan to quit smoking and tell them you need their support and encouragement to stop. Look for a quit kenny who wants to stop smoking as well. You can help each other get through the rough times. A = Anticipate and plan for the challenges you'll face while quitting. Most people who begin smoking again do so within the first 3 months. You can help yourself make it through by preparing ahead for common challenges, such as nicotine withdrawal and cigarette cravings. R = Remove cigarettes and other tobacco products from your home, car, and work. Throw away all your cigarettes (no emergency pack!), lighters, ashtrays, and matches. Wash your clothes and freshen up anything that smells like smoke. Shampoo your car, clean your drapes and carpet, and steam your furniture. T = Talk to your doctor about getting help to quit. Your doctor can prescribe medication to help with withdrawal and suggest other alternatives. If you can't see a doctor, you can get many products over the counter at your local pharmacy or grocery store, including the nicotine patch, nicotine lozenges, and nicotine gum. Resources for Quitting Smoking: <https://www.[place].gov/documents/[facility]/Quit_Tobacco_Resources_for_ patients_313480_7.pdf> Supplementation: Take recommended dosages of Vitamin D and Calcium to help fortify your bones and help them to heal. See your health maintenance packet for dosages and recommended levels. DVT/VTE prophylaxis: You will be given compression stockings from the hospital. Wear these daily for the first two weeks after surgery. You may take them off at night. You may be prescribed a medication to help thin your blood. Take this as directed. If you are not prescribed this medication, early and frequent ambulation has been shown to be the best prophylaxis to deep vein thrombosis and sequelae related to this event. Discharge Disposition: HOME WITH HOME HEALTH SERVICES
--- NOTE | 2021-08-20 14:17 | P.PN ---
Subjective Progress Note Date: 08/20/21 HISTORY OF PRESENT ILLNESS This is a 61-year-old female patient with past medical history of hypertension, hyperlipidemia, gastroesophageal reflux disease, osteoporosis, cardiomyopathy, rheumatoid arthritis, fibromyalgia, irritable bowel syndrome with constipation, spondylosis of the cervical and lumbar spine. Patient is status post L3-S1 decompression and fusion 08/[address] Rois. Patient is wearing LSO brace patient did have difficulty with pain control last evening but is improved now. She is scheduled to work with physical therapy today. Patient has been afebrile, blood pressure 97/63 heart rate 107, pulse ox 95% on 2 L nasal cannula. Laboratory studies reveal WBC 10.4, hemoglobin 8.4, platelet count 259. Electrolytes are normal. BUN 9 and creatinine 0.7. Blood sugar 123. Calcium 8.1. CAT scan of the lumbar spine reveals acute postop changes. 08/15: Patient after she was seen yesterday developed to have significant hypertension and tachycardia her heart rate was around 130 bpm, she did receive 1 L of normal saline with some improvement, repeated count in the evening was a round 8 g/dL and today in the morning her hemoglobin dropped to 7.1 she did receive 1 unit of packed red blood cells, patient slid out of her chair yesterday while she was reaching for her incentive spirometer without any injuries she was seen earlier by spine surgery, her pain is well controlled, her vital signs are more stable now than they were earlier today patient denies any chest pain at this time, she has no shortness breath, she is currently on 2 L cannula, her oxygen saturation 99%, the blood pressure is 105/75, heart rate is round 85, respirations 18, she was getting minimal blurred vision, double vision however is better now than it was earlier. 08/16: Patient is complaining of severe headache likely secondary to spinal headache, patient was instructed to stay flat in bed, and she was given boluses of IV fluid, continue to monitor the patient's symptoms very closely, continue patient on Dilaudid as needed for pain control, patient may need to go for a blood patch, continue to monitor the patient very closely, avoid Imitrex flushes in the hospital. This is not a migraine headache. 08/17: Patient states that when she is flat in bed, she is having more pain in her back. She states her headache is not getting any better. Patient is having mild shortness of breath with noted congestion. She is on nebulizer treatments and reaching 2000 mL on incentive spirometry. IV fluids will be discontinued, one dose of IV Lasix given. Due to her underlying cardiomyopathy IV fluids will need to be given cautiously. 08/18: Patient states that her breathing is better today. She is still laying flat with minimal head of bed elevation per orthopedics. She states that her back pain as a number 45. She states her headache is better today. She denies any numbness in her groin. Chest x-ray showed no acute findings. Patient is afebrile, heart rate 97 201, blood pressure 116/71, pulse ox 94% on room air. 08/19: Patient is sitting up in bed on the head of the bed is not elevated. She denies having any headache. She continues to have low back pain. Patient is on limit lifting, bending, twisting to less than 5 pounds. She will be working with physical therapy today. 08/20: patient is complaining of numbness to the left lower extremity from the knee down to her toes. She is also having some dragging when she ambulates with noted dropfoot, brace in place. Patient is resting in recliner. She is afebrile and hemodynamically stable. Medication reconciliation reviewed for discharge. Patient is cleared for discharge from medicine, follow up in the office next week. REVIEW OF SYSTEMS Constitutional: No fever, no chills, no night sweats. No weight change. No weakness, fatigue or lethargy. No daytime sleepiness. HEENT: No headache. Positive for blurred vision positive for double vision, no loss of vision. No loss of Hearing, no ringing in the ears, no dizziness. No nasal drainage or congestion. No epistaxis. No sore throat. Lungs: No shortness of breath, cough, no sputum production. Mild wheezing. Cardiovascular: No chest pain, no lower extremity edema. No palpitations. No paroxysmal nocturnal dyspnea. No orthopnea. No lightheadedness or dizziness. No syncopal episodes. Abdominal: No abdominal pain. No nausea, vomiting. No diarrhea. No constipation. No bloody or tarry stools. No loss of appetite. Genitourinary: No dysuria, increased frequency, urgency. No urinary retention. Musculoskeletal: No myalgias. No muscle weakness, positive for gait dysfunction, no frequent falls. Reports lumbar back pain. No neck pain.reports numbness of the left lower extremity Integumentary: No wounds, no lesions. No rash or pruritus. No unusual bruising. No change in hair or nails. Neurologic: No aphasia. No facial droop. No change in mentation. No head injury. No headache. No paralysis. No paresthesia. Psychiatric: No depression. No anxiety. No mood swings. Endocrine: No abnormal blood sugars. No weight change. PHYSICAL EXAMINATION Gen: This is a 61-year-old female appears in no acute distress. HEENT: Head is atraumatic, normocephalic. Pupils equal, round. Sclerae is anicteric. Conjunctivae are slightly pale. NECK: Supple. No JVD. No lymphadenopathy. No thyromegaly. LUNGS: Few crackles. No intercostal retractions. HEART:First heart sound is depressed, second heart sound is normal, no S3, no S4. ABDOMEN: Soft. Bowel sounds are present. No masses. No tenderness. EXTREMITIES: No pedal edema. No calf tenderness. dorsalis pedis +2 bilaterally. NEUROLOGICAL: Patient is awake, alert and oriented x3. Cranial nerves 2 through 12 are grossly intact. ASSESSMENT AND PLAN 1. Lumbar spondylosis status post L3-S1 decompression and fusion 08/13 continue current pain management per orthopedic spine, continue PT OT per orthopedics, LSO brace, add incentive spirometry to reduce incidence of atelectasis and hospital acquired pneumonia. Continue Flexeril 10 mg at bedtime and 5 mg 3 times daily as needed, gabapentin 300 mg 3 times daily. 2. Sinus tachycardia likely related to combination of fluid loss and acute blood loss, along with pain patient now has mild fluid overload. 3. Acute blood loss anemia expected outcome of surgery. Type and cross and transfuse 1 unit of packed blood cells keep hemoglobin greater than 8. 4. Hypertension and hypertensive cardiovascular disease. Continue patient on carvedilol 6.25 mg orally twice every day, monitor the patient blood pressure very closely. 5. Hyperlipidemia. Continue atorvastatin 40 mg at bedtime. 6. Gastroesophageal reflux disease and GI prophylaxis. Continue Protonix 40 mg daily. 7. Osteoporosis. stable at this time 8. Non-ischemic cardiomyopathy. Continue patient on carvedilol 6.25 mg orally twice every day. Discontinue IV fluids and one dose of IV Lasix ordered, chest x-ray 9. Rheumatoid arthritis, stable. patient was instructed to stay off biologic agents one week before 1 week after surgery. 10. Fibromyalgia, continue gabapentin 300 mg orally 3 times every day. 11. Irritable bowel syndromeconstipation, stable.Continue MiraLAX 17 g in 8 ounces water once every day, continue Senokot 2 tablet orally bedtime, continue lactulose 20 g orally twice every day. 12. Recurrent depression. Continue Wellbutrin 450 mg daily. 13. Seasonal ALLERGIES. Continue Flonase twice daily, Claritin 10 mg at bedtime, Singulair 10 mg at bedtime. 14. History of migraine headaches. avoid Imitrex in the hospital. 15. Spinal headache. 16. Fall on 08/15. We will continue to follow with you. DISCHARGE PLAN Home with [facility] Impression and plan of care have been directed as dictated by the signing physician. Liz Priest nurse practitioner acting as scribe for signing physician. Objective - Vital Signs Vital signs: Vital Signs Temp 98.3 F 08/20/21 07:57 Pulse 76 08/20/21 07:58 Resp 19 08/20/21 07:57 BP 108/66 08/20/21 07:57 Pulse Ox 94 L 08/20/21 07:57 Intake & Output 08/19/21 08/20/21 08/20/21 18:59 06:59 18:59 Intake Total 1060 Balance 1060 Intake: Oral 1060 Other: Voiding Method Toilet Toilet Bedside Commode # Voids 3 3 - Labs CBC & Chem 7: 08/17/21 04:15 08/17/21 04:15
--- NOTE | 2021-08-26 12:57 | P.OP ---
Date of Procedure: 08/13/21 Preoperative Diagnosis: 1. L3-S1 spondylosis 2.L3-S1 stenosis central and foraminal 3. bilateral lower extremity radiculopathy 4. Neurogenic claudication Postoperative Diagnosis: 1. L3-S1 spondylosis 2.L3-S1 stenosis central and foraminal 3. bilateral lower extremity radiculopathy 4. Neurogenic claudication 5. Punctate dural lesion L4-5 Procedure(s) Performed: 1. L3-S1 combined posteriolateral and interbody Arthrodesis (83144, 11305w0) 2. Placement of biomechanical device L3-4; L4-5 and L5-S1 ([id number]) 3. Segmental instrumentation L3-S1 (38064) 4. Bilateral laminectomy, extradural, exploration, complete facetectomy and foraminotomy L3-S1 (38515a4) 5. Dural repair with fat patch graft (05805, 52394) 6. Use of intraoperative neuromonitoring 7. Interpretation of intraoperative fluoroscopy less than 1 hour (26760) Implants: -Globus creo screws/daisha -Amplify cages x3 9 mm 8deg; 10 mm 8 deg; 9 mm 8 deg -Theracell dbm bullets and bags -Allograft - Local autograft Anesthesia: DEVINA Surgeon: Romain Rios Topper Packer #1: Samanta Chris (Was present and assisted with positioning opening hardware placement decompression cage placement closing dressing and moving of patient) Estimated Blood Loss (ml): 900 IV fluids (ml): 2,000 Urine output (ml): 530 Pathology: none sent Condition: stable Disposition: PACU Indications for Procedure: Noemy Heller is presenting for evaluation of low back pain. It was my pleasure to have seen and examined Noemy Heller. In our visit today we have had a chance to go over subjective complaints, physical examination findings and treatments including the natural course history without intervention and various interventional options. The patients imaging demonstrates CT myelogram: demonstrate spondylosis L3 to S1. This is worse at L5-S1 was complete disc collapse and vacuum disc phenomena facet arthritis and overgrowth as well as ligamentous overgrowth and disc bulge. There are no fractures noted. Severe DDD of L5-S1 with reactive facet arthrosis and foraminal stenosis related. . On physical exam, Noemy Heller demonstrates bilateral lower extremity deficits with significant weakness that is impacting her ability to ambulate. I have explained to the patient that as their condition progresses it will cause further neurological deficits and eventual paralysis. Based on the patients imaging, physical exam, and the rapid progression and disabling nature of their symptoms, at this time I recommend surgery in the form or a: L3-S1 decompression and fusion . I discussed the risk and benefits of this procedure at length with Noemy Heller. The patient agreed to considered pursuing the procedure abovementioned. Prior to surgery, she should follow up with her PCP (Cardio, ID, IM etc) for clearance. Questions were invited and answered, and the patient wishes to proceed as outlined below. Currently, I am recommendin. L3-S1 decompression and fusion 2.Follow up with PCP for surgical clearance 3.Review of surgical risks and benefits as well as an educational packet on the proposed surgical procedure. Description of Procedure: The patient was seen and examined in the preoperative area. All preoperative protocols were followed. Informed consent was obtained risks and benefits of the procedure were discussed at length. Risks including bleeding infection damage to the surrounding tissue and risk of reoperation were discussed with the patient. Risk of anesthesia up to and including was a discussed with the patient. These are outlined in the risk review. They were willing to accept these risks and all of the risks of surgery. The patient was given a weight- based dose of antibiotics in the form of 2 g Ancef. The patient was seen and evaluated by the anesthesia team who deemed them fit for surgery. The site was marked, the patient was willing to proceed with the procedure. The patient was transferred to the operative suite by the Department of anesthesia. They were then drifted off to sleep by the department anesthesia and GETA was performed. The patient tolerated this well. Curiel catheter was placed by nursing staff, atraumatically. Once confirmation of lines and ventilation the patient was transferred to a prone Tyler table very carefully. All bony prominences including wrists, elbows, axilla, chest, hips, and thighs, and feet were padded very well. Special attention was paid to the genitalia and these were padded accordingly. SCDs were placed on bilateral lower extremities and were connected. Arms were well padded and placed on arm boards up and out in the 90/90 position. Once in position, again we confirmed good ventilation capabilities and that lines were running appropriately. The patient's lumbar spine was then exposed. 1010s were placed outlining the incision site. Standard alcohol was used to clean the incision site and allowed to dry. C-arm was used to biomark the patient and confirm level for incision which was marked with a skin marker. Operative briefing was performed with all teams and everyone in agreement to proceed. The patient was then prepped and draped in a normal s terile fashion. Timeout was then performed and all parties were in agreement with the procedure to be performed. Midline skin incision was made over the previously by marked area electrocautery dissection taken down midline until the lumbosacral fascia was identified this was then cleaned with a Nogueira. Midline fasciotomy was performed. Subperiosteal dissection was then made and taken down over the lamina facet joints and transverse processes of L3 through S1 bilaterally. Once this was exposed lateral fluoroscopy was taken with a marker to identify levels. We then proceeded with hardware placement screws were placed bilaterally into L3 through S1 using a freehand technique high-speed bur was used to make a airplane pilot helper hole followed by a pedicle finder and a ball probe feeler used to ensure within the pedicle. Lateral fluoroscopic imaging taken throughout this process. Screws then placed in this area under lateral fluoroscopic guidance. Once all screws were placed in position and AP fluoroscopic imaging needed showed screws to be in good position. All screws were tested and tested above 20 mA. Once screws were in position with then proceeded with placement of interbody cages and decompression. Bilateral laminectomy foraminotomy and complete facetectomies were performed at L3 4 L4 5 and L5-S1. We then performed discectomy at L5-S1 complete discectomy was performed sequential shaving was used to size the disc space and to ensure good bleeding endplates autograft allograft and DBM was then placed anteriorly within the disc space and a amplify cage was selected and impacted into place while protecting the neural elements. This is done under lateral fluoroscopic imaging. Once the cages in position and was expanded and confirmed to be in good position on AP and lateral fluoroscopy. We then back filled the cage DBM and it was locked in position with a locking screw. We then turned our attention to the L4-L5 interspace where this was repeated sequential shaving and complete discectomy was performed autograft allograft and DBM were placed anterior to the cage and the cage was sized and selected. All protecting the neural elements cages impacted into place and expanded under lateral fluoroscopic guidance. Once expanded it was locked in position with a locking screw in back filled with DBM. Meticulous hemostasis was performed throughout these procedures. During the decompression of this level WILLIAM-LV we encountered severe stenosis and a dural erosion that was posteriorly and midline. This is identified and promptly dealt with. 6-0 Prolene was used to suture the dura in this area we then were able to harvest subcutaneous fat and this was then tacked and then sewed to the dura over this area as a patch graft. We then performed a Valsalva to 40 mmHg there was no CSF leak. We then proceeded with the L3-L4 level where we repeated the discectomy process sequential shaving to ensure good bleeding bone and complete discectomy was performed autograft allograft and DBM was placed anterior to the cage and the cage was selected and impacted into place while protecting the neural elements under lateral fluoroscopic guidance. Cages expanded and locked into position confirming good position in AP and lateral fluoroscopic imaging. The cages then backfilled. Again meticulous hemostasis was performed throughout this area. We then sized cut and selected rods for the areas and bent them accordingly. Rods were then secured with set screws which were then final tightened and the position. We then selected the cross-links and these were final tightened into position. We decorticated posterior lateral gutters into 2 transverse processes with the high-speed bur we then copiously irrigated the wound with 6 L of antibiotic sterile saline soluti on followed by 3 L of normal sterile saline. We then placed Surgicel over the dura as well as Tisseel. We then placed bone graft the posterior lateral gutters and impacted into place. A drain was placed deep and secured. We then proceeded with layered closure first and the fascia with #1 Vicryl and 0 PDS for a watertight closure with then put 0 PDS in the deep subcu tissue 2-0 PDS in the superficial subcu tissue and chapito in the skin. The wound edges approximated very well. The drain was sewn into position with 0 PDS. It was set to gravity suction. The wound was then cleaned and dressed sterilely with an operative foam dressing 4 x 4's and Tegaderm. The patient was transferred back to their hospital bed atraumatically. Drain continued to hold suction and were in good position. Patient was then awakened and extubated by the department of anesthesia having tolerated the procedure very well with no complications. They were transferred to the postoperative care unit in stable condition.
== END 2021-08-20 13:51 | disposition home health service (06) | DRG 454 ==
LOC: OR 10:25 → 4SSUR 18:33 → OR 08-14 12:50
PROVIDERS: ADMIT Orthopaedic Surgery; ATTEND Orthopaedic Surgery
PROC: 01NR0ZZ Release Sacral Nerve, Open Approach (ICD-10-PCS; principal; 2021-08-13 12:00)
PROC: 0SG30K1 Fusion of Lumbosacral Joint with Nonautologous Tissue Substitute, Posterior Approach, Posterior Column, Open Approach (ICD-10-PCS; principal; 2021-08-13 12:00)
PROC: 00U20KZ Supplement Dura Mater with Nonautologous Tissue Substitute, Open Approach (ICD-10-PCS; principal; 2021-08-13 12:00)
PROC: 0ST40ZZ Resection of Lumbosacral Disc, Open Approach (ICD-10-PCS; principal; 2021-08-13 12:00)
PROC: 01NB0ZZ Release Lumbar Nerve, Open Approach (ICD-10-PCS; principal; 2021-08-13 12:00)
PROC: 4A11X4G Monitoring of Peripheral Nervous Electrical Activity, Intraoperative, External Approach (ICD-10-PCS; principal; 2021-08-13 12:00)
PROC: 0SG30AJ Fusion of Lumbosacral Joint with Interbody Fusion Device, Posterior Approach, Anterior Column, Open Approach (ICD-10-PCS; principal; 2021-08-13 12:00)
PROC: 0SG10AJ Fusion of 2 or more Lumbar Vertebral Joints with Interbody Fusion Device, Posterior Approach, Anterior Column, Open Approach (ICD-10-PCS; principal; 2021-08-13 12:00)
PROC: 0SG10K1 Fusion of 2 or more Lumbar Vertebral Joints with Nonautologous Tissue Substitute, Posterior Approach, Posterior Column, Open Approach (ICD-10-PCS; principal; 2021-08-13 12:00)
PROC: 30233N1 Transfusion of Nonautologous Red Blood Cells into Peripheral Vein, Percutaneous Approach (ICD-10-PCS; 2021-08-15)
DX: M47.26 Other spondylosis with radiculopathy, lumbar region (principal); I42.7 Cardiomyopathy due to drug and external agent; F33.9 Major depressive disorder, recurrent, unspecified; D62 Acute posthemorrhagic anemia; G96.11 Dural tear; M05.69 Rheumatoid arthritis of multiple sites with involvement of other organs and systems; I11.9 Hypertensive heart disease without heart failure; E86.9 Volume depletion, unspecified; M48.062 Spinal stenosis, lumbar region with neurogenic claudication; M48.07 Spinal stenosis, lumbosacral region; M47.27 Other spondylosis with radiculopathy, lumbosacral region; M51.17 Intervertebral disc disorders with radiculopathy, lumbosacral region; M51.16 Intervertebral disc disorders with radiculopathy, lumbar region; M81.0 Age-related osteoporosis without current pathological fracture; E78.2 Mixed hyperlipidemia; M79.7 Fibromyalgia; K21.00 Gastro-esophageal reflux disease with esophagitis, without bleeding; K58.1 Irritable bowel syndrome with constipation; J30.2 Other seasonal allergic rhinitis; G43.909 Migraine, unspecified, not intractable, without status migrainosus; M54.81 Occipital neuralgia; M21.372 Foot drop, left foot; M47.812 Spondylosis without myelopathy or radiculopathy, cervical region; T45.1X5S Adverse effect of antineoplastic and immunosuppressive drugs, sequela; Z79.51 Long term (current) use of inhaled steroids; Z79.899 Other long term (current) drug therapy; Z98.51 Tubal ligation status; Z90.49 Acquired absence of other specified parts of digestive tract; Z87.19 Personal history of other diseases of the digestive system; Z98.82 Breast implant status; Z87.891 Personal history of nicotine dependence; Z87.11 Personal history of peptic ulcer disease; Z98.1 Arthrodesis status; Z86.19 Personal history of other infectious and parasitic diseases; Z87.2 Personal history of diseases of the skin and subcutaneous tissue; Z87.39 Personal history of other diseases of the musculoskeletal system and connective tissue; Z98.890 Other specified postprocedural states; Z91.040 Latex allergy status; Z88.5 Allergy status to narcotic agent; Z91.048 Other nonmedicinal substance allergy status; Z82.3 Family history of stroke; Z83.3 Family history of diabetes mellitus; Z80.52 Family history of malignant neoplasm of bladder; Z80.51 Family history of malignant neoplasm of kidney; Z81.8 Family history of other mental and behavioral disorders; Z84.89 Family history of other specified conditions; Z82.49 Family history of ischemic heart disease and other diseases of the circulatory system; W07.XXXA Fall from chair, initial encounter
CPT/HCPCS: 36415; 71045; 72100; 72131; 80048; 80053; 85025; 86850; 86900; 86901; 86920; 94640; 94760

== ENCOUNTER → 2022-02-04 | Outpatient (CLI) | payer BC ==
--- NOTE | 2022-02-04 10:00 | CT ---
EXAMINATION TYPE: CT chest w con DATE OF EXAM: 02/04/2022 COMPARISON: On HISTORY: Abnormal findings of lung field CT DLP: 240 mGycm Automated exposure control for dose reduction was used. CONTRAST: CT scan of the chest is performed with IV Contrast, patient injected with 70 mL of Isovue 300. FINDINGS: LUNGS: Small area of patchy density left lateral lung base may reflect atelectasis or infiltrate. Mil d groundglass density right lower lobe. No evidence for nodule or mass.. There is no pleural effusi on or pneumothorax seen. The tracheobronchial tree is patent. MEDIASTINUM: There are no greater than 1 cm hilar or mediastinal lymph nodes. No pericardial effusi on is seen. Thoracic aorta is of normal caliber. The heart is not enlarged. UPPER ABDOMEN: No significant abnormality appreciated. OTHER: No additional significant abnormality is seen. IMPRESSION: Probable mild inflammatory/postinflammatory changes at the lung bases.
== END | disposition home or self-care (01) ==
LOC: RADCTMAIN 08:03
PROVIDERS: ATTEND Internal Medicine
DX: R91.8 Other nonspecific abnormal finding of lung field (principal)
CPT/HCPCS: 71260; Q9967

== ENCOUNTER → 2023-05-05 | Outpatient (CLI) | payer BC ==
--- NOTE | 2023-05-06 10:11 | MM ---
Reason for Exam: Follow-up at short interval from prior study. Last screening mammogram was performed 2 month(s) ago. Patient History: Menarche at age 13. First Full-Term at age 19. Sister had breast cancer, age 47. Risk Values: Silvia 5 year model risk: 2.8%. NCI Lifetime model risk: 12.5%. Prior Study Comparison: 03/25/2004 Bilateral Screening Mammogram, [facility]. 06/29/2005 Bilateral Screening Mammogram, [facility]. 08/02/2007 Bilateral Screening Mammogram, [facility]. Tissue Density: Left: There are scattered fibroglandular densities. Findings: Analyzed By CAD. On repeat compression, the questioned area 5 mm asymmetric density centrally in the left breast does not persist. Some benign vascular calcifications are noted. No significant change from prior exam. Overall Assessment: Benign, BI-RAD 2 Management: Screening Mammogram of both breasts in 1 year. Results were given to the patient verbally at the time of exam. Patient should continue monthly self-breast exams. A clinical breast exam by your physician is recommended on an annual basis. This exam should not preclude additional follow-up of suspicious palpable abnormalities. Note on Silvia scores and lifetime risk: 1. A Silvia score greater than 3% is considered moderate risk. If this is the case, consider specialist referral to assess eligibility for a risk reducing agent. 2. If overall lifetime risk for the development of breast cancer is 20% or higher, the patient may qualify for future screening with alternating mammogram and breast MRI. Electronically signed and approved by: Shonda Rucker M.D. Radiologist
== END | disposition home or self-care (01) ==
LOC: RADMAMWWP 07:31
PROVIDERS: ATTEND Internal Medicine
DX: R92.322 Mammographic fibroglandular density, left breast (principal); Z80.3 Family history of malignant neoplasm of breast
CPT/HCPCS: 77061; 77065

== ENCOUNTER 2024-03-24 15:18 | Inpatient (IN) | payer BC ==
[2024-03-24] MEDS ORDERED: NALOXONE 0.4 MG/ML 1 ML VIAL IVP PRN (15:50)
[2024-03-24] MEDS ORDERED: VANCOMYCIN IV PER PHARMACY 1 EACH MISC MISCELLANE PRN (15:54)
--- NOTE | 2024-03-24 15:56 | ED ---
SOB HPI - General Chief Complaint: Shortness of Breath Stated Complaint: ALLISON, dizziness Time Seen by Provider: 03/24/24 15:44 Source: patient, RN notes reviewed Mode of arrival: wheelchair Limitations: no limitations - History of Present Illness Initial Comments: 64-year-old female with history of asthma presenting to the ER with shortness of breath x 1 week with wheezing. Patient states she was placed on levofloxacin and steroids last week with little improvement. States this feels similar to previous asthma exacerbations. States she was hospitalized at [facility] in September for asthma exacerbation with secondary Pseudomonas infection. - Related Data Home Medications Medication Instructions Recorded Confirmed Abatacept/Maltose [Orencia] 750 mg IVPB QMONTH 09/25/13 07/16/22 Ascorbic Acid [Vitamin C] 1,000 mg PO DAILY 09/25/13 07/16/22 Montelukast [Singulair] 10 mg PO HS 09/25/13 07/16/22 Nitroglycerin Sl Tabs [Nitrostat] 0.4 mg SUBLINGUAL Q5M PRN 09/25/13 07/16/22 buPROPion SR [Wellbutrin SR] 450 mg PO QAM 12/18/14 07/16/22 L.acidoph,Paracasei, B.lactis 1 cap PO DAILY 02/06/15 07/16/22 [Probiotic] SUMAtriptan succinate [Imitrex] 50 mg PO DAILY PRN 02/06/15 07/16/22 carvediloL [Coreg] 6.25 mg PO BID 02/06/15 07/16/22 Clindamycin Topical Soln 1 applic TOPICAL BID 06/16/16 07/16/22 [Cleocin-T Topical Soln] Fluticasone Nasal [place] [Flonase 2 sprays EA NOSTRIL BID 07/21/18 07/16/22 Nasal [place]] Albuterol Inhaler [Ventolin Hfa 1 - 2 puff INHALATION RT-QID PRN 04/22/21 07/16/22 Inhaler] Azelastine HCl 1 sprays EA NOSTRIL HS 04/22/21 07/16/22 Levocetirizine Dihydrochloride 5 mg PO HS 04/22/21 07/16/22 [Xyzal] Atorvastatin [Lipitor] 40 mg PO HS 08/07/21 07/16/22 Lansoprazole [Prevacid] 30 mg PO HS 08/07/21 07/16/22 Lubiprostone [Amitiza] 24 mcg PO BID 08/07/21 07/16/22 Metoclopramide [Reglan] 10 mg PO QID PRN 08/07/21 07/16/22 Olopatadine HCl [Patanol 0.1%] 1 - 2 drop BOTH EYES BID 08/07/21 07/16/22 sulfaSALAzine [sulfaSALAzine Dr] 1,000 mg PO BID 08/07/21 07/16/22 traMADol HCl [Ultram] 50 mg PO TID PRN 08/07/21 07/16/22 Albuterol Nebulized [Ventolin 2.5 mg INHALATION RT-Q4H PRN 08/22/21 07/16/22 Nebulized] Budesonide 0.5 mg INHALATION BID 07/12/22 07/16/22 Denosumab [Prolia] 60 mg SQ Q180D 07/12/22 07/16/22 Gentamicin Capsule Compund 20 mg PO BID 07/12/22 07/16/22 Previous Rx's Medication Instructions Recorded Cyclobenzaprine [Flexeril] 5 mg PO TID #90 tablet 08/20/21 Gabapentin 300 mg PO TID #30 cap 08/25/21 Allergies Allergy/AdvReac Type Severity Reaction Status Date / Time codeine Allergy Severe Nausea & Verified 07/16/22 12:01 Vomiting & Diarrhea & Pain morphine Allergy Severe Nausea & Verified 07/16/22 12:01 Vomiting & Diarrhea & PAIN Latex, Natural Rubber Allergy Swelling Verified 07/16/22 12:01 nickel Allergy Rash/Hives Verified 07/16/22 12:01 GRAY INTROCAN SAFETY NEEDLE Allergy Intermediate Rash/Hives Uncoded 07/16/22 12:01 Review of Systems ROS Statement: Those systems with pertinent positive or pertinent negative responses have been documented in the HPI. ROS Other: All systems not noted in ROS Statement are negative. Past Medical History Past Medical History: GERD/Reflux, Osteoarthritis (OA), Rheumatoid Arthritis (RA) Additional Past Medical History / Comment(s): OCCIPITAL NEURALGIA, HEART MURMUR, CARDIOMYOPATHY, osteoporosis, past hx. gastric ulcers. Chronic back pain, DDD, numbness tingling renny legs,, hx HIATAL HERNIA, migraines, IBS, chronic sinus infection History of Any Multi-Drug Resistant Organisms: None Reported Past Surgical History: Back Surgery, Cholecystectomy, Heart Catheterization, Hernia Repair, Orthopedic Surgery, Tubal Ligation Additional Past Surgical History / Comment(s): COLONOSCOPY, EGD, C-5 C-6 BONE FUSION, OCCIPITAL AND LUMBAR NERVE STIMULATORS-later removed, SKIN LESION-lt arm, renny carpal tunnel, Occipital nerve stimulator revision of battery and wires, , PAIN CLINIC PROCEDURES, C4 C5 fusion 04/28/21, sinus surgery,lumbar surgery-fusion 4 levels,sinus surgery x2 Past Anesthesia/Blood Transfusion Reactions: Family Hisory of Malignant Hyperthermia, Motion Sickness Additional Past Anesthesia/Blood Transfusion Reaction / Comment(s): FAMILY HISTORY OF MALIGNANT HYPERTHERMIA-NEPHEW. pt states she has not been tested. nephew had sinus surgery but she is not sure what hospital([facility]). Past Psychological History: No Psychological Hx Reported Smoking Status: Current every day smoker, Light tobacco smoker Past Alcohol Use History: None Reported Past Drug Use History: None Reported - Past Family History Father Family Medical History: Myocardial Infarction ([place]) Additional Family Medical History / Comment(s): HEART PROBLEMS Mother Family Medical History: Cancer Additional Family Medical History / Comment(s): BLADDER CANCER. General Exam Limitations: no limitations General appearance: alert, in no apparent distress Head exam: Present: atraumatic, normocephalic, normal inspection Eye exam: Present: normal appearance, PERRL, EOMI. Absent: scleral icterus, conjunctival injection, periorbital swelling ENT exam: Present: normal exam, normal oropharynx, mucous membranes moist Neck exam: Present: normal inspection. Absent: tenderness, meningismus, lymphadenopathy Respiratory exam: Present: normal lung sounds bilaterally, wheezes (Inspiratory and expiratory wheezing in all lung kent bilaterally). Absent: respiratory distress, rales, rhonchi, stridor Cardiovascular Exam: Present: regular rate, normal rhythm, normal heart sounds. Absent: systolic murmur, diastolic murmur, rubs, gallop, clicks Neurological exam: Present: alert, oriented X3 Psychiatric exam: Present: normal affect, normal mood Skin exam: Present: warm, dry, intact, normal color. Absent: rash Course Vital Signs 03/24/24 03/24/24 03/24/24 15:22 15:30 15:41 Temperature 97.6 F Pulse Rate 95 93 Respiratory 22 18 18 Rate Blood Pressure 150/90 153/91 O2 Sat by Pulse 96 94 L Oximetry Medical Decision Making - Medical Decision Making Was pt. sent in by a medical professional or institution (STUART Flores, FORMING ROLL OPERATOR, urgent care, hospital, or half-way...) When possible be specific @ -Sent by Dr. Londono for direct admission for asthma exacerbation Did you speak to anyone other than the patient for history (EMS, parent, family, police, friend...)? What history was obtained from this source @ -No Did you review nursing and triage notes (agree or disagree)? Why? @ -I reviewed and agree with nursing and triage notes Were old charts reviewed (outside hosp., previous admission, EMS record, old EKG, old radiological studies, urgent care reports/EKG's, half-way records)? Report findings @ -No old charts were reviewed Differential Diagnosis (chest pain, altered mental status, abdominal pain women, abdominal pain men, vaginal bleeding, weakness, fever, dyspnea, syncope, headache, dizziness, GI bleed, back pain, seizure, CVA, palpatations, mental health, musculoskeletal)? @ -Not applicable EKG interpreted by me (3pts min.). @ -As above X-rays interpreted by me (1pt min.). @ -Chest x-ray reveals no acute process CT interpreted by me (1pt min.). @ -None done U/S interpreted by me (1pt. min.). @ -None done What testing was considered but not performed or refused? (CT, X-rays, U/S, labs)? Why? @ -None What meds were considered but not given or refused? Why? @ -None Did you discuss the management of the patient with other professionals (professionals i.e. STUART Flores, FORMING ROLL OPERATOR, lab, RT, psych nurse, aids social worker, mixing and molding machine operator, teacher, disability insurance hearing officer, correctional counselor/case manager)? Give summary @ -Dr. Penaloza spoke with patient's PCP Dr. Londono who requests admission with pulmonology consultation Was smoking cessation discussed for >3mins.? @ -No Was critical care preformed (if so, how long)? @ -No Were there social determinants of health that impacted care today? How? (Homelessness, low income, unemployed, alcoholism, drug addiction, transportation, low edu. Level, literacy, decrease access to med. care, skilled nursing, rehab)? @ -No Was there de-escalation of care discussed even if they declined (Discuss DNR or withdrawal of care, Hospice)? DNR status @ -No What co-morbidities impacted this encounter? (DM, HTN, Smoking, COPD, CAD, Cancer, CVA, ARF, Chemo, Hep., AIDS, mental health diagnosis, sleep apnea, morbid obesity)? @ -Asthma Was patient admitted / discharged? Hospital course, mention meds given and route, prescriptions, significant lab abnormalities, going to OR and other pertinent info. @ -Admitted. This is a 64-year-old female with history of asthma presenting for shortness of breath x 1 week with wheezing. Patient is afebrile, nontachycardic, satting 96% on room air. There is diffuse inspiratory and expiratory wheezing in all lung kent bilaterally. Dr. Londono requests admission with pulmonology consultation and IV cefepime and vancomycin. Lab work and chest x-ray ordered, patient started on IV antibiotics and steroids at time of admission. Case was discussed with my ED attending Dr. Penaloza. Undiagnosed new problem with uncertain prognosis? @ -No Drug Therapy requiring intensive monitoring for toxicity (Heparin, Nitro, Insulin, Cardizem)? @ -No Were any procedures done? @ -No Diagnosis/symptom? @ -Asthma exacerbation Acute, or Chronic, or Acute on Chronic? @ -Acute Uncomplicated (without systemic symptoms) or Complicated (systemic symptoms)? @ -Complicated Side effects of treatment? @ -No Exacerbation, Progression, or Severe Exacerbation? @ -Exacerbation Poses a threat to life or bodily function? How? (Chest pain, [place], SC, pneumonia, PE, COPD, DKA, ARF, appy, cholecystitis, CVA, Diverticulitis, Homicidal, Suicidal, threat to staff... and all critical care pts) @ -Yes Disposition Clinical Impression: Asthma exacerbation Disposition: ADMITTED IP TO THIS HOSP Referrals: Omid Londono MD [Primary Care Provider] - 1-2 days Time of Disposition: 15:59
--- NOTE | 2024-03-24 16:09 | XR ---
EXAMINATION TYPE: XR chest 2V DATE OF EXAM: 03/24/2024 3:58 PM COMPARISON: Chest radiographs from 08/17/2021 CLINICAL INDICATION: Female, 64 years old with history of cough, asthma exacerbation; [facility] TECHNIQUE: XR chest 2V Frontal and lateral views of the chest. FINDINGS: Lungs/Pleura: There is no evidence of pleural effusion, focal consolidation, or pneumothorax. Pulmonary vascularity: Unremarkable. Heart/mediastinum: Cardiomediastinal silhouette is prominent in size. Musculoskeletal: No acute osseous pathology. There is fixation hardware in the lower cervical spine. Other findings: Stimulator leads terminating in posterior spine. Additional leads extend up towards t he neck. Right upper quadrant cholecystectomy clips. IMPRESSION: No acute cardiopulmonary disease/process. [facility], , 03/24/2024 4:07 PM
[2024-03-24 16:24] LABS: Basophils # (A) 0.1 k/uL (0-0.2); Basophils % (A) 1 %; Eosinophils # (A) 0.1 k/uL (0-0.7); Eosinophils % (A) 1 %; HCT 43.6 % (34.0-46.0); HGB 13.9 gm/dL (11.4-16.0); Lymphocytes % (A) 13 %; MCH 32.9 pg (25.0-35.0); MCHC 31.9 g/dL (31.0-37.0); MCV 103.2 fL (80.0-100.0); Macrocytosis Slight; Monocytes # (A) 0.4 k/uL (0-1.0); Monocytes % (A) 5 %; Neutrophils # (A) 6.4 k/uL (1.3-7.7); Neutrophils % (A) 80 %; Platelet Count 332 k/uL (150-450); RBC 4.22 m/uL (3.80-5.40); RDW 13.4 % (11.5-15.5); WBC 8.1 k/uL (3.8-10.6)
[2024-03-24] MEDS: methylPREDNISolone SOD SUCCI 125 MG/2 ML VIAL IV SCH (16:27)
[2024-03-24] MEDS: CEFEPIME 2 GM in SODIUM CHLORIDE 0.9% 100 ML IVPB SCH (16:27)
[2024-03-24 16:37] LABS: ALT 19 U/L (4-34); AST 24 U/L (14-36); African American GFR (CKD) >90 (>60 ml/min/1.73 sqM); Albumin 4.6 g/dL (3.5-5.0); Alkaline Phosphatase 101 U/L (38-126); Anion Gap 8 mmol/L; Blood Urea Nitrogen 16 mg/dL (7-17); Calcium 9.1 mg/dL (8.4-10.2); Carbon Dioxide 26 mmol/L (22-30); Chloride 102 mmol/L (98-107); Glucose 91 mg/dL (74-99); Non-African American GFR(CKD) 84 (>60 ml/min/1.73 sqM); Potassium 3.4 mmol/L (3.5-5.1); Sodium 136 mmol/L (137-145); Total Bilirubin 0.7 mg/dL (0.2-1.3); Total Protein 7.5 g/dL (6.3-8.2)
[2024-03-24] MEDS: IPRATROPIUM-ALBUTEROL 3 ML NEB INHALATION PRN (16:45)
[2024-03-24] MEDS: VANCOMYCIN 1,500 MG in SODIUM CHLORIDE 0.9% 500 ML 500 ML IVPB ONE (17:28)
[2024-03-24] MEDS ORDERED: NITROGLYCERIN SL TABS 0.4 MG TAB SUBLINGUAL PRN (20:41)
[2024-03-24] MEDS ORDERED: NON FORMULARY DRUG (Albuterol Sulfate/Budesonide [Airsupra 90-80 Mcg Inhaler] 10.7 GM Hfa. INHALATION PRN (20:41)
[2024-03-24] MEDS ORDERED: NON FORMULARY DRUG (Clindamycin Phosphate [Cleocin T 1%] 60 ML Lotion) TOPICAL SCH (21:00)
[2024-03-24] MEDS: SODIUM CHLORIDE 0.9% 1,000 ML IV STA (21:23)
[2024-03-24] MEDS: ERGOCALCIFEROL 1,250 MCG (50,000 IU) CAPSULE PO SCH (21:24)
[2024-03-24] MEDS: ATORVASTATIN 40 MG TAB PO SCH (21:24)
[2024-03-24] MEDS: buPROPion SR 150 MG TABLET.ER PO SCH (21:24)
[2024-03-24] MEDS: KETOTIFEN 0.025% OPHTH DROPS 5 ML BTL BOTH EYES SCH (21:24)
[2024-03-24] MEDS: LORATADINE 10 MG TAB PO SCH (21:24)
[2024-03-24] MEDS: SACUBITRIL/VALSARTAN 24 MG-26 MG TABLET PO SCH (21:24)
[2024-03-24] MEDS: sulfaSALAzine 500 MG TAB PO SCH (21:24)
[2024-03-24] MEDS: carvediloL 6.25 MG TAB PO SCH (21:30)
[2024-03-25 04:59] LABS: African American GFR (CKD) >90 (>60 ml/min/1.73 sqM); Anion Gap 5 mmol/L; Blood Urea Nitrogen 16 mg/dL (7-17); Calcium 9.2 mg/dL (8.4-10.2); Carbon Dioxide 28 mmol/L (22-30); Chloride 104 mmol/L (98-107); Glucose 103 mg/dL (74-99); Non-African American GFR(CKD) 88 (>60 ml/min/1.73 sqM); Potassium 3.4 mmol/L (3.5-5.1); Sodium 137 mmol/L (137-145)
[2024-03-25] MEDS: VANCOMYCIN 1,500 MG in SODIUM CHLORIDE 0.9% 500 ML 500 ML IVPB SCH (06:18)
[2024-03-25] MEDS: PANTOPRAZOLE 40 MG TABLET PO SCH (06:19)
[2024-03-25] MEDS: BENZONATATE 100 MG CAP PO PRN (06:58)
[2024-03-25] MEDS ORDERED: BUDESONIDE 0.5 MG/2 ML NEBU INHALATION SCH (08:00)
[2024-03-25] MEDS ORDERED: TRETINOIN TOPICAL SCH (09:00)
[2024-03-25] MEDS: ASCORBIC ACID 500 MG TAB PO SCH (09:04)
[2024-03-25] MEDS: MONTELUKAST 10 MG TAB PO SCH (09:04)
[2024-03-25] MEDS: LACTOBACILLUS ACIDOPHILUS/PECT 1 EACH CAPSULE PO SCH (09:04)
[2024-03-25] MEDS: SYMBICORT 160-4.5 MCG INHALER INHALATION SCH (09:05)
[2024-03-25] MEDS: IPRATROPIUM 0.5 MG/2.5 ML NEBU INHALATION SCH (09:05)
--- NOTE | 2024-03-25 11:59 | P.CNPUL ---
History of Present Illness Consult date: 03/25/24 Requesting physician: Omid Londono Reason for consult: asthma Chief complaint: Shortness of breath, cough, congestion History of present illness: This is a 64-year-old female patient who follows with Dr. Londono as her primary care provider. She also sees an out of town manager [employer], ENT specialist and ID specialist for multiple pneumonias and recurrent asthma exacerbations. She is on Tezspire injections monthly. She is also maintained on Airsupra, Singulair, Xyzal, Breztri, Pulmicort. She has been on multiple antibiotics and steroids over the past year. Last seen by Dr. Cotter over a year ago. She had a bronchoscopy in July 2022 at showed Pseudomonas aeruginosa. She presented here to the emergency room yesterday after failed outpatient treatment of Levaquin and steroids. She had been initiated on vancomycin and cefepime. Chest x-ray shows no acute pulmonary process. White count 8.1. Hemoglobin 13.9. Platelets 332. Sodium 137. Potassium 3.4. Bicarb 28. BUN 16. Creatinine 0.73. Glucose 103. Viral screen negative. Procalcitonin pending. Sputum culture pending. She is seen today in consultation on the regular medical floor. She is currently sitting up in a chair at the bedside. Awake and alert in no acute distress. Maintaining O2 saturations in the mid 90s on 2 L/min per nasal cannula. She is afebrile. Hemodynamically stable. Review of Systems REVIEW OF SYSTEMS: CONSTITUTIONAL: Denies any recent significant weight loss or weight gain. EYES: Denies change in vision. EARS, NOSE, MOUTH, THROAT: Denies headaches, denies sore throat. CARDIOVASCULAR: Denies chest pain, palpitations or syncopal episodes. RESPIRATORY: Positive for shortness of breath, cough, congestion no hemoptysis. GASTROINTESTINAL: Denies change in appetite, denies abdominal pain GENITOURINARY: Denies hematuria, denies infections. MUSKULOSKELETAL: Denies pain, denies swelling. INTEGUMENTARY: Denies rash, denies eczema. NEUROLOGICAL: Denies recent memory loss, no recent seizure activity. PSYCHIATRIC: Denies anxiety, denies depression. HEMATOLOGIC/LYMPHATIC: Denies anemia, denies enlarged lymph nodes. Past Medical History Past Medical History: GERD/Reflux, Osteoarthritis (OA), Rheumatoid Arthritis (RA) Additional Past Medical History / Comment(s): OCCIPITAL NEURALGIA, HEART MURMUR, CARDIOMYOPATHY, osteoporosis, past hx. gastric ulcers. Chronic back pain, DDD, numbness tingling renny legs,, hx HIATAL HERNIA, migraines, IBS, chronic sinus infection, chronic asthma History of Any Multi-Drug Resistant Organisms: None Reported Past Surgical History: Back Surgery, Cholecystectomy, Heart Catheterization, Hernia Repair, Orthopedic Surgery, Tubal Ligation Additional Past Surgical History / Comment(s): COLONOSCOPY, EGD, C-5 C-6 BONE FUSION, OCCIPITAL AND LUMBAR NERVE STIMULATORS-later removed, SKIN LESION-lt ar m, renny carpal tunnel, Occipital nerve stimulator revision of battery and wires, , PAIN CLINIC PROCEDURES, C4 C5 fusion 04/28/21, sinus surgery,lumbar surgery- fusion 4 levels,sinus surgery x2 Past Anesthesia/Blood Transfusion Reactions: Family Hisory of Malignant Hyperthermia, Motion Sickness Additional Past Anesthesia/Blood Transfusion Reaction / Comment(s): FAMILY HISTORY OF MALIGNANT HYPERTHERMIA-NEPHEW. pt states she has not been tested. nep hew had sinus surgery but she is not sure what hospital([facility]). Past Psychological History: No Psychological Hx Reported Smoking Status: Former smoker, Light tobacco smoker Past Alcohol Use History: None Reported Additional Past Alcohol Use History / Comment(s): quit smoking fall 2020 Past Drug Use History: None Reported - Past Family History Father Family Medical History: Myocardial Infarction ([place]) Additional Family Medical History / Comment(s): HEART PROBLEMS Mother Family Medical History: Cancer Additional Family Medical History / Comment(s): BLADDER CANCER. Medications and Allergies Home Medications Medication Instructions Recorded Confirmed Type Abatacept/Maltose [Orencia] 1 dose IVPB QMONTH 09/25/13 03/24/24 History Montelukast [Singulair] 10 mg PO DAILY 09/25/13 03/24/24 History Nitroglycerin Sl Tabs [Nitrostat] 0.4 mg SUBLINGUAL Q5M PRN 09/25/13 03/24/24 H istory buPROPion SR [Wellbutrin SR] 150 mg PO TID 12/18/14 03/24/24 History L.acidoph,Paracasei, B.lactis 1 cap PO DAILY 02/06/15 03/24/24 History [Probiotic] carvediloL [Coreg] 6.25 mg PO BID 02/06/15 03/24/24 History Albuterol Inhaler [Ventolin Hfa 1 - 2 puff INHALATION RT-QID PRN 04/22/21 03/24/24 History Inhaler] Levocetirizine Dihydrochloride 5 mg PO HS 04/22/21 03/24/24 History [Xyzal] Atorvastatin [Lipitor] 40 mg PO HS 08/07/21 03/24/24 History Lansoprazole [Prevacid] 30 mg PO DAILY 08/07/21 03/24/24 History Lubiprostone [Amitiza] 24 mcg PO BID 08/07/21 03/24/24 History Olopatadine HCl [Patanol 0.1%] 1 - 2 drop BOTH EYES BID 08/07/21 03/24/24 History sulfaSALAzine [sulfaSALAzine Dr] 1,500 mg PO BID 08/07/21 03/24/24 History Albuterol Nebulized [Ventolin 2.5 mg INHALATION RT-Q4H PRN 08/22/21 03/24/24 History Nebulized] Budesonide 0.5 mg INHALATION RT-BID 07/12/22 03/24/24 History Albuterol Sulfate/Budesonide 2 puff INHALATION RT-Q6H PRN 03/24/24 03/24/24 History [Airsupra 90-80 Mcg Inhaler] Ascorbic Acid [Vitamin C] 1,000 mg PO DAILY 03/24/24 03/24/24 History Budesonide/Glycopyr/Formoterol 2 puff INHALATION RT-BID 03/24/24 03/24/24 History [Breztri Aerosphere Inhaler] Clindamycin Phosphate [Cleocin T 1 applic TOPICAL BID 03/24/24 03/24/24 History 1%] Ergocalciferol (Vitamin D2) 1,250 mcg PO SA@2100 03/24/24 03/24/24 History [Drisdol (50,000 Iu)] Ibuprofen [Motrin] 800 mg PO BID PRN 03/24/24 03/24/24 History Mometasone Furoate [Nasonex 50 MCG] 2 spray NASAL DAILY PRN 03/24/24 03/24/24 History Sacubitril/Valsartan [Entresto 24 1 tab PO BID 03/24/24 03/24/24 History mg-26 mg Tablet] Tezepelumab-Ekko [Tezspire] 210 mg SQ QMONTHLY 03/24/24 03/24/24 History Tretinoin [Retin-A 0.1%] 1 applic TOPICAL DAILY 03/24/24 03/24/24 History Allergies Allergy/AdvReac Type Severity Reaction Status Date / Time codeine Allergy Severe Nausea & Verified 03/24/24 16:42 Vomiting & Diarrhea & Pain morphine Allergy Severe Nausea & Verified 03/24/24 16:42 Vomiting & Diarrhea & PAIN Latex, Natural Rubber Allergy Swelling Verified 03/24/24 16:42 nickel Allergy Rash/Hives Verified 03/24/24 16:42 GRAY INTROCAN SAFETY NEEDLE Allergy Intermediate Rash/Hives Uncoded 03/24/24 16:42 Physical Exam Vitals: Vital Signs Temp Pulse Pulse Resp BP BP Pulse Ox 03/25/24 10:00 20 03/25/24 09:20 88 03/25/24 09:05 88 03/25/24 07:14 97.6 F 80 17 135/84 95 03/25/24 06:23 84 115/70 03/25/24 02:00 97.6 F 89 101/66 96 03/25/24 00:28 104 H 03/25/24 00:20 100 03/24/24 21:51 100 03/24/24 21:40 105 H 03/24/24 20:00 98.7 F 66 126/76 96 03/24/24 19:32 98.5 F 91 20 113/68 95 03/24/24 17:36 84 18 108/72 96 03/24/24 17:00 97.9 F 81 18 131/86 92 L 03/24/24 16:52 100 18 03/24/24 16:46 104 H 16 03/24/24 15:41 93 18 153/91 94 L 03/24/24 15:30 18 03/24/24 15:22 97.6 F 95 22 150/90 96 Intake and Output 03/24/24 03/25/24 03/25/24 22:59 06:59 14:59 Other: Voiding Method Toilet Toilet Weight 77.111 kg GENERAL EXAM: Alert, pleasant 64-year-old female, up in a chair, on 2 L nasal cannula, comfortable in no apparent distress. HEAD: Normocephalic. EYES: Normal reaction of pupils, equal size. NOSE: Clear with pink turbinates. THROAT: No erythema or exudates. NECK: No masses, no JVD. CHEST: No chest wall deformity. LUNGS: Equal air entry with no crackles, wheeze, rhonchi or dullness. CVS: S1 and S2 normal with no audible murmur, regular rhythm. ABDOMEN: No hepatosplenomegaly, normal bowel sounds, no guarding or rigidity. SPINE: No scoliosis or deformity SKIN: No rashes CENTRAL NERVOUS SYSTEM: No focal deficits, tone is normal in all 4 extremities. EXTREMITIES: There is no peripheral edema. No clubbing, no cyanosis. Peripheral pulses are intact. Results - Laboratory Findings CBC and BMP: 03/24/24 15:54 03/25/24 04:15 Abnormal lab findings: Abnormal Labs 03/24/24 03/24/24 03/24/24 15:54 15:54 15:54 MCV 103.2 H Sodium 136 L Potassium 3.4 L Glucose Plasma Lactic Acid Antwon 2.3 H* 03/25/24 04:15 MCV Sodium Potassium 3.4 L Glucose 103 H Plasma Lactic Acid Antwon - Diagnostic Findings Chest x-ray: image reviewed Assessment and Plan Assessment: Acute exacerbation of moderate persistent chronic bronchial asthma. Failed outpatient treatment Frequent hospitalizations and treatment for asthma exacerbations. On Tezspire in the outpatient setting History of Pseudomonas aeruginosa infection on bronchoscopy in 2022, colonizer History of chronic tobacco dependence Chronic sinus infections Chronic pain with multiple orthopedic surgeries, pain stimulator Gastro esophageal reflux disease Osteoarthritis Irritable bowel syndrome History of migraines Cardiomyopathy Hypertension Plan: The patient was seen and evaluated Chest x-ray, labs and medications reviewed Continue antibiotics for now Check a procalcitonin Continue bronchodilators, steroids Tessalon Perles for her cough Titrate down the FiO2 as tolerated We will continue to follow and make further recommendations based on her clinical status To follow with her own multiple specialists including her sidewalk repairer upon discharge I have personally seen and examined the patient, performed the documentation and the assessment and plan as written. Number of minutes spent on the visit: 20 Dictation was produced using CoreFlowation software. Please excuse any grammatical, word or spelling errors.
--- NOTE | 2024-03-25 13:43 | P.HPIM ---
History of Present Illness H&P Date: 03/25/24 History of present illness; patient is a 64-year-old lady with past medical history significant for rheumatoid arthritis, asthma, GERD, cardiomyopathy, chronic back pain who presented to the ER because of shortness of breath. Patient stated that she was all right 1 week back when he started noticing shortness of breath. Shortness of breath was present on exertion and at rest as well. Patient complaining of wheezing. There was no complaint of fever or chills. There was no complaint of chest pain. Patient was complaining of dizziness. Her episode was very similar to the one she had couple of months ago at which time she had to be admitted with asthma exacerbation. Because of the symptoms, patient came to the ER Initial lab work done in the ER showed WBC 8.1, hemoglobin 13.9, platelet count 332, sodium 130, potassium 3.4, BUN 16, creatinine 0.76, lactate 2.3, AST 24, ALT 9 Influenza A not detected Influenza B not detected RSV not detected COVID-19 not detected EKG done in the ER showed heart rate of 83, paced rhythm Chest x-ray done in the ER showed no acute cardiopulmonary process Patient admitted to internal medicine service REVIEW OF SYSTEMS: CONSTITUTIONAL: No fever, no malaise, no fatigue. HEENT: No recent visual problems or hearing problems. Denied any sore throat. CARDIOVASCULAR: As mentioned above PULMONARY: As mentioned above GASTROINTESTINAL: No diarrhea, no nausea, no vomiting, no abdominal pain. NEUROLOGICAL: No headaches, no weakness, no numbness. HEMATOLOGICAL: Denies any bleeding or petechiae. GENITOURINARY: Denies any burning micturition, frequency, or urgency. MUSCULOSKELETAL/RHEUMATOLOGICAL: Denies any joint pain, swelling, or any muscle pain. ENDOCRINE: Denies any polyuria or polydipsia. The rest of the 14-point review of systems is negative. PHYSICAL EXAMINATION: GENERAL: The patient is alert and oriented x3, not in any acute distress. Well developed, well nourished. HEENT: Pupils are round and equally reacting to light. EOMI. No scleral icterus. No conjunctival pallor. Normocephalic, atraumatic. No pharyngeal erythema. No thyromegaly. CARDIOVASCULAR: S1 and S2 present. No murmurs, rubs, or gallops. PULMONARY: Chest is clear to auscultation, no wheezing or crackles. ABDOMEN: Soft, nontender, nondistended, normoactive bowel sounds. No palpable organomegaly. MUSCULOSKELETAL: No joint swelling or deformity. EXTREMITIES: No cyanosis, clubbing, or pedal edema. NEUROLOGICAL: Gross neurological examination did not reveal any focal deficits. SKIN: No rashes. Assessment and plan Acute asthma exacerbation Hyponatremia Hypokalemia History of CHF History of rheumatoid arthritis Monitor vital signs Monitor CBC Monitor CMP Continue telemetry monitoring Monitor blood culture Ordered sputum cultures Patient was started on IV cefepime vancomycin in the ER, will keep her on prophylactic antibiotics for now Started IV Solu-Medrol Started breathing treatments Ordered Pro-Miguel Ángel Resume home med Consult pulmonary Labs and medication were reviewed.. Continue same treatment. Continue with symptomatic treatment. Resume home medication. Monitor labs and vitals. DVT and GI prophylaxis. Further recommendations as per clinical course of the patient Dictation was produced using [employer] dictation software. please excuse any grammatical, word or spelling errors. Past Medical History Past Medical History: GERD/Reflux, Osteoarthritis (OA), Rheumatoid Arthritis (RA) Additional Past Medical History / Comment(s): OCCIPITAL NEURALGIA, HEART MURMUR, CARDIOMYOPATHY, osteoporosis, past hx. gastric ulcers. Chronic back pain, DDD, numbness tingling renny legs,, hx HIATAL HERNIA, migraines, IBS, chronic sinus infection, chronic asthma History of Any Multi-Drug Resistant Organisms: None Reported Past Surgical History: Back Surgery, Cholecystectomy, Heart Catheterization, Hernia Repair, Orthopedic Surgery, Tubal Ligation Additional Past Surgical History / Comment(s): COLONOSCOPY, EGD, C-5 C-6 BONE FUSION, OCCIPITAL AND LUMBAR NERVE STIMULATORS-later removed, SKIN LESION-lt arm , renny carpal tunnel, Occipital nerve stimulator revision of battery and wires, , PAIN CLINIC PROCEDURES, C4 C5 fusion 04/28/21, sinus surgery,lumbar surgery- fusion 4 levels,sinus surgery x2 Past Anesthesia/Blood Transfusion Reactions: Family Hisory of Malignant Hyperthermia, Motion Sickness Additional Past Anesthesia/Blood Transfusion Reaction / Comment(s): FAMILY HISTORY OF MALIGNANT HYPERTHERMIA-NEPHEW. pt states she has not been tested. nephew had sinus surgery but she is not sure what hospital([facility]). Past Psychological History: No Psychological Hx Reported Smoking Status: Former smoker, Light tobacco smoker Past Alcohol Use History: None Reported Additional Past Alcohol Use History / Comment(s): quit smoking fall 2020 Past Drug Use History: None Reported - Past Family History Father Family Medical History: Myocardial Infarction (CT) Additional Family Medical History / Comment(s): HEART PROBLEMS Mother Family Medical History: Cancer Additional Family Medical History / Comment(s): BLADDER CANCER. Medications and Allergies Home Medications Medication Instructions Recorded Confirmed Type Abatacept/Maltose [Orencia] 1 dose IVPB QMONTH 09/25/13 03/24/24 History Montelukast [Singulair] 10 mg PO DAILY 09/25/13 03/24/24 History Nitroglycerin Sl Tabs [Nitrostat] 0.4 mg SUBLINGUAL Q5M PRN 09/25/13 03/24/24 Hi story buPROPion SR [Wellbutrin SR] 150 mg PO TID 12/18/14 03/24/24 History L.acidoph,Paracasei, B.lactis 1 cap PO DAILY 02/06/15 03/24/24 History [Probiotic] carvediloL [Coreg] 6.25 mg PO BID 02/06/15 03/24/24 History Albuterol Inhaler [Ventolin Hfa 1 - 2 puff INHALATION RT-QID PRN 04/22/21 03/24/24 History Inhaler] Levocetirizine Dihydrochloride 5 mg PO HS 04/22/21 03/24/24 History [Xyzal] Atorvastatin [Lipitor] 40 mg PO HS 08/07/21 03/24/24 History Lansoprazole [Prevacid] 30 mg PO DAILY 08/07/21 03/24/24 History Lubiprostone [Amitiza] 24 mcg PO BID 08/07/21 03/24/24 History Olopatadine HCl [Patanol 0.1%] 1 - 2 drop BOTH EYES BID 08/07/21 03/24/24 History sulfaSALAzine [sulfaSALAzine Dr] 1,500 mg PO BID 08/07/21 03/24/24 History Albuterol Nebulized [Ventolin 2.5 mg INHALATION RT-Q4H PRN 08/22/21 03/24/24 History Nebulized] Budesonide 0.5 mg INHALATION RT-BID 07/12/22 03/24/24 History Albuterol Sulfate/Budesonide 2 puff INHALATION RT-Q6H PRN 03/24/24 03/24/24 History [Airsupra 90-80 Mcg Inhaler] Ascorbic Acid [Vitamin C] 1,000 mg PO DAILY 03/24/24 03/24/24 History Budesonide/Glycopyr/Formoterol 2 puff INHALATION RT-BID 03/24/24 03/24/24 History [Breztri Aerosphere Inhaler] Clindamycin Phosphate [Cleocin T 1 applic TOPICAL BID 03/24/24 03/24/24 History 1%] Ergocalciferol (Vitamin D2) 1,250 mcg PO SA@2100 03/24/24 03/24/24 History [Drisdol (50,000 Iu)] Ibuprofen [Motrin] 800 mg PO BID PRN 03/24/24 03/24/24 History Mometasone Furoate [Nasonex 50 MCG] 2 spray NASAL DAILY PRN 03/24/24 03/24/24 History Sacubitril/Valsartan [Entresto 24 1 tab PO BID 03/24/24 03/24/24 History mg-26 mg Tablet] Tezepelumab-Ekko [Tezspire] 210 mg SQ QMONTHLY 03/24/24 03/24/24 History Tretinoin [Retin-A 0.1%] 1 applic TOPICAL DAILY 03/24/24 03/24/24 History Allergies Allergy/AdvReac Type Severity Reaction Status Date / Time codeine Allergy Severe Nausea & Verified 03/24/24 16:42 Vomiting & Diarrhea & Pain morphine Allergy Severe Nausea & Verified 03/24/24 16:42 Vomiting & Diarrhea & PAIN Latex, Natural Rubber Allergy Swelling Verified 03/24/24 16:42 nickel Allergy Rash/Hives Verified 03/24/24 16:42 GRAY INTROCAN SAFETY NEEDLE Allergy Intermediate Rash/Hives Uncoded 03/24/24 16:42 Physical Exam Vitals: Vital Signs Temp Pulse Pulse Resp BP BP Pulse Ox 03/25/24 10:00 20 03/25/24 09:20 88 03/25/24 09:05 88 03/25/24 07:14 97.6 F 80 17 135/84 95 03/25/24 06:23 84 115/70 03/25/24 02:00 97.6 F 89 101/66 96 03/25/24 00:28 104 H 03/25/24 00:20 100 03/24/24 21:51 100 03/24/24 21:40 105 H 03/24/24 20:00 98.7 F 66 126/76 96 03/24/24 19:32 98.5 F 91 20 113/68 95 03/24/24 17:36 84 18 108/72 96 03/24/24 17:00 97.9 F 81 18 131/86 92 L 03/24/24 16:52 100 18 03/24/24 16:46 104 H 16 03/24/24 15:41 93 18 153/91 94 L 03/24/24 15:30 18 03/24/24 15:22 97.6 F 95 22 150/90 96 Intake and Output 03/24/24 03/25/24 03/25/24 22:59 06:59 14:59 Other: Voiding Method Toilet Toilet Weight 77.111 kg Results CBC & Chem 7: 03/24/24 15:54 03/25/24 04:15 Labs: Abnormal Lab Results - Last 24 Hours (Table) 03/24/24 03/24/24 03/24/24 Range/Units 15:54 15:54 15:54 MCV 103.2 H (80.0-100.0) fL Sodium 136 L (137-145) mmol/L Potassium 3.4 L (3.5-5.1) mmol/L Glucose (74-99) mg/dL Plasma Lactic Acid Antwon 2.3 H* (0.7-2.0) mmol/L 03/25/24 Range/Units 04:15 MCV (80.0-100.0) fL Sodium (137-145) mmol/L Potassium 3.4 L (3.5-5.1) mmol/L Glucose 103 H (74-99) mg/dL Plasma Lactic Acid Antwon (0.7-2.0) mmol/L Thrombosis Risk Factor Assmnt - Choose All That Apply Any of the Below Risk Factors Present?: Yes Each Factor Represents 1 point: Age 41-60 years Thrombosis Risk Factor Assessment Total Risk Factor Score: 1 Thrombosis Risk Factor Assessment Level: Low Risk
[2024-03-25] MEDS: FLUTICASONE NASAL 50MCG/SPRAY 16GM BTL EA NOSTRIL PRN (21:50)
[2024-03-26 06:12] LABS: African American GFR (CKD) >90 (>60 ml/min/1.73 sqM); Anion Gap 4 mmol/L; Blood Urea Nitrogen 18 mg/dL (7-17); Calcium 8.9 mg/dL (8.4-10.2); Carbon Dioxide 26 mmol/L (22-30); Chloride 108 mmol/L (98-107); Glucose 128 mg/dL (74-99); Non-African American GFR(CKD) >90 (>60 ml/min/1.73 sqM); Potassium 3.8 mmol/L (3.5-5.1); Sodium 138 mmol/L (137-145)
[2024-03-26] MEDS: VANCOMYCIN TROUGH DUE 1 EACH MISC MISCELLANE ONE (06:38)
--- NOTE | 2024-03-26 07:31 | P.CONS ---
History of Present Illness - Reason for Consult Consult date: 03/25/24 History of Pseudomonas pneumonia, immunocompromised Requesting physician: Demario Romero - Chief Complaint Shortness of breath x days - History of Present Illness Patient is a 64-year-old female with a past medical history significant for reflux osteoarthritis rheumatoid arthritis chronic asthma and a history of Pseudomonas pneumonia presenting to the hospital for evaluation of increasing shortness of breath and this patient symptom has been getting worse over the last few days with mostly increasing shortness of breath or wheezing patient also have a cough moderate intensity with occasional sputum production denies any hemoptysis or pleuritic chest pain patient has been treated in the outpatient setting with Levaquin and steroids however the patient did not have any improvement for the patient presented to hospital on arrival to the ER the patient was afebrile and no fever have been recorded subsequently patient was not tachycardic hypotensive with mild hypoxemia O2 sats of 92% room air currently the patient is on 2 L satting around 96% patient did have a white count of 8.1 creatinine 0.73 liver enzymes are normal influenza RSV COVID testing has been negative blood cultures obtained which are currently pending patient did have a chest x-ray no acute cardiopulmonary disease process patient was started on cefepime and vancomycin infectious was consulted because of recent history of pneumonia with Pseudomonas Review of Systems Positive point and negatives has been mentioned in the HPI, complete review of systems was performed and all other systems are negative Past Medical History Past Medical History: GERD/Reflux, Osteoarthritis (OA), Rheumatoid Arthritis (RA) Additional Past Medical History / Comment(s): OCCIPITAL NEURALGIA, HEART MURMUR, CARDIOMYOPATHY, osteoporosis, past hx. gastric ulcers. Chronic back pain, DDD, numbness tingling renny legs,, hx HIATAL HERNIA, migraines, IBS, chronic sinus infection, chronic asthma History of Any Multi-Drug Resistant Organisms: None Reported Past Surgical History: Back Surgery, Cholecystectomy, Heart Catheterization, Hernia Repair, Orthopedic Surgery, Tubal Ligation Additional Past Surgical History / Comment(s): COLONOSCOPY, EGD, C-5 C-6 BONE FUSION, OCCIPITAL AND LUMBAR NERVE STIMULATORS-later removed, SKIN LESION-lt arm, renny carpal tunnel, Occipital nerve stimulator revision of battery and wires, , PAIN CLINIC PROCEDURES, C4 C5 fusion 04/28/21, sinus surgery,lumbar surgery-fusion 4 levels,sinus surgery x2 Past Anesthesia/Blood Transfusion Reactions: Family Hisory of Malignant Hyperthermia, Motion Sickness Additional Past Anesthesia/Blood Transfusion Reaction / Comm: FAMILY HISTORY OF MALIGNANT HYPERTHERMIA-NEPHEW. pt states she has not been tested. nephew had sinus surgery but she is not sure what hospital([facility]). Past Psychological History: No Psychological Hx Reported Smoking Status: Former smoker, Light tobacco smoker Past Alcohol Use History: None Reported Additional Past Alcohol Use History / Comment(s): quit smoking fall 2020 Past Drug Use History: None Reported - Past Family History Father Family Medical History: Myocardial Infarction ([place]) Additional Family Medical History / Comment(s): HEART PROBLEMS Mother Family Medical History: Cancer Additional Family Medical History / Comment(s): BLADDER CANCER. Medications and Allergies Home Medications Medication Instructions Recorded Confirmed Type Abatacept/Maltose [Orencia] 1 dose IVPB QMONTH 09/25/13 03/24/24 History Montelukast [Singulair] 10 mg PO DAILY 09/25/13 03/24/24 History Nitroglycerin Sl Tabs [Nitrostat] 0.4 mg SUBLINGUAL Q5M PRN 09/25/13 03/24/24 History buPROPion SR [Wellbutrin SR] 150 mg PO TID 12/18/14 03/24/24 History L.acidoph,Paracasei, B.lactis 1 cap PO DAILY 02/06/15 03/24/24 History [Probiotic] carvediloL [Coreg] 6.25 mg PO BID 02/06/15 03/24/24 History Albuterol Inhaler [Ventolin Hfa 1 - 2 puff INHALATION RT-QID PRN 04/22/21 History Inhaler] Levocetirizine Dihydrochloride 5 mg PO HS 04/22/21 03/24/24 History [Xyzal] Atorvastatin [Lipitor] 40 mg PO HS 08/07/21 03/24/24 History Lansoprazole [Prevacid] 30 mg PO DAILY 08/07/21 03/24/24 History Lubiprostone [Amitiza] 24 mcg PO BID 08/07/21 03/24/24 History Olopatadine HCl [Patanol 0.1%] 1 - 2 drop BOTH EYES BID 08/07/21 03/24/24 History sulfaSALAzine [sulfaSALAzine Dr] 1,500 mg PO BID 08/07/21 03/24/24 History Albuterol Nebulized [Ventolin 2.5 mg INHALATION RT-Q4H PRN 08/22/21 03/24/24 History Nebulized] Budesonide 0.5 mg INHALATION RT-BID 07/12/22 03/24/24 History Albuterol Sulfate/Budesonide 2 puff INHALATION RT-Q6H PRN 03/24/24 03/24/24 History [Airsupra 90-80 Mcg Inhaler] Ascorbic Acid [Vitamin C] 1,000 mg PO DAILY 03/24/24 03/24/24 History Budesonide/Glycopyr/Formoterol 2 puff INHALATION RT-BID 03/24/24 03/24/24 History [Breztri Aerosphere Inhaler] Clindamycin Phosphate [Cleocin T 1 applic TOPICAL BID 03/24/24 03/24/24 History 1%] Ergocalciferol (Vitamin D2) 1,250 mcg PO SA@2100 03/24/24 03/24/24 History [Drisdol (50,000 Iu)] Ibuprofen [Motrin] 800 mg PO BID PRN 03/24/24 03/24/24 History Mometasone Furoate [Nasonex 50 MCG] 2 spray NASAL DAILY PRN 03/24/24 03/24/24 History Sacubitril/Valsartan [Entresto 24 1 tab PO BID 03/24/24 03/24/24 History mg-26 mg Tablet] Tezepelumab-Ekko [Tezspire] 210 mg SQ QMONTHLY 03/24/24 03/24/24 History Tretinoin [Retin-A 0.1%] 1 applic TOPICAL DAILY 03/24/24 03/24/24 History Allergies Allergy/AdvReac Type Severity Reaction Status Date / Time codeine Allergy Severe Nausea & Verified 03/24/24 16:42 Vomiting & Diarrhea & Pain morphine Allergy Severe Nausea & Verified 03/24/24 16:42 Vomiting & Diarrhea & PAIN Latex, Natural Rubber Allergy Swelling Verified 03/24/24 16:42 nickel Allergy Rash/Hives Verified 03/24/24 16:42 GRAY INTROCAN SAFETY NEEDLE Allergy Intermediate Rash/Hives Uncoded 03/24/24 16:42 Physical Exam Vitals: Vital Signs Temp Pulse Pulse Resp BP BP Pulse Ox 03/25/24 13:27 97.9 F 86 17 130/74 99 03/25/24 12:04 88 03/25/24 11:54 92 03/25/24 10:00 20 03/25/24 09:20 88 03/25/24 09:05 88 03/25/24 07:14 97.6 F 80 17 135/84 95 03/25/24 06:23 84 115/70 03/25/24 02:00 97.6 F 89 101/66 96 03/25/24 00:28 104 H 03/25/24 00:20 100 03/24/24 21:51 100 03/24/24 21:40 105 H 03/24/24 20:00 98.7 F 66 126/76 96 03/24/24 19:32 98.5 F 91 20 113/68 95 03/24/24 17:36 84 18 108/72 96 03/24/24 17:00 97.9 F 81 18 131/86 92 L 03/24/24 16:52 100 18 03/24/24 16:46 104 H 16 03/24/24 15:41 93 18 153/91 94 L 03/24/24 15:30 18 03/24/24 15:22 97.6 F 95 22 150/90 96 Intake and Output 03/24/24 03/25/24 03/25/24 22:59 06:59 14:59 Other: Voiding Method Toilet Toilet Weight 77.111 kg GENERAL DESCRIPTION: Middle-aged female up in the chair no distress. No tachypnea or accessory muscle of respiration use. HEENT: Shows Pallor , no scleral icterus. Oral mucous membrane is dry. No pharyngeal erythema or thrush NECK: Trachea central, no thyromegaly. LUNGS: Unlabored breathing. Decreased intensity breath sounds no wheeze HEART: S1, S2, regular rate and rhythm. No loud murmur ABDOMEN: Soft, no tenderness , guarding or rigidity, no organomegaly EXTREMITIES: No edema of feet. SKIN: No rash, no masses palpable. NEUROLOGICAL: The patient is awake, alert, oriented x3, mood and affect normal. Results CBC & Chem 7: 03/24/24 15:54 03/26/24 05:20 Labs: Abnormal Lab Results - Last 24 Hours (Table) 03/24/24 03/24/2403/24/24 Range/Units 15:54 15:54 15:54 MCV 103.2 H (80.0-100.0) fL Sodium 136 L (137-145) mmol/L Potassium 3.4 L (3.5-5.1) mmol/L Glucose (74-99) mg/dL Plasma Lactic Acid Antwon 2.3 H* (0.7-2.0) mmol/L 03/25/24 Range/Units 04:15 MCV (80.0-100.0) fL Sodium (137-145) mmol/L Potassium 3.4 L (3.5-5.1) mmol/L Glucose 103 H (74-99) mg/dL Plasma Lactic Acid Antwon (0.7-2.0) mmol/L Assessment and Plan (1) Asthma exacerbation Current Visit: Yes Status: Acute Code(s): J45.901 - UNSPECIFIED ASTHMA WITH (ACUTE) EXACERBATION SNOMED Code(s): 546273277 (2) Pneumonia Current Visit: Yes Status: Acute Code(s): J18.9 - PNEUMONIA, UNSPECIFIED ORGANISM SNOMED Code(s): 139982632 Plan: 1patient presented to hospital with increasing shortness of breath cough and wheezing in this patient did have a history of chronic asthma concerning for exacerbation of the asthma possible tracheobronchitis clinically not behaving as pneumonia in this patient who did not have any fever elevated white count chest x-ray was reported negative but did have a history of Pseudomonas pneumonia in July 2023 2-we will try to obtain sputum for Gram stain culture check a CRP and procalcitonin level 3-continue with cefepime steroids and bronchodilator while waiting for the workup to be completed We will follow on clinical condition and cultures to further adjust medication if needed Thank you for this consultation we will follow the patient along with you Dictation was produced using [employer] dictation software. please excuse any grammatical, word or spelling errors. Time with Patient: Greater than 30
--- NOTE | 2024-03-26 12:13 | P.PN ---
Subjective Progress Note Date: 03/26/24 Principal diagnosis: Reason for follow-up is tracheobronchitis question of pneumonia Patient is a 64-year-old female with a past medical history significant for reflux osteoarthritis rheumatoid arthritis chronic asthma and a history of Pseudomonas pneumonia presenting to the hospital for evaluation of increasing shortness of breath, patient initially chest reported negative ID consulted because of history of Pseudomonas pneumonia and immunocompromise. On today's evaluation that is 03/26/2024,the patient remains to be afebrile, patient is on room air not requiring supplemental oxygen however the patient still complaining of increasing shortness of breath on minimal exertion the patient did have a cough moderate intensity mostly dry in nature no nausea vomiting no abdominal pain or diarrhea. Patient did have a creatinine 0.62 blood cultures currently pending Objective - Vital Signs Vital signs: Vital Signs Temp 97.5 F L 03/26/24 07:37 Pulse 86 03/26/24 12:07 Resp 16 03/26/24 08:45 BP 111/71 03/26/24 07:37 Pulse Ox 96 03/26/24 09:24 FiO2 Intake & Output 03/25/24 03/26/24 03/26/24 18:59 06:59 18:59 Other: Voiding Method Toilet Toilet # Voids 4 - Exam GENERAL DESCRIPTION: Middle-age female up in the chair in no distress RESPIRATORY SYSTEM: Unlabored breathing , coarse breath sounds bilaterally HEART: S1 S2 regular rate and rhythm , ABDOMEN: Soft , no tenderness EXTREMITIES: No edema feet - Labs CBC & Chem 7: 03/24/24 15:54 03/26/24 05:20 Labs: Abnormal Lab Results - Last 24 Hours (Table) 03/26/24 Range/Units 05:20 Chloride 108 H (98-107) mmol/L BUN 18 H (7-17) mg/dL Glucose 128 H (74-99) mg/dL Microbiology - Last 24 Hours (Table) 03/24/24 15:54 Blood Culture - Preliminary Blood Assessment and Plan (1) Asthma exacerbation Current Visit: Yes Status: Acute Code(s): J45.901 - UNSPECIFIED ASTHMA WITH (ACUTE) EXACERBATION SNOMED Code(s): 792907473 (2) Pneumonia Current Visit: Yes Status: Acute Code(s): J18.9 - PNEUMONIA, UNSPECIFIED ORGANISM SNOMED Code(s): 043433236 Plan: 1patient presented to hospital with increasing shortness of breath cough and wheezing in this patient did have a history of chronic asthma concerning for exacerbation of the asthma possible tracheobronchitis clinically not behaving as pneumonia in this patient who did not have any fever elevated white count chest x-ray was reported negative but did have a history of Pseudomonas pneumonia in July 2023 2-sputum could not be collected procalcitonin was not significant elevated 3-patient currently has significant respiratory symptoms we will check a CT of the chest continue cefepime vancomycin discontinued Dictation was produced using [employer] dictation software. please excuse any gram matical, word or spelling errors. Time with Patient: Less than 30
--- NOTE | 2024-03-26 13:53 | P.PN ---
Subjective Progress Note Date: 03/26/24 This is a 64-year-old female patient who follows with Dr. Londono as her primary care provider. She also sees an out of town reed or wind instrument repairer, ENT specialist and ID specialist for multiple pneumonias and recurrent asthma exacerbations. She is on Tezspire injections monthly. She is also maintained on Airsupra, Singulair, Xyzal, Breztri, Pulmicort. She has been on multiple antibiotics and steroids over the past year. Last seen by Dr. Cotter over a year ago. She had a bronchoscopy in July 2022 at showed Pseudomonas aeruginosa. She presented here to the emergency room yesterday after failed outpatient treatment of Levaquin and steroids. She had been initiated on vancomycin and cefepime. Chest x-ray shows no acute pulmonary process. White count 8.1. Hemoglobin 13.9. Platelets 332. Sodium 137. Potassium 3.4. Bicarb 28. BUN 16. Creatinine 0.73. Glucose 103. Viral screen negative. Procalcitonin pending. Sputum culture pending. She is seen today in consultation on the regular medical floor. She is currently sitting up in a chair at the bedside. Awake and alert in no acute distress. Maintaining O2 saturations in the mid 90s on 2 L/min per nasal cannula. She is afebrile. Hemodynamically stable. The patient is seen today March 26, 2024 in follow-up on the regular medical floor. She is currently sitting up in a chair at the bedside. Awake and alert in no acute distress. Maintaining good O2 saturations in the 90s on room air. She has a dry nonproductive cough. Sodium 138. Potassium 3.8. Bicarb 26. BUN 18. Creatinine 0.62. Glucose 128. Procalcitonin was negative at 0.02. Was given vancomycin. Currently on cefepime. She is continued on DuoNeb inhalations, Symbicort, Singulair, Solu-Medrol. Tessalon Perles for her cough. Objective - Vital Signs Vital signs: Vital Signs Temp 97.5 F L 03/26/24 07:37 Pulse 80 03/26/24 12:17 Resp 16 03/26/24 08:45 BP 111/71 03/26/24 07:37 Pulse Ox 96 03/26/24 09:24 FiO2 Intake & Output 1103/26/24 03/26/24 18:59 06:59 18:59 Other: Voiding Method Toilet Toilet # Voids 4 - Exam GENERAL EXAM: Alert, 64-year-old female, up in a chair, on room air, in no apparent distress. HEAD: Normocephalic. EYES: Normal reaction of pupils, equal size. NOSE: Clear with pink turbinates. THROAT: No erythema or exudates. NECK: No masses, no JVD. CHEST: No chest wall deformity. LUNGS: Equal air entry with end expiratory wheeze, rhonchi. CVS: S1 and S2 normal with no audible murmur, regular rhythm. ABDOMEN: No hepatosplenomegaly, normal bowel sounds, no guarding or rigidity. SPINE: No scoliosis or deformity SKIN: No rashes CENTRAL NERVOUS SYSTEM: No focal deficits, tone is normal in all 4 extremities. EXTREMITIES: There is no peripheral edema. No clubbing, no cyanosis. P eripheral pulses are intact. - Labs CBC & Chem 7: 03/24/24 15:54 03/26/24 05:20 Labs: Abnormal Lab Results - Last 24 Hours (Table) 03/26/24 Range/Units 05:20 Chloride 108 H (98-107) mmol/L BUN 18 H (7-17) mg/dL Glucose 128 H (74-99) mg/dL Microbiology - Last 24 Hours (Table) 03/24/24 15:54 Blood Culture - Preliminary Blood Assessment and Plan Assessment: Acute exacerbation of moderate persistent chronic bronchial asthma. Failed outpatient treatment Frequent hospitalizations and treatment for asthma exacerbations. On Tezspire in the outpatient setting History of Pseudomonas aeruginosa infection on bronchoscopy in 2022, colonizer History of chronic tobacco dependence Chronic sinus infections Chronic pain with multiple orthopedic surgeries, pain stimulator Gastro esophageal reflux disease Osteoarthritis Irritable bowel syndrome History of migraines Cardiomyopathy Hypertension Plan: The patient was seen and evaluated Labs and medications reviewed Procalcitonin negative Antibiotics discontinued Continue bronchodilators, steroids Tessalon Perles for her cough Currently stable and on room air I have personally seen and examined the patient, performed the documentation and the assessment and plan as written. Number of minutes spent on the visit: 10 Dictation was produced using [employer] dictation software. Please excuse any grammatical, word or spelling errors.
[2024-03-26] MEDS: guaiFENesin 600 MG TABLET.ER PO SCH (15:07)
--- NOTE | 2024-03-26 17:23 | CT ---
EXAMINATION TYPE: CT chest wo con CT DLP: 289.7 mGycm, Automated exposure control for dose reduction was used. DATE OF EXAM: 03/26/2024 4:39 PM COMPARISON: CT Deonna long 01/26/2023, CT chest 02/04/2022 CLINICAL INDICATION:Female, 64 years old with history of Pneumonia; PHH, Pneumonia TECHNIQUE: Multiple axial images were obtained through the chest without IV contrast. Lack of IV or o ral contrast limits evaluation of solid and hollow organ viscera. . Coronal and sagittal reformats re viewed. FINDINGS: LUNGS/ PLEURA: No pleural effusion or pneumothorax. Minimal linear scarring and/or atelectasis withi n the bilateral lower lobes. Bilateral lower lobe subtle tiny tree-in-bud nodular opacities. AIRWAY: Patent and unremarkable.. HEART: Size within normal limits.Small coronary calcifications. Trace anterior pericardial effusion. MEDIASTINUM: No gross evidence of adenopathy. VASCULATURE: No aortic aneurysm. MUSCULOSKELETAL: Mild disc degeneration changes are present throughout the thoracolumbar spine. No ac levelock osseous abnormality. SOFT TISSUES/LYMPH NODES: Spinal stimulator leads identified within the spinal canal with additional leads along the right back extending superiorly and along the right lateral chest wall. LOWER NECK: No significant findings. UPPER ABDOMEN: Postsurgical changes at the GE junction from hernia repair. Gallbladder is surgical ab sent. IMPRESSION: Bilateral lower lobe subtle tiny tree-in-bud nodular opacities likely representing an infectious/infl ammatory bronchiolitis. Additional bilateral lower lobe linear scarring and/or atelectasis. [facility], , 03/26/2024 5:21 PM
[2024-03-26] MEDS: CEFEPIME 2 GM in SODIUM CHLORIDE 0.9% 100 ML IVPB SCH (21:04)
[2024-03-27 04:26] LABS: ALT 16 U/L (4-34); AST 22 U/L (14-36); African American GFR (CKD) >90 (>60 ml/min/1.73 sqM); Albumin/Globulin Ratio 1.6; Alkaline Phosphatase 79 U/L (38-126); Anion Gap 5 mmol/L; Blood Urea Nitrogen 14 mg/dL (7-17); Calcium 9.2 mg/dL (8.4-10.2); Carbon Dioxide 28 mmol/L (22-30); Chloride 107 mmol/L (98-107); Globulin 2.5 g/dL; Glucose 121 mg/dL (74-99); Non-African American GFR(CKD) >90 (>60 ml/min/1.73 sqM); Potassium 3.8 mmol/L (3.5-5.1); Sodium 140 mmol/L (137-145); Total Bilirubin 0.6 mg/dL (0.2-1.3); Total Protein 6.5 g/dL (6.3-8.2)
[2024-03-27 04:34] LABS: Basophils % (A) 0 %; Eosinophils % (A) 0 %; HCT 40.6 % (34.0-46.0); HGB 12.8 gm/dL (11.4-16.0); Lymphocytes # (A) 0.6 k/uL (1.0-4.8); Lymphocytes % (A) 5 %; MCH 33.3 pg (25.0-35.0); MCHC 31.6 g/dL (31.0-37.0); MCV 105.6 fL (80.0-100.0); Macrocytosis Moderate; Monocytes # (A) 0.5 k/uL (0-1.0); Monocytes % (A) 4 %; Neutrophils # (A) 10.3 k/uL (1.3-7.7); Neutrophils % (A) 89 %; Platelet Count 267 k/uL (150-450); RBC 3.85 m/uL (3.80-5.40); RDW 13.4 % (11.5-15.5); WBC 11.6 k/uL (3.8-10.6)
--- NOTE | 2024-03-27 06:47 | P.PN ---
Subjective Progress Note Date: 03/26/24 HISTORY OF PRESENT ILLNESS: History of present illness; patient is a 64-year-old lady with past medical h istory significant for rheumatoid arthritis, asthma, GERD, cardiomyopathy, chronic back pain who presented to the ER because of shortness of breath. Patient stated that she was all right 1 week back when he started noticing shortness of breath. Shortness of breath was present on exertion and at rest as well. Patient complaining of wheezing. There was no complaint of fever or chills. There was no complaint of chest pain. Patient was complaining of dizziness. Her episode was very similar to the one she had couple of months ago at which time she had to be admitted with asthma exacerbation. Because of the symptoms, patient came to the ER Initial lab work done in the ER showed WBC 8.1, hemoglobin 13.9, platelet count 332, sodium 130, potassium 3.4, BUN 16, creatinine 0.76, lactate 2.3, AST 24, ALT 9 Influenza A not detected Influenza B not detected RSV not detected COVID-19 not detected EKG done in the ER showed heart rate of 83, paced rhythm Chest x-ray done in the ER showed no acute cardiopulmonary process Patient admitted to internal medicine service 03/26: Patient is well-known to my practice with a significant history of moderate persistent asthma with Pseudomonas aeruginosa colonizer currently under the care of an financial reporting director and an ENT in an outpatient setting outside town has been on [facility] as an outpatient patient apparently was seen in my office about a week ago she was started on high dose of Levaquin as well as steroid without any improvement, she has been getting her nebulizer [id number] without any relief, she has been having significant cough significant shortness of breath and significant wheezing she was referred to the emergency department at [facility], chest x-ray did not show evidence of acute pneumonia, but because of the presentation she was admitted to the hospital for acute exacerbation of moderate persistent asthma with a prior history of colonization with Pseudomonas aeruginosa and IV antibiotic she was started initially on vancomycin and cefepime she was seen in consultation by pulmonary medicine as well as by ID, infectious disease recommended the patient to stay on cefepime, pulmonary medicine recommended to discontinue all antibiotic at this time, however we will continue with cefepime for now until obtaining the sputum culture for now, continue nebulizer continue with steroids, continue to follow- up with the patient very closely, patient is currently on room air. REVIEW OF SYSTEMS: Constitutional: No documented fever, no chills, no night sweats. No weight change. No weakness, fatigue or lethargy. No daytime sleepiness. EENT: There is a 4 headache. No blurred vision or double vision, no loss of v ision. No loss of Hearing, no ringing in the ears, no dizziness. No nasal drainage or congestion. No epistaxis. No sore throat. Lungs: Positive for shortness of breath, positive for dry cough, minimal sputum production. For wheezing. Reports dyspnea with activity. Cardiovascular: No chest pain, no lower extremity edema. No palpitations. No paroxysmal nocturnal dyspnea. No orthopnea. No lightheadedness or dizziness. No syncopal episodes. Abdominal: Reports no abdominal pain. No nausea, vomiting. No diarrhea. No constipation. No bloody or tarry stools reports loss of appetite. Genitourinary: No dysuria, increased frequency, urgency. No urinary retention. Musculoskeletal: No myalgias. No muscle weakness, no gait dysfunction, no frequent falls. No back pain. No neck pain. Integumentary: No wounds, no lesions. No rash or pruritus. No unusual bruising. No change in hair or nails. Neurologic: No aphasia. No facial droop. No change in mentation. No head injury. No headache. No paralysis. No paresthesia. Psychiatric: No depression. Positive for anxiety. No mood swings. Endocrine: No abnormal blood sugars. No weight change. PHYSICAL EXAMINATION: General:-year-old female sitting up in a chair in minimal respiratory distress. HEENT: Head is atraumatic, normocephalic, pupils were equal round reactive to light and recommendation, extraocular muscle movement were intact, sclera nonicteric, conjunctivae were pale, mucous membranes of the mouth are somewhat dry. Neck: Supple, no JVP, normal carotid upstroke bilaterally, no lymphadenopathy. Chest: Decreased breath sounds at the bases, few rhonchi, minimal expiratory wheezes, no chest wall tenderness, no intercostal retractions. Heart: First heart sound is normal, second heart sounds normal systolic ejection murmur 2/6 located left sternal border. Abdomen: Soft, nontender, nondistended, positive bowel sounds. Extremities: There is no edema no calf tenderness DP +2 bilaterally. Neurologic examination: Patient is awake alert and oriented x3, cranial nerves II-12 appear grossly intact, muscle power were 5 out of 5 in upper extremities and 5 out of 5 in bilateral lower extremities, deep tendon reflexes normal bilaterally. ASSESSMENT AND PLAN: 1. Moderate persistent asthma with exacerbation associated with acute tracheobronchitis without evidence of pneumonia and the patient with a prior h istory of Pseudomonas aeruginosa. Continue cefepime 2 g piggyback every 8 hours, discontinue vancomycin, try to obtain sputum sputum culture, procalcitonin level is negative at this time, chest x-ray did not show any evidence of any pneumonia at this time, pulmonary medicine is following, continue patient also on Solu-Medrol 60 mg IV push every 6 hours, continue DuoNeb treatment 3 manipulation 4 times every day, follow-up with the patient very closely, she is doing better clinically. 2. Hypertension and hypertensive cardiovascular disease. Continue carvedilol 6.25 mg orally twice every day as well as Entresto 24/26 mg orally twice every day monitor the patient blood pressure very closely. 3. Mixed hyperlipidemia. Continue patient on atorvastatin 40 mg orally once every day, monitor the patient up with panel, keep LDL 55-70. 4. History of cardiomyopathy has been under the care of cardiology. Continue patient on carvedilol as well as Entresto her ejection fraction is improving. Sees Dr. Sesay as an outpatient. 5. History of rheumatoid arthritis patient had has been under the care of rheumatology has been getting Orencia as well as sulfasalazine. 6. History of allergic rhinitis patient has been getting allergy shots on a regular basis, she has been on multiple treatments she has been seeing an financial reporting director as an outpatient. Continue current treatment plan. Continue loratadine 10 mg orally once every day, montelukast 10 mg once every day, Flonase nasal spray 1 puff in each nostril twice every day. 7. GERD with esophagitis. Continue patient on pantoprazole 40 mg orally once every day. 8. Rheumatoid arthritis. currently under the care of rheumatology currently on Orencia as well as sulfasalazine 1500 mg orally twice every day. 9. Anxiety disorder. Continue patient on Wellbutrin 450 mg orally once every day 10. DVT prophylaxis. Lovenox 40 mg subcutaneous every 24 hours and as well as bilateral knee-high JOSÉ ANTONIO hose. 11. Prophylaxis. Continue pantoprazole 40 mg once every day. 12. Prognosis is guarded will follow the patient. Objective - Vital Signs Vital signs: Vital Signs Temp 97.5 F L 03/26/24 07:37 Pulse 80 03/26/24 12:17 Resp 16 03/26/24 08:45 BP 111/71 03/26/24 07:37 Pulse Ox 96 03/26/24 09:24 FiO2 Intake & Output 03/25/24 03/26/24 03/26/24 18:59 06:59 18:59 Other: Voiding Method Toilet Toilet # Voids 4 - Labs CBC & Chem 7: 03/27/24 03:41 03/27/24 03:41 Labs: Abnormal Lab Results - Last 24 Hours (Table) 03/26/24 Range/Units 05:20 Chloride 108 H (98-107) mmol/L BUN 18 H (7-17) mg/dL Glucose 128 H (74-99) mg/dL Microbiology - Last 24 Hours (Table) 03/24/24 15:54 Blood Culture - Preliminary Blood
[2024-03-27] MEDS: ENOXAPARIN 40 MG/0.4 ML SYRINGE SQ SCH (09:04)
[2024-03-27 11:43] LABS: ALT 15 U/L (8-44); AST 17 U/L (13-35); Albumin 4.1 g/dL (3.8-4.9); Albumin/Globulin Ratio 1.71 Ratio (1.60-3.17); Alkaline Phosphatase 89 U/L (41-126); BUN/Creat Ratio 19.43 Ratio (12.00-20.00); Blood Urea Nitrogen 13.6 mg/dL (9.0-27.0); Calcium 9.2 mg/dL (8.7-10.3); Carbon Dioxide 22.5 mmol/L (21.6-31.8); Chloride 106 mmol/L (96-109); Globulin 2.4 g/dL (1.6-3.3); Glucose 149 mg/dL (70-110); Potassium 3.6 mmol/L (3.5-5.5); Sodium 140 mmol/L (135-145); Total Bilirubin 0.3 mg/dL (0.3-1.2); Total Protein 6.5 g/dL (6.2-8.2)
--- NOTE | 2024-03-27 12:54 | P.PN ---
Subjective Progress Note Date: 03/27/24 This is a 64-year-old female patient who follows with Dr. Londono as her primary care provider. She also sees an out of town plumber maintenance, ENT specialist and ID specialist for multiple pneumonias and recurrent asthma exacerbations. She is on Tezspire injections monthly. She is also maintained on Airsupra, Singulair, Xyzal, Breztri, Pulmicort. She has been on multiple antibiotics and steroids over the past year. Last seen by Dr. Cotter over a year ago. She had a bronchoscopy in July 2022 at showed Pseudomonas aeruginosa. She presented here to the emergency room yesterday after failed outpatient treatment of Levaquin and steroids. She had been initiated on vancomycin and cefepime. Chest x-ray shows no acute pulmonary process. White count 8.1. Hemoglobin 13.9. Platelets 332. Sodium 137. Potassium 3.4. Bicarb 28. BUN 16. Creatinine 0.73. Glucose 103. Viral screen negative. Procalcitonin pending. Sputum culture pending. She is seen today in consultation on the regular medical floor. She is currently sitting up in a chair at the bedside. Awake and alert in no acute distress. Maintaining O2 saturations in the mid 90s on 2 L/min per nasal cannula. She is afebrile. Hemodynamically stable. The patient is seen today March 26, 2024 in follow-up on the regular medical floor. She is currently sitting up in a chair at the bedside. Awake and alert in no acute distress. Maintaining good O2 saturations in the 90s on room air. She has a dry nonproductive cough. Sodium 138. Potassium 3.8. Bicarb 26. BUN 18. Creatinine 0.62. Glucose 128. Procalcitonin was negative at 0.02. Was given vancomycin. Currently on cefepime. She is continued on DuoNeb inhalations, Symbicort, Singulair, Solu-Medrol. Tessalon Perles for her cough. The patient is seen today in follow-up March 27, 2024 in follow-up on the regular medical floor. He is awake and alert in no acute distress. No worsening shortness of breath, cough or congestion. She is sitting up in a chair at the bedside. She is maintaining O2 saturations in the 90s on room air. She is continued on Symbicort, DuoNeb inhalations, Singulair, Solu-Medrol. On Perles for her cough. Lovenox for DVT prophylaxis. Procalcitonin was negative. White count 11.6. Hemoglobin 12.8. Platelets 267. Sodium 140. Potassium 3.6. Bicarb 23. BUN 13. Creatinine 0.7. Glucose 149. Objective - Vital Signs Vital signs: Vital Signs Temp 97.0 F L 03/27/24 07:46 Pulse 80 03/27/24 11:23 Resp 15 03/27/24 07:46 BP 112/83 03/27/24 07:46 Pulse Ox 94 L 03/27/24 07:53 FiO2 Intake & Output 03/26/24 03/27/24 03/27/24 18:59 06:59 18:59 Other: Voiding Method Toilet # Voids 1 - Exam GENERAL EXAM: Alert, oriented 64-year-old female, on room air, in no apparent distress. HEAD: Normocephalic. EYES: Normal reaction of pupils, equal size. NOSE: Clear with pink turbinates. THROAT: No erythema or exudates. NECK: No masses, no JVD. CHEST: No chest wall deformity. LUNGS: Equal air entry with end expiratory wheeze, rhonchi. CVS: S1 and S2 normal with no audible murmur, regular rhythm. ABDOMEN: No hepatosplenomegaly, normal bowel sounds, no guarding or rigidity. SPINE: No scoliosis or deformity SKIN: No rashes CENTRAL NERVOUS SYSTEM: No focal deficits, tone is normal in all 4 extremities. EXTREMITIES: There is no peripheral edema. No clubbing, no cyanosis. Peripheral pulses are intact. - Labs CBC & Chem 7: 03/27/24 03:41 03/27/24 06:51 Labs: Abnormal Lab Results - Last 24 Hours (Table) 03/27/24 03/27/24 03/27/24 Range/Units 03:41 03:41 06:51 WBC 11.6 H (3.8-10.6) k/uL MCV 105.6 H (80.0-100.0) fL Neutrophils # 10.3 H (1.3-7.7) k/uL Lymphocytes # 0.6 L (1.0-4.8) k/uL Glucose 121 H 149 H (74-99) mg/dL Microbiology - Last 24 Hours (Table) 03/24/24 15:54 Blood Culture - Preliminary Blood Assessment and Plan Assessment: Acute exacerbation of moderate persistent chronic bronchial asthma. Failed outpatient treatment. Procalcitonin negative at less than 0.02 Frequent hospitalizations and treatment for asthma exacerbations. On Tezspire in the outpatient setting History of Pseudomonas aeruginosa infection on bronchoscopy in 2022, colonizer History of chronic tobacco dependence Chronic sinus infections Chronic pain with multiple orthopedic surgeries, pain stimulator Gastro esophageal reflux disease Osteoarthritis Irritable bowel syndrome History of migraines Cardiomyopathy Hypertension Plan: The patient was seen and evaluated Labs and medications reviewed Stable and on room air Cleared for discharge from the pulmonary standpoint No need for antibiotics Continue her home pulmonary medications Complete a prednisone taper Follow-up with her steel manager 1 week postdischarge I have personally seen and examined the patient, performed the documentation and the assessment and plan as written. Number of minutes spent on the visit: 10 Dictation was produced using [employer] dictation software. Please excuse any grammatical, word or spelling errors.
--- NOTE | 2024-03-27 14:19 | P.PN ---
Subjective Progress Note Date: 03/27/24 Principal diagnosis: Reason for follow-up is tracheobronchitis question of pneumonia Patient is a 64-year-old female with a past medical history significant for reflux osteoarthritis rheumatoid arthritis chronic asthma and a history of Pseudomonas pneumonia presenting to the hospital for evaluation of increasing shortness of breath, patient initially chest reported negative ID consulted because of history of Pseudomonas pneumonia and immunocompromise. On today's evaluation that is 03/27/2024, the patient continues to be afebrile, the patient is on 2 L current oxygen has been complaining of shortness of breath also complaining of significant cough which has been mostly dry in nature no nausea no vomiting no abdominal pain or diarrhea. Patient white count of 11.6 creatinine 0.60 electrolytes are normal blood cultures are pending CT of the chest did shows bilateral lower lobe tree-in-bud nodular opacities representing infectious/inflammatory bronchiolitis Objective - Vital Signs Vital signs: Vital Signs Temp 97.0 F L 03/27/24 07:46 Pulse 80 03/27/24 11:23 Resp 15 03/27/24 07:46 BP 112/83 03/27/24 07:46 Pulse Ox 94 L 03/27/24 07:53 FiO2 Intake & Output 03/26/24 03/27/24 03/27/24 18:59 06:59 18:59 Other: Voiding Method Toilet # Voids 1 - Exam GENERAL DESCRIPTION: Middle-age female up in the chair in no distress RESPIRATORY SYSTEM: Unlabored breathing , coarse breath sounds bilaterally HEART: S1 S2 regular rate and rhythm , ABDOMEN: Soft , no tenderness EXTREMITIES: No edema feet - Labs CBC & Chem 7: 03/27/24 03:41 03/27/24 06:51 Labs: Abnormal Lab Results - Last 24 Hours (Table) 03/27/24 03/27/24 03/27/24 Range/Units 03:41 03:41 06:51 WBC 11.6 H (3.8-10.6) k/uL MCV 105.6 H (80.0-100.0) fL Neutrophils # 10.3 H (1.3-7.7) k/uL Lymphocytes # 0.6 L (1.0-4.8) k/uL Glucose 121 H 149 H (74-99) mg/dL Microbiology - Last 24 Hours (Table) 03/24/24 15:54 Blood Culture - Preliminary Blood Assessment and Plan (1) Asthma exacerbation Current Visit: Yes Status: Acute Code(s): J45.901 - UNSPECIFIED ASTHMA WITH (ACUTE) EXACERBATION SNOMED Code(s): 991246988 (2) Pneumonia Current Visit: Yes Status: Acute Code(s): J18.9 - PNEUMONIA, UNSPECIFIED ORGANISM SNOMED Code(s): 536436984 Plan: 1patient presented to hospital with increasing shortness of breath cough and wheezing in this patient did have a history of chronic asthma concerning for exacerbation of the asthma possible tracheobronchitis clinically not behaving as pneumonia in this patient who did not have any fever elevated white count chest x-ray was reported negative but did have a history of Pseudomonas pneumonia in July 2023 2-sputum could not be collected patient did have abnormality on the CT of the chest concerning for infectious/inflammatory bronchiolitis 3-patient cefepime was restarted continue may benefit from a bronchoscopy lavage question concern answered Dictation was produced using [employer] dictation software. please excuse any grammatical, word or spelling errors. Time with Patient: Less than 30
[2024-03-27] MEDS: predniSONE 20 MG TAB PO SCH (14:26)
[2024-03-27 14:27] LABS: HCT 40.4 % (37.2-46.3); HGB 12.6 g/dL (12.0-15.0); MCH 33.8 pg (27.0-32.0); MCHC 31.2 g/dL (32.0-37.0); MCV 108.3 FL (80.0-97.0); Mean Platelet Volume 9.8 FL (9.5-12.2); NRBC Per 100 WBC 0 X 10*3/uL (0.00-0.01); Platelet Count 290 X 10*3/uL (140-440); RBC 3.73 X 10*6/uL (4.10-5.20); RDW 13.6 % (11.5-14.5); WBC 12.69 X 10*3/uL (4.50-10.00)
[2024-03-27 15:23] LABS: Basophils # (A) 0.03 X 10*3/uL (0.00-0.10); Basophils % (A) 0.2 %; Eosinophils # (A) 0 X 10*3/uL (0.04-0.35); Eosinophils % (A) 0 %; Lymphocytes # (A) 0.62 X 10*3/uL (0.90-5.00); Lymphocytes % (A) 4.9 %; Monocytes # (A) 0.51 X 10*3/uL (0.20-1.00); Neutrophils # (A) 11.45 X 10*3/uL (1.80-7.70); Neutrophils % (A) 90.3 %; RBC Morphology Normal (Normal)
[2024-03-27] MEDS: MELATONIN 5 MG TABLET PO SCH (20:44)
--- NOTE | 2024-03-28 11:55 | P.PN ---
Subjective Progress Note Date: 03/28/24 Principal diagnosis: Reason for follow-up is tracheobronchitis question of pneumonia Patient is a 64-year-old female with a past medical history significant for reflux osteoarthritis rheumatoid arthritis chronic asthma and a history of Pseudomonas pneumonia presenting to the hospital for evaluation of increasing shortness of breath, patient initially chest reported negative ID consulted because of history of Pseudomonas pneumonia and immunocompromise. On today's evaluation that is 03/28/2024, patient has been afebrile, patient is breathing slightly comfortably and is currently on room air, patient coughing slightly decreased intensity remains to be dry in nature complaining of bilateral lower rib cage chest pain no vomiting or diarrhea has been reported. Patient did not have a lab draw today blood culture has been negative Objective - Vital Signs Vital signs: Vital Signs Temp 97.5 F L 03/28/24 07:25 Pulse 84 03/28/24 10:19 Resp 18 03/28/24 10:19 BP 115/74 03/28/24 07:25 Pulse Ox 95 03/28/24 07:25 FiO2 Intake & Output 03/27/24 03/28/24 03/28/24 18:59 06:59 18:59 Other: Voiding Method Toilet Toilet # Voids 3 2 - Exam GENERAL DESCRIPTION: Middle-age female up in the chair in no distress RESPIRATORY SYSTEM: Unlabored breathing , coarse breath sounds bilaterally HEART: S1 S2 regular rate and rhythm , ABDOMEN: Soft , no tenderness EXTREMITIES: No edema feet - Labs CBC & Chem 7: 03/27/24 06:51 03/27/24 06:51 Labs: Abnormal Lab Results - Last 24 Hours (Table) 03/27/24 Range/Units 06:51 WBC 12.69 H (4.50-10.00) X 10*3/uL RBC 3.73 L (4.10-5.20) X 10*6/uL MCV 108.3 H (80.0-97.0) FL MCH 33.8 H (27.0-32.0) pg MCHC 31.2 L (32.0-37.0) g/dL Immature Gran # 0.08 H (0.00-0.04) X 10*3/uL Neutrophils # 11.45 H (1.80-7.70) X 10*3/uL Lymphocytes # 0.62 L (0.90-5.00) X 10*3/uL Eosinophils # 0 L (0.04-0.35) X 10*3/uL Microbiology - Last 24 Hours (Table) 03/24/24 15:54 Blood Culture - Preliminary Blood Assessment and Plan (1) Asthma exacerbation Current Visit: Yes Status: Acute Code(s): J45.901 - UNSPECIFIED ASTHMA WITH (ACUTE) EXACERBATION SNOMED Code(s): 814418258 (2) Pneumonia Current Visit: Yes Status: Acute Code(s): J18.9 - PNEUMONIA, UNSPECIFIED ORGANISM SNOMED Code(s): 884083247 Plan: 1patient presented to hospital with increasing shortness of breath cough and wheezing in this patient did have a history of chronic asthma concerning for exacerbation of the asthma possible tracheobronchitis clinically not behaving as pneumonia in this patient who did not have any fever elevated white count chest x-ray was reported negative but did have a history of Pseudomonas pneumonia in July 2023 2-sputum could not be collected patient did have abnormality on the CT of the chest concerning for infectious/inflammatory bronchiolitis 3-patient mentions some improvement in her symptoms to continue with the bronchodilators steroids and cefepime and monitor clinical course closely Dictation was produced using [employer] dictation software. please excuse any grammatical, word or spelling errors. Time with Patient: Less than 30
[2024-03-28] MEDS: IBUPROFEN 800 MG TAB PO PRN (13:02)
--- NOTE | 2024-03-28 13:02 | P.PN ---
Subjective Progress Note Date: 03/27/24 HISTORY OF PRESENT ILLNESS: History of present illness; patient is a 64-year-old lady with past medical h istory significant for rheumatoid arthritis, asthma, GERD, cardiomyopathy, chronic back pain who presented to the ER because of shortness of breath. Patient stated that she was all right 1 week back when he started noticing shortness of breath. Shortness of breath was present on exertion and at rest as well. Patient complaining of wheezing. There was no complaint of fever or chills. There was no complaint of chest pain. Patient was complaining of dizziness. Her episode was very similar to the one she had couple of months ago at which time she had to be admitted with asthma exacerbation. Because of the symptoms, patient came to the ER Initial lab work done in the ER showed WBC 8.1, hemoglobin 13.9, platelet count 332, sodium 130, potassium 3.4, BUN 16, creatinine 0.76, lactate 2.3, AST 24, ALT 9 Influenza A not detected Influenza B not detected RSV not detected COVID-19 not detected EKG done in the ER showed heart rate of 83, paced rhythm Chest x-ray done in the ER showed no acute cardiopulmonary process Patient admitted to internal medicine service 03/26: Patient is well-known to my practice with a significant history of moderate persistent asthma with Pseudomonas aeruginosa colonizer currently under the care of an director of corporate sales and an ENT in an outpatient setting outside town has been on [facility] as an outpatient patient apparently was seen in my office about a week ago she was started on high dose of Levaquin as well as steroid without any improvement, she has been getting her nebulizer [id number] without any relief, she has been having significant cough significant shortness of breath and significant wheezing she was referred to the emergency department at [facility], chest x-ray did not show evidence of acute pneumonia, but because of the presentation she was admitted to the hospital for acute exacerbation of moderate persistent asthma with a prior history of colonization with Pseudomonas aeruginosa and IV antibiotic she was started initially on vancomycin and cefepime she was seen in consultation by pulmonary medicine as well as by ID, infectious disease recommended the patient to stay on cefepime, pulmonary medicine recommended to discontinue all antibiotic at this time, however we will continue with cefepime for now until obtaining the sputum culture for now, continue nebulizer continue with steroids, continue to follow- up with the patient very closely, patient is currently on room air. 03/27: Patient sitting up in chair continues to have significant cough not able to bring any phlegm up, she has been on Mucinex 600 mg orally twice a day, she was restarted back on cefepime, she was taken down to prednisone, off the Solu-Medrol, she continues to be on nebulized treatment [id number], pulmonary is following, will discuss with pulmonary medicine the need to have BAL for better evaluation since her CT scan of the chest did show evidence of tree-in-bud changes in the lung with possible bronchiolitis. There is evidence of scar tissue as well as atelectasis as well. REVIEW OF SYSTEMS: Constitutional: No documented fever, no chills, no night sweats. No weight change. No weakness, fatigue or lethargy. No daytime sleepiness. EENT: There is a 4 headache. No blurred vision or double vision, no loss of vision. No loss of Hearing, no ringing in the ears, no dizziness. No nasal drainage or congestion. No epistaxis. No sore throat. Lungs: Positive for shortness of breath, positive for dry cough, minimal sputum production. For wheezing. Reports dyspnea with activity. Cardiovascular: No chest pain, no lower extremity edema. No palpitations. No paroxysmal nocturnal dyspnea. No orthopnea. No lightheadedness or dizziness. No syncopal episodes. Abdominal: Reports no abdominal pain. No nausea, vomiting. No diarrhea. No constipation. No bloody or tarry stools reports loss of appetite. Genitourinary: No dysuria, increased frequency, urgency. No urinary retention. Musculoskeletal: No myalgias. No muscle weakness, no gait dysfunction, no frequent falls. No back pain. No neck pain. Integumentary: No wounds, no lesions. No rash or pruritus. No unusual bruising. No change in hair or nails. Neurologic: No aphasia. No facial droop. No change in mentation. No head injury. No headache. No paralysis. No paresthesia. Psychiatric: No depression. Positive for anxiety. No mood swings. Endocrine: No abnormal blood sugars. No weight change. PHYSICAL EXAMINATION: General:-year-old female sitting up in a chair in minimal respiratory distress. HEENT: Head is atraumatic, normocephalic, pupils were equal round reactive to light and recommendation, extraocular muscle movement were intact, sclera nonicteric, conjunctivae were pale, mucous membranes of the mouth are somewhat dry. Neck: Supple, no JVP, normal carotid upstroke bilaterally, no lymphadenopathy. Chest: Decreased breath sounds at the bases, few rhonchi, minimal expiratory wheezes, no chest wall tenderness, no intercostal retractions. Heart: First heart sound is normal, second heart sounds normal systolic ejection murmur 2/6 located left sternal border. Abdomen: Soft, nontender, nondistended, positive bowel sounds. Extremities: There is no edema no calf tenderness DP +2 bilaterally. Neurologic examination: Patient is awake alert and oriented x3, cranial nerves II-12 appear grossly intact, muscle power were 5 out of 5 in upper extremities and 5 out of 5 in bilateral lower extremities, deep tendon reflexes normal bilaterally. ASSESSMENT AND PLAN: 1. Moderate persistent asthma with exacerbation associated with acute bronchiolitis without evidence of pneumonia and the patient with a prior history of Pseudomonas aeruginosa. Continue patient on cefepime 2 g piggyback every 8 hours, sputum culture was not done as the patient is unable to bring up anything continue prednisone, continue nebulizer treatment, continue oxygen support, follow-up with the patient very closely. Will discuss with pulmonary medicine the need for BAL. 2. Hypertension and hypertensive cardiovascular disease. Continue carvedilol 6.25 mg orally twice every day as well as Entresto 24/26 mg orally twice every day monitor the patient blood pressure very closely. 3. Mixed hyperlipidemia. Continue patient on atorvastatin 40 mg orally once every day, monitor the patient up with panel, keep LDL 55-70. 4. History of cardiomyopathy has been under the care of cardiology. Continue patient on carvedilol as well as Entresto her ejection fraction is improving. Sees Dr. Sesay as an outpatient. 5. History of rheumatoid arthritis patient had has been under the care of rheumatology has been getting Orencia as well as sulfasalazine. 6. History of allergic rhinitis patient has been getting allergy shots on a regular basis, she has been on multiple treatments she has been seeing an director of corporate sales as an outpatient. Continue current treatment plan. Continue loratadine 10 mg orally once every day, montelukast 10 mg once every day, Flonase nasal spray 1 puff in each nostril twice every day. 7. GERD with esophagitis. Continue patient on pantoprazole 40 mg orally once every day. 8. Rheumatoid arthritis. currently under the care of rheumatology currently on Orencia as well as sulfasalazine 1500 mg orally twice every day. 9. Anxiety disorder. Continue patient on Wellbutrin 450 mg orally once every day 10. DVT prophylaxis. Lovenox 40 mg subcutaneous every 24 hours and as well as bilateral knee-high JOSÉ ANTONIO hose. 11. Prophylaxis. Continue pantoprazole 40 mg once every day. 12. Prognosis is guarded will follow the patient. Objective - Vital Signs Vital signs: Vital Signs Temp 97.5 F L 03/27/24 00:38 Pulse 88 03/27/24 00:38 Resp 18 03/27/24 00:38 BP 119/76 03/27/24 00:38 Pulse Ox 97 03/27/24 00:38 FiO2 Intake & Output 03/26/24 03/27/24 03/27/24 18:59 06:59 18:59 Other: Voiding Method Toilet # Voids 1 - Labs CBC & Chem 7: 03/27/24 06:51 03/27/24 06:51 Labs: Abnormal Lab Results - Last 24 Hours (Table) 03/27/24 03/27/24 Range/Units 03:41 03:41 WBC 11.6 H (3.8-10.6) k/uL MCV 105.6 H (80.0-100.0) fL Neutrophils # 10.3 H (1.3-7.7) k/uL Lymphocytes # 0.6 L (1.0-4.8) k/uL Glucose 121 H (74-99) mg/dL Microbiology - Last 24 Hours (Table) 03/24/24 15:54 Blood Culture - Preliminary Blood
--- NOTE | 2024-03-28 13:28 | P.PN ---
Subjective Progress Note Date: 03/28/24 HISTORY OF PRESENT ILLNESS: History of present illness; patient is a 64-year-old lady with past medical h istory significant for rheumatoid arthritis, asthma, GERD, cardiomyopathy, chronic back pain who presented to the ER because of shortness of breath. Patient stated that she was all right 1 week back when he started noticing shortness of breath. Shortness of breath was present on exertion and at rest as well. Patient complaining of wheezing. There was no complaint of fever or chills. There was no complaint of chest pain. Patient was complaining of dizziness. Her episode was very similar to the one she had couple of months ago at which time she had to be admitted with asthma exacerbation. Because of the symptoms, patient came to the ER Initial lab work done in the ER showed WBC 8.1, hemoglobin 13.9, platelet count 332, sodium 130, potassium 3.4, BUN 16, creatinine 0.76, lactate 2.3, AST 24, ALT 9 Influenza A not detected Influenza B not detected RSV not detected COVID-19 not detected EKG done in the ER showed heart rate of 83, paced rhythm Chest x-ray done in the ER showed no acute cardiopulmonary process Patient admitted to internal medicine service 03/26: Patient is well-known to my practice with a significant history of moderate persistent asthma with Pseudomonas aeruginosa colonizer currently under the care of an mulling machine operator and an ENT in an outpatient setting outside town has been on [facility] as an outpatient patient apparently was seen in my office about a week ago she was started on high dose of Levaquin as well as steroid without any improvement, she has been getting her nebulizer [id number] without any relief, she has been having significant cough significant shortness of breath and significant wheezing she was referred to the emergency department at [facility], chest x-ray did not show evidence of acute pneumonia, but because of the presentation she was admitted to the hospital for acute exacerbation of moderate persistent asthma with a prior history of colonization with Pseudomonas aeruginosa and IV antibiotic she was started initially on vancomycin and cefepime she was seen in consultation by pulmonary medicine as well as by ID, infectious disease recommended the patient to stay on cefepime, pulmonary medicine recommended to discontinue all antibiotic at this time, however we will continue with cefepime for now until obtaining the sputum culture for now, continue nebulizer continue with steroids, continue to follow- up with the patient very closely, patient is currently on room air. 03/27: Patient sitting up in chair continues to have significant cough not able to bring any phlegm up, she has been on Mucinex 600 mg orally twice a day, she was restarted back on cefepime, she was taken down to prednisone, off the Solu-Medrol, she continues to be on nebulized treatment [id number], pulmonary is following, will discuss with pulmonary medicine the need to have BAL for better evaluation since her CT scan of the chest did show evidence of tree-in-bud changes in the lung with possible bronchiolitis. There is evidence of scar tissue as well as atelectasis as well. 03/28: Patient sitting up in chair, appears to be better today she continues to have coughing however she is bringing some phlegm up today, sputum were sent for culture, she has no chest pain at this time, she has shortness of breath with exertion, she has no hemoptysis she has no pleurisy, she has no abdominal pain, nausea vomiting or diarrhea, she does complain of soreness in her throat, no evidence of thrush on examination, continue current treatment plan, follow-up with the patient very closely. REVIEW OF SYSTEMS: Constitutional: No documented fever, no chills, no night sweats. No weight change. No weakness, fatigue or lethargy. No daytime sleepiness. EENT: There is a 4 headache. No blurred vision or double vision, no loss of vision. No loss of Hearing, no ringing in the ears, no dizziness. No nasal drainage or congestion. No epistaxis. No sore throat. Lungs: Positive for shortness of breath, positive for dry cough, minimal sputum production. For wheezing. Reports dyspnea with activity. Cardiovascular: No chest pain, no lower extremity edema. No palpitations. No paroxysmal nocturnal dyspnea. No orthopnea. No lightheadedness or dizziness. No syncopal episodes. Abdominal: Reports no abdominal pain. No nausea, vomiting. No diarrhea. No constipation. No bloody or tarry stools reports loss of appetite. Genitourinary: No dysuria, increased frequency, urgency. No urinary retention. Musculoskeletal: No myalgias. No muscle weakness, no gait dysfunction, no frequent falls. No back pain. No neck pain. Integumentary: No wounds, no lesions. No rash or pruritus. No unusual bruising. No change in hair or nails. Neurologic: No aphasia. No facial droop. No change in mentation. No head injury. No headache. No paralysis. No paresthesia. Psychiatric: No depression. Positive for anxiety. No mood swings. Endocrine: No abnormal blood sugars. No weight change. PHYSICAL EXAMINATION: General:-year-old female sitting up in a chair in minimal respiratory distress. HEENT: Head is atraumatic, normocephalic, pupils were equal round reactive to light and recommendation, extraocular muscle movement were intact, sclera nonicteric, conjunctivae were pale, mucous membranes of the mouth are somewhat dry. Neck: Supple, no JVP, normal carotid upstroke bilaterally, no lymphadenopathy. Chest: Decreased breath sounds at the bases, few rhonchi, minimal expiratory wheezes, no chest wall tenderness, no intercostal retractions. Heart: First heart sound is normal, second heart sounds normal systolic ejection murmur 2/6 located left sternal border. Abdomen: Soft, nontender, nondistended, positive bowel sounds. Extremities: There is no edema no calf tenderness DP +2 bilaterally. Neurologic examination: Patient is awake alert and oriented x3, cranial nerves II-12 appear grossly intact, muscle power were 5 out of 5 in upper extremities and 5 out of 5 in bilateral lower extremities, deep tendon reflexes normal bilaterally. ASSESSMENT AND PLAN: 1. Moderate persistent asthma with exacerbation associated with acute bronchiolitis without evidence of pneumonia and the patient with a prior history of Pseudomonas aeruginosa. Continue patient on cefepime 2 g piggyback every 8 hours, sputum culture was not done as the patient is unable to bring up anything continue prednisone, continue nebulizer treatment, continue oxygen support, follow-up with the patient very closely. no need for more testing at this point in time continue current treatment plan for few more days and send the patient home after that. 2. Hypertension and hypertensive cardiovascular disease. Continue carvedilol 6.25 mg orally twice every day as well as Entresto 24/26 mg orally twice every day monitor the patient blood pressure very closely. 3. Mixed hyperlipidemia. Continue patient on atorvastatin 40 mg orally once every day, monitor the patient up with panel, keep LDL 55-70. 4. History of cardiomyopathy has been under the care of cardiology. Continue patient on carvedilol as well as Entresto her ejection fraction is improving. Sees Dr. Sesay as an outpatient. 5. History of rheumatoid arthritis patient had has been under the care of rheumatology has been getting Orencia as well as sulfasalazine. 6. History of allergic rhinitis patient has been getting allergy shots on a regular basis, she has been on multiple treatments she has been seeing an mulling machine operator as an outpatient. Continue current treatment plan. Continue loratadine 10 mg orally once every day, montelukast 10 mg once every day, Flonase nasal spray 1 puff in each nostril twice every day. 7. GERD with esophagitis. Continue patient on pantoprazole 40 mg orally once every day. 8. Rheumatoid arthritis. currently under the care of rheumatology currently on Orencia as well as sulfasalazine 1500 mg orally twice every day. 9. Anxiety disorder. Continue patient on Wellbutrin 450 mg orally once every day 10. DVT prophylaxis. Lovenox 40 mg subcutaneous every 24 hours and as well as bilateral knee-high JOSÉ ANTONIO hose. 11. GI prophylaxis. Continue pantoprazole 40 mg once every day. 12. Patient would likely be discharged home in the next 1 or 2 days. Objective - Vital Signs Vital signs: Vital Signs Temp 97.5 F L 03/28/24 07:25 Pulse 84 03/28/24 10:19 Resp 18 03/28/24 10:19 BP 115/74 03/28/24 07:25 Pulse Ox 95 03/28/24 07:25 FiO2 Intake & Output 03/27/24 03/28/24 03/28/24 18:59 06:59 18:59 Other: Voiding Method Toilet Toilet # Voids 3 2 - Labs CBC & Chem 7: 03/27/24 06:51 03/27/24 06:51 Labs: Abnormal Lab Results - Last 24 Hours (Table) 03/27/24 Range/Units 06:51 WBC 12.69 H (4.50-10.00) X 10*3/uL RBC 3.73 L (4.10-5.20) X 10*6/uL MCV 108.3 H (80.0-97.0) FL MCH 33.8 H (27.0-32.0) pg MCHC 31.2 L (32.0-37.0) g/dL Immature Gran # 0.08 H (0.00-0.04) X 10*3/uL Neutrophils # 11.45 H (1.80-7.70) X 10*3/uL Lymphocytes # 0.62 L (0.90-5.00) X 10*3/uL Eosinophils # 0 L (0.04-0.35) X 10*3/uL Microbiology - Last 24 Hours (Table) 03/24/24 15:54 Blood Culture - Preliminary Blood
[2024-03-29 09:49] VITALS: BMI 28.3
--- NOTE | 2024-03-29 12:50 | P.PN ---
Subjective Progress Note Date: 03/29/24 Principal diagnosis: Reason for follow-up is tracheobronchitis question of pneumonia Patient is a 64-year-old female with a past medical history significant for reflux osteoarthritis rheumatoid arthritis chronic asthma and a history of Pseudomonas pneumonia presenting to the hospital for evaluation of increasing shortness of breath, patient initially chest reported negative ID consulted because of history of Pseudomonas pneumonia and immunocompromise. On today's evaluation that is 03/29/2024, Patient is afebrile this morning patient denies having any chest pain she is breathing more comfortably and cough is decreased in intensity not bring up any sputum no nausea vomiting abdominal pain or diarrhea. No new lab has been obtained today sputum is growing Laly albicans Objective - Vital Signs Vital signs: Vital Signs Temp 98.0 F 03/29/24 07:27 Pulse 88 03/29/24 10:08 Resp 16 03/29/24 07:27 BP 119/72 03/29/24 07:27 Pulse Ox 94 L 03/29/24 07:27 FiO2 Intake & Output 03/28/24 03/29/24 03/29/24 18:59 06:59 18:59 Intake Total 240 Balance 240 Weight 77.111 kg Intake: Oral 240 Other: Voiding Method Toilet Toilet # Voids 3 2 - Exam GENERAL DESCRIPTION: Middle-age female up in the chair in no distress RESPIRATORY SYSTEM: Unlabored breathing , coarse breath sounds bilaterally HEART: S1 S2 regular rate and rhythm , ABDOMEN: Soft , no tenderness EXTREMITIES: No edema feet - Labs CBC & Chem 7: 03/27/24 06:51 03/27/24 06:51 Labs: Microbiology - Last 24 Hours (Table) 03/28/24 10:15 Gram Stain - Preliminary Sputum Sputum Culture - Preliminary Laly albicans Assessment and Plan (1) Asthma exacerbation Current Visit: Yes Status: Acute Code(s): J45.901 - UNSPECIFIED ASTHMA WITH (ACUTE) EXACERBATION SNOMED Code(s): 670553608 (2) Pneumonia Current Visit: Yes Status: Acute Code(s): J18.9 - PNEUMONIA, UNSPECIFIED ORGANISM SNOMED Code(s): 511787134 Plan: 1patient presented to hospital with increasing shortness of breath cough and wheezing in this patient did have a history of chronic asthma concerning for exacerbation of the asthma possible tracheobronchitis clinically not behaving as pneumonia in this patient who did not have any fever elevated white count chest x-ray was reported negative but did have a history of Pseudomonas pneumonia in July 2023 2-sputum could not be collected patient did have abnormality on the CT of the chest concerning for infectious/inflammatory bronchiolitis 3-patient did have some clinical improvement patient mention she has been off-and-on on antibiotics and really felt better on the IV cefepime and question if it can be continued outpatient setting will discussed with the case managers and continue with the cefepime at this point Dictation was produced using [employer] dictation software. please excuse any grammatical, word or spelling errors. Time with Patient: Less than 30
[2024-03-29] MEDS: FUROSEMIDE 10 MG/ML 4 ML VIAL IV SCH (14:11)
[2024-03-29] MEDS: POTASSIUM CHLORIDE ER 20 MEQ TAB.ER PO STA (14:11)
--- NOTE | 2024-03-29 17:44 | P.PN ---
Subjective Progress Note Date: 03/29/24 HISTORY OF PRESENT ILLNESS: History of present illness; patient is a 64-year-old lady with past medical h istory significant for rheumatoid arthritis, asthma, GERD, cardiomyopathy, chronic back pain who presented to the ER because of shortness of breath. Patient stated that she was all right 1 week back when he started noticing shortness of breath. Shortness of breath was present on exertion and at rest as well. Patient complaining of wheezing. There was no complaint of fever or chills. There was no complaint of chest pain. Patient was complaining of dizziness. Her episode was very similar to the one she had couple of months ago at which time she had to be admitted with asthma exacerbation. Because of the symptoms, patient came to the ER Initial lab work done in the ER showed WBC 8.1, hemoglobin 13.9, platelet count 332, sodium 130, potassium 3.4, BUN 16, creatinine 0.76, lactate 2.3, AST 24, ALT 9 Influenza A not detected Influenza B not detected RSV not detected COVID-19 not detected EKG done in the ER showed heart rate of 83, paced rhythm Chest x-ray done in the ER showed no acute cardiopulmonary process Patient admitted to internal medicine service 03/26: Patient is well-known to my practice with a significant history of moderate persistent asthma with Pseudomonas aeruginosa colonizer currently under the care of an medical housekeeper and an ENT in an outpatient setting outside town has been on [facility] as an outpatient patient apparently was seen in my office about a week ago she was started on high dose of Levaquin as well as steroid without any improvement, she has been getting her nebulizer [id number] without any relief, she has been having significant cough significant shortness of breath and significant wheezing she was referred to the emergency department at [facility], chest x-ray did not show evidence of acute pneumonia, but because of the presentation she was admitted to the hospital for acute exacerbation of moderate persistent asthma with a prior history of colonization with Pseudomonas aeruginosa and IV antibiotic she was started initially on vancomycin and cefepime she was seen in consultation by pulmonary medicine as well as by ID, infectious disease recommended the patient to stay on cefepime, pulmonary medicine recommended to discontinue all antibiotic at this time, however we will continue with cefepime for now until obtaining the sputum culture for now, continue nebulizer continue with steroids, continue to follow- up with the patient very closely, patient is currently on room air. 03/27: Patient sitting up in chair continues to have significant cough not able to bring any phlegm up, she has been on Mucinex 600 mg orally twice a day, she was restarted back on cefepime, she was taken down to prednisone, off the Solu-Medrol, she continues to be on nebulized treatment [id number], pulmonary is following, will discuss with pulmonary medicine the need to have BAL for better evaluation since her CT scan of the chest did show evidence of tree-in-bud changes in the lung with possible bronchiolitis. There is evidence of scar tissue as well as atelectasis as well. 03/28: Patient sitting up in chair, appears to be better today she continues to have coughing however she is bringing some phlegm up today, sputum were sent for culture, she has no chest pain at this time, she has shortness of breath with exertion, she has no hemoptysis she has no pleurisy, she has no abdominal pain, nausea vomiting or diarrhea, she does complain of soreness in her throat, no evidence of thrush on examination, continue current treatment plan, follow-up with the patient very closely. 03/29: Patient is sitting up in the chair in no apparent distress, her coughing is less, she continues to have more phlegm production, better than he was, she has no sore throat, no dysphagia, she has no abdominal pain, she appears to have some swelling both lower extremities, we will discontinue IV fluid, start the patient on Lasix 40 mg IV push today and tomorrow potassium supplement, repeat labs tomorrow morning hopefully home in the next 24 hours. REVIEW OF SYSTEMS: Constitutional: No documented fever, no chills, no night sweats. No weight change. No weakness, fatigue or lethargy. No daytime sleepiness. EENT: There is a 4 headache. No blurred vision or double vision, no loss of vision. No loss of Hearing, no ringing in the ears, no dizziness. No nasal drainage or congestion. No epistaxis. No sore throat. Lungs: Positive for shortness of breath, positive for dry cough, minimal sputum production. For wheezing. Reports dyspnea with activity. Cardiovascular: No chest pain, no lower extremity edema. No palpitations. No paroxysmal nocturnal dyspnea. No orthopnea. No lightheadedness or dizziness. No syncopal episodes. Abdominal: Reports no abdominal pain. No nausea, vomiting. No diarrhea. No constipation. No bloody or tarry stools reports loss of appetite. Genitourinary: No dysuria, increased frequency, urgency. No urinary retention. Musculoskeletal: No myalgias. No muscle weakness, no gait dysfunction, no frequent falls. No back pain. No neck pain. Integumentary: No wounds, no lesions. No rash or pruritus. No unusual bruising. No change in hair or nails. Neurologic: No aphasia. No facial droop. No change in mentation. No head injury. No headache. No paralysis. No paresthesia. Psychiatric: No depression. Positive for anxiety. No mood swings. Endocrine: No abnormal blood sugars. No weight change. PHYSICAL EXAMINATION: General:-year-old female sitting up in a chair in minimal respiratory distress. HEENT: Head is atraumatic, normocephalic, pupils were equal round reactive to light and recommendation, extraocular muscle movement were intact, sclera nonicteric, conjunctivae were pale, mucous membranes of the mouth are somewhat dry. Neck: Supple, no JVP, normal carotid upstroke bilaterally, no lymphadenopathy. Chest: Decreased breath sounds at the bases, few rhonchi, minimal expiratory wheezes, no chest wall tenderness, no intercostal retractions. Heart: First heart sound is normal, second heart sounds normal systolic ejection murmur 2/6 located left sternal border. Abdomen: Soft, nontender, nondistended, positive bowel sounds. Extremities: There is +1 edema no calf tenderness DP +2 bilaterally. Neurologic examination: Patient is awake alert and oriented x3, cranial nerves II-12 appear grossly intact, muscle power were 5 out of 5 in upper extremities and 5 out of 5 in bilateral lower extremities, deep tendon reflexes normal bilaterally. ASSESSMENT AND PLAN: 1. Moderate persistent asthma with exacerbation associated with acute bronchiolitis without evidence of pneumonia and the patient with a prior history of Pseudomonas aeruginosa. Continue patient on cefepime 2 g piggyback every 8 hours, sputum culture was not done as the patient is unable to bring up anything continue prednisone, continue nebulizer treatment, continue oxygen support, follow-up with the patient very closely. no need for more testing at this point in time continue current treatment plan for few more days and send the patient home after that. 2. Hypertension and hypertensive cardiovascular disease. Continue carvedilol 6.25 mg orally twice every day as well as Entresto 24/26 mg orally twice every day monitor the patient blood pressure very closely. 3. Mixed hyperlipidemia. Continue patient on atorvastatin 40 mg orally once every day, monitor the patient up with panel, keep LDL 55-70. 4. History of cardiomyopathy has been under the care of cardiology. Continue patient on carvedilol as well as Entresto her ejection fraction is improving. Sees Dr. Sesay as an outpatient. 5. History of rheumatoid arthritis patient had has been under the care of rheum atology has been getting Orencia as well as sulfasalazine. 6. History of allergic rhinitis patient has been getting allergy shots on a regular basis, she has been on multiple treatments she has been seeing an medical housekeeper as an outpatient. Continue current treatment plan. Continue loratadine 10 mg orally once every day, montelukast 10 mg once every day, Flonase nasal spray 1 puff in each nostril twice every day. 7. GERD with esophagitis. Continue patient on pantoprazole 40 mg orally once every day. 8. Rheumatoid arthritis. currently under the care of rheumatology currently on Orencia as well as sulfasalazine 1500 mg orally twice every day. 9. Anxiety disorder. Continue patient on Wellbutrin 450 mg orally once every day 10. DVT prophylaxis. Lovenox 40 mg subcutaneous every 24 hours and as well as bilateral knee-high JOSÉ ANTONIO hose. 11. GI prophylaxis. Continue pantoprazole 40 mg once every day. 12. Bilateral lower extremity edema. Start the patient on Lasix 40 mg IV push today and tomorrow potassium supplement, repeat labs tomorrow morning 13. Home tomorrow morning. Objective - Vital Signs Vital signs: Vital Signs Temp 98.0 F 03/29/24 07:27 Pulse 92 03/29/24 13:17 Resp 16 03/29/24 07:27 BP 119/72 03/29/24 07:27 Pulse Ox 94 L 03/29/24 07:27 FiO2 Intake & Output 03/28/24 03/29/24 03/29/24 18:59 06:59 18:59 Intake Total 240 Balance 240 Weight 77.111 kg Intake: Oral 240 Other: Voiding Method Toilet Toilet # Voids 3 2 - Labs CBC & Chem 7: 03/27/24 06:51 03/27/24 06:51 Labs: Microbiology - Last 24 Hours (Table) 03/28/24 10:15 Gram Stain - Preliminary Sputum Sputum Culture - Preliminary Laly albicans
[2024-03-30 07:52] VITALS: BP 108/69
[2024-03-30 08:42] LABS: Basophils # (A) 0.03 X 10*3/uL (0.00-0.10); Basophils % (A) 0.4 %; Eosinophils # (A) 0.01 X 10*3/uL (0.04-0.35); Eosinophils % (A) 0.1 %; HCT 37.9 % (37.2-46.3); HGB 11.8 g/dL (12.0-15.0); Lymphocytes # (A) 1.42 X 10*3/uL (0.90-5.00); Lymphocytes % (A) 19.6 %; MCH 33.2 pg (27.0-32.0); MCHC 31.1 g/dL (32.0-37.0); MCV 106.8 FL (80.0-97.0); Mean Platelet Volume 9.4 FL (9.5-12.2); Monocytes # (A) 0.51 X 10*3/uL (0.20-1.00); NRBC Per 100 WBC 0 X 10*3/uL (0.00-0.01); Neutrophils # (A) 5.22 X 10*3/uL (1.80-7.70); Neutrophils % (A) 72.1 %; Platelet Count 250 X 10*3/uL (140-440); RBC 3.55 X 10*6/uL (4.10-5.20); RDW 13.7 % (11.5-14.5); WBC 7.25 X 10*3/uL (4.50-10.00)
[2024-03-30 09:59] LABS: ALT 23 U/L (8-44); AST 19 U/L (13-35); Albumin 4.1 g/dL (3.8-4.9); Albumin/Globulin Ratio 1.86 Ratio (1.60-3.17); Alkaline Phosphatase 78 U/L (41-126); BUN/Creat Ratio 22.75 Ratio (12.00-20.00); Blood Urea Nitrogen 18.2 mg/dL (9.0-27.0); Carbon Dioxide 30.5 mmol/L (21.6-31.8); Chloride 105 mmol/L (96-109); Globulin 2.2 g/dL (1.6-3.3); Glucose 86 mg/dL (70-110); Potassium 3.3 mmol/L (3.5-5.5); Sodium 144 mmol/L (135-145); Total Bilirubin 0.3 mg/dL (0.3-1.2); Total Protein 6.3 g/dL (6.2-8.2)
[2024-03-30 14:43] VITALS: RESP 18; TEMP 98.1
--- NOTE | 2024-03-30 15:05 | P.PN ---
Subjective Progress Note Date: 03/30/24 Principal diagnosis: Reason for follow-up is tracheobronchitis question of pneumonia Patient is a 64-year-old female with a past medical history significant for reflux osteoarthritis rheumatoid arthritis chronic asthma and a history of Pseudomonas pneumonia presenting to the hospital for evaluation of increasing shortness of breath, patient initially chest reported negative ID consulted because of history of Pseudomonas pneumonia and immunocompromise. On today's evaluation that is 03/30/2024,the patient denies any fever or any chills, patient is breathing comfortably on room air, the patient denies chest pain still having episodes of cough off and on but no purulent sputum production no nausea vomiting no abdominal pain no diarrhea. Patient white count is normal at 7.25 today, creatinine is 0.8 sputum showing Laly Objective - Vital Signs Vital signs: Vital Signs Temp 98.1 F 03/30/24 14:16 Pulse 95 03/30/24 14:16 Resp 18 03/30/24 14:16 BP 108/69 03/30/24 14:16 Pulse Ox 92 L 03/30/24 14:16 FiO2 Intake & Output 03/29/24 03/30/24 03/30/24 18:59 06:59 18:59 Intake Total 100 300 Balance 100 300 Weight 77.111 kg Intake: Intake, IV Titration 100 Amount Cefepime 2 gm In Sodium 100 Chloride 0.9% 100 ml @ 25 mls/hr IVPB Q8H ON LICENSE OF [facility] Rx#: [id number] Oral 300 Other: Voiding Method Toilet # Voids 3 4 - Exam GENERAL DESCRIPTION: Middle-age female up in the chair in no distress RESPIRATORY SYSTEM: Unlabored breathing , coarse breath sounds bilaterally HEART: S1 S2 regular rate and rhythm , ABDOMEN: Soft , no tenderness EXTREMITIES: No edema feet - Labs CBC & Chem 7: 03/30/24 05:48 03/30/24 05:48 Labs: Abnormal Lab Results - Last 24 Hours (Table) 03/30/24 03/30/24 Range/Units 05:48 05:48 RBC 3.55 L (4.10-5.20) X 10*6/uL Hgb 11.8 L (12.0-15.0) g/dL MCV 106.8 H (80.0-97.0) FL MCH 33.2 H (27.0-32.0) pg MCHC 31.1 L (32.0-37.0) g/dL MPV 9.4 L (9.5-12.2) FL Immature Gran # 0.06 H (0.00-0.04) X 10*3/uL Eosinophils # 0.01 L (0.04-0.35) X 10*3/uL Potassium 3.3 L (3.5-5.5) mmol/L BUN/Creatinine Ratio 22.75 H (12.00-20.00) Ratio Microbiology - Last 24 Hours (Table) 03/28/24 10:15 Gram Stain - Final Sputum Sputum Culture - Final Laly albicans 03/24/24 15:54 Blood Culture - Final Blood Assessment and Plan (1) Asthma exacerbation Current Visit: Yes Status: Acute Code(s): J45.901 - UNSPECIFIED ASTHMA WITH (ACUTE) EXACERBATION SNOMED Code(s): 752642558 (2) Pneumonia Current Visit: Yes Status: Acute Code(s): J18.9 - PNEUMONIA, UNSPECIFIED ORGANISM SNOMED Code(s): 314786150 Plan: 1patient presented to hospital with increasing shortness of breath cough and wheezing in this patient did have a history of chronic asthma concerning for exacerbation of the asthma possible tracheobronchitis clinically not behaving as pneumonia in this patient who did not have any fever elevated white count chest x-ray was reported negative but did have a history of Pseudomonas pneumonia in July 2023 2-sputum could not be collected patient did have abnormality on the CT of the chest concerning for infectious/inflammatory bronchiolitis 3-patient did have some clinical improvement and not very clear how much of the antibiotic courses do not have this patient however the patient did have abnormal finding on the CT of the chest and did have some improvement with the cefepime however sputum has been negative for resistant pathogen patient had been insisting on continuation of IV cefepime on discharge will discuss further with admitting team Dictation was produced using [employer] dictation software. please excuse any grammatical, word or spelling errors. Time with Patient: Less than 30
[2024-03-30 16:16] VITALS: PULSE 92
[2024-03-30] MEDS: POTASSIUM CHLORIDE ER 20 MEQ TAB.ER PO STA (17:00)
== END 2024-03-30 17:34 | disposition home or self-care (01) | DRG 202 ==
LOC: EC 15:18 → 4SSUR 15:34
PROVIDERS: ADMIT Internal Medicine; ATTEND Internal Medicine
DX: J45.41 Moderate persistent asthma with (acute) exacerbation (principal); E87.1 Hypo-osmolality and hyponatremia; J21.9 Acute bronchiolitis, unspecified; I42.9 Cardiomyopathy, unspecified; E87.6 Hypokalemia; E78.2 Mixed hyperlipidemia; I50.9 Heart failure, unspecified; I11.0 Hypertensive heart disease with heart failure; K21.00 Gastro-esophageal reflux disease with esophagitis, without bleeding; M06.9 Rheumatoid arthritis, unspecified; G89.29 Other chronic pain; M19.90 Unspecified osteoarthritis, unspecified site; M81.0 Age-related osteoporosis without current pathological fracture; K58.9 Irritable bowel syndrome, unspecified; F41.9 Anxiety disorder, unspecified; J30.9 Allergic rhinitis, unspecified; F17.200 Nicotine dependence, unspecified, uncomplicated; M54.9 Dorsalgia, unspecified; Z79.899 Other long term (current) drug therapy; Z87.11 Personal history of peptic ulcer disease
CPT/HCPCS: 71046; 71250; 80048; 80053; 80202; 83605; 84145; 85025; 87040; 87070; 87205; 87636; 93005; 94640; 94760; 96365; 96366; 96367; 96375; 99285

== ENCOUNTER 2024-05-03 11:48 | Day surgery (SDC) | payer BC ==
[~2024-05-03 11:48] MED LIST changes: -ACETAMINOPHEN TAB 500 MG TAB PO PRN; -DEXAMETHASONE SOD PHOSPHATE 4 MG/ML 1 ML VIAL IV ONE; -GABAPENTIN 300 MG CAP PO PRN; -HYDROmorphone 0.5 MG/0.5 ML SYRINGE IVP PRN; +LACTATED RINGERS 1,000 ML IV SCH; -MELOXICAM 7.5 MG TAB PO PRN; -METOCLOPRAMIDE 5 MG/ML 2 ML VIAL IVP PRN; -ONDANSETRON 4 MG/2 ML VIAL IVP ONE; -ONDANSETRON 4 MG/2 ML VIAL IVP PRN; +fentaNYL (PF) 50 MCG/ML 2 ML AMP IV PRN
[2024-05-03] MEDS: IV FLUID CONTINUATION 1,000 ML IV ONE (12:16)
[2024-05-03 12:23] VITALS: TEMP 97.8
[2024-05-03] MEDS: LACTATED RINGERS 1,000 ML IV SCH (12:35)
[2024-05-03] MEDS: ONDANSETRON 4 MG/2 ML VIAL IVP PRN (12:35)
[2024-05-03 12:37] LABS: Glucose,Whole Blood 92 mg/dL (70-110)
[2024-05-03] MEDS ORDERED: PROPOFOL 10 MG/ML 20 ML VIAL IV ONE (12:55)
[2024-05-03] MEDS ORDERED: LIDOCAINE 1% INJ 10MG/ML (20 ML MDV) ONE (12:55)
[2024-05-03] MEDS: LIDOCAINE 2% INJ 20 MG/ML INTRATRACH ONE ×2 (13:00→13:06)
[2024-05-03 13:54] VITALS: BP 138/75; PULSE 99; RESP 20
--- NOTE | 2024-05-03 19:55 | OP ---
OPERATIVE REPORT DATE OF SERVICE : PROCEDURES: Bronchoscopy and random bronchoalveolar lavage. PREOPERATIVE DIAGNOSIS: Chronic cough. POSTOPERATIVE DIAGNOSES: Recurrent Pseudomonas infection and suspect possible bronchiectasis. ANESTHESIA USED: IV conscious sedation. DESCRIPTION OF PROCEDURE: The patient was brought into the bronchoscopy suite, she was prepared according to the bronchoscopy protocol. O2 was applied via Ventimask. We monitored O2 saturation continuously. Blood pressure was intermittently monitored, and cardiac rhythm was continuously monitored. After adequate IV conscious sedation, the patient had a bite block placed, and the bronchoscope was advanced through the bite block down to the area of the vocal cords. The vocal cords were patent and unremarkable. Then, after lidocaine applied over the vocal cords, the bronchoscope was advanced further down to the trachea. Thorough examination done of trachea, right upper lobe, right middle lobe, right lower lobe, left upper lobe, lingula, and left lower lobe. There was actually significant amount of purulent secretions completely impacting the airways including the right upper lobe, left lower lobe, lingula, and left upper lobe. There is also some purulent secretions studded in the right lower lobe. Lavage was done of all the different lobes, until all the purulent secretions were suctioned and cleared. The patient tolerated the procedure well, fluid was sent for different diagnostic studies, no complications. Cultures are pending. MMODL / IJN: [id number] /
[2024-05-04 22:34] LABS: Appearance,BF Cloudy (Clear); RBC, Body Fluid 260 /UL (0-2000)
[2024-05-07 09:19] LABS: Nucleated Cells, Body Fluid 645 /UL
== END 2024-05-03 14:17 | disposition home or self-care (01) ==
LOC: ORWHC2ENDO 11:48
PROVIDERS: ATTEND Internal Medicine
DX: B37.1 Pulmonary candidiasis (principal); R05.3 Chronic cough; J15.1 Pneumonia due to Pseudomonas; J45.50 Severe persistent asthma, uncomplicated; J32.9 Chronic sinusitis, unspecified; M06.9 Rheumatoid arthritis, unspecified; K21.9 Gastro-esophageal reflux disease without esophagitis; F17.210 Nicotine dependence, cigarettes, uncomplicated; I10 Essential (primary) hypertension; E78.5 Hyperlipidemia, unspecified; I42.8 Other cardiomyopathies; M79.7 Fibromyalgia; K58.9 Irritable bowel syndrome, unspecified; M47.816 Spondylosis without myelopathy or radiculopathy, lumbar region; M47.812 Spondylosis without myelopathy or radiculopathy, cervical region; M81.0 Age-related osteoporosis without current pathological fracture; G50.0 Trigeminal neuralgia; Z79.899 Other long term (current) drug therapy; Z88.5 Allergy status to narcotic agent; Z90.49 Acquired absence of other specified parts of digestive tract; Z98.51 Tubal ligation status; Z91.040 Latex allergy status; Z91.09 Other allergy status, other than to drugs and biological substances; Z98.890 Other specified postprocedural states
CPT/HCPCS: 87798 ×3; 87496; 87498; 87529; 88108; 88305; 89050; 87502; 87634; 87070; 87205; 87116; 87102; 87077; 87186; 87206; 87635; 31624; J2405; J2003 ×2; J2704

== ENCOUNTER → 2024-08-21 | Outpatient (CLI) | payer BC ==
--- NOTE | 2024-08-21 11:48 | CT ---
EXAMINATION TYPE: CT sinus wo con CT DLP: 611 mGycm, Automated exposure control for dose reduction was used. DATE OF EXAM: 08/21/2024 11:39 AM COMPARISON: None. 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 TECHNIQUE: Multiple thin axial images were obtained through the paranasal sinuses without the use of IV contrast. Additional coronal and sagittal reformatted images were submitted for evaluation. FINDINGS: Dental amalgam creates streak artifact which limits evaluation. Frontal sinuses: Normally developed. Minimal mucosal thickening in the bilateral frontal sinuses. Maxillary Sinuses: Normally developed. Postsurgical changes from bilateral medial maxillary wall antr ostomy. The right maxillary sinus is clear. Inferior left maxillary sinus 7 mm mucous retention cyst. Otherwise clear. Maxillary Infundibula([facility]): Post surgical changes. No Alpesh cells. Widely patent. Ethmoid sinuses: Normally developed. Postsurgical changes. Mild mucosal thickening of the right ethmo id sinus. The left ethmoid sinus is clear. Ethmoidal notch: Protected and abutting the lateral lamina . Sphenoid sinuses: Normally developed and aerated. Postsurgical changes. There is sellar sphenoid sinu s pneumatization without evidence of dehiscence. No dehiscence of carotid canal. No evidence of opti c nerve dehiscence within the sphenoid sinus. No evidence of Onodi cells. Nasal septum: Mild nasal septal deviation of the left.. Nasal Turbinates: Within normal limits. A tahira bullosa defect is seen involving the left middle tur binate. Mastoid air cells & middle ears: The air cells are clear. The middle ears are grossly unremarkable. Modified Soft tissues & Brain: Partially seen without gross abnormality. Globes are intact. Other: Cribriform plate demonstrates symmetric Keros classification type 2 cribriform plate. No evidence of bony dehiscence of skull base. Lamina papyracea is intact without evidence of remote orbital fracture or orbital prolapse into the e thmoid sinus. Pneumatization of the josh amber. IMPRESSION: 1. Minimal to mild paranasal sinus disease involving the right ethmoid sinus and bilateral frontal si nuses. 2. Postsurgical changes of the sinuses. [facility], , 08/21/2024 11:46 AM
== END | disposition home or self-care (01) ==
LOC: RADCTMAIN 10:10
PROVIDERS: ATTEND Internal Medicine
DX: J32.0 Chronic maxillary sinusitis (principal); J34.89 Other specified disorders of nose and nasal sinuses; J34.2 Deviated nasal septum; Z98.890 Other specified postprocedural states
CPT/HCPCS: 70486

== ENCOUNTER → 2024-09-18 | Outpatient (CLI) | payer BC ==
[2024-09-18 07:43] VITALS: BP 117/77; PULSE 58; RESP 16; TEMP 97.3
--- NOTE | 2024-09-18 08:28 | XR ---
EXAMINATION TYPE: XR lumbar spine 2 or 3V DATE OF EXAM: 09/18/2024 8:22 AM COMPARISON: 08/18/2021. CLINICAL INDICATION: Female, 64 years old with history of M54.16 RADICULOPATHY, LUMBAR REGION; PHH, p ain TECHNIQUE: XR lumbar spine 2 or 3V - Frontal, lateral and coned in L5-S1 lateral views of the spine. FINDINGS: Postsurgical changes spine L3, L4, L5 and S1. Discectomy at L3-L4 L4-L5 and L5-S1. Posterio r nerve stimulator leads present. Posterior back catheter is present. No evidence of any acute osseou s pathology. Mild wedging of T12 anteriorly with 25% height loss. There is postsurgical alignment of the lumbar vertebral bodies. Scattered disc space narrowing. Multilevel marginal osteophyte formation throughout the visualized spine. There is facet joint arthropathy throughout the spine. Scattered at least mild neural foraminal stenosis. IMPRESSION: 1. No acute fracture. 2. Postsurgical changes hardware appears intact. 3. Multilevel degeneration changes of the spine. [facility], , 09/18/2024 8:26 AM
--- NOTE | 2024-09-18 15:08 | P.PAINPG ---
Objective - Vital Signs Vital signs: Intake & Output 09/17/24 09/18/24 09/18/24 18:59 06:59 18:59 Weight 76.204 kg PQRS Measure Charge Sheet Comment: HISTORY OF PRESENT ILLNESS: A 64 yr old female as a referral from [facility] presents today w severe and chronic LBP > 6 mo secondary to L3-L5 Decompression w Fusion/ L4-S1 Fixation w L3-L5 Laminectomy and L5-S1 disc prosthesis for evaluation. Pt states pain level is provoked at 4-8 /10 in intensity, constant, localized in the lumbar spine, predominantly axial, throbbing in character w occasional shooting pain towards the buttocks, hips and LEs. Pain is provoked by weight bearing. Pain is alleviated by PT x 1 wks which she is currently in, heat, ice, medications, topical, repositioning and rest . Oswestry axial pain score at 26. PMH: OA, Asthma, GERD, RA, HH, IBS PSH: C4-C5 Fusion (2020), L3-L5 Decompression/ Fusion/ L4-S1 Fixation w L3-L5 Laminectomy and L5-S1 disc prosthesis, Sinus Surgery x2, Occipital PNS/ Lumbar SCS, Cholecystectomy, Heart Catheterization, Hernia Repair, BL CTR, Tubal Ligation, Colonoscopy/ EGD SH: Former tobacco user, No ETOH use, No illicit drug use FH: Fa- MT. Mo- Bladder CA. Hx of Malignant Hyperthermia All: See list Medications include Flexeril, Ibu, Lidoderm REVIEW OF ORGAN SYSTEMS: CONSTITUTIONAL: No fevers or chills. No recent weight loss. NEUROLOGICAL: + numbness and tingling along the distal extremities. No seizure disorders or headaches. MUSCULOSKELETAL: + pain PSYCHIATRIC: Denies current depression or suicidal thoughts. Physical Examinations : Constitutional : Cooperative , not in acute distress . Neurologic : Cranial nerve II to XII intact. No focal neurological deficits. Psychiatric : alert & oriented x 3. Matching mood & appropriate affect. Judgment & insight intact. Musculoskeletal : Cervical Spine Motor strength in the deltoid and biceps: Normal right side. Normal Left side Motor strength biceps and the wrist extensors: Normal right side . Normal left side Motor strength in the triceps muscle: Normal right side. Normal left side Deep tendon reflexes: Normal at the biceps. Normal at Brachioradialis. Normal at triceps Vertebral body tenderness to deep palpation over Cervical facet loading test: positive bilaterally Spurling test: positive bilaterally Neck distraction test: positive bilaterally Sophie sign: positive bilaterally Lumbar spine +Incisional Scars Motor strength lower extremities ,thigh and legs 5/5 Right side , 5/5 Left side Deep tendon reflexes : Normal Knee Jerk. Normal Ankle Jerk Vertebral body tenderness over Finch Test positive Lumbar facet Loading Test: positive Right / positive Left Range of motion of the lumbar spine Flexion 30 degrees, extension 10 degrees Straight Leg Raise test: Left/ Right positive at degrees Ely test: positive right / positive left. Severe tenderness over the Sacroiliac joint on the Right / Left sides Gaenslen test: positive bilaterally Seated flexion test: positive bilaterally. Sacral spine : Severe tenderness over the Sacroiliac joint: right side / left side Range of motion: Flexion of the lumbar spine <60 degrees Range of motion: Extension of the lumbar spine <20 degrees Gaenslen's Test positive Ely test: positive right side / left side Thigh Thrust Test Sacral Thrust Test Imaging: CT non contrast lumbar spine from 08/24/21 reviewed Assessment/ Plan : L3-L5 Decompression w Fusion/ L4-S1 Fixation w L3-L5 Laminectomy and L5-S1 disc prosthesis Recommendation of lumbar x ray M54.16 Would benefit from Caudal SALIMA w Lysis at a later time. All questions answered. I have spent greater than 30 minutes on patient care today. Dr Garcia was available by phone for the evaluation of this patient. The time was used to review the medical records including relevant urine studies and Prescription history (MAPs), review of the available imaging, evaluation and examination of the patient, coordination of care with the medical staff and if applicable referring physicians, as well as creation of the medical record PQRS Narrative: Smoking Status Current every day smoker Narcotic Agreement Date Signed 02/05/15 Hx Alcohol Use (MH) No Home Medications: Ambulatory Orders Abatacept/Maltose [Orencia] 1 dose IVPB QMONTH 09/25/13 Montelukast [Singulair] 10 mg PO DAILY 09/25/13 Nitroglycerin Sl Tabs [Nitrostat] 0.4 mg SUBLINGUAL Q5M PRN 09/25/13 buPROPion SR [Wellbutrin SR] 150 mg PO TID 12/18/14 carvediloL [Coreg] 6.25 mg PO BID 02/06/15 Albuterol Inhaler [Ventolin Hfa Inhaler] 1 - 2 puff INHALATION RT-QID PRN 04/22/21 Levocetirizine Dihydrochloride [Xyzal] 5 mg PO HS 04/22/21 Atorvastatin [Lipitor] 40 mg PO HS 08/07/21 Lansoprazole [Prevacid] 30 mg PO DAILY 08/07/21 Lubiprostone [Amitiza] 24 mcg PO BID 08/07/21 Olopatadine HCl [Patanol 0.1%] 1 - 2 drop BOTH EYES BID 08/07/21 sulfaSALAzine [sulfaSALAzine Dr] 1,500 mg PO BID 08/07/21 Albuterol Nebulized [Ventolin Nebulized] 2.5 mg INHALATION RT-Q4H PRN 08/22/21 Albuterol Sulfate/Budesonide [Airsupra 90-80 Mcg Inhaler] 2 puff INHALATION RT- Q6H PRN 03/24/24 Ascorbic Acid [Vitamin C] 1,000 mg PO DAILY 03/24/24 Clindamycin Phosphate [Cleocin T 1%] 1 applic TOPICAL BID 03/24/24 Ibuprofen [Motrin] 800 mg PO BID PRN 03/24/24 Mometasone Furoate [Nasonex 50 MCG] 2 spray NASAL DAILY PRN 03/24/24 Tezepelumab-Ekko [Tezspire] 210 mg SQ QMONTHLY 03/24/24 Tretinoin [Retin-A 0.1%] 1 applic TOPICAL DAILY 03/24/24 Benzonatate [Tessalon Perles] 200 mg PO TID PRN #21 cap 03/30/24 Albuterol Sulfate/Budesonide [Airsupra 90-80 Mcg Inhaler] 1 puff INHALATION 09/18/24 Budesonide/Glycopyr/Formoterol [Breztri Aerosphere Inhaler] 1 puff INHALATION 09/18/24 Cyclobenzaprine [Flexeril] 10 mg PO HS 09/18/24 Denosumab [Prolia] 60 mg SQ 09/18/24 Levalbuterol Nebulized [Xopenex Nebulized] 1.25 mg INHALATION 09/18/24 SUMAtriptan [Imitrex Nasal [place]] 5 mg NASAL 09/18/24 Sodium Chloride 0.9% Nebuliz [Saline 0.9% For Nebulization] 3 ml INHALATION 09/18/24 traMADol HCL 50 mg PO Q6H 09/18/24 Controlled Substance Measures - Controlled Substance Measures Is patient prescribed a controlled substance at discharge?: No
== END ==
LOC: PNWHC3 07:18
PROVIDERS: ATTEND Specialist
DX: M43.26 Fusion of spine, lumbar region (principal); M51.360 Other intervertebral disc degeneration, lumbar region with discogenic back pain only; M96.1 Postlaminectomy syndrome, not elsewhere classified; F17.200 Nicotine dependence, unspecified, uncomplicated; Z91.040 Latex allergy status; Z88.5 Allergy status to narcotic agent; Z91.048 Other nonmedicinal substance allergy status
CPT/HCPCS: 72100; 99211

== ENCOUNTER → 2024-11-06 | Outpatient (CLI) | payer BC ==
--- NOTE | 2024-11-06 12:42 | FL ---
EXAMINATION TYPE: FL barium swallow w video DATE OF EXAM: 11/06/2024 CLINICAL HISTORY: 64-year-old female J47.9, uncomplicated bronchiectasis, food sticking, coughing, Dy sphagia. History of previous hiatal hernia repair. TECHNIQUE: Deglutition study is performed utilizing thin liquid barium, barium thick pudding, and ba rium coated cracker. Total fluoroscopy time 1 minute 57 seconds. Total images: None. Real-time fluoroscopy support was provided to speech pathology. Total DAP: 100 mGycm2. COMPARISON: None. FINDINGS: Patient with ACDF hardware. The oral and pharyngeal phases show satisfactory initiation and propagation with all modalities tested. Normal mastication is seen with solid modalities tested. T here is no evidence of penetration or aspiration with any modality tested. No significant pharyngeal residue was appreciated. IMPRESSION: No penetration or aspiration. Please refer to speech therapist notes for further details if necessary. [facility], , 11/06/2024 12:40 PM
== END | disposition home or self-care (01) ==
LOC: RADFLMAIN 11:20
PROVIDERS: ATTEND Internal Medicine
DX: J47.9 Bronchiectasis, uncomplicated (principal); Z98.890 Other specified postprocedural states
CPT/HCPCS: 74230

== ENCOUNTER → 2024-12-03 | Outpatient (CLI) | payer BC ==
--- NOTE | 2024-12-03 11:53 | XR ---
EXAMINATION TYPE: XR chest 2V DATE OF EXAM: 12/03/2024 11:46 AM COMPARISON: Chest radiographs from 03/24/2024, CT chest 03/26/2024 TECHNIQUE: XR chest 2V Frontal and lateral views of the chest. CLINICAL INDICATION:Female, 64 years old with history of J41.1 Bronchitis; FINDINGS: Lungs/Pleura: There is no evidence of pleural effusion, focal consolidation, or pneumothorax. Pulmonary vascularity: Unremarkable. Heart/mediastinum: Cardiomediastinal silhouette is unremarkable. Musculoskeletal: No acute osseous pathology. Thoracic spinal stimulator leads. Anterior cervical fusi on hardware. Other: Right neck stimulator leads. Surgical clips in the upper abdomen. IMPRESSION: No acute cardiopulmonary disease/process. [facility], , 12/03/2024 11:50 AM
--- NOTE | 2024-12-03 11:58 | XR ---
EXAMINATION TYPE: XR thoracic spine complete DATE OF EXAM: 12/03/2024 11:46 AM INDICATION: Patient age:Female; 64 years old; Reason for study: M47.814 Spondylosis; PHH. pain COMPARISON: CT chest 03/26/2024, CT thoracic spine 01/02/2021 TECHNIQUE: 3 views of the thoracic spine in until, lateral, and swimmer's projections. FINDINGS: No evidence of acute fracture. Multilevel disc space narrowing with endplate sclerosis of the thoraci c spine there is normal alignment of the thoracic vertebral bodies. Thoracic spine is significantly l mary terminating at the mid thoracic spine. Additional lumbar spinal stimulator leads. Surgical clips at the GE junction. Anterior cervical fusion hardware demonstrated. Cervical stimulator leads within the right neck with few surgical clips. IMPRESSION: 1. No acute osseous pathology. 2. Multilevel degenerative disc disease of the thoracic spine. [facility], , 12/03/2024 11:56 AM
--- NOTE | 2024-12-03 12:01 | XR ---
EXAMINATION TYPE: XR cervical spine w flex/ext DATE OF EXAM: 12/03/2024 11:46 AM INDICATION: Patient age:Female; 64 years old; Reason for study: M47.813 Spondylosis; PHH, pain COMPARISON: CT cervical spine 04/28/2021, 02/24/2021, cervical spine radiograph 04/28/2021 TECHNIQUE: The cervical spine was imaged in lateral, lateral flexion, lateral extension, frontal, renny ateral oblique, and odontoid projections. FINDINGS: Postsurgical changes from ACDF with intervertebral disc hardware at C4-C5. Hardware appears intact wi th appropriate alignment. Prominent disc space narrowing with endplate sclerosis at C6-C7. At least m ild bilateral neuroforaminal stenosis at C6-C7. No acute fracture. Pedicles are intact. Soft tissue s are within normal limits. The odontoid appears intact. Stimulator leads identified within the poste rior upper neck. Surgical clips identified within the right neck soft tissues. IMPRESSION: 1. No fracture or dislocation. 2. Postsurgical changes ACDF C4-C5. Hardware appears intact. 3. Degenerative disc disease with bilateral neural foraminal stenosis at C6-C7. [facility], , 12/03/2024 11:59 AM
== END | disposition home or self-care (01) ==
LOC: RADXRMAIN 11:08
PROVIDERS: ATTEND Internal Medicine
DX: J41.1 Mucopurulent chronic bronchitis (principal); M51.34 Other intervertebral disc degeneration, thoracic region; Z98.890 Other specified postprocedural states; M50.323 Other cervical disc degeneration at C6-C7 level; M99.71 Connective tissue and disc stenosis of intervertebral foramina of cervical region; M47.813 Spondylosis without myelopathy or radiculopathy, cervicothoracic region; M47.814 Spondylosis without myelopathy or radiculopathy, thoracic region
CPT/HCPCS: 71046; 72052; 72072